=== PATIENT | female | born 1935 | race Caucasian/White ===

== ENCOUNTER 2018-01-01 11:30 | Outpatient (RCR) | payer MEDICARE, SELFPAY ==
--- NOTE | 2017-12-07 10:49 | HP.PTEVAL_ITS ---
Patient's Visit Information ALTON WILCOX is a 82 year old F referred to Physical Therapy by Chong Simmons with a diagnosis of unsteady gait. Date of Evaluation: 12/07/17 Physical Therapist: Jaren Heaton DPT, OC - Visit Plan Frequency: 2x /Week Duration: 4 Weeks Plan: 2x/week for 4 weeks to work on... 1. foam balance, ec balance and gait with head movements and turns. 2. Sink based LE strength. 3. Progress both to HEP with pics as safety allows. - Subjective Subjective: Sees Abelardo for nerve pain in face. Had brain surgery years ago for meningioma non cancerous. Has had nerve pain since then. Gave pills for nerve pain. They don't help. Doc office noticed walking was not good. Fell about a year ago stepping on object and tripped on it. Was walking at night and did not turn on lights. Had some pain but no injuries. Laid down for three days because could not get up. Went to ER. Fell acouple times since taking facial pain pills but was taking them wrong and has corrected that. Balance has been a prpoblem since surgery. Has some diabetic neuropathy possibly. No spinning. Feels weak. Sleeping OK. Lives alone in one story house, with no steps. Has ramps. Cooks and cleans for self. Buys gorceries and drives self. Uses can sometimes but not much. Uses it outside if slippery. - Pain LBP Pain Intensity (Out of 10): 0 Pain Intensity Range: 0, 4 Comment: constant, worse walking. - Objective Walks with cane back to PT mod I but slow, mild R antalgia. Without cane walk I on firm flat surfcae. reflexes 2/3 in patella and achilles. UE adn LE AROM WFL, ankle DF limited B to neutral. sensation in LE appears at deficit from knee down B. Hard to heel raise but otherwise strength in LE 4/5 without myotomal problems. Coordination to reciprocal toe and heel tap is min deficits. VOR is OK sitting , challenging walking and tends to stop moving head. - Balance Scores Functional Gait Assessment Score: 15 % Disability: 50.0000 CATSIB Score (Max score 120 seconds): 90 - Goals Goal 1:: 20/30 FGA to minimzie fall risk Goal Time Frame: 2-4 Weeks Goal 2:: Pt feel 50% steadier and improved balance. Goal Time Frame: 2-4 Weeks Goal 4:: Pt I with approp HEP for LE strength adn balance to minimize future problems. Goal Time Frame: 2-4 Weeks - Rehabilitation Potential Physical Therapy Diagnosis: Unsteady from neuropathy and sedntary. Rehabilitation Potential: Fair - Anticipated Interventions Patient/Client Instruction: Educate patient on: Condition, Plan of Care For the Purpose of:: To improve balance, To improve safety Therapeutic Exercise to Include: Strength training, Balance training, Gait and locomotor training For the Purpose of:: To improve balance, To improve safety with gait, To improve safety Thank you for the opportunity to evaluate your patient. For Medicare and Medicare HMO plans, please review the plan of care and approve it. It will need to be FAXED BACK to us at [phone] for Medicare purposes. Please let me know if there are questions or concerns regarding this plan of care. Physician Signature: Date:
--- NOTE | 2018-01-01 12:31 | HP.PTDCSUM ---
HP - PT D/C Summary It has been my pleasure to treat ALTON WILCOX under orders from Tuan Zhou MD, for the diagnosis of unsteady gait for a total of 9 visit(s). Discharge Date: 01/01/18 Please see the following information for a summary of their discharge status. - Subjective Subjective: Sore after workout in LB and right buttock. Gets up to 6/10 most of time and is 5/10 typically. Has to stop what she is doing to lie down sometimes due to pain. Feels like balance might be a little better but hard to tell. No falls latelya nd using cane all the time. Doing what she needs to do at home and doing exercises daily. Has to be careful when pain gets bad(if on feeet alot). - Pain LBP Pain Intensity (Out of 10): 5 - Overall Improvement % Improvement: 10 - Objective Objective/Function: Pt doing somewhat better with balance and strength, does not wish to continue in clinic but agreeable to continue via HEP. - Goals Goal 1:: FGA to minimzie fall risk Goal Progress: Progressing Goal 2:: Pt feel 50% steadier and improved balance. Goal Progress: SLOW Goal 4:: Pt I with approp HEP for LE strength adn balance to minimize future problems. Goal Progress: Goal Met - Plan Plan: D/C - D/C Information Discharge Comments: Pt does not wish to continue PT but will continue at home via HEP strengthening. If there are questions or concerns regarding this patient's physical therapy, please feel free to call me at [phone]. Thank you for the referral of this patient. Sincerely, Jaren Heaton, DPT, OC
== END 2018-01-01 19:00 | disposition home or self-care (01) ==
LOC: PT 11:30
PROVIDERS: Family Provider Family Medicine; PCP Family Medicine; Visit Provider Psychiatry & Neurology Neurology
DX: R26.81 Unsteadiness on feet (principal)
CPT/HCPCS: 97110; 97116; 97162; 97530

== ENCOUNTER → 2018-03-16 10:48 | Outpatient (CLI) | payer MEDICARE, SELFPAY ==
[2018-03-16 11:51] LABS: Carbamazepine (Tegretol) 3.3 ug/mL (4.0-12.0)
== END ==
PROVIDERS: Family Provider Family Medicine; PCP Family Medicine
DX: G50.0 Trigeminal neuralgia (principal)
CPT/HCPCS: 36415; 80156

== ENCOUNTER → 2018-07-04 12:42 | Outpatient (CLI) | payer MEDICARE, SELFPAY | PROVIDERS: Family Provider Family Medicine; PCP Family Medicine | DX: G45.8 Other transient cerebral ischemic attacks and related syndromes (principal); I74.9 Embolism and thrombosis of unspecified artery; B39.3 Disseminated histoplasmosis capsulati | CPT/HCPCS: 93306; 93880; A4216 ==

== ENCOUNTER → 2019-01-21 11:10 | Outpatient (CLI) | payer MEDICARE, SELFPAY ==
[2019-01-14 10:47] VITALS: BMI 30.4
[2019-01-21 12:50] LABS: Anion Gap 6 (5-15); BUN 20 mg/dL (7-18); BUN/Creat Ratio 22.1 RATIO (10-20); Calcium,Total 8.8 mg/dL (8.5-10.1); Chloride 107 mmol/L (98-107); Creatinine, Serum 0.91 mg/dL (0.55-1.02); EST Glomerular Filtration Rate 63 mL/min (>60); Est Glom Filt Rate - Afr Amer 76 mL/min (>60); Glucose 94 mg/dL (74-106); Potassium 4.1 mmol/L (3.5-5.1); Sodium Level 143 mmol/L (136-145)
== END ==
PROVIDERS: Family Provider Family Medicine; PCP Family Medicine; Referring Provider Physician Assistant Medical; Visit Provider Physician Assistant Medical
DX: I10 Essential (primary) hypertension (principal); I48.0 Paroxysmal atrial fibrillation
CPT/HCPCS: 36415; 80048

== ENCOUNTER → 2019-02-11 09:54 | Outpatient (CLI) | payer MEDICARE, SELFPAY ==
[2019-01-14 10:47] VITALS: BMI 30.4
--- NOTE | 2019-02-11 09:55 | ECHOD_ITS ---
Reason For Study: HTN Procedure This was a 2D Doppler, Color Flow transthoracic echocardiogram. Exam performed in department. Left Ventricle Normal LV size. Mild concentric left ventricular hypertrophy. Left ventricular systolic function is normal. The estimated ejection fraction is 55 %. Stage 1 diastolic dysfunction. No regional wall motion abnormalities noted. Right Ventricle Normal RV size. Normal systolic function. Atria The left atrium is mildly enlarged. Normal right atrium. Mitral Valve Mild mitral annular calcification. Mild (1+) eccentric mitral valve insufficiency. Tricuspid Valve Normal tricuspid valve. Mild (1+) tricuspid valve insufficiency. Pulmonary artery systolic pressure is 40 mmHg. Aortic Valve Trisinus/trileaflet aortic valve. Mild focal aortic valve calcification. Mild (1+) eccentric aortic valve insufficiency. Pulmonic Valve Normal pulmonic valve. Great Vessels Normal aortic root. The pulmonary artery is normal size. Normal inferior vena cava. Pericardium/Pleural No pericardial effusion. MMode/2D Measurements & Calculations LVIDd: 3.1 cm IVSd: 1.3 cm LVOT diam: 2.1 cm LVIDs: 1.8 cm LVPWd: 1.3 cm LVOT area: 3.6 cm2 RVDd: 3.3 cm FS: 44.1 % Ao root diam: 4.2 cm LAV(MOD-bp): 67.4 ml LA A4 area: 23.9 cm2 LAV(MOD-bp) Indexed: 36.9 ml/m2 LAV(MOD-sp2): 59.0 ml LAV(MOD-sp4): 71.8 ml LA dimension(2D): 3.5 cm RA A4 area: 18.4 cm2 Doppler Measurements & Calculations MV E max irving: 48.6 cm/sec Lat Peak E' Irving: 7.4 cm/sec Med Peak E' Irving: 3.7 cm/sec MV A max irving: 109.0 cm/sec E/E' lat: 6.6 E/E' med: 13.2 MV E/A: 0.45 Ao V2 max: 179.2 cm/sec AI max irving: 452.2 cm/sec LV V1 max: 161.5 cm/sec Ao max P.9 mmHg AI max P.9 mmHg LV V1 max P.4 mmHg Ao V2 mean: 124.5 cm/sec AI dec slope: 336.0 cm/sec2 LV V1 mean P.7 mmHg Ao mean P.8 mmHg AI P1/2t: 394.1 msec LV V1 mean: 113.8 cm/sec Ao V2 VTI: 31.6 cm LV V1 VTI: 28.8 cm GILLIAN(I,D): 3.3 cm2 GILLIAN(V,D): 3.2 cm2 SV(LVOT): 102.9 ml PA V2 max: 109.4 cm/sec TR max irving: 296.5 cm/sec TR max P.2 mmHg Interpretation Summary Normal LV size. Mild concentric left ventricular hypertrophy. Left ventricular systolic function is normal. The estimated ejection fraction is 55 %. Stage 1 diastolic dysfunction. Mild (1+) tricuspid valve insufficiency. Pulmonary artery systolic pressure is 40 mmHg. Ordering Physician: Juhi Keith/Kaushal Campos Referring Physician: KEAGAN Knott M.D. Performed By: Saida Cisneros RDCS
== END ==
PROVIDERS: Family Provider Family Medicine; PCP Family Medicine; Referring Provider Physician Assistant Medical; Visit Provider Physician Assistant Medical
DX: I48.0 Paroxysmal atrial fibrillation (principal)
CPT/HCPCS: 93306

== ENCOUNTER 2019-05-29 01:51 | Observation (INO) | payer MEDICARE, SELFPAY ==
[2019-05-29] VITALS (8 sets, daily range): BP systolic 154–182; BP diastolic 74–110; PULSE 54–84; RESP 16–20; TEMP 36.6–37.3; O2SAT 92–96; BMI 32.8; BMI 30.8
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
--- NOTE | 2019-05-29 02:09 | RAD_ITS ---
HISTORY: CONFUSIONDENIES ANY CHEST/BREATHING PROBLEMS EXAM: XR Chest 1 View COMPARISON: November 19, 2016 FINDINGS: LINES/DEVICES: None. LUNGS: There are chronic interstitial changes. No pneumothorax. No consolidation or effusion. MEDIASTINUM AND CARDIOVASCULAR STRUCTURES: Cardiac silhouette enlarged. Central airways and mediastinal contour are unremarkable. Athersclerotic plaque within the aortic arch. BONES AND SOFT TISSUES: Thoracic spondylosis. RAD/Chest 1 View (Portable) IMPRESSION: Chronic interestitial changes. No radiographic evidence of acute cardiopulmonary disease. at 0254 Reported and signed by: Emeka Batista MD Electronically Signed: Emeka Batista MD at 2:53 EDT Tel , Service support ,
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
[2019-05-29 02:22] LABS: Absolute Lymphocyte Count 0.86 X10^3/uL (0.83-4.51); Absolute Neutrophil Count 4.9 X10^3/uL (2.0-7.7); Basophil# 0.05 X10^3/uL; Basophil% 0.8 % (0-1); Hematocrit 44.6 % (37-47); Hemoglobin 15.5 g/dL (12.0-15.0); Lymphocyte # 0.86 X10^3/ul (4.0); Lymphocyte % 13.1 % (19-41); Mean Corp Hgb Conc 34.8 g/dL (32-36); Mean Corpuscular Hgb 32.5 pg (27.0-32.0); Mean Corpuscular Volume 93.5 fL (81-99); Mean Platelet Vol. 9.1 fl (6.2-12.0); Monocyte# 0.58 X10^3/uL; Monocyte% 8.8 % (0-10); NRBC Flagged by Analyzer 0 % (0-5); Neutrophil # 4.88 X10^3/uL (2.7-7.7); Platelet Count 228 K/mm3 (150-450); RBC Distribution Width CV 12.6 % (11.6-14.6); Red Blood Count 4.77 M/mm3 (4.2-5.4); White Blood Count 6.6 K/mm3 (4.4-11.0)
[2019-05-29 02:35] LABS: ALB/GLOB Ratio 1.2 RATIO (0.9-2.4); AST(SGOT) 15 U/L (15-37); Alanine Aminotransfer ALT/SGPT 16 U/L (13-56); Albumin, Serum 3.7 g/dL (3.2-5.0); Alkaline Phosphatase 80 U/L (45-117); Anion Gap 7 (5-15); BUN 11 mg/dL (7-18); BUN/Creat Ratio 14.1 RATIO (10-20); Calcium,Total 8.8 mg/dL (8.5-10.1); Chloride 109 mmol/L (98-107); Creatinine, Serum 0.78 mg/dL (0.55-1.02); EST Glomerular Filtration Rate 75 mL/min (>60); Est Glom Filt Rate - Afr Amer 91 mL/min (>60); Estimated Creatinine Clearance 33.71 ml/min; Globulin 3.1 g/dL (2.2-4.2); Glucose 138 mg/dL (74-106); Potassium 3.8 mmol/L (3.5-5.1); Protein, Total 6.8 g/dL (6.4-8.2); Sodium Level 141 mmol/L (136-145)
[2019-05-29 02:38] LABS: Alcohol, Blood (Medical)-Serum < 3.0 mg/dL
[2019-05-29 02:52] LABS: Mucous, Urine 0 SEEN /hpf (<or=2+); Red Blood Cells-Urine 0 SEEN /hpf (0-5); Squamous Epithelial Cells - UA 0 SEEN /hpf (5-10)
[2019-05-29 02:54] LABS: Color, Urine Yellow (Yellow); Glucose, Dipstick Normal (Normal); Ketone-Dipstick Negative (Negative); Leukocyte Esterase-Dipstick 25 /ul (Negative); Nitrite-Dipstick Negative (Negative); Occult Blood-Urine Negative /ul (Negative); Protein-Dipstick Negative (Negative); Urine Bilirubin Dipstick Negative (Negative); Urine Clarity Clear (Clear); Urine Urobilinogen Normal (Normal)
[2019-05-29 03:00] LABS: Bacteria 2+ /hpf (None Seen); White Blood Cells 0-5 SEEN /hpf (0-5)
--- NOTE | 2019-05-29 03:25 | NURSING ---
[facility] PATIENTS VEHICLE
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
[2019-05-29] MEDS: oxyCODONE 5 MG Tablet PO (04:45)
[2019-05-29] MEDS: 0.9% NaCl Peripheral Flush Adult/Peds IV (04:46)
[2019-05-29] MEDS: Lactated Ringers 1,000 ML 100 ML IV (04:46)
[2019-05-29] MEDS: Enoxaparin 40 MG/0.4 ML Syringe SC (04:46)
[2019-05-29] MEDS: Metoprolol Tartrate 50 MG Tablet PO ×2 (04:47→22:19)
[2019-05-29 06:21] LABS: Bedside Glucose 166 mg/dL (70-110)
[2019-05-29 06:42] LABS: Magnesium 2.2 mg/dL (1.6-2.6); Thyroid Stim Hormone (TSH) 0.61 uIU/mL (0.358-3.74)
[2019-05-29] MEDS: Losartan Potassium 25 MG Tablet PO (08:04)
[2019-05-29] MEDS: Ascorbic Acid 500 MG Tablet 1000 MG PO (08:04)
--- NOTE | 2019-05-29 08:37 | PCM.PN.BLA ---
Progress Note Patient is an 84-year-old lady with multiple comorbidities brought to the emergency department with altered mental status. Work-up including head CT as well as infectious work-up so far negative to date admitted to regular nursing for further management 1. Acute encephalopathy do suspect underlying dementia with behavioral agitation patient work-up is so far remain negative today 2. Diabetes mellitus type 2: Patient is on Accu-Cheks before meals and at bedtime with sliding scale coverage 3. Paroxysmal atrial fibrillation: Remains in sinus rhythm 4. Hypertension-blood pressure controlled, home medications continued with dose adjustment as needed 5. Previous history of subarachnoid hemorrhage 6. Cardiac arrhythmias including PACs and PVCs patient is on beta-blockers next 7. DVT prophylaxis SC Lovenox
--- NOTE | 2019-05-29 10:54 | NURSING ---
Patient walking in hallway asking about how to get out of here. This nurse informed the patient that he was not certain whether she had been officially discharged at this time, instructed patient that nursing staff would look at her discharge closer but would need to get her back to her room first. Patient escorted back to room. Gait steady but patient with possible confusion. It was noted upon escorting her back to her room that she had dislodged her IV from her right antecubital area on her own. A piece of sterile gauze and tape were applied to the site in which the IV was previously inserted. No active bleeding noted although there was some blood noted to the patient's gown sleeve. Bed alarm applied and patient's primary RN made aware of situation.
[2019-05-29 11:31] LABS: Bedside Glucose 122 mg/dL (70-110)
--- NOTE | 2019-05-29 13:02 | CASEMGMT ---
Social Work Assessment Referral Date: 05/29/2019 Date of Assessment: 05/29/2019 Reason for consult: AMS, confusion Informant: SW Personal Status: SW met with pt to complete initial assessment. Pt is alert and orientated but does exhibit some confusion throughout conversation. Pt states that her brother lives with her in a one story home. Pt does state that her brother is not there all of the time. Pt states that her brother's name is Paul. SW asked pt about contact information for Paul and pt states It is the same number that is my number. Pt states that she was previously independent at home, states she still drives. Pt states previously independent with ADLs denies still cooking. Pt states she drives to [employer] and gets food that doesn't require cooking. DME include cane and walker. Pt denied using cane and walker unless she is out in the community. PCP is Dr. Knott and Pharmacy is [facility]. Pt states that she also has a sister in law named Tyra who is Paul's and identifies Tyra as being good support for pt. Substance Abuse HX: Pt denied Mental Health Hx: Pt denied SW educated pt on discharge options including SNF, HHC, and outpatient therapy. SW did review PT/OT notes and no therapy is recommended for pt. Pt states that she would like to discharge home, denied need for HHC at this time. Pt denied additional needs or concerns at this time. SW completed Mini Mental Status exam and pt scored a 15. SW attempted to call pt's brother Paul and the phone number doesn't work. SW placed a call to Tyra and left a message for Paul or Tyra to give this worker a call back to discuss discharge plans. Plan: Pt wishes to discharge home. Pt does exhibit some confusion and this worker is waiting to hear from either Paul or Tyra to confirm discharge plans. Cecilia Gr UNDERWATER ROBOTICIST, PROTOTYPE FABRICATOR
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
[2019-05-29] MEDS: hydrALAZINE 20 MG/ML Vial 10 MG IV (15:13)
[2019-05-29 15:50] LABS: Bedside Glucose 147 mg/dL (70-110)
[2019-05-29] MEDS: Acetaminophen 325 MG Tablet 650 MG PO (22:25)
[2019-05-29] MEDS: MELATONIN 3 MG TABLET PO (22:27)
[2019-05-29 22:51] LABS: Bedside Glucose 125 mg/dL (70-110)
[2019-05-30 02:14] VITALS: BP 133/70; PULSE 70; RESP 16; TEMP 36.9; O2SAT 95
[2019-05-30 06:31] LABS: Bedside Glucose 129 mg/dL (70-110)
[2019-05-30 09:15] VITALS: BP 140/66; PULSE 64; RESP 18; TEMP 36.9; O2SAT 95
[2019-05-30] MEDS: Metoprolol Tartrate 50 MG Tablet PO (09:15)
[2019-05-30] MEDS: Losartan Potassium 25 MG Tablet PO (09:15)
[2019-05-30] MEDS: Ascorbic Acid 500 MG Tablet 1000 MG PO (09:15)
[2019-05-30] MEDS: Enoxaparin 40 MG/0.4 ML Syringe SC (09:15)
--- NOTE | 2019-05-30 09:23 | DCINST_ITS ---
- Discharge Diagnoses Current Active Problems: Current Active and Chronic Problems (Last Reviewed 04/23/19 @ 11:20 by Manjit Felton SECURITY OPERATIONS ENGINEER-C) Acute encephalopathy (Acute) You will use the following diet at home:: No restrictions Your food should be the consistency of: Regular Discharge Activity: Return to Normal Activity, May Not Drive Allergies/Adverse Reactions: Allergies environmental allergies Allergy (Intermediate, Uncoded 05/29/19 01:56) Unknown cabbage Adverse Reaction (Uncoded 05/29/19 01:56) Diarrhea bowel spasms tomato Adverse Reaction (Uncoded 05/29/19 01:56) Diarrhea bowel spasms tree nuts Adverse Reaction (Uncoded 05/29/19 01:56) Diarrhea bowel spasms Medications to take at Discharge Ascorbic Acid [Vitamin C] 1,000 mg PO DAILY@0800 05/13/15 Cholecalciferol (Vitamin D3) [Vitamin D3] 2,000 unit PO DAILY 11/19/16 Losartan Potassium [Cozaar] 25 mg PO DAILY 11/19/16 Metoprolol Tartrate [Lopressor (beta morgan)] 50 mg PO BID tab 11/22/16 Aspirin [Aspirin, Baby] 81 mg PO DAILY@0800 #30 tab 05/30/19 The following prescriptions were given: Aspirin [Aspirin, Baby] 81 mg PO DAILY@0800 #30 tab Transmission Status: Pending to [facility]/pharmacy #[id number] Primary Care Physician: Willard Knott III, MD [Primary Care Provider] - Please follow up with your Primary Care Physician in: [place] 5-7 DAYS Test Results: Test results from this visit will be discussed in further detail at your follow- up appointment, if applicable. Proposed Discharge Date: 05/30/19
--- NOTE | 2019-05-30 09:25 | PCM.DC.SUM ---
Discharge Date and Diagnosis - Problem List Patient Problems: Active and Suspected Problems (Last Reviewed 04/23/19 @ 11:20 by ARSALAN Wood) TGA (transient global amnesia) (Acute) Acute encephalopathy (Acute) Date of Admission: 05/29/19 Date of Discharge: 05/30/19 - Primary Discharge Diagnosis Active and Suspected Problems (Last Reviewed 04/23/19 @ 11:20 by ARSALAN Wood) TGA (transient global amnesia) (Acute) Acute encephalopathy (Acute) - Secondary Discharge Diagnosis Chronic Problems (Last Reviewed 04/23/19 @ 11:20 by ARSALAN Wood) Hyperlipidemia (Chronic) Paroxysmal atrial fibrillation (Chronic) Sinus tachycardia (Chronic) Hypertension (Chronic) Type 2 diabetes mellitus (Chronic) diet controlled Hospital Course and Treatment Imaging Results: Clinical Impression(s) from Imaging Studies Brain CT 05/29/19 02:09 IMPRESSION: No acute intracranial abnormality. Worsening periventricular deep and subcortical white matter disease, consistent with chronic microvascular ischemia, but without focal acute ischemia perceived Chronic changes as above. ASPECT 10. Individualized dose optimization techniques were used for this CT. at 0258 Reported and signed by: Emeka Batista MD Electronically Signed: Emeka Batista MD at 2:57 EDT Tel , Service support , Chest X-Ray 05/29/19 02:09 IMPRESSION: Chronic interestitial changes. No radiographic evidence of acute cardiopulmonary disease. at 0254 Reported and signed by: Emeka Batista MD Electronically Signed: Emeka Batista MD at 2:53 EDT Tel , Service support , Operations: None Summary of Care Provided: Patient is an 84-year-old lady with multiple comorbidities brought to the emergency department with altered mental status. Work-up including head CT as well as infectious work-up so far negative to date admitted to regular nursing for further management 1. Acute encephalopathy do suspect underlying dementia with behavioral agitation patient work-up is so far remain negative today it was felt patient presentation was consistent with transient global amnesia since her condition improved within 24 hours of admission. She was discharged on aspirin 2. Diabetes mellitus type 2: Patient is on Accu-Cheks before meals and at bedtime with sliding scale coverage 3. Paroxysmal atrial fibrillation: Remains in sinus rhythm 4. Hypertension-blood pressure controlled, home medications continued with dose adjustment as needed 5. Previous history of subarachnoid hemorrhage 6. Cardiac arrhythmias including PACs and PVCs patient is on beta-blockers next 7. DVT prophylaxis SC Lovenox Patient Problems: Active and Suspected Problems (Last Reviewed 04/23/19 @ 11:20 by Manjit Felton, DIRECTOR OF PHYSICAL THERAPY-C) TGA (transient global amnesia) (Acute) Acute encephalopathy (Acute) Objective: GENERAL: cooperative HEENT: Atraumatic; EYES; Anicteric, Normal Conjunctiva NECK; supple, normal thyroid, RESPIRATORY: Diminished to auscultation CARDIOVASCULAR: Regular S1 S2, GI: soft, non-tender, normoactive bowel sounds, : No Renal angle tenderness; EXTREMITIES: No edema, no clubbing, NEURO: Awake; no lateralizing signs. SKIN: No Rash PSYCH; Normal affect - Physical Exam Vital Signs Temp Pulse Resp BP Pulse Ox 98.5 F 64 16 133/70 H 95 05/30/19 02:14 05/30/19 09:15 05/30/19 02:14 05/30/19 02:14 05/30/19 02:14 Oxygen Delivery Method Room Air Weight: 76.4 kg Body Mass Index (BMI) 30.8 Intake and Output for Last 24 Hours 05/28/19 05/29/19 05/30/19 23:59 23:59 23:59 Intake Total 1727 / 1727 Output Total 850 / 850 Balance 877 / 877 POC Glucose 05/30/19 05/29/19 05/29/19 06:25 22:17 15:45 POC Glucose 129 H 125 H 147 H 05/29/19 11:20 POC Glucose 122 H Discharge Diet: No Restrictions Discharge Activity: Return to Normal Activity, May Not Drive Home Medications: Medications to take at Discharge Ascorbic Acid [Vitamin C] 1,000 mg PO DAILY@0800 05/13/15 Cholecalciferol (Vitamin D3) [Vitamin D3] 2,000 unit PO DAILY 11/19/16 Losartan Potassium [Cozaar] 25 mg PO DAILY 11/19/16 Metoprolol Tartrate [Lopressor (beta morgan)] 50 mg PO BID tab 11/22/16 Aspirin [Aspirin, Baby] 81 mg PO DAILY@0800 #30 tab 05/30/19 Following Prescrptions Were Given to Patient: Aspirin [Aspirin, Baby] 81 mg PO DAILY@0800 #30 tab Transmission Status: Pending to [facility]/pharmacy #[id number] Primary Care Physician: Willard Knott III, MD [Primary Care Provider] - Please follow up with your Primary Care Physician in: [place] 5-7 DAYS Disposition: Home Minutes spent on discharge:: 35 Patient Condition:: Stable Medical Necessity - Tobacco Use Smoking Status: Never smoker Meaningful Use Info Meaningful Use Diagnoses (Choose all that apply): None applicable Code Visit OBSV E&M: 51371 Observation care discharge
[2019-05-30 10:41] VITALS: O2SAT 95
== END 2019-05-30 11:05 | disposition home or self-care (01) ==
LOC: ED 02:52 → MS3 03:36
PROVIDERS: Admitting Provider Internal Medicine; Emergency Provider Emergency Medicine; Family Provider Family Medicine; PCP Family Medicine; Visit Provider Internal Medicine
DX: G45.4 Transient global amnesia (principal); I48.0 Paroxysmal atrial fibrillation; I10 Essential (primary) hypertension; E11.9 Type 2 diabetes mellitus without complications; E78.5 Hyperlipidemia, unspecified; Z79.899 Other long term (current) drug therapy; I49.3 Ventricular premature depolarization
CPT/HCPCS: 36415; 70450; 71045; 80053; 80320; 81001; 82962; 83036; 83735; 84443; 85025; 93005; 96361; 96372; 96374; 97162; 97166; 99218; 99285; J7120; A4216; G0378; G0480

== ENCOUNTER 2019-07-29 14:59 | Inpatient (IN) | payer MEDICARE, SELFPAY ==
[2019-05-29 04:05] VITALS: BMI 30.8
[2019-07-29] VITALS (7 sets, daily range): BP systolic 147–166; BP diastolic 74–100; PULSE 66–77; RESP 18–20; TEMP 36.1–36.8; O2SAT 62–97; BMI 32.0; BMI 31.8
--- NOTE | 2019-07-29 15:14 | EKG12_ITS ---
Test Reason : Blood Pressure : / mmHG Vent. Rate : 077 BPM Atrial Rate : 077 BPM P-R Int : 166 ms QRS Dur : 126 ms QT Int : 446 ms P-R-T Axes : 056 049 014 degrees QTc Int : 504 ms Sinus rhythm with frequent Premature ventricular complexes Right bundle branch block Abnormal ECG Confirmed by PAULINA RAMÍREZ, ANTWAN ([id number]), editor farm journal DG MONTELONGO ([id number]) on 07/31/2019 12:28:52 PM Referred By: Vernell Cavazos Confirmed By:ANTWAN GALLARDO MD
[2019-07-29] MEDS: Aspirin 81 MG TAB.CHEW 324 MG PO (15:36)
[2019-07-29 15:37] LABS: Absolute Lymphocyte Count 0.81 X10^3/uL (0.83-4.51); Absolute Neutrophil Count 5.4 X10^3/uL (2.0-7.7); Basophil# 0.05 X10^3/uL; Basophil% 0.7 % (0-1); Eosinophil# 0.13 X10^3/uL; Eosinophils% 1.9 % (0-5); Hematocrit 38.1 % (37-47); Hemoglobin 12.9 g/dL (12.0-15.0); Lymphocyte # 0.81 X10^3/ul (4.0); Lymphocyte % 11.6 % (19-41); Mean Corp Hgb Conc 33.9 g/dL (32-36); Mean Corpuscular Volume 97.4 fL (81-99); Mean Platelet Vol. 9.9 fl (6.2-12.0); Monocyte# 0.57 X10^3/uL; Monocyte% 8.1 % (0-10); NRBC Flagged by Analyzer 0 % (0-5); Neutrophil # 5.42 X10^3/uL (2.7-7.7); Neutrophil % 77.4 % (47-70); Platelet Count 245 K/mm3 (150-450); RBC Distribution Width CV 13.3 % (11.6-14.6); RBC Distribution Width SD 46.7 fl (35.1-43.9); Red Blood Count 3.91 M/mm3 (4.2-5.4)
--- NOTE | 2019-07-29 15:40 | RAD_ITS ---
STUDY: X-RAY CHEST REASON FOR EXAM: Female, 84 years old. Hypertension headache shortness of breath TECHNIQUE: PA and lateral views of the chest. COMPARISON: May 29, 2019 chest x-ray FINDINGS: There is a blunted appearance of the left costophrenic angle new since prior study. There is increased patchy density at the lung bases. There is blunting of the right costophrenic angle. There is moderate cardiac enlargement. Normal mediastinum and jo-ann. Normal visualized pulmonary arteries. There is atherosclerotic calcification of the aortic arch with tortuosity. There are diffuse degenerative changes of the visualized thoracic spine. Normal visualized ribs, clavicles, and shoulders. There is no demonstrated abnormality of the visualized soft tissue structures of the upper abdomen. RAD/Chest PA and Lateral IMPRESSION: Findings are suspicious for bilateral infiltrates possible trace left effusion. This is new since prior study. Cardiomegaly. Electronically Signed: Brooke Hay MD at 16:52 EDT Tel , Service support ,
[2019-07-29 15:50] LABS: International Normalized Ratio 1.2; Prothrombin Time (Protime)PT. 14.6 SECONDS (11.7-14.9)
[2019-07-29 15:57] LABS: Anion Gap 8 (5-15); BUN 12 mg/dL (7-18); BUN/Creat Ratio 16.8 RATIO (10-20); Calcium,Total 8.7 mg/dL (8.5-10.1); Chloride 110 mmol/L (98-107); Creatinine, Serum 0.71 mg/dL (0.55-1.02); EST Glomerular Filtration Rate 83 mL/min (>60); Est Glom Filt Rate - Afr Amer 100 mL/min (>60); Estimated Creatinine Clearance 33.71 ml/min; Glucose 111 mg/dL (74-106); Potassium 3.9 mmol/L (3.5-5.1); Sodium Level 142 mmol/L (136-145)
--- NOTE | 2019-07-29 16:41 | ED.DCSUM_ITS ---
- ER Visit Summary Date of Service: 07/29/19 Chief Complaint: Shortness of breath and elevated blood pressure History of Present Illness: The patient is a 84 F who presents with shortness of breath and elevated blood pressure that is gradually gotten worse over the past 2 weeks. The shortness of breath is gradually gotten worse over the past 4 to 5 days. Patient states her breathing feels limited. Patient states this feels like it is in her chest. Patient states her breathing is worse with any wal stephanie. Patient also admits to some mild lightheadedness. Patient does admit to some pain in her chest. Patient denies any nausea or vomiting. Patient denies any diaphoresis. Patient does admit to pain in her neck and diffuse myalgias. Patient also admits to a headache. Patient states she went to an urgent care and her blood pressure was 200/110. Patient was then referred to the emergency department for further evaluation. Physical Examination: Vital signs are stable. Patient is afebrile. Patient is in no acute distress. Oral mucosa is pink and moist. Neck is supple. Trachea is midline. There is no JVD noted. Heart was regular rate and rhythm. Lungs are clear and equal bilaterally. Abdomen is soft. Bowel sounds are normal. There is no tenderness. Cranial nerves II through XII are intact. There are no focal motor or sensory deficits noted. Test Results: EKG showed normal sinus rhythm with a rate of 77. There is a right bundle branch block pattern noted. There are multiple PVCs. There are no acute ST or T wave changes noted. CBC was normal. Basic metabolic profile was essentially within normal limits. Troponin was normal. INR is 1.2 and PTT was 40.0. Chest x-ray shows bilateral infiltrates and a possible trace left effusion. These were interpreted by the radiologist and reviewed by myself. Emergency Department Course and Treatment: Patient was given aspirin here in the emergency department. On reevaluation, patient's pulse oximeter on room air was 88%. Patient was started on oxygen. Patient was given a dose of Levaquin here. Case was discussed with the hospitalist. She requested an ambulatory pulse ox. This was obtained. Patient's pulse oximeter reading dropped to 86% while ambulating. She will be admitted to the hospital. Disposition: Admit to hospital Impression: 1. Bilateral pneumonia This note was generated with Trellie dictation software. It may contain incorrect words, spelling, and punctuation that were not noted in review of the chart prior to signing ED Disposition - Plan for ED Patient: Disposition: Acute Care Hospital [facility] Diagnosis: Bilateral pneumonia Referrals: Willard Knott III, MD [Primary Care Provider] -
[2019-07-29 17:24] LABS: Bacteria 0 SEEN /hpf (None Seen); Mucous, Urine 0 SEEN /hpf (<or=2+)
[2019-07-29 17:40] LABS: Color, Urine Yellow (Yellow); Glucose, Dipstick Normal (Normal); Ketone-Dipstick Negative (Negative); Leukocyte Esterase-Dipstick 100 /ul (Negative); Nitrite-Dipstick Negative (Negative); Occult Blood-Urine Negative /ul (Negative); Protein-Dipstick Negative (Negative); Urine Bilirubin Dipstick Negative (Negative); Urine Clarity Clear (Clear); Urine Urobilinogen Normal (Normal)
[2019-07-29 17:57] LABS: Red Blood Cells-Urine 0 SEEN /hpf (0-5); Squamous Epithelial Cells - UA 0-5 SEEN /hpf (5-10); White Blood Cells 0-5 SEEN /hpf (0-5)
--- NOTE | 2019-07-29 19:03 | HP.PCM_ITS ---
Problem List (1) CAP (community acquired pneumonia) Status: Acute Qualifiers: Laterality: right Lung location: lower lobe of lung Qualified Code(s): J18.1 - Lobar pneumonia, unspecified organism (2) Hyperlipidemia Status: Chronic Qualifiers: Hyperlipidemia type: unspecified Qualified Code(s): E78.5 - Hyperlipidemia, unspecified (3) Paroxysmal atrial fibrillation Status: Chronic (4) Hypertension Status: Chronic Qualifiers: Hypertension type: essential hypertension (5) Type 2 diabetes mellitus Status: Chronic Qualifiers: Diabetes mellitus long-term insulin use: without medical terminologist use Diabetes mellitus complication status: without complication Qualified Code(s): E11.9 - Type 2 diabetes mellitus without complications Comment: diet controlled History of Present Illness Date of Admission: 07/29/19 Chief Complaint: Shortness of breath, generalized weakness ongoing for 2 weeks The patient is a 84 year old F with past medical history of hypertension with a 2-week history of generalized weakness as well as shortness of breath. Patient denies any sick contact. Denies any fever or chills or nausea or vomiting. She admits to feeling very short of breath with the least exertion. This was also associated with orthopnea but no PND or bilateral leg swelling. She denied any runny nose or shortness of breath but she has a cough that has been persistent. She came to emergency department at the insistence of her sister. Her admitting vitals with temperature of 97.0F, blood pressure 157/87, heart rate 66, patient rate is 18, SPO2 is 93% on room air. Patient was later on found to be hypoxic with SPO2 88% on room air. She was walked in the emergency room and was saturating at 80% on room air with exertion. Improved to 89% on 2 L of oxygen and later on 100% on 3 L of oxygen. Admitting blood work showed WBC count of 7.0, hemoglobin 12.9, platelet count of 245, INR 1.2, BMP was unremarkable. UA was unremarkable. Her admitting chest X-ray showed bilateral infiltrates. Past Medical History Past Medical History (Chronic Problems): Chronic Problems (Last Reviewed 04/23/19 @ 11:20 by Manjit Felton NP-C) Hyperlipidemia (Chronic) Paroxysmal atrial fibrillation (Chronic) Sinus tachycardia (Chronic) Hypertension (Chronic) Type 2 diabetes mellitus (Chronic) diet controlled Medical History: Medical History (Last Reviewed 04/23/19 @ 11:20 by Manjit Felton NP-C) Hyperlipidemia (Chronic) E78.5 Paroxysmal atrial fibrillation (Chronic) I48.0 Sinus tachycardia (Chronic) R00.0 Hypertension (Chronic) I10 Type 2 diabetes mellitus (Chronic) E11.9 diet controlled Meningioma D32.9 SAH (subarachnoid hemorrhage) I60.9 Elevated troponin R74.8 Nonrheumatic tricuspid valve regurgitation I36.1 Other secondary pulmonary hypertension I27.29 Paroxysmal atrial fibrillation I48.0 Atrial fibrillation with RVR (Inactive) I48.91 converted to sinus-no anticogulation recommended Dehydration (Inactive) E86.0 Fall at home (Inactive) W19.XXXA, Y92.099 Meningioma (Inactive) D32.9 Obesity (Inactive) E66.9 SAH (subarachnoid hemorrhage) (Inactive) I60.9 Sepsis due to Escherichia coli (E. coli) (Inactive) A41.51 Weakness generalized (Inactive) R53.1 Allergies environmental allergies Allergy (Intermediate, Uncoded 07/29/19 14:59) Unknown cabbage Adverse Reaction (Uncoded 07/29/19 14:59) Diarrhea bowel spasms tomato Adverse Reaction (Uncoded 07/29/19 14:59) Diarrhea bowel spasms tree nuts Adverse Reaction (Uncoded 07/29/19 14:59) Diarrhea bowel spasms Home Medications: Ambulatory Orders Medication Instructions Recorded Losartan Potassium [Cozaar] 25 mg PO DAILY 11/19/16 Metoprolol Tartrate [Lopressor 50 mg PO BID tab 11/22/16 (beta morgan)] Aspirin 81 mg PO DAILY@0800 07/29/19 Surgical History: Surgical History (Last Reviewed 01/14/19 @ 10:53 by Reina Kearns) H/O total hip arthroplasty Z96.649 History of carpal tunnel surgery Z92.89 History of craniotomy Z98.890 History of total hysterectomy Z98.890, Z90.710 Hx of appendectomy Z98.890, Z90.49 Hx of total knee arthroplasty Z96.659 S/P craniotomy (Inactive) Z98.890 Surgical History: appendectomy, hysterectomy - 1985, total hip arthroplasty - 1999's, total knee arthroplasty - 2011, - - carpal tunnel surgery 1999' Psychiatric History: No pertinent psych hx 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 history Lives: With Family Smoking Status: Never smoker Alcohol: None Drugs: None - *Family History Maternal Family History: Family History (Last Reviewed 01/14/19 @ 10:53 by Reina Kearns) Brother Family history of PTCA History Items: No pertinent history Paternal Family History: Family History (Last Reviewed 01/14/19 @ 10:53 by Reina Kearns) Brother Family history of PTCA History Items: Heart Disease - deceaed age 73 Offspring Family History: Family History (Last Reviewed 01/14/19 @ 10:53 by Reina Kearns) Brother Family history of PTCA History Items: - - no offspring Review of Systems Constitutional: Reports: Anorexia, Malaise, Weakness, Fatigue. Denies: Chills, Fever, Weight Change Eyes: Denies: Blurred vision, Cataracts, Conjunctivae Inflammation, Pain, Redness, Vision Change HEENT: Denies: Difficulty Swallowing, Head Aches, Hearing Changes, Sinus Congestion, Sinus Drainage, Sore Throat Cardiovascular: Denies: Chest Pain, Claudication, Orthopnea, Palpitations Respiratory: Reports: Cough, Shortness of Breath, Shortness of breath at rest, Shortness of breath upon exertion. Denies: Pleuritic Pain, Sputum production Gastrointestinal: Denies: Abdominal Pain, Constipation, Hematemesis, Hematochezia, Nausea, Vomiting Genitourinary: Denies: Dysuria, Frequency, Incontinence Musculoskeletal: Denies: Joint Pain, Joint stiffness, Joint swelling, Joint Tenderness Skin: Denies: Dryness, Pruritis, Rash, Wounds Neurological: Denies: Difficulty swallowing, Focal weakness, Numbness, Tingling Psychiatric: Denies: Anxiety, Depression, Homicidal Ideations, Suicidal Ideations Hematologic/ Lymphatic: Denies: Easy Bruising, Easy Bleeding VTE Information - Inpt Only VTE Present on Admission: No VTE Pharm Prophylaxis ordered?: Yes Patient Problems: Active and Suspected Problems (Last Reviewed 04/23/19 @ 11:20 by BRENTON WoodC) Bilateral pneumonia (Acute) CAP (community acquired pneumonia) (Acute) - Physical Exam General: Alert, Oriented x3, Cooperative, No apparent distress HEENT: Atraumatic, PERRLA, EOMI, Normocephalic Oral: Moist Mucosa Neck: Supple Lungs: Clear to auscultation, Normal air movement Cardiovascular: Regular rate, Regular Rhythm, Normal S1, Normal S2, No murmurs Abdomen: Bowel Sounds Present, Soft, Non Tender, Non-Distended, No Hepato- splenomegaly Extremities: No edema, - - varicose veins on legs Skin: No rashes Musculoskeletal: No Tenderness to Palpation of Joints or Extremities Lymphatic: No Cervical, Supraclavicular, or Inguinal Adenopathy Neurological: Cranial nerves II-XII grossly intact, Neuro grossly intact Psych/Mental Status: Normal Affect, Appropriate Vital Signs Temp Pulse Resp BP Pulse Ox 97.0 F L 76 19 H 147/74 H 89 07/29/19 15:00 07/29/19 17:47 07/29/19 17:47 07/29/19 17:47 07/29/19 18:45 Oxygen Flow Rate (L/min) 2 Oxygen Delivery Method Nasal Cannula Weight: 79.379 kg Body Mass Index (BMI) 32.0 Laboratory Tests Past 24 Hrs 07/29/19 07/29/19 07/29/19 15:30 15:30 15:30 WBC 7.0 RBC 3.91 L Hgb 12.9 Hct 38.1 MCV 97.4 MCH 33.0 H MCHC 33.9 RDW Std Deviation 46.7 H RDW Coeff of Margaret 13.3 Plt Count 245 MPV 9.9 Immature Gran % (Auto) 0.300 Neut % (Auto) 77.4 H Lymph % (Auto) 11.6 L Worth % (Auto) 8.1 Eos % (Auto) 1.9 Baso % (Auto) 0.7 Absolute Neuts (auto) 5.4 Absolute Lymphs (auto) 0.81 L Nucleated RBC % 0 PT 14.6 INR 1.2 APTT 40.0 H Sodium 142 Potassium 3.9 Chloride 110 H Carbon Dioxide 24.0 Anion Gap 8 BUN 12 Creatinine 0.71 Estim Creat Clear Calc 33.71 Est GFR (MDRD) Af Amer 100 Est GFR (MDRD) Non-Af 83 BUN/Creatinine Ratio 16.8 Glucose 111 H Calcium 8.7 Troponin I 0.015 Urine Color Urine Clarity Urine pH Ur Specific [place] Urine Protein Urine Glucose (UA) Urine Ketones Urine Occult Blood Urine Nitrite Urine Bilirubin Urine Urobilinogen Ur Leukocyte Esterase Urine RBC Urine WBC Ur Squamous Epith Cells Urine Bacteria Urine Mucus 07/29/19 17:11 WBC RBC Hgb Hct MCV MCH MCHC RDW Std Deviation RDW Coeff of Margaret Plt Count MPV Immature Gran % (Auto) Neut % (Auto) Lymph % (Auto) Worth % (Auto) Eos % (Auto) Baso % (Auto) Absolute Neuts (auto) Absolute Lymphs (auto) Nucleated RBC % PT INR APTT Sodium Potassium Chloride Carbon Dioxide Anion Gap BUN Creatinine Estim Creat Clear Calc Est GFR (MDRD) Af Amer Est GFR (MDRD) Non-Af BUN/Creatinine Ratio Glucose Calcium Troponin I Urine Color Yellow Urine Clarity Clear Urine pH 6.0 Ur Specific [place] 1.010 Urine Protein Negative Urine Glucose (UA) Normal Urine Ketones Negative Urine Occult Blood Negative Urine Nitrite Negative Urine Bilirubin Negative Urine Urobilinogen Normal Ur Leukocyte Esterase 100 H Urine RBC 0 SEEN Urine WBC 0-5 SEEN Ur Squamous Epith Cells 0-5 SEEN Urine Bacteria 0 SEEN Urine Mucus 0 SEEN Assessment/Plan All Active Problems (Last Reviewed 04/23/19 @ 11:20 by Manjit Felton, BAIT MAN-C) Bilateral pneumonia (Acute) CAP (community acquired pneumonia) (Acute) TGA (transient global amnesia) (Acute) Acute encephalopathy (Acute) 84 year old F with past medical history of hypertension with a 2-week history of generalized weakness as well as shortness of breath. 1. Acute hypoxic respiratory insufficiency secondary to acute community acquired pneumonia Patient was hypoxic in the emergency department and required use of 2-3 L of oxygen We will continue same, breathing treatments PRN, encourage use of incentive spirometer May need to be evaluated for ambulatory oxygen prior to discharge 2. Acute community acquired pneumonia, stable vitals, started on IV levaquin Will continue withLevaquin, check urine streptococcal and Legionella antigen 3. Hypertension, uncontrolled, will continue with home Losartan and metoprolol 4. DVT PPx- Heparin SC Code Visit Inpatient E&M: 03121 Init Hosp L3
[2019-07-29] MEDS: levoFLOXacin IV 750 MG/150 ML BAG 100 MG IV (19:10)
[2019-07-29] MEDS: oxyCODONE 5 MG Tablet PO (20:45)
[2019-07-29] MEDS: Heparin Injection (Vial) 5,000 UNIT/ML VIAL 5000 UNIT SC (20:46)
[2019-07-29] MEDS: Metoprolol Tartrate 50 MG Tablet PO (20:46)
[2019-07-29] MEDS: guaiFENesin 1,200 MG Tablet 1200 MG PO (20:46)
[2019-07-29] MEDS: 0.9% Normal Saline 1,000 ML 75 ML IV (20:51)
[2019-07-29] MEDS: Menthol/Lanolin/Calamine/Znox 113 GM Tube 1 APPLIC TOPICAL (22:57)
[2019-07-29] MEDS: Nystatin Powder 15gm Bottle 1 APPLIC TOPICAL (22:57)
[2019-07-30] VITALS (12 sets, daily range): BP systolic 124–161; BP diastolic 75–103; PULSE 52–88; RESP 14–24; TEMP 36.3–37.1; O2SAT 94–97
[2019-07-30] MEDS: Heparin Injection (Vial) 5,000 UNIT/ML VIAL 5000 UNIT SC ×3 (05:46→22:35)
[2019-07-30] MEDS: Acetaminophen 325 MG Tablet 650 MG PO ×2 (05:49→15:41)
[2019-07-30 06:16] LABS: Absolute Lymphocyte Count 0.61 X10^3/uL (0.83-4.51); Absolute Neutrophil Count 4.9 X10^3/uL (2.0-7.7); Basophil# 0.04 X10^3/uL; Basophil% 0.6 % (0-1); Eosinophil# 0.13 X10^3/uL; Eosinophils% 2.1 % (0-5); Hematocrit 37.3 % (37-47); Hemoglobin 12.4 g/dL (12.0-15.0); Lymphocyte # 0.61 X10^3/ul (4.0); Lymphocyte % 9.7 % (19-41); Mean Corp Hgb Conc 33.2 g/dL (32-36); Mean Corpuscular Hgb 33.2 pg (27.0-32.0); Mean Corpuscular Volume 99.7 fL (81-99); Mean Platelet Vol. 9.9 fl (6.2-12.0); Monocyte# 0.55 X10^3/uL; Monocyte% 8.8 % (0-10); NRBC Flagged by Analyzer 0 % (0-5); Neutrophil % 78.3 % (47-70); Platelet Count 218 K/mm3 (150-450); RBC Distribution Width CV 13.2 % (11.6-14.6); RBC Distribution Width SD 47.6 fl (35.1-43.9); Red Blood Count 3.74 M/mm3 (4.2-5.4); White Blood Count 6.3 K/mm3 (4.4-11.0)
[2019-07-30 06:40] LABS: ALB/GLOB Ratio 1.3 RATIO (0.9-2.4); AST(SGOT) 18 U/L (15-37); Alanine Aminotransfer ALT/SGPT 32 U/L (13-56); Albumin, Serum 3.1 g/dL (3.2-5.0); Alkaline Phosphatase 83 U/L (45-117); Anion Gap 2 (5-15); BUN 9 mg/dL (7-18); BUN/Creat Ratio 13.4 RATIO (10-20); Calcium,Total 8.2 mg/dL (8.5-10.1); Chloride 111 mmol/L (98-107); Creatinine, Serum 0.67 mg/dL (0.55-1.02); EST Glomerular Filtration Rate 89 mL/min (>60); Est Glom Filt Rate - Afr Amer 107 mL/min (>60); Estimated Creatinine Clearance 33.71 ml/min; Globulin 2.4 g/dL (2.2-4.2); Glucose 109 mg/dL (74-106); Potassium 4.2 mmol/L (3.5-5.1); Protein, Total 5.5 g/dL (6.4-8.2); Sodium Level 143 mmol/L (136-145)
--- NOTE | 2019-07-30 07:36 | PCM.PN.HOSP ---
Patient Problems: Active and Suspected Problems (Last Reviewed 04/23/19 @ 11:20 by Manjit Felton, MEDICAL RECORD CONSULTANT-C) Bilateral pneumonia (Acute) CAP (community acquired pneumonia) (Acute) Subjective: Patient was seen and examined. She feels improved but still feels short of breath. She is on 3 L nasal cannula oxygen. Denies any fever or chills Urine Legionella and streptococcal antigen is negative. No acute events overnight Objective: Physical Exam General: Alert, Oriented x3, Cooperative, No apparent distress HEENT: Atraumatic, PERRLA, EOMI, Normocephalic Oral: Moist Mucosa Neck: Supple Lungs: Diminished BS at lung bases, audible wheezes Cardiovascular: Regular rate, Regular Rhythm, Normal S1, Normal S2, No murmurs Abdomen: Bowel Sounds Present, Soft, Non Tender, Non-Distended, No Hepato-splenomegaly Extremities: No edema, - - varicose veins on legs Skin: No rashes Musculoskeletal: No Tenderness to Palpation of Joints or Extremities Lymphatic: No Cervical, Supraclavicular, or Inguinal Adenopathy Neurological: Cranial nerves II-XII grossly intact, Neuro grossly intact Psych/Mental Status: Normal Affect, Appropriate Vitals/I&O's: Vital Signs Temp Pulse Resp BP Pulse Ox 98 F 70 18 151/90 H 96 07/30/19 01:45 07/30/19 02:00 07/30/19 02:00 07/30/19 01:45 07/30/19 02:00 Oxygen Flow Rate (L/min) 3 Oxygen Delivery Method Nasal Cannula Weight: 79.2 kg Body Mass Index (BMI) 31.8 Intake and Output for Last 24 Hours 07/28/19 07/29/19 07/30/19 23:59 23:59 23:59 Intake Total 150 / 410 460 / 460 Output Total 1100 / 1100 Balance 150 / 10 -640 / -640 Microbiology Past 72 Hours 07/29/19 23:00 Urine, Clean Catch Legionella Antigen - Final 07/29/19 23:00 Urine, Clean Catch Streptococcus pneumoniae Antigen (M - Final Laboratory Results 07/29/19 15:30: WBC 7.0, RBC 3.91 L, Hgb 12.9, Hct 38.1, MCV 97.4, MCH 33.0 H, MCHC 33.9, RDW Std Deviation 46.7 H, RDW Coeff of Margaret 13.3, Plt Count 245, MPV 9.9, Immature Gran % (Auto) 0.300, Neut % (Auto) 77.4 H, Lymph % (Auto) 11.6 L, Adams % (Auto) 8.1, Eos % (Auto) 1.9, Baso % (Auto) 0.7, Absolute Neuts (auto) 5.4, Absolute Lymphs (auto) 0.81 L, Nucleated RBC % 0 07/29/19 15:30: PT 14.6, INR 1.2, APTT 40.0 H 07/29/19 15:30: Sodium 142, Potassium 3.9, Chloride 110 H, Carbon Dioxide 24.0, Anion Gap 8, BUN 12, Creatinine 0.71, Estim Creat Clear Calc 33.71, Est GFR (MDRD) Af Amer 100, Est GFR (MDRD) Non-Af 83, BUN/Creatinine Ratio 16.8, Glucose 111 H, Calcium 8.7, Troponin I 0.015 07/29/19 17:11: Urine Color Yellow, Urine Clarity Clear, Urine pH 6.0, Ur Specific [place] 1.010, Urine Protein Negative, Urine Glucose (UA) Normal, Urine Ketones Negative, Urine Occult Blood Negative, Urine Nitrite Negative, Urine Bilirubin Negative, Urine Urobilinogen Normal, Ur Leukocyte Esterase 100 H, Urine RBC 0 SEEN, Urine WBC 0-5 SEEN, Ur Squamous Epith Cells 0-5 SEEN, Urine Bacteria 0 SEEN, Urine Mucus 0 SEEN 07/30/19 05:36: WBC 6.3, RBC 3.74 L, Hgb 12.4, Hct 37.3, MCV 99.7 H, MCH 33.2 H, MCHC 33.2, RDW Std Deviation 47.6 H, RDW Coeff of Margaret 13.2, Plt Count 218, MPV 9.9, Immature Gran % (Auto) 0.500, Neut % (Auto) 78.3 H, Lymph % (Auto) 9.7 L, Adams % (Auto) 8.8, Eos % (Auto) 2.1, Baso % (Auto) 0.6, Absolute Neuts (auto) 4.9, Absolute Lymphs (auto) 0.61 L, Nucleated RBC % 0 07/30/19 05:36: Sodium 143, Potassium 4.2, Chloride 111 H, Carbon Dioxide 30.0, Anion Gap 2 L, BUN 9, Creatinine 0.67, Estim Creat Clear Calc 33.71, Est GFR (MDRD) Af Amer 107, Est GFR (MDRD) Non-Af 89, BUN/Creatinine Ratio 13.4, Glucose 109 H, Calcium 8.2 L, Total Bilirubin 1.00, AST 18, ALT 32, Alkaline Phosphatase 83, Total Protein 5.5 L, Albumin 3.1 L, Globulin 2.4, Albumin/Globulin Ratio 1.3 Current Medications Acetaminophen (Tylenol) 650 mg PO Q6H PRN PRN PRN Reason: Mild Pain (1-3)/Temp > 100.7 F Last Admin: 07/30/19 05:49 Dose: 650 mg Documented by: Aspirin (Aspirin, Baby) 81 mg PO DAILY@0800 [facility] Calamine/Phenol (Calmoseptine Ointment) 1 applic TOPICAL BID [facility]; Protocol Last Admin: 07/29/19 22:57 Dose: 1 applicatio Documented by: Guaifenesin (Mucinex) 1,200 mg PO BID [facility] Last Admin: 07/29/19 20:46 Dose: 1,200 mg Documented by: Heparin Sodium (Porcine) (Heparin Na) 5,000 unit SC Q8 [facility] Last Admin: 07/30/19 05:46 Dose: 5,000 unit Documented by: Levofloxacin (Levaquin Iv) 750 mg in 150 mls @ 100 mls/hr IV Q48H [facility] Sodium Chloride () 1,000 mls @ 75 mls/hr IV .[id number] [facility] Stop: 07/30/19 08:59 Last Admin: 07/29/19 20:51 Dose: 75 mls/hr Documented by: Sodium Chloride () 250 mls @ 15 mls/hr IV .[id number] PRN PRN Reason: SALINE FLUSH Losartan Potassium (Cozaar) 25 mg PO DAILY [facility] Melatonin (Melatonin) 3 mg PO QHS PRN PRN PRN Reason: INSOMNIA Metoprolol Tartrate (Lopressor (Beta Holly)) 50 mg PO BID [facility] Last Admin: 07/29/19 20:46 Dose: 50 mg Documented by: Nitroglycerin (Nitrostat) 0.4 mg SUBLINGUAL Q5M PRN PRN Reason: CARDIAC/CHEST PAIN Nystatin (Mycostatin Powder) 1 applic TOPICAL BID [facility]; Protocol Last Admin: 07/29/19 22:57 Dose: 1 applicatio Documented by: Ondansetron HCl (Zofran) 4 mg IV Q8H PRN PRN PRN Reason: NAUSEA/VOMITING Oxycodone HCl (Oxyir) 5 mg PO Q4H PRN PRN PRN Reason: Moderate Pain (4-6/10) Last Admin: 07/29/19 20:45 Dose: 5 mg Documented by: Sodium Chloride () 5 - 15 ml IV UD PRN PRN Reason: SALINE FLUSH Medical Necessity - Tobacco Use Smoking Status: Never smoker Assessment/Plan All Active Problems (Last Reviewed 04/23/19 @ 11:20 by Manjit Felton, MEDICAL RECORD CONSULTANT-C) Bilateral pneumonia (Acute) CAP (community acquired pneumonia) (Acute) TGA (transient global amnesia) (Acute) Acute encephalopathy (Acute) 84 year old F with past medical history of hypertension with a 2-week history of generalized weakness as well as shortness of breath. 1. Acute hypoxic respiratory insufficiency secondary to acute community acquired pneumonia Remains on 3 L of oxygen, will continue on breathing treatments, encourage use of incentive spirometer Evaluate for ambulatory oxygen on discharge possibly tomorrow 2. Acute community acquired pneumonia, bilateral, likely secondary to suspected gram-positive organism urine Legionella and streptococcal antigen negative On IV Levaquin, day 2 We will continue same 3. Hypertension, remains uncontrolled, on losartan and metoprolol Will increase losartan to 50 mg p.o. daily, continue on metoprolol, continue to monitor blood pressure 4. DVT PPx- Heparin SC 5. Disposition: Possible DC tomorrow Code Visit Inpatient E&M: 70356 Subs Hosp L2
[2019-07-30] MEDS: Aspirin 81 MG TAB.CHEW PO (07:55)
[2019-07-30] MEDS: Metoprolol Tartrate 50 MG Tablet PO ×2 (07:55→22:34)
[2019-07-30] MEDS: guaiFENesin 1,200 MG Tablet 1200 MG PO ×2 (07:55→22:34)
[2019-07-30] MEDS: Losartan Potassium 25 MG Tablet PO (07:55)
[2019-07-30] MEDS: 0.9% NaCl Peripheral Flush Adult/Peds IV (10:18)
[2019-07-30] MEDS: Menthol/Lanolin/Calamine/Znox 113 GM Tube 1 APPLIC TOPICAL ×2 (10:20→22:34)
[2019-07-30] MEDS: Nystatin Powder 15gm Bottle 1 APPLIC TOPICAL ×2 (10:28→22:35)
[2019-07-30] MEDS: oxyCODONE 5 MG Tablet PO (10:28)
[2019-07-30] MEDS: Ipratropium/Albuterol Sulfate 3 ML AMPUL.NEB INHALATION ×2 (12:59→19:22)
--- NOTE | 2019-07-30 13:18 | CPS ---
patient does very well on her own
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
[2019-07-31] VITALS (9 sets, daily range): BP systolic 138–152; BP diastolic 67–90; PULSE 64–75; RESP 16–20; TEMP 36.6–37.2; O2SAT 85–97
[2019-07-31] MEDS: Heparin Injection (Vial) 5,000 UNIT/ML VIAL 5000 UNIT SC (06:05)
[2019-07-31] MEDS: Acetaminophen 325 MG Tablet 650 MG PO (06:05)
[2019-07-31] MEDS: Ipratropium/Albuterol Sulfate 3 ML AMPUL.NEB INHALATION ×2 (07:11→11:01)
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
--- NOTE | 2019-07-31 08:36 | DS.PCM_ITS ---
Discharge Date and Diagnosis Date of Admission: 07/29/19 Date of Discharge: 07/31/19 - Primary Discharge Diagnosis Active and Suspected Problems (Last Reviewed 04/23/19 @ 11:20 by ARSALAN Wood) Acute hypoxic respiratory insufficiency Bilateral community-acquired pneumonia Uncontrolled hypertension - Secondary Discharge Diagnosis Chronic Problems (Last Reviewed 04/23/19 @ 11:20 by ARSALAN Wood) Hyperlipidemia (Chronic) Paroxysmal atrial fibrillation (Chronic) Sinus tachycardia (Chronic) Hypertension (Chronic) Type 2 diabetes mellitus (Chronic) diet controlled Hospital Course and Treatment Imaging Results: Clinical Impression(s) from Imaging Studies Chest X-Ray 07/29/19 15:40 IMPRESSION: Findings are suspicious for bilateral infiltrates possible trace left effusion. This is new since prior study. Cardiomegaly. Electronically Signed: Brooke Hay MD at 16:52 EDT Tel , Service support , None Operations: None Procedures: None Summary of Care Provided: 84 year old F with past medical history of hypertension with a 2-week history of generalized weakness as well as shortness of breath. Patient denied any human sick contact. But she said her cat was sick. She feels very short of breath with the least exertion. She was seen at her primary care doctor's office and found to have elevated blood pressure and asked to go to the emergency department. Patient's blood pressure was slightly elevated on admission; 157/87. Oxygen saturation was 89% on 2 L of oxygen. Chest x-ray showed bilateral infiltrates. She was admitted to the regular nursing floor. Urine Legionella and streptococcal antigen was negative. She was started on IV Levaquin. Discharged on oral Levaquin to complete 1 week treatment. Her blood pressure was uncontrolled during the hospital stay and her losartan was increased to 50 mg p.o. daily. She continued to be on oxygen throughout her hospital stay. She was evaluated for ambulatory oxygen and discharged home with oxygen. She will need to be seen by her primary care doctor and reevaluated for continued need for oxygen. She was also seen by PT and OT and additional therapy was recommended. Prescription given to patient for outpatient therapy Subjective: On the day of discharge, patient was seen and examined. She feels much better. She remains on oxygen. She will be assessed for ambulatory oxygen. Objective: Physical Exam General: Alert, Oriented x3, Cooperative, No apparent distress, on 3L oxygen HEENT: Atraumatic, PERRLA, EOMI, Normocephalic Oral: Moist Mucosa Neck: Supple Lungs: Diminished BS at lung bases, audible wheezes Cardiovascular: Regular rate, Regular Rhythm, Normal S1, Normal S2, 2/6 holosystolic murmur, present since admission, heard at [facility]LSB Abdomen: Bowel Sounds Present, Soft, Non Tender, Non-Distended, No Hepato- splenomegaly Extremities: No edema, - - varicose veins on legs Skin: No rashes Musculoskeletal: No Tenderness to Palpation of Joints or Extremities Lymphatic: No Cervical, Supraclavicular, or Inguinal Adenopathy Neurological: Cranial nerves II-XII grossly intact, Neuro grossly intact Psych/Mental Status: Normal Affect, Appropriate - Physical Exam Vital Signs Temp Pulse Resp BP Pulse Ox 98.9 F 73 18 152/90 H 95 07/31/19 02:30 07/31/19 07:11 07/31/19 07:11 07/31/19 02:30 07/31/19 07:15 Oxygen Flow Rate (L/min) 2 Oxygen Delivery Method Nasal Cannula Weight: 79.1 kg Body Mass Index (BMI) 31.8 Intake and Output for Last 24 Hours 07/29/19 07/30/19 07/31/19 23:59 23:59 23:59 Intake Total 150 / 410 1460 / 1760 500 / 500 Output Total 1200 / 1200 Balance 150 / 10 260 / 560 500 / 500 Microbiology Past 72 Hours 07/30/19 11:45 Respiratory Panel (PCR) - Final Mucosa - Nasopharyngeal 07/29/19 23:00 Legionella Antigen - Final Urine, Clean Catch 07/29/19 23:00 Streptococcus pneumoniae Antigen (M - Final Urine, Clean Catch Discharge Diet: Low fat/ Low Cholesterol, 2000 mg Sodium Diet Discharge Activity: Return to Normal Activity Home Medications: Medications to take at Discharge Metoprolol Tartrate [Lopressor (beta morgan)] 50 mg PO BID tab 11/22/16 Aspirin 81 mg PO DAILY@0800 07/29/19 Acetaminophen [Tylenol Tablet] 650 mg PO Q6H PRN PRN tab 07/31/19 Albuterol IH (ProAir) [Proair Hfa] 1 - 2 puff INHALATION Q4H PRN PRN #1 inhaler 07/31/19 Guaifenesin [Mucinex] 1,200 mg PO BID PRN #20 tab 07/31/19 Losartan Potassium [Cozaar] 50 mg PO DAILY 30 Days #30 tab 07/31/19 Nystatin Powder [Mycostatin Powder] 1 applic TOPICAL BID #1 bottle 07/31/19 levoFLOXacin tablet [Levaquin tablet] 750 mg PO DAILY #5 tab 07/31/19 predniSONE tablet 40 mg PO DAILY@0800 5 Days #10 tab 07/31/19 Following Prescrptions Were Given to Patient: Losartan Potassium [Cozaar] 50 mg PO DAILY 30 Days #30 tab Transmission Status: Received by [id number] levoFLOXacin tablet [Levaquin tablet] 750 mg PO DAILY #5 tab Transmission Status: Received by [id number] Guaifenesin [Mucinex] 1,200 mg PO BID PRN #20 tab PRN Reason: Cough Transmission Status: Received by [id number] Nystatin Powder [Mycostatin Powder] 1 applic TOPICAL BID #1 bottle Transmission Status: Received by [id number] predniSONE tablet 40 mg PO DAILY@0800 5 Days #10 tab Transmission Status: Received by [id number] Albuterol IH (ProAir) [Proair Hfa] 1 - 2 puff INHALATION Q4H PRN PRN #1 inhaler PRN Reason: Sob &/Or Wheezing Transmission Status: Received by [id number] Primary Care Physician: Willard Knott III, MD [Primary Care Provider] - Please follow up with your Primary Care Physician in: within 1-2 weeks Disposition: Home Minutes spent on discharge:: 40 Patient Condition:: Stable Medical Necessity - Tobacco Use Smoking Status: Never smoker Tobacco Use: Non-smoker Meaningful Use Info Meaningful Use Diagnoses (Choose all that apply): None applicable Code Visit Inpatient E&M: 60215 Disch Hosp
--- NOTE | 2019-07-31 09:48 | CASEMGMT ---
Addendum entered by Erick Roa 07/31/19 15:54: Per Mariza SHEPARD, oxygen has been delivered to pt's room. Addendum entered by Erick Roa 07/31/19 10:51: Script obtained for O2 from Dr Cavazos and faxed to [facility]. Pt made aware. Awaiting delivery of oxygen. Script also obtained for PT/OT for [facility] and given to pt. Pt voices appreciation. She states she will make arrangements for OP therapy on her own and is able to drive to the [facility]. Original Note: DREA DAY NOTE: Reviewed PT/OT notes--additional therapy recommended. To room to talk with pt. Discussed OP therapy vs HHC. Pt states she prefers to do OP therapy @ [facility]. Offered to have script faxed to [facility] once it is obtained, but pt states she prefers to take it to [facility] herself. Will obtain script and give to pt. Per Mariza SHEPARD, pt qualifies for Home O2. Pt given list of local DME companies and prefers [employer]. Pt does not have chronic resp condition and therefore will not be covered by insurance. Call placed to Josselyn @ [facility]. She states cost for O2 for portability and concentrator for 1 month is $158.71. Pt made aware and states this is affordable and she is agreeable to paying for it [id number]. Vicky POWER RN, CM
[2019-07-31] MEDS: predniSONE 20 MG Tablet 40 MG PO (09:58)
[2019-07-31] MEDS: Losartan Potassium 50 MG Tablet PO (09:59)
[2019-07-31] MEDS: Menthol/Lanolin/Calamine/Znox 113 GM Tube 1 APPLIC TOPICAL (09:59)
[2019-07-31] MEDS: Nystatin Powder 15gm Bottle 1 APPLIC TOPICAL (09:59)
[2019-07-31] MEDS: guaiFENesin 1,200 MG Tablet 1200 MG PO (10:02)
[2019-07-31] MEDS: Metoprolol Tartrate 50 MG Tablet PO (10:02)
[2019-07-31] MEDS: Aspirin 81 MG TAB.CHEW PO (10:02)
--- NOTE | 2019-08-01 14:56 | CASEMGMT ---
DREA CM Discharge Follow-up Phone Call: REBECA: Em Strata: 3 Call Date: 08/01/19 Discharge Date: 07/31/19 Time of Call: 1555 Duration: 3 minutes ? Admitting Diagnosis: Pneumonia Discharge follow-up call placed to pt. Pt states she has been doing well since discharge and just needs time to recover. Denies any increased SOB. States she has been able to independently care for herself with rest breaks and assistance from family. States family picked up her medications for her and she has been taking them as directed. Denied any questions or concerns regarding medications and DC instructions. uLly Hairston RN
== END 2019-07-31 16:00 | disposition home or self-care (01) | DRG 195 ==
LOC: ED 18:56 → MS3 19:13
PROVIDERS: Admitting Provider Internal Medicine; Emergency Provider Emergency Medicine; Family Provider Family Medicine; PCP Family Medicine; Referring Provider Internal Medicine; Visit Provider Internal Medicine
DX: J18.9 Pneumonia, unspecified organism (principal); R09.02 Hypoxemia; R06.89 Other abnormalities of breathing; E11.9 Type 2 diabetes mellitus without complications; I10 Essential (primary) hypertension; E78.5 Hyperlipidemia, unspecified
CPT/HCPCS: 36415; 71046; 80048; 80053; 81001; 84484; 85025; 85610; 85730; 87449; 87633; 93005; 94640; 94667; 94668; 97162; 97166; 97530; 97802; 99285; J7030; A4216

== ENCOUNTER → 2020-01-01 12:00 | Outpatient (CLI) | payer MEDICARE, SELFPAY ==
[2019-11-19 13:15] VITALS: BMI 27.3
--- NOTE | 2020-01-01 12:05 | MRI_ITS ---
STUDY: MRI BRAIN WITH AND WITHOUT CONTRAST (ATTENTION INTERNAL AUDITORY CANALS - I.A.C.''s) REASON FOR EXAM: Female, 84 years old. left deafness -- sinus problems left side gets and quot;stuffed up and quot; , trouble breathing, dizziness, hx meningioma resection TECHNIQUE: Standardized multiplanar fat and water weighted pulse sequences were obtained. dotarem 12ml iv was administered for the contrast portion of the examination. COMPARISON: 09/27/2017 FINDINGS: Normal bilateral temporal bones. Normal bilateral internal auditory canals. There is no demonstrated intracanalicular or cisternal vestibular schwannoma (acoustic neuroma). There is no enhancement of the bilateral VIIth or VIIIth cranial nerves. Normal bilateral cochlea, vestibules and semicircular canals. Normal size of the ventricles and extra-axial spaces for the patient''s age. There are multiple white matter hyperintensities, distributed throughout the deep white matter tracts of the cerebral hemispheres, consistent with moderate chronic white matter ischemic changes. Normal bilateral basal ganglia. Normal thalami. Normal flow voids within the major intracranial circulation suggesting patency by spin echo criteria. Normal venous enhancement. Stable 12 x 10 mm meningioma along the right inferior frontal convexity. Question of a 15 x 8 mm meningioma in the left prepontine cistern as seen on image 10 of series 12. There is no extra-axial fluid accumulation. Normal sella turcica, pituitary gland, infundibular stalk, optic chiasm and hypothalamus. Normal tectal plate and pineal gland. There are chronic white matter ischemic changes of the anderson. The midbrain and medulla are otherwise normal. 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 Normal basal cisterns. There are bilateral ocular lens implants with otherwise normal intraorbital contents. Normal visualized paranasal sinuses. Normal calvarium and skull base. Normal visualized soft tissue structures. Normal visualized upper cervical spine. MRI/Brain W/WO Contrast IMPRESSION: No evidence of pathology involving the internal auditory canals. Stable 12 x 10 mm meningioma along the right inferior frontal convexity. Question of a 15 x 8 mm meningioma in the left prepontine cistern. No evidence of acute infarct or hemorrhage. Electronically Signed: Tyrell Garcia MD at 19:39 EST Tel , Service support ,
[2020-01-01 12:26] LABS: CREATININE FINGERSTICK 0.8 mg/dL (0.55-1.02); EGFR FINGERSTICK > 60.0000 mL/min (>60)
== END ==
PROVIDERS: PCP Family Medicine; Referring Provider Otolaryngology; Visit Provider Otolaryngology
DX: H91.92 Unspecified hearing loss, left ear (principal)
CPT/HCPCS: 70553; A9575

== ENCOUNTER → 2020-08-04 15:03 | Outpatient (CLI) | payer MEDICARE, SELFPAY ==
[2020-05-20 12:21] VITALS: BMI 27.3
[2020-08-04 16:25] LABS: Absolute Lymphocyte Count 0.35 X10^3/uL (0.83-4.51); Absolute Neutrophil Count 5.4 X10^3/uL (2.0-7.7); Basophil# 0.03 X10^3/uL; Basophil% 0.5 % (0-1); Eosinophil# 0.05 X10^3/uL; Eosinophils% 0.8 % (0-5); Hematocrit 39.4 % (37-47); Hemoglobin 12.5 g/dL (12.0-15.0); Lymphocyte # 0.35 X10^3/ul (4.0); Lymphocyte % 5.6 % (19-41); Mean Corp Hgb Conc 31.7 g/dL (32-36); Mean Corpuscular Hgb 29.5 pg (27.0-32.0); Mean Corpuscular Volume 92.9 fL (81-99); Mean Platelet Vol. 9.8 fl (6.2-12.0); Monocyte# 0.45 X10^3/uL; Monocyte% 7.1 % (0-10); NRBC Flagged by Analyzer 0 % (0-5); Neutrophil # 5.39 X10^3/uL (2.7-7.7); Neutrophil % 85.5 % (47-70); POSITIVE DIFFERENTIAL YES; Platelet Count 192 K/mm3 (150-450); RBC Distribution Width CV 14.6 % (11.6-14.6); RBC Distribution Width SD 49.2 fl (35.1-43.9); Red Blood Count 4.24 M/mm3 (4.2-5.4); White Blood Count 6.3 K/mm3 (4.4-11.0)
[2020-08-04 16:48] LABS: CRP 6.96 mg/L (0.0-3.0)
[2020-08-04 17:31] LABS: Differential Indicated SCAN CRITERIA MET
[2020-08-04 17:54] LABS: Anion Gap 8 (5-15); BUN 22 mg/dL (7-18); BUN/Creat Ratio 19.5 RATIO (10-20); Calcium,Total 8.8 mg/dL (8.5-10.1); Chloride 101 mmol/L (98-107); Creatinine, Serum 1.13 mg/dL (0.55-1.02); EST Glomerular Filtration Rate 49 mL/min (>60); Est Glom Filt Rate - Afr Amer 59 mL/min (>60); Glucose 147 mg/dL (74-106); Potassium 3.4 mmol/L (3.5-5.1); Sodium Level 136 mmol/L (136-145)
[2020-08-04 18:22] LABS: Platelet Estimate ADEQUATE (ADEQ)
[2020-08-04 18:23] LABS: Anisocytosis RARE; Macrocytosis RARE; Red Cell Morphology N CHROM NORMAL (NORM C&C)
[2020-08-04 18:24] LABS: Erythrocyte Sedimentation Rate < 1 mm/hr (0-30)
== END ==
PROVIDERS: Physician Assistant Medical; PCP Family Medicine; Referring Provider Physician Assistant; Visit Provider Physician Assistant
DX: R60.0 Localized edema (principal); I48.0 Paroxysmal atrial fibrillation
CPT/HCPCS: 36415; 80048; 85025; 85652; 86140

== ENCOUNTER → 2020-08-12 12:48 | Outpatient (CLI) | payer MEDICARE, SELFPAY ==
[2020-08-04 15:27] VITALS: BMI 28.6
--- NOTE | 2020-08-12 12:49 | ECHOD_ITS ---
Reason For Study: Murmur Procedure This was a 2D Doppler, Color Flow transthoracic echocardiogram. The exam was of adequate technical quality. Exam performed in department. Left Ventricle Normal LV size. D shaped septum in systole and diastole. Severe concentric left ventricular hypertrophy. Left ventricular systolic function is normal. The estimated ejection fraction is 65 %. No regional wall motion abnormalities noted. Right Ventricle Severely dilated right ventricle. Moderate global right ventricular systolic dysfunction. Atria The left atrium is severely enlarged. The right atrium is severely enlarged. No doppler evidence for ASD. Mitral Valve There is moderate mitral annular calcification. Extension of the mitral annular calcification onto the base of the posterior mitral valve leaflet. Moderate diffuse mitral valve thickening. Moderate focal mitral valve calcification of the anterior leaflet. Moderate (2+) eccentric mitral valve insufficiency. Tricuspid Valve Mild diffuse thickening of the tricuspid valve. Poor coaptation of the aortic valve. Severe (4+) tricuspid valve insufficiency. Right ventricular systolic pressure estimated to be 69 mmHg. Aortic Valve Trisinus/trileaflet aortic valve. Mild diffuse aortic valve thickening. Mild focal aortic valve calcification. Aortic valve sclerosis/mild aortic valve stenosis. Pulmonic Valve The pulmonic valve is not well visualized. Trivial pulmonic valve insufficiency. Great Vessels Moderately dilated aortic root. Calcified aortic root. Pericardium/Pleural Trivial pericardial effusion. There are no echocardiographic indications of cardiac tamponade. MMode/2D Measurements & Calculations LVIDd: 4.0 cm IVSd: 1.9 cm LVOT diam: 1.8 cm LVIDs: 2.5 cm LVPWd: 1.5 cm LVOT area: 2.6 cm2 RVDd: 4.8 cm FS: 38.0 % Ao root diam: 4.7 cm LAV(MOD-bp): 96.0 ml LA A4 area: 30.7 cm2 LA dimension: 5.1 cm LAV(MOD-bp) Indexed: 53.3 ml/m2 LAV(MOD-sp2): 81.2 ml LAV(MOD-sp4): 102.3 ml RA A4 area: 30.2 cm2 Time Measurements MV dec time: 0.20 sec Doppler Measurements & Calculations MV E max irving: 131.4 cm/sec Lat Peak E' Irving: 13.4 cm/sec Med Peak E' Irving: 6.5 cm/sec MV A max irving: 103.0 cm/sec E/E' lat: 9.8 E/E' med: 20.4 MV E/A: 1.3 MV V2 max: 166.0 cm/sec MV P1/2t max irving: 162.4 cm/sec Ao V2 max: 109.9 cm/sec MV max P.0 mmHg MV P1/2t: 56.0 msec Ao max P.9 mmHg MV V2 mean: 78.3 cm/sec MV dec slope: 849.5 cm/sec2 GILLIAN(V,D): 2.1 cm2 MV mean P.0 mmHg MV V2 VTI: 47.1 cm MVA(P1/2t): 3.9 cm2 AI max irving: 368.8 cm/sec LV V1 max: 91.6 cm/sec MR max irving: 500.8 cm/sec AI max P.4 mmHg LV V1 max P.4 mmHg MR max P.3 mmHg AI dec slope: 208.5 cm/sec2 MR mean irving: 405.7 cm/sec AI P1/2t: 518.2 msec MR mean P.5 mmHg MR VTI: 133.3 cm PA V2 max: 104.8 cm/sec TR max irving: 388.9 cm/sec TR max P.5 mmHg Interpretation Summary Left ventricular systolic function is normal. The estimated ejection fraction is 65 %. D shaped septum in systole and diastole. Severe concentric left ventricular hypertrophy. Severely dilated right ventricle. Moderate global right ventricular systolic dysfunction. The left atrium is severely enlarged. The right atrium is severely enlarged. There is moderate mitral annular calcification. Extension of the mitral annular calcification onto the base of the posterior mitral valve leaflet. Moderate diffuse mitral valve thickening. Moderate focal mitral valve calcification of the anterior leaflet. Moderate (2+) eccentric mitral valve insufficiency. Mild diffuse thickening of the tricuspid valve. Poor coaptation of the aortic valve. Severe (4+) tricuspid valve insufficiency. Aortic valve sclerosis/mild aortic valve stenosis. Trivial pulmonic valve insufficiency. Moderately dilated aortic root. Calcified aortic root. Trivial pericardial effusion. There are no echocardiographic indications of cardiac tamponade. Right ventricular systolic pressure estimated to be 69 mmHg. Transmitral diastolic flow velocities suggest diastolic dysfunction (pseudonormal pattern). Ordering Physician: Juhi Keith Referring Physician: KEAGAN Knott M.D. Performed By: Celestine Cloud RCS
== END ==
PROVIDERS: PCP Family Medicine; Referring Provider Physician Assistant Medical; Visit Provider Physician Assistant Medical
DX: R06.02 Shortness of breath (principal)
CPT/HCPCS: 93306

== ENCOUNTER → 2020-08-14 15:48 | Outpatient (CLI) | payer MEDICARE, SELFPAY ==
[2020-08-04 15:27] VITALS: BMI 28.6
[2020-08-14 16:32] LABS: Anion Gap 6 (5-15); BUN 20 mg/dL (7-18); BUN/Creat Ratio 20.1 RATIO (10-20); Calcium,Total 8.5 mg/dL (8.5-10.1); Chloride 105 mmol/L (98-107); Creatinine, Serum 0.99 mg/dL (0.55-1.02); EST Glomerular Filtration Rate 57 mL/min (>60); Est Glom Filt Rate - Afr Amer 68 mL/min (>60); Glucose 122 mg/dL (74-106); Potassium 3.4 mmol/L (3.5-5.1); Sodium Level 139 mmol/L (136-145)
== END ==
PROVIDERS: PCP Family Medicine; Referring Provider Physician Assistant Medical; Visit Provider Physician Assistant Medical
DX: R06.02 Shortness of breath (principal)
CPT/HCPCS: 36415; 80048

== ENCOUNTER → 2020-11-10 17:11 | Outpatient (CLI) | payer MEDICARE, SELFPAY ==
[2020-11-06 12:58] VITALS: BMI 23.1
== END ==
PROVIDERS: PCP Family Medicine
DX: Z01.818 Encounter for other preprocedural examination (principal)
CPT/HCPCS: 87635; C9803; U0005; U0003

== ENCOUNTER → 2020-11-11 09:51 | Outpatient (CLI) | payer MEDICARE, SELFPAY ==
[2020-11-06 12:58] VITALS: BMI 23.1
--- NOTE | 2020-11-11 09:53 | ECHOD_ITS ---
Reason For Study: ARRHYTHMIA, SOB, PRE-OP Procedure This was a 2D Doppler, Color Flow transthoracic echocardiogram. Exam performed in department. Left Ventricle Normal LV size. Left ventricular systolic function is normal. The estimated ejection fraction is 65 %. No regional wall motion abnormalities noted. Right Ventricle Normal RV size. Normal systolic function. Atria The left atrium is severely enlarged. The right atrium is moderately enlarged. Mitral Valve There is moderate mitral annular calcification. Mild mitral valve prolapse. Moderate (2+) eccentric mitral valve insufficiency. Tricuspid Valve Normal tricuspid valve. Moderately severe (3+) tricuspid valve insufficiency. Pulmonary artery systolic pressure is 72 mmHg. Severe pulmonary hypertension. Aortic Valve Trisinus/trileaflet aortic valve. Moderate focal aortic valve calcification. Mild-Moderate (1-2+) aortic valve insufficiency. Pulmonic Valve Normal pulmonic valve. Mild (1+) eccentric pulmonic valve insufficiency. Great Vessels Mild to moderately dilated aortic root. The pulmonary artery is normal size. The inferior vena cava is dilated. Pericardium/Pleural No pericardial effusion. MMode/2D Measurements & Calculations LVIDd: 4.9 cm IVSd: 1.0 cm LVOT diam: 1.8 cm LVIDs: 2.8 cm LVPWd: 1.0 cm LVOT area: 2.6 cm2 RVDd: 4.6 cm FS: 43.4 % Ao root diam: 3.9 cm LAV(MOD-bp): 111.6 ml LA A4 area: 35.1 cm2 LAV(MOD-bp) Indexed: 66.7 ml/m2 LAV(MOD-sp2): 92.1 ml LAV(MOD-sp4): 129.7 ml LA dimension(2D): 4.6 cm RA A4 area: 26.7 cm2 Time Measurements MV dec time: 0.17 sec Doppler Measurements & Calculations MV E max irving: 143.5 cm/sec Lat Peak E' Irving: 9.7 cm/sec Med Peak E' Irving: 4.9 cm/sec MV A max irving: 75.6 cm/sec E/E' lat: 14.7 E/E' med: 29.3 MV E/A: 1.9 MV V2 max: 153.5 cm/sec Ao V2 max: 183.8 cm/sec AI max irving: 409.3 cm/sec MV max P.4 mmHg Ao max P.5 mmHg AI max P.0 mmHg MV V2 mean: 77.6 cm/sec Ao V2 mean: 123.3 cm/sec AI dec slope: 227.8 cm/sec2 MV mean P.9 mmHg Ao mean P.9 mmHg AI P1/2t: 526.3 msec MV V2 VTI: 48.1 cm Ao V2 VTI: 34.7 cm MVA(VTI): 1.5 cm2 GILLIAN(I,D): 2.1 cm2 GILLIAN(V,D): 2.1 cm2 LV V1 max: 144.6 cm/sec SV(LVOT): 73.4 ml TR max irving: 407.3 cm/sec LV V1 max P.4 mmHg TR max P.4 mmHg LV V1 mean P.5 mmHg LV V1 mean: 99.9 cm/sec LV V1 VTI: 28.0 cm MV P1/2t-pr_phl: 165.6 msec Interpretation Summary Normal LV size. Left ventricular systolic function is normal. The estimated ejection fraction is 65 %. The left atrium is severely enlarged. The right atrium is moderately enlarged. Moderate (2+) eccentric mitral valve insufficiency. Severe pulmonary hypertension. Pulmonary artery systolic pressure is 72 mmHg. Compared to prior study, there is no significant change. Ordering Physician: Kaushal Campos Referring Physician: Kaushal Campos Performed By: Josefa Baldwin, YOGI, RVT
[2020-11-11 11:54] LABS: Anion Gap 5 (5-15); BUN 62 mg/dL (7-18); BUN/Creat Ratio 44.6 RATIO (10-20); Calcium,Total 9.2 mg/dL (8.5-10.1); Chloride 105 mmol/L (98-107); Creatinine, Serum 1.39 mg/dL (0.55-1.02); EST Glomerular Filtration Rate 38 mL/min (>60); Est Glom Filt Rate - Afr Amer 46 mL/min (>60); Glucose 102 mg/dL (74-106); Potassium 5.2 mmol/L (3.5-5.1); Sodium Level 136 mmol/L (136-145)
== END ==
PROVIDERS: PCP Family Medicine; Referring Provider Internal Medicine Cardiovascular Disease; Visit Provider Internal Medicine Cardiovascular Disease
DX: R06.02 Shortness of breath (principal)
CPT/HCPCS: 36415; 80048; 93306

== ENCOUNTER → 2020-11-16 15:54 | Outpatient (CLI) | payer MEDICARE, SELFPAY ==
[2020-11-06 12:58] VITALS: BMI 23.1
[2020-11-16 16:52] LABS: Anion Gap 5 (5-15); BUN 71 mg/dL (7-18); BUN/Creat Ratio 45.5 RATIO (10-20); Chloride 103 mmol/L (98-107); Creatinine, Serum 1.56 mg/dL (0.55-1.02); EST Glomerular Filtration Rate 34 mL/min (>60); Est Glom Filt Rate - Afr Amer 41 mL/min (>60); Glucose 88 mg/dL (74-106); Sodium Level 136 mmol/L (136-145)
== END ==
PROVIDERS: PCP Family Medicine; Visit Provider Clinical Nurse Specialist
DX: R79.89 Other specified abnormal findings of blood chemistry (principal)
CPT/HCPCS: 36415; 80048

== ENCOUNTER → 2020-12-02 09:21 | Outpatient (CLI) | payer MEDICARE, SELFPAY ==
[2020-11-06 12:58] VITALS: BMI 23.1
== END ==
PROVIDERS: PCP Family Medicine
DX: Z01.818 Encounter for other preprocedural examination (principal)
CPT/HCPCS: 87635; C9803; U0005; U0003

== ENCOUNTER 2021-03-29 15:27 | Emergency (ER) | payer MEDICARE, SELFPAY ==
[2020-11-06 12:58] VITALS: BMI 23.1
[2021-03-29 15:28] VITALS: BP 149/82; PULSE 66; RESP 14; TEMP 36.4; O2SAT 95; BMI 23.7
[2021-03-29 15:31] VITALS: BP 149/82; PULSE 66; RESP 14; TEMP 36.4; O2SAT 95
--- NOTE | 2021-03-29 15:50 | CT_ITS ---
STUDY: CT CERVICAL SPINE WITHOUT CONTRAST REASON FOR EXAM: Female, 86 years old. Fall, pain RADIATION DOSAGE (If Supplied By Facility): CTDIvol = ( 12.17 ) mGy, DLP = ( 237.82 ) mGycm TECHNIQUE: High resolution transaxial imaging was performed without contrast material. Sagittal and coronal images were reconstructed. Individualized dose optimization techniques were used for this CT. COMPARISON: None FINDINGS: Normal craniovertebral junction. Normal anterior atlantoaxial articulation. Normal odontoid process. Normal cervical lordosis. Normal vertebral bodies and posterior osseous elements. C2-3: Normal endplates. Normal disc height and morphology. Normal central canal. Facet hypertrophy narrowing the left intervertebral neural foramen. C3-4: Mild spurring at the endplates. Normal disc height with vacuum phenomenon. Posterior spurring slightly protruding into the central canal. Facet hypertrophy and uncovertebral spurring narrowing the intervertebral neuroforamina, left more than right. C4-5: Mild spurring at the endplates. Normal disc height with vacuum phenomena. Normal central canal. Facet hypertrophy narrowing the intervertebral neuroforamina. C5-6: Spurring at the endplates. Narrowed disc height. Normal central canal. Uncovertebral spurring slightly narrowing the intervertebral neuroforamina. C6-7: Spurring at the endplates. Narrowed disc height. Normal central canal. Uncovertebral spurring narrowing the intervertebral neuroforamina. C7-T1: Spurring at the endplates. Narrowed disc height. Minimal spondylolisthesis. Normal central canal and intervertebral neuroforamina. Normal visualized soft tissue structures. CT/Spine Cervical without Contras IMPRESSION: Degenerative changes of the cervical spine. Electronically Signed: Salbador Ash DO at 17:20 EDT Tel [phone], Service support ,
--- NOTE | 2021-03-29 15:50 | CT_ITS ---
STUDY: CT BRAIN WITHOUT CONTRAST REASON FOR EXAM: Female, 86 years old. Fall, unknown LOC RADIATION DOSAGE (If Supplied By Facility): CTDIvol = ( 44.99 ) mGy, DLP = ( 779.24 ) mGycm TECHNIQUE: Transaxial CT imaging of the brain was performed without administration of intravenous contrast material. Individualized dose optimization techniques were used for this CT. COMPARISON: No relevant priors. FINDINGS: Normal soft tissue structures. Normal calvarium. Slightly prominent size ventricles and extra-axial spaces with mild atrophy. Possible small focal old right parietal infarct. Bilateral white matter microangiopathic ischemic changes of the cerebral hemispheres. Normal basal ganglia and thalami. Normal brainstem. Normal cerebellum. There is no intracranial hemorrhage. There are no findings of an acute ischemic infarction. Normal visualized paranasal sinuses. CT/Brain/Head without Contrast IMPRESSION: Age-related and chronic changes of the brain. Electronically Signed: Salbador Ash DO at 16:45 EDT Tel [phone], Service support ,
--- NOTE | 2021-03-29 15:52 | CT_ITS ---
STUDY: CT LUMBAR SPINE WITHOUT CONTRAST REASON FOR EXAM: Female, 86 years old. low back pain post fall RADIATION DOSAGE (If Supplied By Facility): CTDIvol = ( 16.54 ) mGy, DLP = ( 640.27 ) mGycm TECHNIQUE: The patient was scanned in a multi detector CT scanner. High resolution transaxial imaging was performed. Images were obtained from T12 to sacrum. Sagittal and coronal images were reconstructed. Individualized dose optimization techniques were used for this CT. COMPARISON: None FINDINGS: Normal lumbar lordosis. There is no substantial scoliosis. Normal vertebrae of the lumbar spine. L1-2: Normal endplates. Normal disc height and morphology. Normal bilateral facet joints. Normal central canal and bilateral lateral recesses. Normal bilateral intervertebral neural foramina. L2-3: Normal endplates. Normal disc height and morphology. Normal bilateral facet joints. Normal central canal and bilateral lateral recesses. Normal bilateral intervertebral neural foramina. L3-4: Normal endplates. Normal disc height and morphology. Mild degenerative changes at the bilateral facet joints. Normal central canal and bilateral lateral recesses. Normal bilateral intervertebral neural foramina. L4-5: Normal endplates. Normal disc height with trace annular bulge. Degenerative hypertrophy at the bilateral facet joints. Normal central canal and bilateral lateral recesses. Normal bilateral intervertebral neural foramina. L5-S1: Normal endplates. Normal disc height with vacuum phenomena. Mild posterior annular bulge. Degenerative hypertrophy at the bilateral facet joints. Normal central canal and bilateral lateral recesses. Normal bilateral intervertebral neural foramina. Normal visualized paraspinous soft tissue structures. 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 Electronically Signed: Salbador Ash DO at 17:06 EDT Tel [phone], Service support ,
[2021-03-29] MEDS: Acetaminophen 325 MG Tablet 650 MG PO (15:58)
--- NOTE | 2021-03-29 16:19 | CT_ITS ---
STUDY: CT PELVIS WITHOUT CONTRAST REASON FOR EXAM: Female, 86 years old. FALL,PAIN RADIATION DOSAGE (If Supplied By Facility): CTDIvol = ( 16.74 ) mGy, DLP = ( 498.86 ) mGycm TECHNIQUE: Transaxial imaging of the pelvis was performed with oral contrast, and without intravenous administration of contrast material. Individualized dose optimization techniques were used for this CT. COMPARISON: None. FINDINGS: Limited visualization of the urinary bladder. Right renal cyst. Normal visualized small intestine. Diverticulosis of the visualized colon. There is no pelvic fluid. There is no pelvic mass lesion or lymphadenopathy. Normal visualized pelvic arteries. Normal abdominal wall. Lower lumbar degenerative changes. Bilateral hip prosthesis in place causing artifact limiting lower pelvic images. Old bilateral pubic rami fractures. CT/Pelvis without IV Contrast IMPRESSION: Colonic diverticulosis. Old pubic rami fractures. Electronically Signed: Salbador Ash DO at 16:58 EDT Tel [phone], Service support ,
--- NOTE | 2021-03-29 16:47 | EX.ED.DYSGE1 ---
HPI <Dr. Abelardo Alvarado DO - Last Filed: 03/29/21 16:52> History of Present Illness Chief Complaint: Lower Extremity Injury Informant: patient Narrative Narrative: Patient is an 86-year-old female who presents to the emergency department for a fall. She is not sure what caused her to fall this morning. She believes that she did hit her head. She is unsure if she lost consciousness. She is complaining of neck pain, low back pain and bilateral hip pain. She has not taken anything for her discomfort. The majority the pain is in the low back. She denies being on any blood thinning medications. She has had a mild headache. No vision changes. She denies chest pain, shortness of breath or heart palpitations. No abdominal pain or nausea/vomiting. No weakness or loss of sensation in her extremities. Any movement seems to make back pain worse. Patient does live at home by herself in a private residence. [facility] <Dr. Abelardo Alvarado DO - Last Filed: 03/29/21 16:52> [facility] Medical History (Updated 03/29/21 @ 17:[address] Abiodun Andujar MD) Aortic root dilatation Atrial fibrillation with RVR Dehydration Elevated troponin Encephalopathy acute Essential (primary) hypertension Fall at home Hyperlipidemia Meningioma Meningioma Mitral valve annular calcification Non-rheumatic tricuspid valve insufficiency Nonrheumatic mitral (valve) insufficiency Nonrheumatic tricuspid valve regurgitation Obesity Other secondary pulmonary hypertension Paroxysmal atrial fibrillation SAH (subarachnoid hemorrhage) SAH (subarachnoid hemorrhage) Secondary pulmonary arterial hypertension Sepsis due to Escherichia coli (E. coli) Shortness of breath Sinus tachycardia TGA (transient global amnesia) Type 2 diabetes mellitus Weakness generalized Home Medications acetaminophen 650 mg PO Q6H PRN PRN tab 07/31/19 [Rx Last Taken Unknown] lisinopril 10 mg tablet 10 mg PO DAILY #30 tab 08/04/20 [Rx Last Taken Unknown] omega-3 acid ethyl esters 1 gram capsule 1 cap PO DAILY 11/06/20 [History Last Taken Unknown] furosemide 40 mg tablet See Rx Instructions .ROUTE .COMPLEX #180 tab 12/02/20 [Rx Last Taken Unknown] potassium chloride 20 mEq tablet,extended release 20 meq PO BID #180 tab 03/18/21 [Rx Last Taken Unknown] Allergy/AdvReac Type Severity Reaction Status Date / Time environmental allergies Allergy Intermediate Unknown Uncoded 11/06/20 12:58 cabbage AdvReac Diarrhea Uncoded 11/06/20 12:58 tomato AdvReac Diarrhea Uncoded 11/06/20 12:58 tree nuts AdvReac Diarrhea Uncoded 11/06/20 12:58 Family History Brother Family history of PTCA Surgical History H/O total hip arthroplasty History of carpal tunnel surgery History of craniotomy History of total hysterectomy Hx of appendectomy Hx of total knee arthroplasty S/P craniotomy Social History Smoking Status: Never smoker alcohol intake: never substance use type: does not use caffeine: No what type of physical activity do you participate in: weight training frequency: daily duration: 15-30 minutes/day seatbelt use: always do you feel safe at home: Yes ROS <Dr. Abelardo Alvarado DO - Last Filed: 03/29/21 16:52> ROS ED Constitutional Constitutional ED: Denies chills or fever(s) Eyes Eyes: Denies change in vision ENT ENT ED: Denies epistaxis or rhinorrhea Cardiovascular Cardiovascular: Denies chest pain or palpitations Respiratory/Chest Respiratory/Chest: Denies cough, dyspnea or dyspnea on exertion Gastrointestinal Gastrointestinal: Denies abdominal pain, diarrhea, nausea or vomiting Genitourinary Genitourinary ED: Denies dysuria, hematuria or urinary frequency Musculoskeletal Musculoskeletal: Reports back pain, joint pain and neck pain; Denies numbness Integumentary Denies rash Neurologic Neurologic: Denies dizziness or weakness EXAM <Dr. Abelardo Alvarado DO - Last Filed: 03/29/21 16:52> Physical Exam Const Vital Signs: 03/29/21 15:28 03/29/21 15:31 03/29/21 17:55 Temperature 97.6 F L 97.6 F L Temperature Source Temporal Temporal Pulse Rate 66 66 89 Respiratory Rate 14 14 14 Blood Pressure 149/82 H 149/82 H 130/78 H Blood Pressure Mean 104 104 95 Pulse Ox 95 95 99 Oxygen Delivery Method Room Air Room Air Positive well nourished and well developed General Appearance ED: well developed and NAD HEENT Reports normocephalic and head/scalp atraumatic Neck full ROM Neck Narrative: Mild tenderness to paraspinal musculature. No midline spine tenderness or step-off sign. Chest Wall inspection of chest normal and palpation of chest normal Resp normal respiratory effort and clear to auscultation bilaterally Cardio regular rate and regular rhythm Cardio Narrative: Murmur present. GI normal to inspection, nondistended, normoactive bowel sounds, soft to palpation and non-tender Back/Spine Back/Spine Narrative: Tenderness to low back near the lumbosacral region. No obvious deformity noted. No external evidence of trauma. She does have pain to anterior compression of hips bilaterally. She is able to raise her legs bilaterally with 5 out of 5 muscle strength. Neurovascular intact. Neuro CN's II-XII intact bilaterally, moves all extremities, no focal motor deficits and no sensory deficits noted Skin no rashes or lesions noted and no wounds <Dr. Abiodun Andujar MD - Last Filed: 03/29/21 17:57> Physical Exam Const Vital Signs: 03/29/21 15:28 03/29/21 15:31 03/29/21 17:55 Temperature 97.6 F L 97.6 F L Temperature Source Temporal Temporal Pulse Rate 66 66 89 Respiratory Rate 14 14 14 Blood Pressure 149/82 H 149/82 H 130/78 H Blood Pressure Mean 104 104 95 Pulse Ox 95 95 99 Oxygen Delivery Method Room Air Room Air MDM <Dr. Abelardo Alvarado DO - Last Filed: 03/29/21 16:52> [facility] Narrative Medical decision making narrative: Patient presents to the emergency department after a fall today. She believes she did hit her head and is complaining of mild headache. She is also having neck pain as well as low back pain. She is complaining of bilateral hip pain. She does have a history of hip replacement. Images being obtained. Will give pain medication for symptomatic relief. Radiography Diagnostic Testing: Radiology Impression Brain CT 03/29/21 15:50 IMPRESSION: Age-related and chronic changes of the brain. Electronically Signed: Salbador Ash DO at 16:45 EDT Tel [phone], Service support , Cervical Spine CT 03/29/21 15:50 IMPRESSION: Degenerative changes of the cervical spine. 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 Electronically Signed: Salbador Mihir at 17:06 EDT Tel [phone], Service support , Pelvis CT 03/29/21 16:19 IMPRESSION: Colonic diverticulosis. Old pubic rami fractures. Electronically Signed: Salbador Ash at 16:58 EDT Tel [phone], Service support , <Dr. Abiodun Andujar MD - Last Filed: 03/29/21 17:57> MDM MDM Narrative Medical decision making narrative: This patient was signed out to me to follow-up on imaging. Imaging is negative for fractures or intracranial hemorrhage. Patient was able to ambulate here with a walker which is what she uses at home. She is comfortable with plan for discharge home. She does understand return for new or worsening symptoms. Radiography Diagnostic Testing: Radiology Impression Brain CT 03/29/21 15:50 IMPRESSION: Age-related and chronic changes of the brain. Electronically Signed: Salbador Ash DO at 16:45 EDT Tel [phone], Service support , Cervical Spine CT 03/29/21 15:50 IMPRESSION: Degenerative changes of the cervical spine. 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 Electronically Signed: Salbador Ash DO at 17:06 EDT Tel [phone], Service support , Pelvis CT 03/29/21 16:19 IMPRESSION: Colonic diverticulosis. Old pubic rami fractures. Electronically Signed: Salbador DO Mihir at 16:58 EDT Tel [phone], Service support , Discharge Plan Triage Chief Complaint: Lower Extremity Injury ED Provider: Abiodun Andujar Dx/Rx/DC Orders Clinical Impression: Fall Instructions: ED Fall with Uncertain Cause Prescriptions: No Action lisinopril 10 mg tablet 10 mg PO DAILY Qty: 30 RF: 12 omega-3 acid ethyl esters 1 gram capsule 1 cap PO DAILY RF: 0 acetaminophen 325 MG tablet 650 mg PO Q6H PRN PRN (Reason: Mild Pain (1-3)/Temp > 100.7 F) RF: 0 furosemide 40 mg tablet See Rx Instructions .ROUTE .COMPLEX Qty: 180 RF: 3 potassium chloride 20 mEq tablet extended release 20 meq PO BID Qty: 180 RF: 3 Primary Care Provider: Willard Knott III Referrals: Willard Knott III, MD [Primary Care Provider] - Disposition Disposition: Home, self care
[2021-03-29] MEDS: Morphine 4 MG/ML Syringe IV (16:59)
[2021-03-29] MEDS: Ondansetron 4 MG/2 ML Vial IV (16:59)
[2021-03-29 17:55] VITALS: BP 130/78; PULSE 89; RESP 14; O2SAT 99
[2021-03-29 18:23] VITALS: BP 134/75; PULSE 63; RESP 16; O2SAT 99
--- NOTE | 2021-03-29 18:29 | ED.RN ---
with patients permission called [id number] and leftm message to call the hosptial. attempt to get pt ride home.
[2021-03-29 19:23] VITALS: BP 130/82; PULSE 74; RESP 16; O2SAT 94
== END 2021-03-29 20:59 | disposition home or self-care (01) ==
PROVIDERS: Emergency Provider Emergency Medicine; PCP Family Medicine
DX: M54.2 Cervicalgia (principal); M54.5 Low back pain; M25.552 Pain in left hip; M25.551 Pain in right hip; I10 Essential (primary) hypertension; Z79.899 Other long term (current) drug therapy
CPT/HCPCS: 70450; 72125; 72131; 72192; 96374; 96375; 99285; J7030; A4216; J2405

== ENCOUNTER 2021-04-01 13:55 | Inpatient (IN) | payer MEDICARE, SELFPAY ==
[2021-04-01 13:56] VITALS: BP 135/94; PULSE 71; RESP 20; TEMP 37.4; O2SAT 96; BMI 22.3
--- NOTE | 2021-04-01 14:08 | CT_ITS ---
STUDY: CT BRAIN WITHOUT CONTRAST REASON FOR EXAM: Female, 86 years old. Multiple falls, new confusion, headache Multiple fa RADIATION DOSAGE (If Supplied By Facility): CTDIvol = ( 38.43 ) mGy, DLP = ( 727.10 ) mGycm TECHNIQUE: Transaxial CT imaging of the brain was performed without administration of intravenous contrast material. Individualized dose optimization techniques were used for this CT. COMPARISON: Comparison is made with prior examination dated 03/29/2021. FINDINGS: Normal soft tissue structures. Normal calvarium. There is mild cerebral atrophy with widening of the extra-axial spaces and ventricular dilatation. There are areas of decreased attenuation within the white matter tracts of the supratentorial brain, consistent with microvascular disease changes. Normal basal ganglia and thalami. Normal brainstem. Normal cerebellum. There is no intracranial hemorrhage. There are no findings of an acute ischemic infarction. Atherosclerotic calcification of the cavernous portions of the internal carotid arteries bilaterally. Normal visualized paranasal sinuses. CT/Brain/Head without Contrast IMPRESSION: Chronic involutional changes of the brain. Electronically Signed: Michael Vallejo MD at 14:46 EDT , Service support ,
--- NOTE | 2021-04-01 14:09 | RAD_ITS ---
STUDY: X-RAY CHEST REASON FOR EXAM: Female, 86 years old. Tachypnea and by basilar end inspiratory rales TECHNIQUE: AP and lateral views of the chest. COMPARISON: Comparison is made with prior study of 07/29/2019. FINDINGS: The lungs are clear and expanded. There is no demonstrated pleural abnormality. There is moderate cardiac enlargement. Normal mediastinum and jo-ann. Normal visualized pulmonary arteries. There is atherosclerotic calcification of the aortic arch with tortuosity. There are diffuse degenerative changes of the visualized thoracic spine. There is degenerative osteoarthritis of the bilateral shoulders. There is no demonstrated abnormality of the visualized soft tissue structures of the upper abdomen. RAD/Chest PA and Lateral IMPRESSION: Cardia megaly. Electronically Signed: Michael Vallejo MD at 14:56 EDT , Service support ,
--- NOTE | 2021-04-01 14:10 | EX.ED.DYSGE1 ---
HPI History of Present Illness Chief Complaint: Confusion Informant: patient and family Onset/Context/Timing Onset: - (Since fall on Monday) Context: Onset with activity and Sudden Onset Timing: Continuous Quality: Fell at home Current Severity: Unable to determine Maximum Severity: Unable to determine Worsened by: Unknown Relieved by: Apparently nothing Associated Symptoms Associated Symptoms: Headache, neck pain/base of the skull and concern by visiting nurse for uti Narrative Narrative: Patient is an elderly woman who lives alone who presents because of altered mental status. She apparently is fallen twice this week. She normally walks with a walker. She does not recall why she fell. She does not recall if she did or did not hit her head. She does complain of head pain at the base of the skull. She denies double vision, blurred vision or loss of vision. She denies trouble with speech or swallowing. She denies numbness tingling arms or legs. She has history of shortness of breath. She appears tachypneic. She denies chest pain. She denies nausea, vomiting diarrhea. She denies dysuria, frequency, urgency or hematuria. Per family member she is not on anticoagulant. She does not recall the name of her meds. She is not a good informant and she is disoriented to time. Prior similar symptoms: Yes (Per nurse due to UTI) Recent Illness/Hospitalization: No PFSH [facility] Medical History (Updated 04/01/21 @ 16:[address] Fan Velasquez MD) Aortic root dilatation Atrial fibrillation with RVR Dehydration Elevated troponin Encephalopathy acute Essential (primary) hypertension Fall at home Hyperlipidemia Meningioma Meningioma Mitral valve annular calcification Non-rheumatic tricuspid valve insufficiency Nonrheumatic mitral (valve) insufficiency Nonrheumatic tricuspid valve regurgitation Obesity Other secondary pulmonary hypertension Paroxysmal atrial fibrillation SAH (subarachnoid hemorrhage) SAH (subarachnoid hemorrhage) Secondary pulmonary arterial hypertension Sepsis due to Escherichia coli (E. coli) Shortness of breath Sinus tachycardia TGA (transient global amnesia) Type 2 diabetes mellitus Weakness generalized Home Medications potassium chloride 20 mEq tablet,extended release 20 meq PO BID #180 tab 03/18/21 [Rx Last Taken 04/01/21] acetaminophen [Tylenol Extra Strength] 1,000 mg PO BID PRN 04/01/21 [History Last Taken 04/01/21] carbamazepine 100 mg PO BID 04/01/21 [History Last Taken 04/01/21] furosemide 40 mg PO BID 04/01/21 [History Last Taken 04/01/21] gabapentin 100 mg PO TID 04/01/21 [History Last Taken 04/01/21] lisinopril 10 mg PO DAILY 04/01/21 [History Last Taken 04/01/21] Allergy/AdvReac Type Severity Reaction Status Date / Time environmental allergies Allergy Intermediate Unknown Uncoded 11/06/20 12:58 cabbage AdvReac Diarrhea Uncoded 11/06/20 12:58 tomato AdvReac Diarrhea Uncoded 11/06/20 12:58 tree nuts AdvReac Diarrhea Uncoded 11/06/20 12:58 Family History Brother Family history of PTCA Surgical History H/O total hip arthroplasty History of carpal tunnel surgery History of craniotomy History of total hysterectomy Hx of appendectomy Hx of total knee arthroplasty S/P craniotomy Social History Smoking Status: Never smoker alcohol intake: never substance use type: does not use caffeine: No what type of physical activity do you participate in: weight training frequency: daily duration: 15-30 minutes/day seatbelt use: always do you feel safe at home: Yes ROS ROS ED Review of Systems ROS Unobtainable: due to mental status Constitutional Constitutional ED: Denies chills, fever(s), subjective, sweats or weight loss Eyes Eyes: Denies blurry vision, change in vision or diplopia ENT ENT ED: Denies ear pain, rhinorrhea or sore throat Cardiovascular Cardiovascular: Denies chest pain, orthopnea, palpitations, paroxysmal nocturnal dyspnea or racing heartbeat Respiratory/Chest Respiratory/Chest: Reports dyspnea and dyspnea on exertion; Denies cough, orthopnea or paroxysmal nocturnal dyspnea Gastrointestinal Gastrointestinal: Denies abdominal pain, diarrhea, nausea or vomiting Genitourinary Genitourinary ED: Denies dysuria, hematuria or urinary frequency Musculoskeletal Musculoskeletal: Reports neck pain; Denies arthralgias, back pain or myalgias Integumentary Denies rash Neurologic Neurologic: Reports headache(s); Denies paresthesias or weakness EXAM Physical Exam Const Vital Signs: 04/01/21 13:56 Temperature 99.4 F H Temperature Source Temporal Pulse Rate 71 Respiratory Rate 20 H Blood Pressure 135/94 H Blood Pressure Mean 107 Pulse Ox 96 Oxygen Delivery Method Room Air Positive well nourished and well developed General Appearance ED: well developed and NAD HEENT Reports TM's clear and dry mucous membranes HEENT Narrative: No clinical findings of basal skull fracture. There is no septal deviation hematoma noted. Patient's hair appears to be singed. Negative for trauma or tenderness Tympanic Membrane ED: Yes TM's clear Mouth ED: Yes dry mucous membranes Mouth: dry mucous membranes Eyes PERRL and EOMs intact bilaterally General Eye ED: Negative for pale conjunctiva or scleral icterus Neck no lymphadenopathy, supple and no JVD General: tenderness and other There is para cervical discomfort. There is no midline discomfort. Chest Wall palpation of chest normal Chest Narrative: There are 1 old scars. Resp No normal respiratory effort and No clear to auscultation bilaterally Effort and Inspection: pain with movement Auscultation: rales right base and left base Cardio regular rate, regular rhythm, S1 normal heart sound, S2 normal heart sound and no murmurs GI normal to inspection, nondistended, normoactive bowel sounds GI Narrative: There is no palpable pulsatile mass. Palpation: soft Back/Spine no CVA tenderness Cervical Spine: Negative for cervical spine tenderness Thoracic Spine / Upper Back: paraspinal muscle tenderness bilateral (Cervical/posterior neck); Negative for thoracic spinal tenderness Extremity Negative for normal to inspection Extremity Narrative: Bilateral pitting edema and distal right and left leg edema with venous stasis dermatitis General Extremety ED: Yes edema and tenderness General Extremity: edema Neuro No oriented x3 and CN's II-XII intact bilaterally Sensorium / Orientation: other Disoriented to time ; Negative for alert Motor Exam: strength 5/5 throughout Psych Psych Narrative: Affect is flat Skin no wounds Trauma: Negative for abrasion MDM MDM MDM Narrative Medical decision making narrative: With history of altered mental status need to evaluate for traumatic reason versus metabolic reason versus infectious reason. Because she is tachypneic with bilateral rales obtain chest x-ray to evaluate for pneumonia versus CHF versus other causes. When the patient was not in the room I asked if she noted her hair because it appears to be sent. 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 The granddaughter and daughter who is the POA for healthcare and finances is concerned because she lives alone. They are aware of 2 falls in the past several days. Case management was contacted because there is concern for safety if she is to go home. Lab Data Attestation: I reviewed the patient's lab results. Lab results narrative: Lactate is within baseline range. White count is normal. There is a slight shift. Lactate is not elevated. Urine is consistent with infection. Urine culture was sent and antibiotics were started. Since lactate is not elevated and there is no evidence of organ dysfunction blood cultures were not ordered prior to administration of Rocephin. Labs: Laboratory Results - last 24 hr 04/01/21 04/01/21 04/01/21 14:25 14:25 14:25 WBC 9.9 RBC 5.15 Hgb 14.4 Hct 46.7 MCV 90.7 MCH 28.0 MCHC 30.8 L RDW Std Deviation 53.0 H RDW Coeff of Margaret 15.9 H Plt Count 267 MPV 9.7 Immature Gran % (Auto) 0.500 Neut % (Auto) 81.5 H Lymph % (Auto) 7.8 L [place] % (Auto) 8.0 Eos % (Auto) 1.6 Baso % (Auto) 0.6 Absolute Neuts (auto) 8.1 H Absolute Lymphs (auto) 0.77 L Nucleated RBC % 0 Sodium 139 Potassium 4.5 Chloride 101 Carbon Dioxide 31.0 Anion Gap 7 BUN 36 H Creatinine 1.17 H Estim Creat Clear Calc 30.36 Est GFR (MDRD) Af Amer 57 L Est GFR (MDRD) Non-Af 47 L BUN/Creatinine Ratio 30.8 H Glucose 144 H Lactic Acid 2.0 Calcium 9.0 Total Bilirubin 0.80 AST 29 ALT 21 Alkaline Phosphatase 158 H Total Protein 7.8 Albumin 3.9 Globulin 3.9 Albumin/Globulin Ratio 1.0 Urine Color Urine Clarity Urine pH Ur Specific [place] Urine Protein Urine Glucose (UA) Urine Ketones Urine Occult Blood Urine Nitrite Urine Bilirubin Urine Urobilinogen Ur Leukocyte Esterase Urine RBC Urine WBC Ur Squamous Epith Cells Urine Bacteria Urine Mucus 04/01/21 14:50 WBC RBC Hgb Hct MCV MCH MCHC RDW Std Deviation RDW Coeff of Margaret Plt Count MPV Immature Gran % (Auto) Neut % (Auto) Lymph % (Auto) [place] % (Auto) Eos % (Auto) Baso % (Auto) Absolute Neuts (auto) Absolute Lymphs (auto) Nucleated RBC % Sodium Potassium Chloride Carbon Dioxide Anion Gap BUN Creatinine Estim Creat Clear Calc Est GFR (MDRD) Af Amer Est GFR (MDRD) Non-Af BUN/Creatinine Ratio Glucose Lactic Acid Calcium Total Bilirubin AST ALT Alkaline Phosphatase Total Protein Albumin Globulin Albumin/Globulin Ratio Urine Color Yellow Urine Clarity Sl. Cloudy Urine pH 5.0 Ur Specific [place] 1.015 Urine Protein Negative Urine Glucose (UA) Normal Urine Ketones Negative Urine Occult Blood Negative Urine Nitrite Negative Urine Bilirubin Negative Urine Urobilinogen Normal Ur Leukocyte Esterase 100 H Urine RBC 0 SEEN Urine WBC 10-25 SEEN Ur Squamous Epith Cells 0-5 SEEN Urine Bacteria 2+ Urine Mucus 0 SEEN Radiography Chest X-Ray - ED: 2 View, Read by ED Physician, Mediastinum, No Acute Disease, Chronic Changes and - (There is evidence of cardiomegaly. Cardiac silhouette is normal. There is evidence of granulomatous disease of the hilum. There is no infiltrate. There is no pneumothorax. There is degenerative changes noted of the dorsal vertebrae. Interpreted by me at [id number].) Diagnostic Testing: Radiology Impression Brain CT 04/01/21 14:08 IMPRESSION: Chronic involutional changes of the brain. Electronically Signed: Michael Vallejo MD at 14:46 EDT , Service support , Chest X-Ray 04/01/21 14:09 IMPRESSION: Cardia simbaly. Electronically Signed: Michael Vallejo MD at 14:56 EDT , Service support , Rhythm Strip Rhythm Strip: Sinus Rhythm Rate: 82 Discharge Plan Triage Chief Complaint: Confusion ED Provider: Fan Velasquez Dx/Rx/DC Orders Clinical Impression: Infectious encephalopathy, Urinary tract infection Prescriptions: No Action carbamazepine 100 mg tablet extended release 12 hr 100 mg PO BID RF: 0 acetaminophen [Tylenol Extra Strength] 500 mg Tablet 1,000 mg PO BID PRN (Reason: Pain) RF: 0 gabapentin 100 mg capsule 100 mg PO TID RF: 0 furosemide 40 mg tablet 40 mg PO BID RF: 0 lisinopril 10 mg tablet 10 mg PO DAILY RF: 0 potassium chloride 20 mEq tablet extended release 20 meq PO BID Qty: 180 RF: 3 Primary Care Provider: Care Physician,No Primary Referrals: NOT,DEFINED [NON-STAFF] - Disposition Disposition: Acute Care [facility]
[2021-04-01 14:36] LABS: Absolute Lymphocyte Count 0.77 X10^3/uL (0.83-4.51); Absolute Neutrophil Count 8.1 X10^3/uL (2.0-7.7); Basophil# 0.06 X10^3/uL; Basophil% 0.6 % (0-1); Eosinophil# 0.16 X10^3/uL; Eosinophils% 1.6 % (0-5); Hematocrit 46.7 % (37-47); Hemoglobin 14.4 g/dL (12.0-15.0); Lymphocyte # 0.77 X10^3/ul (0.83-4.51); Lymphocyte % 7.8 % (19-41); Mean Corp Hgb Conc 30.8 g/dL (32-36); Mean Corpuscular Volume 90.7 fL (81-99); Mean Platelet Vol. 9.7 fl (6.2-12.0); Monocyte# 0.79 X10^3/uL; NRBC Flagged by Analyzer 0 % (0-5); Neutrophil # 8.08 X10^3/uL (2.7-7.7); Neutrophil % 81.5 % (47-70); Platelet Count 267 K/mm3 (150-450); RBC Distribution Width CV 15.9 % (11.6-14.6); Red Blood Count 5.15 M/mm3 (4.2-5.4); White Blood Count 9.9 K/mm3 (4.4-11.0)
[2021-04-01 14:52] LABS: AST(SGOT) 29 U/L (15-37); Alanine Aminotransfer ALT/SGPT 21 U/L (13-56); Albumin, Serum 3.9 g/dL (3.2-5.0); Alkaline Phosphatase 158 U/L (45-117); Anion Gap 7 (5-15); BUN 36 mg/dL (7-18); BUN/Creat Ratio 30.8 RATIO (10-20); Chloride 101 mmol/L (98-107); Creatinine, Serum 1.17 mg/dL (0.55-1.02); EST Glomerular Filtration Rate 47 mL/min (>60); Est Glom Filt Rate - Afr Amer 57 mL/min (>60); Estimated Creatinine Clearance 30.36 ml/min; Globulin 3.9 g/dL (2.2-4.2); Glucose 144 mg/dL (74-106); Potassium 4.5 mmol/L (3.5-5.1); Protein, Total 7.8 g/dL (6.4-8.2); Sodium Level 139 mmol/L (136-145)
[2021-04-01 15:04] LABS: Mucous, Urine 0 SEEN /hpf (<or=2+); Red Blood Cells-Urine 0 SEEN /hpf (0-5)
[2021-04-01 15:12] LABS: Color, Urine Yellow (Yellow); Glucose, Dipstick Normal (Normal); Ketone-Dipstick Negative (Negative); Leukocyte Esterase-Dipstick 100 /ul (Negative); Nitrite-Dipstick Negative (Negative); Occult Blood-Urine Negative /ul (Negative); Protein-Dipstick Negative (Negative); Specific Gravity, Urine 1.015 (1.002-1.030); Urine Bilirubin Dipstick Negative (Negative); Urine Clarity Sl. Cloudy (Clear); Urine Urobilinogen Normal (Normal)
[2021-04-01 15:20] LABS: Bacteria 2+ /hpf (None Seen); Squamous Epithelial Cells - UA 0-5 SEEN /hpf (5-10); White Blood Cells 10-25 SEEN /hpf (0-5)
[2021-04-01 16:00] VITALS: BP 130/71; PULSE 73; RESP 19; O2SAT 96
[2021-04-01] MEDS: Ceftriaxone 1 GM/50 ML BAG IV (16:53)
[2021-04-01 16:56] VITALS: BP 125/84; PULSE 75; RESP 20; TEMP 36.6; O2SAT 95
--- NOTE | 2021-04-01 16:58 | ED.RN ---
NO BLOOD CULTURES REQUIRED PER ED MD
--- NOTE | 2021-04-01 17:04 | HP.PCM.HOS_ITS ---
Documented by User: Abby Levin NP, STORE STOCKER-C 04/01/21 17:20 HPI - General HPI Narrative ALTON WILCOX, is a 86 F who presents to the emergency room due to confusion and recurrent falls at home. Patient's granddaughter at bedside states that patient has fallen twice over the past week and has noted to have increased confusion. Patient lives alone and has home health services. Patient is confused during assessment and unable to provide HPI. She is unable to give her past medical history. She denies current symptoms or complaints. She has a past medical history of type 2 diabetes mellitus, paroxysmal atrial fibrillation, hypertension, previous history of subarachnoid hemorrhage, hx of PVCs/PACs. Granddaughter at bedside denies known history of dementia and states confusion is fairly acute. REPLACED BY [facility] Medical History Aortic root dilatation Atrial fibrillation with RVR Dehydration Elevated troponin Encephalopathy acute Essential (primary) hypertension Fall at home Hyperlipidemia Meningioma Meningioma Mitral valve annular calcification Non-rheumatic tricuspid valve insufficiency Nonrheumatic mitral (valve) insufficiency Nonrheumatic tricuspid valve regurgitation Obesity Other secondary pulmonary hypertension Paroxysmal atrial fibrillation SAH (subarachnoid hemorrhage) SAH (subarachnoid hemorrhage) Secondary pulmonary arterial hypertension Sepsis due to Escherichia coli (E. coli) Shortness of breath Sinus tachycardia TGA (transient global amnesia) Type 2 diabetes mellitus Weakness generalized Home Medications potassium chloride 20 mEq tablet,extended release 20 meq PO BID #180 tab 03/18/21 [Rx Last Taken 04/01/21] acetaminophen [Tylenol Extra Strength] 1,000 mg PO BID PRN 04/01/21 [History Last Taken 04/01/21] carbamazepine 100 mg PO BID 04/01/21 [History Last Taken 04/01/21] furosemide 40 mg PO BID 04/01/21 [History Last Taken 04/01/21] gabapentin 100 mg PO TID 04/01/21 [History Last Taken 04/01/21] lisinopril 10 mg PO DAILY 04/01/21 [History Last Taken 04/01/21] Allergy/AdvReac Type Severity Reaction Status Date / Time house dust Allergy Intermediate NEEDS Verified 04/01/21 16:46 FOLLOW-UP cabbage AdvReac Diarrhea Verified 04/01/21 16:46 tomato AdvReac Diarrhea Verified 04/01/21 16:46 tree nut AdvReac Diarrhea Verified 04/01/21 16:46 Family History Brother Family history of PTCA other (Denies maternal and paternal medical history including cardiac history.) Surgical History H/O total hip arthroplasty History of carpal tunnel surgery History of craniotomy History of total hysterectomy Hx of appendectomy Hx of total knee arthroplasty S/P craniotomy Social History Smoking Status: Never smoker alcohol intake: never substance use type: does not use caffeine: No what type of physical activity do you participate in: weight training frequency: daily duration: 15-30 minutes/day seatbelt use: always do you feel safe at home: Yes ROS ROS Narrative Unable to obtain from patient due to encephalopathy. Review of Systems ROS Unobtainable: due to encephalopathy Vital Signs Vital Signs Vital Signs: 04/01/21 13:56 04/01/21 16:00 04/01/21 16:56 Temperature 99.4 F H 98 F Temperature Source Temporal Oral Pulse Rate 71 73 75 Respiratory Rate 20 H 19 H 20 H Blood Pressure 135/94 H 130/71 H 125/84 H Blood Pressure Mean 107 90 97 Pulse Ox 96 96 95 Oxygen Delivery Method Room Air Room Air Room Air Weight Weight: 130 lb Body Mass Index (BMI) 22.3 Physical Exam Const alert and no apparent distress Orientation / Consciousness: confused HEENT normocephalic and moist oral mucous membranes Eyes PERRL, EOMs intact bilaterally and conjunctivae normal Neck no lymphadenopathy Resp normal respiratory effort and clear to auscultation bilaterally Cardio regular rate, regular rhythm and no murmurs Peripheral Pulses: pulses 2+ throughout GI normal to inspection, nondistended, normoactive bowel sounds, non-tender and non-distended Extremity normal to inspection Skin no rashes or lesions noted Lesions: no lesions Rashes: no rashes Trauma: no lacerations or abrasions Neuro CN's II-XII intact bilaterally, no focal motor deficits, no sensory deficits noted and deep tendon reflexes 2+ bilaterally Psych mental status grossly normal and affect normal Results Lab / Micro Data Result Diagrams: 04/01/21 14:25 04/01/21 14:25 Labs: Laboratory Results - last 24 hr 04/01/21 04/01/21 04/01/21 14:25 14:25 14:25 WBC 9.9 RBC 5.15 Hgb 14.4 Hct 46.7 MCV 90.7 MCH 28.0 MCHC 30.8 L RDW Std Deviation 53.0 H RDW Coeff of Margaret 15.9 H Plt Count 267 MPV 9.7 Immature Gran % (Auto) 0.500 Neut % (Auto) 81.5 H Lymph % (Auto) 7.8 L [place] % (Auto) 8.0 Eos % (Auto) 1.6 Baso % (Auto) 0.6 Absolute Neuts (auto) 8.1 H Absolute Lymphs (auto) 0.77 L Nucleated RBC % 0 Sodium 139 Potassium 4.5 Chloride 101 Carbon Dioxide 31.0 Anion Gap 7 BUN 36 H Creatinine 1.17 H Estim Creat Clear Calc 30.36 Est GFR (MDRD) Af Amer 57 L Est GFR (MDRD) Non-Af 47 L BUN/Creatinine Ratio 30.8 H Glucose 144 H Lactic Acid 2.0 Calcium 9.0 Total Bilirubin 0.80 AST 29 ALT 21 Alkaline Phosphatase 158 H Total Protein 7.8 Albumin 3.9 Globulin 3.9 Albumin/Globulin Ratio 1.0 Urine Color Urine Clarity Urine pH Ur Specific [place] Urine Protein Urine Glucose (UA) Urine Ketones Urine Occult Blood Urine Nitrite Urine Bilirubin Urine Urobilinogen Ur Leukocyte Esterase Urine RBC Urine WBC Ur Squamous Epith Cells Urine Bacteria Urine Mucus 04/01/21 14:50 WBC RBC Hgb Hct MCV MCH MCHC RDW Std Deviation RDW Coeff of Margaret Plt Count MPV Immature Gran % (Auto) Neut % (Auto) Lymph % (Auto) [place] % (Auto) Eos % (Auto) Baso % (Auto) Absolute Neuts (auto) Absolute Lymphs (auto) Nucleated RBC % Sodium Potassium Chloride Carbon Dioxide Anion Gap BUN Creatinine Estim Creat Clear Calc Est GFR (MDRD) Af Amer Est GFR (MDRD) Non-Af BUN/Creatinine Ratio Glucose Lactic Acid Calcium Total Bilirubin AST ALT Alkaline Phosphatase Total Protein Albumin Globulin Albumin/Globulin Ratio Urine Color Yellow Urine Clarity Sl. Cloudy Urine pH 5.0 Ur Specific [place] 1.015 Urine Protein Negative Urine Glucose (UA) Normal Urine Ketones Negative Urine Occult Blood Negative Urine Nitrite Negative Urine Bilirubin Negative Urine Urobilinogen Normal Ur Leukocyte Esterase 100 H Urine RBC 0 SEEN Urine WBC 10-25 SEEN Ur Squamous Epith Cells 0-5 SEEN Urine Bacteria 2+ Urine Mucus 0 SEEN Rhythm Strip Rhythm Strip: Sinus Rhythm Rate: [address] 04/01/21 14:08 IMPRESSION: Chronic involutional changes of the brain. Electronically Signed: Michael Vallejo MD at 14:46 EDT , Service support , Chest X-Ray 04/01/21 14:09 IMPRESSION: Gifty dee. Electronically Signed: Michael Vallejo MD at 14:56 EDT , Service support , Assessment & Plan Assessment/Plan (1) Infectious encephalopathy: (2) Urinary tract infection: PLAN: 1. Acute infectious encephalopathy secondary to acute UTI-IV Ro cephin pending culture. PT/OT. Suspect patient may have component of underlying dementia as well however no documented history. 2. Recent falls, debility-fall precautions. PT/OT. Case management consult. 3. History of type 2 diabetes mellitus-no longer on regimen. Previous hemoglobin A1c 5%. 4. Paroxysmal atrial fibrillation-not on rate control regimen or anticoagulation. Follows with Dr. Capmos. 5. Moderate mitral valve insufficiency/severe pulmonary hypertension-as noted on echo 11/11/2020. Echo demonstrated an EF of 65%, moderate mitral valve insufficiency, pulmonary artery systolic pressure 72 mmHg. 6. Hypertension-stable, continue lisinopril, Lasix. 7. History of subarachnoid hemorrhage 8. Hx of PVCs/PACs-previously on beta-morgan which was discontinued by cardiology. DVT prophylaxis-Lovenox subcu This patient was seen by ARSALAN Arenas under the supervision of Dr. Lawton. Documented by User: Dr. Ayah Lawton MD 04/01/21 17:32 HPI - General General Date of Admission: 04/01/21 REPLACED BY [facility] Medical History Aortic root dilatation Atrial fibrillation with RVR Dehydration Elevated troponin Encephalopathy acute Essential (primary) hypertension Fall at home Hyperlipidemia Meningioma Meningioma Mitral valve annular calcification Non-rheumatic tricuspid valve insufficiency Nonrheumatic mitral (valve) insufficiency Nonrheumatic tricuspid valve regurgitation Obesity Other secondary pulmonary hypertension Paroxysmal atrial fibrillation SAH (subarachnoid hemorrhage) SAH (subarachnoid hemorrhage) Secondary pulmonary arterial hypertension Sepsis due to Escherichia coli (E. coli) Shortness of breath Sinus tachycardia TGA (transient global amnesia) Type 2 diabetes mellitus Weakness generalized Home Medications potassium chloride 20 mEq tablet,extended release 20 meq PO BID #180 tab 03/18/21 [Rx Last Taken 04/01/21] acetaminophen [Tylenol Extra Strength] 1,000 mg PO BID PRN 04/01/21 [History Last Taken 04/01/21] carbamazepine 100 mg PO BID 04/01/21 [History Last Taken 04/01/21] furosemide 40 mg PO BID 04/01/21 [History Last Taken 04/01/21] gabapentin 100 mg PO TID 04/01/21 [History Last Taken 04/01/21] lisinopril 10 mg PO DAILY 04/01/21 [History Last Taken 04/01/21] Allergy/AdvReac Type Severity Reaction Status Date / Time house dust Allergy Intermediate NEEDS Verified 04/01/21 16:46 FOLLOW-UP cabbage AdvReac Diarrhea Verified 04/01/21 16:46 tomato AdvReac Diarrhea Verified 04/01/21 16:46 tree nut AdvReac Diarrhea Verified 04/01/21 16:46 Family History Brother Family history of PTCA Surgical History H/O total hip arthroplasty History of carpal tunnel surgery History of craniotomy History of total hysterectomy Hx of appendectomy Hx of total knee arthroplasty S/P craniotomy Social History Smoking Status: Never smoker alcohol intake: never substance use type: does not use caffeine: No what type of physical activity do you participate in: weight training frequency: daily duration: 15-30 minutes/day seatbelt use: always do you feel safe at home: Yes Results Lab / Micro Data Result Diagrams: 04/01/21 14:25 04/01/21 14:25
--- NOTE | 2021-04-01 17:17 | CASEMGMT ---
Addendum entered by Aiyana Christianson 04/01/21 17:30: Patient reports she had been in rehab in the past but was unable to recall the name of the facility. Aiyana Christianson [employer] Original Note: Social Work Note Referral Source: MD Referral Reason: Discharge planning SW met with patient and her niece, Fidelina. Patient said I only fell down twice. Patient said that she wants to go home. Patient said that she likes to be independent. Patient's niece, Fidelina, said to patient I was scared this morning when I called out to you and I didn't hear you. Patient's niece, Fidelina, said that she thinks patient would benefit from short term rehab placement. Patient reports she has one floor house with ramps inside, no steps. Patient said that her had MS so there house was equipped with many DME features including a walk in tub, grab bars in the bathroom and ramp. Patient has walker and reports she uses it. Patient was encouraged to speak to family about their concerns about her living alone. Patient said that there was no family member that could be with her 22/05. MD updated. Plan: To be determined.
[2021-04-01 18:11] VITALS: BMI 21.5
[2021-04-01 18:16] VITALS: BP 139/95; PULSE 70; RESP 18; TEMP 37.1; O2SAT 98
[2021-04-01 18:21] VITALS: PULSE 80
[2021-04-01 18:33] LABS: Reflex Lactate? Y
[2021-04-01 19:35] LABS: Carbamazepine (Tegretol) 11.6 ug/mL (4.0-12.0)
[2021-04-01 19:37] LABS: Lactic Acid 1.4 mmol/L (0.4-1.9)
[2021-04-01 22:08] VITALS: BP 111/55; PULSE 62; RESP 16; TEMP 37.2; O2SAT 92
[2021-04-01] MEDS: 0.9% Saline Lock 10 ML Syringe IV (22:13)
[2021-04-01] MEDS: Potassium Chloride Oral Tablet 20 MEQ PO (22:13)
[2021-04-02] MEDS: Menthol/Lanolin/Calamine/Znox 113 GM Tube 1 APPLIC TOPICAL ×3 (03:28→22:18)
[2021-04-02 03:30] VITALS: BP 128/47; PULSE 64; RESP 16; TEMP 37.1; O2SAT 93
[2021-04-02] MEDS: Acetaminophen 500 MG Tablet 1000 MG PO ×2 (03:34→22:21)
[2021-04-02 06:24] LABS: Absolute Lymphocyte Count 0.72 X10^3/uL (0.83-4.51); Absolute Neutrophil Count 5.3 X10^3/uL (2.0-7.7); Basophil# 0.04 X10^3/uL; Basophil% 0.6 % (0-1); Eosinophils% 2.9 % (0-5); Hematocrit 42.3 % (37-47); Lymphocyte # 0.72 X10^3/ul (0.83-4.51); Lymphocyte % 10.3 % (19-41); Mean Corp Hgb Conc 30.7 g/dL (32-36); Mean Corpuscular Hgb 27.8 pg (27.0-32.0); Mean Corpuscular Volume 90.4 fL (81-99); Mean Platelet Vol. 9.7 fl (6.2-12.0); Monocyte# 0.74 X10^3/uL; Monocyte% 10.6 % (0-10); NRBC Flagged by Analyzer 0 % (0-5); Neutrophil # 5.27 X10^3/uL (2.7-7.7); Neutrophil % 75.2 % (47-70); Platelet Count 238 K/mm3 (150-450); RBC Distribution Width CV 15.9 % (11.6-14.6); RBC Distribution Width SD 51.7 fl (35.1-43.9); Red Blood Count 4.68 M/mm3 (4.2-5.4)
[2021-04-02 06:48] LABS: Anion Gap 5 (5-15); BUN 36 mg/dL (7-18); BUN/Creat Ratio 36.4 RATIO (10-20); Calcium,Total 8.8 mg/dL (8.5-10.1); Chloride 106 mmol/L (98-107); Creatinine, Serum 0.99 mg/dL (0.55-1.02); EST Glomerular Filtration Rate 57 mL/min (>60); Est Glom Filt Rate - Afr Amer 69 mL/min (>60); Estimated Creatinine Clearance 35.88 ml/min; Glucose 129 mg/dL (74-106); Potassium 4.6 mmol/L (3.5-5.1); Sodium Level 139 mmol/L (136-145)
--- NOTE | 2021-04-02 07:26 | NURSING ---
spoke w/ dayo in pharmacy re:no one can bring in carbamzepine-please get from outside source
--- NOTE | 2021-04-02 07:27 | NURSING ---
also informed Rx pt missed last night dose
--- NOTE | 2021-04-02 09:10 | PCM.PN.HOSP ---
Documented by User: Abby Levin NP, COMPUTER SYSTEM VALIDATION SPECIALIST-C 04/02/21 09:28 Subjective Subjective Patient seen and examined. Denies symptoms or complaints. Pleasantly confused. Objective Data Objective Data Vital Signs: Vital Signs Temp Pulse Resp BP Pulse Ox 98.7 F 64 16 128/47 H 93 04/02/21 03:30 04/02/21 03:30 04/02/21 03:30 04/02/21 03:30 04/02/21 03:30 Oxygen Delivery Method Room Air Weight: 125 lb 9.6 oz Body Mass Index (BMI) 21.5 Intake & Output: Intake and Output for Last 24 Hours 03/31/21 04/01/21 04/02/21 23:59 23:59 23:59 Intake Total 450 / 450 200 / 200 Balance 450 / 450 200 / 200 Lab / Micro Data Result Diagrams: 04/02/21 05:50 04/02/21 05:50 Labs: Laboratory Results - last 24 hr 04/01/21 04/01/21 04/01/21 14:25 14:25 14:25 WBC 9.9 RBC 5.15 Hgb 14.4 Hct 46.7 MCV 90.7 MCH 28.0 MCHC 30.8 L RDW Std Deviation 53.0 H RDW Coeff of Margaret 15.9 H Plt Count 267 MPV 9.7 Immature Gran % (Auto) 0.500 Neut % (Auto) 81.5 H Lymph % (Auto) 7.8 L [place] % (Auto) 8.0 Eos % (Auto) 1.6 Baso % (Auto) 0.6 Absolute Neuts (auto) 8.1 H Absolute Lymphs (auto) 0.77 L Nucleated RBC % 0 Sodium 139 Potassium 4.5 Chloride 101 Carbon Dioxide 31.0 Anion Gap 7 BUN 36 H Creatinine 1.17 H Estim Creat Clear Calc 30.36 Est GFR (MDRD) Af Amer 57 L Est GFR (MDRD) Non-Af 47 L BUN/Creatinine Ratio 30.8 H Glucose 144 H Lactic Acid 2.0 Calcium 9.0 Total Bilirubin 0.80 AST 29 ALT 21 Alkaline Phosphatase 158 H Total Protein 7.8 Albumin 3.9 Globulin 3.9 Albumin/Globulin Ratio 1.0 Urine Color Urine Clarity Urine pH Ur Specific [place] Urine Protein Urine Glucose (UA) Urine Ketones Urine Occult Blood Urine Nitrite Urine Bilirubin Urine Urobilinogen Ur Leukocyte Esterase Urine RBC Urine WBC Ur Squamous Epith Cells Urine Bacteria Urine Mucus Carbamazepine 04/01/21 04/01/21 04/01/21 14:50 18:55 18:55 WBC RBC Hgb Hct MCV MCH MCHC RDW Std Deviation RDW Coeff of Margaret Plt Count MPV Immature Gran % (Auto) Neut % (Auto) Lymph % (Auto) [place] % (Auto) Eos % (Auto) Baso % (Auto) Absolute Neuts (auto) Absolute Lymphs (auto) Nucleated RBC % Sodium Potassium Chloride Carbon Dioxide Anion Gap BUN Creatinine Estim Creat Clear Calc Est GFR (MDRD) Af Amer Est GFR (MDRD) Non-Af BUN/Creatinine Ratio Glucose Lactic Acid 1.4 Calcium Total Bilirubin AST ALT Alkaline Phosphatase Total Protein Albumin Globulin Albumin/Globulin Ratio Urine Color Yellow Urine Clarity Sl. Cloudy Urine pH 5.0 Ur Specific [place] 1.015 Urine Protein Negative Urine Glucose (UA) Normal Urine Ketones Negative Urine Occult Blood Negative Urine Nitrite Negative Urine Bilirubin Negative Urine Urobilinogen Normal Ur Leukocyte Esterase 100 H Urine RBC 0 SEEN Urine WBC 10-25 SEEN Ur Squamous Epith Cells 0-5 SEEN Urine Bacteria 2+ Urine Mucus 0 SEEN Carbamazepine 11.6 04/02/21 04/02/21 05:50 05:50 WBC 7.0 RBC 4.68 Hgb 13.0 Hct 42.3 MCV 90.4 MCH 27.8 MCHC 30.7 L RDW Std Deviation 51.7 H RDW Coeff of Margaret 15.9 H Plt Count 238 MPV 9.7 Immature Gran % (Auto) 0.400 Neut % (Auto) 75.2 H Lymph % (Auto) 10.3 L [place] % (Auto) 10.6 H Eos % (Auto) 2.9 Baso % (Auto) 0.6 Absolute Neuts (auto) 5.3 Absolute Lymphs (auto) 0.72 L Nucleated RBC % 0 Sodium 139 Potassium 4.6 Chloride 106 Carbon Dioxide 28.0 Anion Gap 5 BUN 36 H Creatinine 0.99 Estim Creat Clear Calc 35.88 Est GFR (MDRD) Af Amer 69 Est GFR (MDRD) Non-Af 57 L BUN/Creatinine Ratio 36.4 H Glucose 129 H Lactic Acid Calcium 8.8 Total Bilirubin AST ALT Alkaline Phosphatase Total Protein Albumin Globulin Albumin/Globulin Ratio Urine Color Urine Clarity Urine pH Ur Specific [place] Urine Protein Urine Glucose (UA) Urine Ketones Urine Occult Blood Urine Nitrite Urine Bilirubin Urine Urobilinogen Ur Leukocyte Esterase Urine RBC Urine WBC Ur Squamous Epith Cells Urine Bacteria Urine Mucus Carbamazepine Radiography Diagnostic Testing: Radiology Impression Brain CT 04/01/21 14:08 IMPRESSION: Chronic involutional changes of the brain. Electronically Signed: Michael Vallejo MD at 14:46 EDT , Service support , Chest X-Ray 04/01/21 14:09 IMPRESSION: Gifty dee. Electronically Signed: Michael Vallejo MD at 14:56 EDT , Service support , Rhythm Strip Rhythm Strip: Sinus Rhythm Rate: 82 Physical Exam Const alert and no apparent distress Orientation / Consciousness: awake HEENT normocephalic and moist oral mucous membranes Eyes PERRL, EOMs intact bilaterally and conjunctivae normal Neck no lymphadenopathy Resp normal respiratory effort and clear to auscultation bilaterally Cardio regular rate and regular rhythm Heart Sounds: murmur Peripheral Pulses: pulses 2+ throughout GI normal to inspection, nondistended, normoactive bowel sounds, non-tender and non-distended Extremity normal to inspection Skin no rashes or lesions noted Lesions: no lesions Rashes: no rashes Trauma: no lacerations or abrasions Neuro CN's II-XII intact bilaterally, no focal motor deficits, no sensory deficits noted and deep tendon reflexes 2+ bilaterally Psych mental status grossly normal and affect normal Assessment & Plan Assessment/Plan (1) Infectious encephalopathy: (2) Urinary tract infection: PLAN: 1. Acute infectious encephalopathy secondary to acute UTI-IV Rocephin pending culture. PT/OT. Suspect patient may have component of underlying dementia as well however no documented history. 2. Recent falls, debility-fall precautions. PT/OT. Case management consult. 3. History of type 2 diabetes mellitus-no longer on regimen. Previous hemoglobin A1c 5%. 4. Paroxysmal atrial fibrillation-not on rate control regimen or anticoagulation. Follows with Dr. Campos. 5. Moderate mitral valve insufficiency/severe pulmonary hypertension-as noted on echo 11/11/2020. Echo demonstrated an EF of 65%, moderate mitral valve insufficiency, pulmonary artery systolic pressure 72 mmHg. 6. Hypertension-stable, continue lisinopril, Lasix. 7. History of subarachnoid hemorrhage 8. Hx of PVCs/PACs-previously on beta-morgan which was discontinued by cardiology. 9. Seizure history- On carbamazepine. DVT prophylaxis-Lovenox subcu This patient was seen by Abby Levin NP-C under the supervision of Dr. White. Documented by User: Dr. Edis White MD 04/02/21 14:49 Subjective Subjective Patient has dementia, confused and disoriented. History of frequent fall. Objective Data Lab / Micro Data Result Diagrams: 04/02/21 05:50 04/02/21 05:50 Physical Exam Narrative General: Confused, disoriented, cognitive deficit. HEENT: Atraumatic, PERRLA, EOMI, Normocephalic Oral: No Gingival or Mucosal Lesions/ Ulcerations Neck: Supple, No JVD, Negative Carotid Bruits Lungs: Air entry diminished in bilateral lung bases. No crepitation/rhonchi Cardiovascular: Sinus rhythm, PVCs, normal S1, Normal S2, grade 4/6 pansystolic murmur LLSB and cardiac apex. Abdomen: Bowel Sounds Present, Soft, Non Tender, Non-Distended : No renal angle tenderness. No suprapubic tenderness. Extremities: No edema, Capillary Refill Less than 3 Seconds Skin: No rashes, No breakdown Musculoskeletal: No Tenderness to Palpation of Joints or Extremities Neurological: Cranial nerves II-XII grossly intact, Deep Tendon Reflexes 2+/4, Neuro grossly intact Psych/Mental Status: Flat affect Assessment & Plan Assessment/Plan (1) Infectious encephalopathy: (2) Fall: PLAN: This patient was seen in conjunction with Abby JUAREZ. I have independently interviewed and examined the patient and reviewed pertinent history, examination findings, laboratory and plan of management. I have reviewed the note and agree with the documented findings with the few additional points. In brief, patient is admitted for altered mental status, acute encephalopathy probably due to UTI on baseline dementia/MCI: Patient is being admitted MedSurg floor. On IV Rocephin empirically for UTI. UA LE 100, WBC 10-25 cells. Urine culture pending. PT and OT to evaluate for fall and debility. History of diabetes blood glucose is well controlled and A1c 5%. Other comorbidities as mentioned above include moderate mitral regurgitation with severe pulmonary hypertension with loud murmur. I have discussed my assessment with COMPUTER SYSTEM VALIDATION SPECIALISTAbby and orders have been reviewed. Charges/Coding Visit Charges Inpatient E&M: 19791 Subs Hosp L2
[2021-04-02 09:30] VITALS: BP 134/75; PULSE 66; RESP 18; TEMP 36.7; O2SAT 94
[2021-04-02] MEDS: Gabapentin 100 MG Capsule PO ×3 (10:11→17:22)
[2021-04-02] MEDS: Ceftriaxone 1 GM/50 ML BAG IV (10:14)
[2021-04-02] MEDS: 0.9% Saline Lock 10 ML Syringe IV ×2 (10:14→22:28)
[2021-04-02] MEDS: Enoxaparin 40 MG/0.4 ML Syringe SC (10:15)
[2021-04-02] MEDS: Furosemide 40 MG Tablet PO ×2 (10:15→17:22)
[2021-04-02] MEDS: Potassium Chloride Oral Tablet 20 MEQ PO ×2 (10:15→22:23)
[2021-04-02] MEDS: Lisinopril 10 MG Tablet PO (10:16)
[2021-04-02 12:00] VITALS: PULSE 80
--- NOTE | 2021-04-02 12:18 | CASEMGMT ---
Social Work SW to room to meet with patient for initial transition planning/care coordination assessment. SW introduced self and role at [facility]. Pt voices understanding and consents to assessment at this time. Pt is A/Ox3 at this time and answers all questions appropriately. Care providers, pharmacy, and demographics verified/updated at this time. PCP: Pt PCP was Dr. Knott who has retired. Pt does state she has a new doctor at [facility] and an appointment to meet with him but she cannot remember his name. Specialists: Dr. Campos Preferred Pharmacy: [facility] Insurance: [employer] Medicare Prescription Benefit: yes Living Will/HPOA: Pt has a health care POA on file from 2011 which names Willard Jenkins, Tuan Price and Tyra Price. Pt states Willard is her , Tuan is her brother who is ill and unable to assist and Tyra is her sister in law and her HCPOA. Living will that has been scanned into EMR is not signed by pt or notarized therefore it is not valid. LNOK: Tyra Price, sister in law Living Arrangements: Pt lives at home alone in a one story home with ramp entrance. Pt states that she is able to complete bathing and dressing tasks but it has become much more difficult recently and takes her a long time. Pt states she does need help with cleaning and that Tyra brings her meals that she can put in the microwave, No cooking. Transportation: Pt states she still drives but has not done so in a while. Tyra provides needed transportation. DME: Uses 4 wheeled walker for ambulating States has the following DME: walk in bathtub with seat, grab bars and raised toilet seat. Ramp into home. HHC/SNF: Pt is current with [facility] nursing. Previously in [facility] Inpatient Rehab and [facility] Pt sister in law Tyra spoke with ANN Mora and states pt lives at home alone. Pt has fallen twice over the past week and has had increased confusion. REMEDIOS also reports she found pt soaked in urine and not showering. Family feels pt will need SNF placement. Therapy has seen pt and is recommending SNF. SW Spoke with pt regarding SNF placement. Pt is reluctant at first stating she doesn't think it will help and will just return home. After extensive conversation with pt and after providing list of SNF providers including quality and resource use data and consistent with the patients preferred geographic region, medical needs and insurance network, pt becomes agreeable to short term placement. Pt states she will stay for only a couple weeks but it would probably be best for her. Pt preferred provider is [facility]. Referral made to [facility] and will await determination of acceptance. left with pt sister in law Tyra to update on d/c plan. ANN Mora updated. Plan: [facility], pending acceptance and precert. DEMETRICE Castellon PLAN:
--- NOTE | 2021-04-02 12:59 | CASEMGMT ---
Pt has HCPOA. First person listed is and second is brother Tuan who is ill. Third person listed is sister in law Tyra who pt confirms is her HCPOA. The Living will on file is not signed nor notarized therefore it is not valid. DEMETRICE Castellon
[2021-04-02 14:26] VITALS: BP 134/81; PULSE 77; RESP 18; TEMP 36.7; O2SAT 97
--- NOTE | 2021-04-02 14:39 | CASEMGMT ---
Pt screened with [facility] Palliative Care Screening Tool due to strata 3, pt did not meet criteria.
[2021-04-02] MEDS: CARBAMAZEPINE 100 MG TAB.CHEW 50 MG PO ×3 (15:08→22:23)
--- NOTE | 2021-04-02 16:04 | CASEMGMT ---
Social Work SW spoke with [facility] and they are able to accept pt precert to be started at this time and will expect determination on Monday. Pt to remain at hospital until precert obtained. ROBERT left with pt LINUS Mary and notified. CINDY met with pt and she is agreeable to discharge plan. Plan: [facility], pending insurance precert. DEMETRICE Castellon
[2021-04-02 18:00] VITALS: BP 137/70; PULSE 68; RESP 18; TEMP 36.8; O2SAT 94
[2021-04-02 22:04] VITALS: BP 124/72; PULSE 63; RESP 18; TEMP 36.4; O2SAT 94
[2021-04-03 04:20] VITALS: BP 146/84; PULSE 57; RESP 18; TEMP 36.4; O2SAT 95
[2021-04-03] MEDS: Menthol/Lanolin/Calamine/Znox 113 GM Tube 1 APPLIC TOPICAL ×3 (04:27→21:24)
--- NOTE | 2021-04-03 06:49 | PN_ITS ---
Progress Note Patient with no acute events overnight per self and per nursing report. Patient this morning is seated upright in bed, eating, complaining of some lumbar back discomfort and continues to be reticent about skilled facility placement but understands this is the best choice at this moment given her debility and inability to care for herself at home. Patient denies fevers, chills, nausea, emesis, abdominal pain, chest pain or dyspnea. Physical Exam Narrative Temp Pulse Resp BP Pulse Ox 97.1 F L 69 18 115/75 95 04/03/21 08:05 04/03/21 08:05 04/03/21 08:05 04/03/21 08:05 04/03/21 08:05 Physical Examination: General: awake, alert, oriented to self, place and some recent events, less confused than admission, seated upright in the MS bed, NAD. Skin: normal color, normal turgor, no icterus, no cyanosis except occasional staged ecchymoses to extremities. HEENT: AT/NC, EOMI, PERRLA, MMM. Lungs: Mildly diminished bases, appropriate effort, no rales, ronchi or wheezing. Heart: Regular rate and rhythm; no gallop, rub audible, +SM present. Abdomen: soft, NTTP, ND, normal BS. Extremities: no cyanosis, clubbing, or edema. Neurological: patient awake, alert, oriented as noted; cognitive function improving, suspect nearing baseline with underlying mild to moderate dementia, pupils equally reactive to light and accomodation; cranial nerves II-XII grossly normal, moving all 4 extremities, no focal deficits, strength moderately globally decreased. Psychiatric: affect appears mildly irritable, no acute evidence of depressive or anxiety feelings. Assessment & Plan Assessment/Plan (1) Infectious encephalopathy: (2) Urinary tract infection: QUALIFIERS: Urinary tract infection type: site unspecified Hemat uria presence: without hematuria Qualified Code(s): N39.0 - Urinary tract infection, site not specified PLAN: The patient is an 86 y/o F w/ PMHx: PAF, HTN, HLD, Diabetes mellitus type II who presents to the [facility] ED on 04/01/21 w/ history of increased confusion and recurrent falls at home although patient from discussion with healthcare power of hydro generation supervisor has had significant decline but has refused to transition to assisted living versus skilled with underlying likely dementia per their report. 1. Acute encephalopathy with recurrent falls, debility likely on chronic undiagnosed underlying dementia, unclear type without behavioral disturbance history secondary to acute Kelbsiella pneumonia complicated UTI: Patient admitted to [facility] upon ED evaluation remarkable, UCx w/ Klebsiella pneumoniae, administered judicious IVFs, monitoring I/Os, maintained on IV Rocephin, PT/OT/CM consultation for discharge planning, planned SNF placement with pre- certification still pending, likely no until at least Monday. 2. PAF: Not on rate or rhythm agent nor anticoagulation, following with Dr. Campos, high fall risk. 3. Hx Diabetes mellitus type II: Not on regimen, diet controlled, prior hemoglobin A1c 5%. 4. Hypertension: Continue home regimen including lisinopril, Lasix with hold parameters, PRN hydralazine. 5. Hyperlipidemia: Not on regimen, defer to outpatient. 6. History of subarachnoid hemorrhage: Unclear specific setting of the event, currently maintained on carbamazepine per current list but attempting to clarif y, will continue if ongoing medication confirmed and request level given increased confusion above prior baseline. 7. DVT prophylaxis: SCDs, Lovenox. 8. CODE status: DNR-CCA, no intubation. Visit Charges Inpatient E&M: 83600 Subs Hosp L2
[2021-04-03 08:05] VITALS: BP 115/75; PULSE 69; RESP 18; TEMP 36.2; O2SAT 95
[2021-04-03] MEDS: Potassium Chloride Oral Tablet 20 MEQ PO ×2 (08:09→21:24)
[2021-04-03] MEDS: CARBAMAZEPINE 100 MG TAB.CHEW 50 MG PO ×4 (08:09→21:24)
[2021-04-03] MEDS: Lisinopril 10 MG Tablet PO (08:09)
[2021-04-03] MEDS: Gabapentin 100 MG Capsule PO ×3 (08:09→18:24)
[2021-04-03] MEDS: Furosemide 40 MG Tablet PO ×2 (08:10→18:24)
[2021-04-03] MEDS: Ketorolac 15 MG/ML Vial IV (09:46)
[2021-04-03] MEDS: 0.9% Saline Lock 10 ML Syringe IV ×2 (09:46→10:30)
[2021-04-03] MEDS: Enoxaparin 40 MG/0.4 ML Syringe SC (10:29)
[2021-04-03] MEDS: tiZANidine HCl 2 MG Tablet 1 MG PO (10:29)
[2021-04-03] MEDS: Ceftriaxone 1 GM/50 ML BAG IV (10:30)
[2021-04-03 14:13] VITALS: BP 89/55; PULSE 107; RESP 18; TEMP 36.4; O2SAT 94
[2021-04-03 15:55] VITALS: BP 127/71; PULSE 66; RESP 18; TEMP 36.6; O2SAT 95
[2021-04-03] MEDS: Acetaminophen 325 MG Tablet 650 MG PO (18:28)
[2021-04-03 19:56] VITALS: BP 107/57; PULSE 98; RESP 18; TEMP 37.1; O2SAT 94
[2021-04-04 02:06] VITALS: BP 96/56; PULSE 60; RESP 16; TEMP 36.3; O2SAT 93
[2021-04-04] MEDS: Menthol/Lanolin/Calamine/Znox 113 GM Tube 1 APPLIC TOPICAL ×3 (05:18→21:31)
--- NOTE | 2021-04-04 06:32 | PN.HOSP_ITS ---
Subjective Subjective Patient with no acute events overnight per self and per nursing report. She had complained the day prior of lumbar back discomfort which is chronic for her but has been worse since using hospital bed but notes this significantly improved with low-dose Toradol and low-dose tizanadine x 1. Discussed that with her age usage routinely of these agents was not appropriate but would add x 1 additional dose. Discussed other options with her also. Planned still transition to SNF, awaiting pre-certifcation. Patient denies fevers, chills, nausea, emesis, abdominal pain, chest pain or dyspnea. Objective Data Objective Data Vital Signs: Vital Signs Temp Pulse Resp BP Pulse Ox 97.3 F L 60 16 96/56 L 93 04/04/21 02:06 04/04/21 02:06 04/04/21 02:06 04/04/21 02:06 04/04/21 02:06 Oxygen Delivery Method Room Air Weight: 125 lb 9.6 oz Body Mass Index (BMI) 21.5 Intake & Output: Intake and Output for Last 24 Hours 04/02/21 04/03/21 04/04/21 23:59 23:59 23:59 Intake Total 750 / 750 900 / 900 Balance 750 / 750 900 / 900 Lab / Micro Data Result Diagrams: 04/02/21 05:50 04/02/21 05:50 Micro: Microbiology 04/01/21 14:50 Urine Catheter - Catheter Urine Culture - Final Klebsiella pneumoniae sp pneum Rhythm Strip Rhythm Strip: Sinus Rhythm Rate: 82 Physical Exam Narrative Physical Examination: General: awake, alert, oriented to self, place and recent events, improved, suspect at baseline, NAD, notes back improved. Skin: normal color, normal turgor, no icterus, no cyanosis except occasional staged ecchymoses to extremities. HEENT: AT/NC, EOMI, PERRLA, MMM. Lungs: Mildly diminished bases, appropriate effort, no rales, ronchi or wheezing. Heart: Regular rate and rhythm; no gallop, rub audible, +SM present. Abdomen: soft, NTTP, ND, normal BS. Extremities: no cyanosis, clubbing, or edema. Neurological: patient awake, alert, oriented as noted; cognitive function improving, suspect nearing baseline with underlying mild to moderate dementia, pupils equally reactive to light and accomodation; cranial nerves II-XII grossly normal, moving all 4 extremities, no focal deficits, strength improving, moderately globally decreased. Psychiatric: affect appears more calm and less irritable this AM, no acute evidence of depressive or anxiety feelings. 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 1. Acute encephalopathy with recurrent falls, debility likely on chronic undiagnosed underlying dementia, unclear type without behavioral disturbance history secondary to acute Kelbsiella pneumonia complicated UTI: Patient admitted to upon ED evaluation remarkable, UCx w/ Klebsiella pneumoniae, administered judicious IVFs, monitoring I/Os, maintained on IV Rocephin with keflex transition with renal dosing as needed, PT/OT/CM consultation for discharge planning, planned SNF placement with pre-certification still pending, likely Monday. 2. PAF: Not on rate or rhythm agent nor anticoagulation, following with Dr. Campos, high fall risk. 3. Hx Diabetes mellitus type II: Not on regimen, diet controlled, prior hemoglobin A1c 5%. 4. Hypertension: Continue home regimen including lisinopril, Lasix with hold parameters, PRN hydralazine. 5. Hyperlipidemia: Not on regimen, defer to outpatient. 6. History of subarachnoid hemorrhage: Unclear specific setting of the event, currently maintained on carbamazepine per current list but attempting to clarify, will continue if ongoing medication confirmed and request level given increased confusion above prior baseline. 7. DVT prophylaxis: SCDs, Lovenox. 8. CODE status: DNR-CCA, no intubation. Charges/Coding Visit Charges Inpatient E&M: 28777 Subs Hosp L2
[2021-04-04] MEDS: Gabapentin 100 MG Capsule PO ×3 (08:43→17:43)
[2021-04-04] MEDS: Ketorolac 15 MG/ML Vial IV (08:43)
[2021-04-04] MEDS: tiZANidine HCl 2 MG Tablet 1 MG PO (08:43)
[2021-04-04] MEDS: 0.9% Saline Lock 10 ML Syringe IV (08:44)
[2021-04-04 08:51] VITALS: BP 126/72; PULSE 62; RESP 18; TEMP 36.2; O2SAT 95
[2021-04-04] MEDS: Lisinopril 10 MG Tablet PO (10:15)
[2021-04-04] MEDS: CARBAMAZEPINE 100 MG TAB.CHEW 50 MG PO ×4 (10:15→21:34)
[2021-04-04] MEDS: Enoxaparin 40 MG/0.4 ML Syringe SC (10:15)
[2021-04-04] MEDS: Furosemide 40 MG Tablet PO ×2 (10:15→17:43)
[2021-04-04] MEDS: Potassium Chloride Oral Tablet 20 MEQ PO ×2 (10:15→21:35)
[2021-04-04] MEDS: Cephalexin 500 MG Capsule PO ×2 (10:15→21:35)
[2021-04-04] MEDS: Acetaminophen 325 MG Tablet 650 MG PO (13:36)
[2021-04-04 14:20] VITALS: BP 123/70; PULSE 60; RESP 18; TEMP 36.5; O2SAT 97
[2021-04-04 20:08] VITALS: BP 97/60; PULSE 63; RESP 18; TEMP 36.9; O2SAT 94
[2021-04-05] VITALS (7 sets, daily range): BP systolic 93–116; BP diastolic 53–76; PULSE 59–116; RESP 18; TEMP 36.6–37.4; O2SAT 92–95
[2021-04-05] MEDS: Menthol/Lanolin/Calamine/Znox 113 GM Tube 1 APPLIC TOPICAL ×3 (06:04→21:20)
[2021-04-05] MEDS: Acetaminophen 325 MG Tablet 650 MG PO (06:06)
[2021-04-05 06:12] LABS: Absolute Lymphocyte Count 0.77 X10^3/uL (0.83-4.51); Absolute Neutrophil Count 4.9 X10^3/uL (2.0-7.7); Basophil# 0.07 X10^3/uL; Eosinophil# 0.32 X10^3/uL; Eosinophils% 4.7 % (0-5); Hematocrit 46.1 % (37-47); Hemoglobin 14.3 g/dL (12.0-15.0); Lymphocyte # 0.77 X10^3/ul (0.83-4.51); Lymphocyte % 11.3 % (19-41); Mean Corpuscular Hgb 27.7 pg (27.0-32.0); Mean Corpuscular Volume 89.3 fL (81-99); Mean Platelet Vol. 9.6 fl (6.2-12.0); Monocyte# 0.71 X10^3/uL; Monocyte% 10.4 % (0-10); NRBC Flagged by Analyzer 0 % (0-5); Neutrophil # 4.93 X10^3/uL (2.7-7.7); Neutrophil % 72.3 % (47-70); Platelet Count 262 K/mm3 (150-450); RBC Distribution Width CV 15.7 % (11.6-14.6); Red Blood Count 5.16 M/mm3 (4.2-5.4); White Blood Count 6.8 K/mm3 (4.4-11.0)
[2021-04-05 06:40] LABS: ALB/GLOB Ratio 0.9 RATIO (0.9-2.4); AST(SGOT) 27 U/L (15-37); Alanine Aminotransfer ALT/SGPT 30 U/L (13-56); Albumin, Serum 3.2 g/dL (3.2-5.0); Alkaline Phosphatase 148 U/L (45-117); Anion Gap 6 (5-15); BUN 45 mg/dL (7-18); BUN/Creat Ratio 36.9 RATIO (10-20); Chloride 101 mmol/L (98-107); Creatinine, Serum 1.22 mg/dL (0.55-1.02); EST Glomerular Filtration Rate 45 mL/min (>60); Est Glom Filt Rate - Afr Amer 54 mL/min (>60); Estimated Creatinine Clearance 29.11 ml/min; Globulin 3.4 g/dL (2.2-4.2); Glucose 129 mg/dL (74-106); Potassium 4.9 mmol/L (3.5-5.1); Protein, Total 6.6 g/dL (6.4-8.2); Sodium Level 135 mmol/L (136-145)
[2021-04-05] MEDS: Potassium Chloride Oral Tablet 20 MEQ PO ×2 (08:12→21:24)
[2021-04-05] MEDS: Furosemide 40 MG Tablet PO ×2 (08:12→17:32)
[2021-04-05] MEDS: Enoxaparin 40 MG/0.4 ML Syringe SC (08:12)
[2021-04-05] MEDS: Lisinopril 10 MG Tablet PO (08:12)
[2021-04-05] MEDS: Gabapentin 100 MG Capsule PO ×3 (08:12→17:33)
[2021-04-05] MEDS: CARBAMAZEPINE 100 MG TAB.CHEW 50 MG PO ×4 (08:13→21:21)
[2021-04-05] MEDS: Cephalexin 500 MG Capsule PO ×2 (08:13→21:24)
--- NOTE | 2021-04-05 08:18 | NURSING ---
Alert, pleasant and eating breakfast.
--- NOTE | 2021-04-05 09:53 | PCM.TXEXTCAR ---
Diet 04/01/21 18:14 Diet: Regular - General Food consistency:: Regular Liquid Consistency:: Regular/Thin Routine Orders/Code Status Code Status: DNRCC-A Suggestions for Active Care Change Position every (hours): 3 Hours to sit in a chair: 2 Times a day to sit in chair: 3 Therapies Weight Bearing: Weight bearing as tolerated Physical Therapy: Eval and Treat Occupational Therapy: Eval and Treat Problem/Diagnosis (1) Infectious encephalopathy: Status: Acute (2) Urinary tract infection: Status: Acute Allergies/Procedures Done in Hospital Allergies house dust Allergy (Intermediate, Verified 04/01/21 16:46) NEEDS FOLLOW-UP pt allergic to environmental allergens cabbage Adverse Reaction (Verified 04/01/21 16:46) Diarrhea tomato Adverse Reaction (Verified 04/01/21 16:46) Diarrhea tree nut Adverse Reaction (Verified 04/01/21 16:46) Diarrhea Type of Care/Length of Stay Estimated LOS: Convalescent Care Less Than 30 days Type of Care Needed: Skilled Rehab Potential: Fair Prognosis: Fair Additional Orders/Day of Discharge H&P will serve as current which was dated: 04/01/21 Day of Discharge: 04/05/21 Dietary and Speech Recommendations Dietitian Recommendations/Changes: Will continue liberal Regular diet w/ ONS as ordered Discharge Plan Admission Admit Date/Time: 04/01/21 16:54 Primary Reason for Your Visit: UTI Attending Provider: Dewey Mukherjee Primary Care Provider: Care Physician,No Primary Discharge Orders/Prescriptions Prescriptions: New cephalexin 500 mg Capsule 500 mg PO Q12 Qty: 10 RF: 0 Continued carbamazepine 100 mg tablet extended release 12 hr 100 mg PO BID RF: 0 acetaminophen [Tylenol Extra Strength] 500 mg Tablet 1,000 mg PO BID PRN (Reason: Pain) RF: 0 gabapentin 100 mg capsule 100 mg PO TID RF: 0 furosemide 40 mg tablet 40 mg PO BID RF: 0 lisinopril 10 mg tablet 10 mg PO DAILY RF: 0 potassium chloride 20 mEq tablet extended release 20 meq PO BID Qty: 180 RF: 3 Referrals / Follow Up: Care Physician,No Primary [Primary Care Provider] - Within 2 Weeks NOT,DEFINED [NON-STAFF] - Disposition Disposition (needs filled in before D/C Order can be placed): Long Term Facility
--- NOTE | 2021-04-05 10:24 | CASEMGMT ---
Social Work Note [facility]cert Cecilia Gr NAIL TECHNICIAN TEACHER, HARBOR MASTER
--- NOTE | 2021-04-05 11:13 | PN.HOSP_ITS ---
Subjective Subjective Chief complaint: Follow-up after admission for acute encephalopathy, debility, recurrent falls and acute cystitis. Patient seen and examined. No acute events overnight. Today, she denies any complaints. Her vital signs are stable, afebrile. She is awaiting placement to fpc facility. Objective Data Objective Data Vital Signs: Vital Signs Temp Pulse Resp BP Pulse Ox 97.8 F 110 H 18 116/76 94 04/05/21 08:09 04/05/21 09:31 04/05/21 08:09 04/05/21 08:09 04/05/21 08:09 Oxygen Delivery Method Room Air Weight: 125 lb 9.6 oz Body Mass Index (BMI) 21.5 Intake & Output: Intake and Output for Last 24 Hours 04/03/21 04/04/21 04/05/21 23:59 23:59 23:59 Intake Total 900 / 900 900 / 900 Balance 900 / 900 900 / 900 Lab / Micro Data Result Diagrams: 04/05/21 05:56 04/05/21 05:56 Labs: Laboratory Results - last 24 hr 04/05/21 04/05/21 05:56 05:56 WBC 6.8 RBC 5.16 Hgb 14.3 Hct 46.1 MCV 89.3 MCH 27.7 MCHC 31.0 L RDW Std Deviation 51.0 H RDW Coeff of Margaret 15.7 H Plt Count 262 MPV 9.6 Immature Gran % (Auto) 0.300 Neut % (Auto) 72.3 H Lymph % (Auto) 11.3 L [place] % (Auto) 10.4 H Eos % (Auto) 4.7 Baso % (Auto) 1.0 Absolute Neuts (auto) 4.9 Absolute Lymphs (auto) 0.77 L Nucleated RBC % 0 Sodium 135 L Potassium 4.9 Chloride 101 Carbon Dioxide 28.0 Anion Gap 6 BUN 45 H Creatinine 1.22 H Estim Creat Clear Calc 29.11 Est GFR (MDRD) Af Amer 54 L Est GFR (MDRD) Non-Af 45 L BUN/Creatinine Ratio 36.9 H Glucose 129 H Calcium 9.0 Total Bilirubin 0.50 AST 27 ALT 30 Alkaline Phosphatase 148 H Total Protein 6.6 Albumin 3.2 Globulin 3.4 Albumin/Globulin Ratio 0.9 Micro: Microbiology 04/01/21 14:50 Urine Catheter - Catheter Urine Culture - Final Klebsiella pneumoniae sp pneum Rhythm Strip Rhythm Strip: Sinus Rhythm Rate: 82 Physical Exam Const alert, no apparent distress, no limitations and well nourished Constitutional Narrative: Cooperative. General Appearance: cooperative, comfortable and well kempt HEENT normocephalic, head/scalp atraumatic and moist oral mucous membranes Head and Scalp: normocephalic and atraumatic Eyes PERRL, EOMs intact bilaterally, conjunctivae normal and no scleral icterus General Eye: normal appearance of both eyes Periorbital: periorbital findings normal Neck no lymphadenopathy, supple, no meningeal signs, no JVD and no carotid bruits General: trachea midline Thyroid: thyroid normal Resp normal respiratory effort, normal air movement and clear to auscultation bilaterally Auscultation: Negative for crackles, rales, rhonchi or wheezes Cardio S1 normal heart sound, S2 normal heart sound, no murmurs and no JVD Cardio Narrative: Irregular rate and rhythm. Peripheral Pulses: pulses 2+ throughout GI normal to inspection, nondistended, normoactive bowel sounds, soft to palpation, non-tender and non-distended; Negative for hepatosplenomegaly Auscultation: normoactive bowel sounds Extremity normal to inspection, full ROM and no clubbing, cyanosis or edema Skin no rashes or lesions noted, no wounds and no petechiae Neuro oriented x3, CN's II-XII intact bilaterally and moves all extremities Sensorium / Orientation: alert Speech: speech normal Motor Exam: strength 5/5 throughout Psych mental status grossly normal, affect normal and denies hallucinations Assessment & Plan Assessment/Plan (1) Fall: (2) Infectious encephalopathy: (3) Urinary tract infection: QUALIFIERS: Urinary tract infection type: site unspecified Hematuria presence: without hematuria Qualified Code(s): N39.0 - Urinary tract infection, site not specified (4) Paroxysmal atrial fibrillation: (5) Essential (primary) hypertension: (6) Hyperlipidemia: QUALIFIERS: Hyperlipidemia type: unspecified Qualified Code(s): E78.5 - Hyperlipidemia, unspecified PLAN: This is an 86 years old female patient presented to the emergency room because of increasing confusion and falls, found to have acute cystitis and metabolic encephalopathy. #1 acute Klebsiella pneumoniae cystitis: She is on p.o. Keflex. She has been afebrile, no leukocytosis. Urine culture reviewed. Vital signs are stable. We are awaiting insurance approval for placement to skilled facility. #2 acute metabolic encephalopathy: Secondary to acute cystitis in addition to probable baseline dementia. CT scan brain showed no acute findings. #3 physical debility/recurrent falls: PT OT evaluation and treatment, plan for placement to fpc facility. #4 type 2 diabetes mellitus: Diet controlled, most recent hemoglobin A1c was 5%. Blood sugar has been stable. #5 paroxysmal atrial fibrillation: Rate is controlled, she is not on any rate control medicine. She is not on anticoagulation because of high fall risk. #6 hypertension: Blood pressure stable, continue lisinopril and Lasix. #7 DVT prophylaxis: Subcu Lovenox. This note was generated with [employer] dictation software. It may contain incorrect words, spelling, and punctuation that were not noted in checking the note before signing. Charges/Coding Visit Charges Inpatient E&M: 00991 Subs Hosp L2
--- NOTE | 2021-04-05 14:43 | PHA.DC.MR ---
Pharmacy Service has performed discharge medication reconciliation for this patient. The patient's discharge medication list was reviewed for discrepancies and discrepancies were resolved. Home Medications potassium chloride 20 mEq tablet,extended release 20 meq PO BID #180 tab 03/18/21 acetaminophen [Tylenol Extra Strength] 1,000 mg PO BID PRN 04/01/21 carbamazepine 100 mg PO BID 04/01/21 furosemide 40 mg PO BID 04/01/21 gabapentin 100 mg PO TID 04/01/21 lisinopril 10 mg PO DAILY 04/01/21 cephalexin 500 mg PO Q12 #10 cap 04/05/21
--- NOTE | 2021-04-05 16:20 | CASEMGMT ---
Social Work Note SW received call from Cecilia at [facility] stating pre-cert is still pending. Plan: [facility] pending pre-cert Cecilai Gr ELECTROPLATER, SCRATCH POLISHER
[2021-04-06 03:21] VITALS: BP 99/59; PULSE 62; RESP 18; TEMP 36.4; O2SAT 93
[2021-04-06] MEDS: Menthol/Lanolin/Calamine/Znox 113 GM Tube 1 APPLIC TOPICAL ×3 (03:33→21:12)
[2021-04-06 07:44] VITALS: BP 105/53; PULSE 56; RESP 18; TEMP 36.6; O2SAT 94
[2021-04-06 07:56] VITALS: O2SAT 95
[2021-04-06] MEDS: Acetaminophen 325 MG Tablet 650 MG PO ×2 (08:02→19:50)
[2021-04-06] MEDS: Gabapentin 100 MG Capsule PO ×3 (08:03→17:26)
--- NOTE | 2021-04-06 08:25 | PCM.TXEXTCAR ---
Diet 04/01/21 18:14 Diet: Regular - General Food consistency:: Regular Liquid Consistency:: Regular/Thin Routine Orders/Code Status Code Status: DNRCC-A Suggestions for Active Care Change Position every (hours): 3 Hours to sit in a chair: 2 Times a day to sit in chair: 3 Therapies Weight Bearing: Weight bearing as tolerated Physical Therapy: Eval and Treat Occupational Therapy: Eval and Treat Problem/Diagnosis (1) Fall: Status: Acute (2) Infectious encephalopathy: Status: Acute (3) Urinary tract infection: Status: Acute (4) Paroxysmal atrial fibrillation: Status: Chronic (5) Essential (primary) hypertension: Status: Chronic (6) Hyperlipidemia: Status: Chronic Allergies/Procedures Done in Hospital Allergies house dust Allergy (Intermediate, Verified 04/01/21 16:46) NEEDS FOLLOW-UP pt allergic to environmental allergens cabbage Adverse Reaction (Verified 04/01/21 16:46) Diarrhea tomato Adverse Reaction (Verified 04/01/21 16:46) Diarrhea tree nut Adverse Reaction (Verified 04/01/21 16:46) Diarrhea Procedures: None Type of Care/Length of Stay Estimated LOS: Convalescent Care Less Than 30 days Type of Care Needed: Skilled Rehab Potential: Fair Prognosis: Fair Additional Orders/Day of Discharge H&P will serve as current which was dated: 04/01/21 Day of Discharge: 04/06/21 Dietary and Speech Recommendations Dietitian Recommendations/Changes: Will continue liberal Regular diet w/ ONS as ordered Discharge Plan Admission Admit Date/Time: 04/01/21 16:54 Primary Reason for Your Visit: UTI Attending Provider: Dewey Mukherjee Primary Care Provider: Care Physician,No Primary Discharge Orders/Prescriptions Prescriptions: New cephalexin 500 mg Capsule 500 mg PO Q12 Qty: 10 RF: 0 potassium chloride [Klor-Con M20] 20 mEq Tablet,Er Particles/Crystals 20 meq PO DAILY Qty: 30 RF: 0 lisinopril 5 mg Tablet 5 mg PO DAILY Qty: 90 RF: 0 furosemide 20 mg Tablet 20 mg PO BIDLX Qty: 90 RF: 0 Continued carbamazepine 100 mg tablet extended release 12 hr 100 mg PO BID RF: 0 acetaminophen [Tylenol Extra Strength] 500 mg Tablet 1,000 mg PO BID PRN (Reason: Pain) RF: 0 gabapentin 100 mg capsule 100 mg PO TID RF: 0 potassium chloride 20 mEq tablet extended release 20 meq PO BID Qty: 180 RF: 3 Discontinued furosemide 40 mg tablet 40 mg PO BID RF: 0 lisinopril 10 mg tablet 10 mg PO DAILY RF: 0 Referrals / Follow Up: Care Physician,No Primary [Primary Care Provider] - Within 2 Weeks NOT,DEFINED [NON-STAFF] - Disposition Disposition (needs filled in before D/C Order can be placed): Long Term Facility
[2021-04-06] MEDS: CARBAMAZEPINE 100 MG TAB.CHEW 50 MG PO ×4 (08:50→21:07)
[2021-04-06] MEDS: Furosemide 20 MG Tablet PO ×2 (08:51→17:26)
[2021-04-06] MEDS: Cephalexin 500 MG Capsule PO ×2 (08:51→21:12)
[2021-04-06] MEDS: Lisinopril 5 MG Tablet PO (08:52)
[2021-04-06] MEDS: Potassium Chloride Oral Tablet 20 MEQ PO ×2 (08:55→21:12)
[2021-04-06] MEDS: Enoxaparin 30 MG/0.3 ML Syringe SC (08:55)
--- NOTE | 2021-04-06 10:00 | CASEMGMT ---
Addendum entered by Cecilia Gr 04/06/21 13:23: CINDY placed a call to Cecilia at [facility], pre-cert is still pending. Original Note: Social Work Note CINDY spoke with Cecilia at [facility], pre-cert is still pending. Plan: [facility] pending pre-cert Cecilia Gr BINDING BENCH WORKER, SUPERVISOR POWDERED SUGAR
[2021-04-06 13:47] VITALS: BP 93/43; PULSE 64; RESP 18; TEMP 36.7; O2SAT 93
--- NOTE | 2021-04-06 16:25 | CASEMGMT ---
Social Work Note CINDY received message from Cecilia at [facility] stating pt was denied SNF. Peer to peer number is [phone] reference number is [id number] and has to be completed by 12:00pm tomorrow. If peer to peer is not completed or denial is upheld, pt can appeal denial and the number for that is [phone]. SW updated physician, peer to peer to not be completed. Pt to discharge home tomorrow with HHC. SW in to speak with pt. CINDY updated pt that pt was denied SNF. The options for pt are to pay privately for SNF or pt can return home. Pt states she will just return home. CINDY spoke with pt about HHC. Pt states she was already receiving HHC through [place] at home. Pt agreeable to returning home with HHC services through [facility]. SW informed pt that this worker will provide her with Appeal Number. Pt states understanding, states she is agreeable to returning home with HHC. Pt asked that this worker call her sister in [facility] to update. CINDY placed a call to pt's sister in [facility] and updated her that pt was denied SNF, plan is for pt to discharge home with HHC tomorrow. Tyra states pt will need transportation home as she is not able to provide transportation. CINDY to update RN CM. Plan: Home with HHC tomorrow Cecilia Gr THERAPEUTIC RECREATION LEADER, RELAY SHOP SUPERVISOR
--- NOTE | 2021-04-06 17:00 | PN.HOSP_ITS ---
Subjective Subjective Chief complaint: Follow-up after admission for acute encephalopathy, debility, recurrent falls and acute cystitis. Patient seen and examined. No acute events overnight. She has no complaints apart from mild back ache. Her blood pressure has been borderline but she is asymptomatic. No fever, no tachycardia. She was denied by her insurance to go to alf facility. Objective Data Objective Data Vital Signs: Vital Signs Temp Pulse Resp BP Pulse Ox 98.0 F 64 18 93/43 L 93 04/06/21 13:47 04/06/21 13:47 04/06/21 13:47 04/06/21 13:47 04/06/21 13:47 Oxygen Delivery Method Room Air Weight: 125 lb 9.6 oz Body Mass Index (BMI) 21.5 Intake & Output: Intake and Output for Last 24 Hours 04/04/21 04/05/21 04/06/21 23:59 23:59 23:59 Intake Total 900 / 900 250 / 250 580 / 580 Balance 900 / 900 250 / 250 580 / 580 Lab / Micro Data Result Diagrams: 04/05/21 05:56 04/05/21 05:56 Micro: Microbiology 04/01/21 14:50 Urine Catheter - Catheter Urine Culture - Final Klebsiella pneumoniae sp pneum Rhythm Strip Rhythm Strip: Sinus Rhythm Rate: 82 Physical Exam Const alert, no apparent distress, no limitations and well nourished Constitutional Narrative: Cooperative. General Appearance: cooperative, comfortable and well kempt Orientation / Consciousness: awake and confused HEENT normocephalic, head/scalp atraumatic and moist oral mucous membranes Eyes PERRL, EOMs intact bilaterally, conjunctivae normal and no scleral icterus General Eye: normal appearance of both eyes Periorbital: periorbital findings normal Neck no lymphadenopathy, supple, no meningeal signs, no JVD and no carotid bruits General: trachea midline Thyroid: thyroid normal Resp normal respiratory effort, normal air movement and clear to auscultation bilaterally Auscultation: Negative for crackles, rales, rhonchi or wheezes Cardio S1 normal heart sound, S2 normal heart sound, no murmurs and no JVD Cardio Narrative: Irregular rate and rhythm. Heart Sounds: murmur Peripheral Pulses: pulses 2+ throughout GI normal to inspection, nondistended, normoactive bowel sounds, soft to palpation, non-tender and non-distended; Negative for hepatosplenomegaly Auscultation: normoactive bowel sounds Extremity normal to inspection, full ROM and no clubbing, cyanosis or edema Skin no rashes or lesions noted, no wounds and no petechiae Lesions: no lesions Rashes: no rashes Trauma: no lacerations or abrasions Neuro oriented x3, CN's II-XII intact bilaterally, moves all extremities, no focal motor deficits, no sensory deficits noted and deep tendon reflexes 2+ bilaterally Sensorium / Orientation: alert Speech: speech normal Motor Exam: strength 5/5 throughout Psych mental status grossly normal, affect normal and denies hallucinations Assessment & Plan Assessment/Plan (1) Fall: (2) Infectious encephalopathy: (3) Urinary tract infection: QUALIFIERS: Hematuria presence: without hematuria Urinary tract infection type: site unspecified Qualified Code(s): N39.0 - Urinary tract infection, site not specified (4) Paroxysmal atrial fibrillation: (5) Essential (primary) hypertension: (6) Hyperlipidemia: QUALIFIERS: Hyperlipidemia type: unspecified Qualified Code(s): E78.5 - Hyperlipidemia, unspecified PLAN: This is an 86 years old female patient presented to the emergency room because of increasing confusion and falls, found to have acute cystitis and metabolic encephalopathy. #1 acute Klebsiella pneumoniae cystitis: Remained on p.o. Keflex. She has been afebrile, no leukocytosis. Urine culture reviewed. Vital signs are stable. She was denied to go to SNF by her insurance. Now plan is changed to go home with home health which probably will be tomorrow. #2 acute metabolic encephalopathy: Secondary to acute cystitis in addition to probable baseline dementia. CT scan brain showed no acute findings. #3 physical debility/recurrent falls: PT OT evaluation and treatment, plan as above. #4 type 2 diabetes mellitus: Diet controlled, most recent hemoglobin A1c was 5%. Blood sugar has been stable. #5 paroxysmal atrial fibrillation: Rate is controlled, she is not on any rate control medicine. She is not on anticoagulation because of high fall risk. #6 hypertension: Blood pressure stable, continue lisinopril and Lasix. #7 DVT prophylaxis: Subcu Lovenox. This note was generated with [employer] dictation software. It may contain incorrect words, spelling, and punctuation that were not noted in checking the note before signing. Charges/Coding Visit Charges Inpatient E&M: 20174 Subs Hosp L2
[2021-04-06 20:00] VITALS: BP 98/51; PULSE 66; RESP 16; TEMP 36.8; O2SAT 95
[2021-04-07 02:00] VITALS: BP 98/48; PULSE 62; RESP 16; TEMP 36.4; O2SAT 95
[2021-04-07] MEDS: Menthol/Lanolin/Calamine/Znox 113 GM Tube 1 APPLIC TOPICAL ×2 (05:59→13:49)
[2021-04-07 07:50] VITALS: BP 106/61; PULSE 60; RESP 16; TEMP 36.6; O2SAT 94
[2021-04-07] MEDS: CARBAMAZEPINE 100 MG TAB.CHEW 50 MG PO ×2 (07:52→13:49)
[2021-04-07] MEDS: Furosemide 20 MG Tablet PO (07:53)
[2021-04-07] MEDS: Lisinopril 5 MG Tablet PO (07:53)
[2021-04-07] MEDS: Enoxaparin 30 MG/0.3 ML Syringe SC (07:57)
[2021-04-07] MEDS: Gabapentin 100 MG Capsule PO ×2 (07:58→12:12)
[2021-04-07] MEDS: Cephalexin 500 MG Capsule PO (07:58)
[2021-04-07] MEDS: Acetaminophen 325 MG Tablet 650 MG PO (07:58)
[2021-04-07] MEDS: Potassium Chloride Oral Tablet 20 MEQ PO (07:58)
--- NOTE | 2021-04-07 08:24 | DCINST_ITS ---
Discharge Instructions Diet Discharge Diet: No restrictions Activity Discharge Activity: Return to Normal Activity Dressing / Incision Call your doctor if you observe: Fever of 101 or Higher, Shortness of breath, Dizziness, Fainting spells, Chest pain, Increased palpitations (irregular heartbeat) and Uncontrolled pain Follow Up Care Test Results: Test results from this visit will be discussed in further detail at your follow-up appointment, if applicable. Discharge Plan Admission Admit Date/Time: 04/01/21 16:54 Primary Reason for Your Visit: UTI Attending Provider: Dewey Mukherjee Primary Care Provider: Care Physician,No Primary Discharge Orders/Prescriptions Prescriptions: New potassium chloride [Klor-Con M20] 20 mEq Tablet,Er Particles/Crystals 20 meq PO DAILY Qty: 30 RF: 0 lisinopril 5 mg Tablet 5 mg PO DAILY Qty: 90 RF: 0 furosemide 20 mg Tablet 20 mg PO BIDLX Qty: 90 RF: 0 cephalexin 500 mg capsule 500 mg PO BID Qty: 7 RF: 0 Continued carbamazepine 100 mg tablet extended release 12 hr 100 mg PO BID RF: 0 acetaminophen [Tylenol Extra Strength] 500 mg Tablet 1,000 mg PO BID PRN (Reason: Pain) RF: 0 gabapentin 100 mg capsule 100 mg PO TID RF: 0 potassium chloride 20 mEq tablet extended release 20 meq PO BID Qty: 180 RF: 3 Discontinued furosemide 40 mg tablet 40 mg PO BID RF: 0 lisinopril 10 mg tablet 10 mg PO DAILY RF: 0 Referrals / Follow Up: Care Physician,No Primary [Primary Care Provider] - Within 2 Weeks NOT,DEFINED [NON-STAFF] - Disposition Disposition (needs filled in before D/C Order can be placed): Home Health Se rvice
--- NOTE | 2021-04-07 09:29 | CASEMGMT ---
Social Work Note SW provided pt with [employer] Appeal Number in the event she wants to appeal denial for SNF once she returns home. Pt states understanding, again states she is comfortable to discharging home today with C. CINDY received call from Cecilia at [facility]. CINDY updated Cecilia at [facility] that pt will be going home with [facility]. Plan: Home with [facility] Cecilia JASMINE, DEMETRICE
--- NOTE | 2021-04-07 09:46 | NURSING ---
RNCM Note: Went to patient bedside, introduced self and role. Patient for DC home today, lives alone, has not driven in a little while since this illness, sister in law has been driving for her but cannot pick her up today and will need to go home by [facility] transport. Called [facility] [phone] at 0918 and s/w Stefanie- Confirmed active with them since 01/12/21 for SN- weekly, had visits on 03/18, 03/25, 04/01/21. Aware patient is for DC today and PT/OT recommended, this travel writer to fax [facility] with additional PT/OT to [phone]. Patient aware of this additional PT/OT and agreeable to try. Patient states that her brother is flying in from [place] at the end of this week and will stay with her to help her out. Patient denes any further needs, concerns, issues, or questions with DC planning at this time. CHAZ Tee
--- NOTE | 2021-04-07 10:28 | CASEMGMT ---
Social Work Note Pt needs transportation home, agreeable to [facility] hospital Van. SW placed a call to [facility] with transportation, transportation scheduled for 2:00pm product picker today from [facility] main entrance. RN updated. Cecilia Gr TECHNICAL EXPERT, STERILE TECH
--- NOTE | 2021-04-07 13:11 | DS.PCM_ITS ---
Providers Date of Admission: 04/01/21 Primary Care Physician: Ciara Primary Care Phys Reason For Visit: ENCEPHALOPATHY, UTI Diagnosis Discharge Diagnosis (1) Fall: Status: Acute Code(s): W19.XXXA - Unspecified fall, initial encounter (2) Infectious encephalopathy: Status: Acute Code(s): G93.49 - Other encephalopathy; B99.9 - Unspecified infectious disease (3) Urinary tract infection: Status: Acute Code(s): N39.0 - Urinary tract infection, site not specified Qualifiers: Urinary tract infection type: site unspecified Hematuria presence: without hematuria Qualified Code(s): N39.0 - Urinary tract infection, site not specified (4) Paroxysmal atrial fibrillation: Status: Chronic Code(s): I48.0 - Paroxysmal atrial fibrillation (5) Essential (primary) hypertension: Status: Chronic Code(s): I10 - Essential (primary) hypertension (6) Hyperlipidemia: Status: Chronic Code(s): E78.5 - Hyperlipidemia, unspecified Qualifiers: Hyperlipidemia type: unspecified Qualified Code(s): E78.5 - Hyperli pidemia, unspecified Medications at Discharge Home Medications potassium chloride 20 mEq tablet,extended release 20 meq PO BID #180 tab 03/18/21 acetaminophen [Tylenol Extra Strength] 1,000 mg PO BID PRN 04/01/21 carbamazepine 100 mg PO BID 04/01/21 gabapentin 100 mg PO TID 04/01/21 furosemide 20 mg PO BIDLX #90 tab 04/06/21 lisinopril 5 mg PO DAILY #90 tab 04/06/21 potassium chloride [Klor-Con M20] 20 meq PO DAILY #30 tab 04/06/21 cephalexin 500 mg PO BID #7 cap 04/07/21 Hospital Course Summary of Care Provided Minutes Spent on Discharge: 32 Hospital Course: This is an 86 years old female patient presented to the [facility] ency room because of her increasing confusion and recurrent falls and she was found to have acute cystitis and metabolic encephalopathy. Urinalysis revealed evidence of acute cystitis. There was no evidence of sepsis or severe sepsis. She was treated with IV Rocephin and then switched to p.o. Keflex. Urine culture revealed Klebsiella pneumoniae. Initially, patient was confused intermittently. This is attributed to metabolic encephalopathy. CT scan brain showed no acute findings. Her blood pressure was borderline although patient was asymptomatic. Doses of Lasix and lisinopril adjusted. Patient was on Lasix 40 mg p.o. twice daily and lisinopril 10 mg p.o. daily. I decreased her Lasix to 20 mg p.o. twice daily and lisinopril to 5 mg p.o. daily. Patient has been having issues with ambulation and frequent falls. She was evaluated by PT OT. Initial plan was to go to intermediate facility but her insurance denied her stay at the SNF. With PT OT, patient was able to ambulate with contact guards and she did not need much assistance. Patient agreed to go home with home [facility]. She was discharged home with home health on Keflex 500 mg p.o. twice daily for 3 more days to complete total of 7 days of treatment, medication adjustment as above was done, plan to follow-up with PCP in 1 week. Physical Exam Const alert and no apparent distress General Appearance: cooperative and comfortable HEENT normocephalic, head/scalp atraumatic and moist oral mucous membranes Eyes PERRL, EOMs intact bilaterally and conjunctivae normal Neck no lymphadenopathy Resp normal respiratory effort and clear to auscultation bilaterally Auscultation: Negative for crackles, rales, rhonchi or wheezes Cardio regular rate, regular rhythm, S1 normal heart sound, S2 normal heart sound and no JVD GI normal to inspection, nondistended, normoactive bowel sounds, soft to palpation and non-tender; Negative for hepatosplenomegaly Extremity normal to inspection, full ROM and no clubbing, cyanosis or edema Skin no rashes or lesions noted, no wounds and no jaundice Neuro CN's II-XII intact bilaterally Sensorium / Orientation: awake, alert, oriented to person and oriented to place Motor Exam: strength 5/5 throughout Psych mental status grossly normal and affect normal Weight / BMI Weight Weight: 125 lb 9.6 oz Body Mass Index (BMI) 21.5 ABG / Lab / Microbiology Data Result Diagrams: 04/05/21 05:56 04/05/21 05:56 Microbiology: Microbiology 04/01/21 14:50 Urine Catheter - Catheter Urine Culture - Final Klebsiella pneumoniae sp pneum D/C Instructions Discharge Diet: No restrictions Call your doctor if you observe: Fever of 101 or Higher, Shortness of breath, Dizziness, Fainting spells, Chest pain, Increased palpitations (irregular heartbeat) and Uncontrolled pain Meaningful Use Info Meaningful Use Diagnoses (Choose all that apply): None applicable Discharge Plan Admission Admit Date/Time: 04/01/21 16:54 Primary Reason for Your Visit: UTI Attending Provider: Dewey Mukherjee Primary Care Provider: Care Physician,No Primary Instructions Patient Instructions: When to Use Antibiotics, ED Bladder Infection, Female (Adult) Discharge Orders/Prescriptions Prescriptions: New potassium chloride [Klor-Con M20] 20 mEq Tablet,Er Particles/Crystals 20 meq PO DAILY Qty: 30 RF: 0 lisinopril 5 mg Tablet 5 mg PO DAILY Qty: 90 RF: 0 furosemide 20 mg Tablet 20 mg PO BIDLX Qty: 90 RF: 0 cephalexin 500 mg capsule 500 mg PO BID Qty: 7 RF: 0 Continued carbamazepine 100 mg tablet extended release 12 hr 100 mg PO BID RF: 0 acetaminophen [Tylenol Extra Strength] 500 mg Tablet 1,000 mg PO BID PRN (Reason: Pain) RF: 0 gabapentin 100 mg capsule 100 mg PO TID RF: 0 potassium chloride 20 mEq tablet extended release 20 meq PO BID Qty: 180 RF: 3 Discontinued furosemide 40 mg tablet 40 mg PO BID RF: 0 lisinopril 10 mg tablet 10 mg PO DAILY RF: 0 Referrals / Follow Up: Care Physician,No Primary [Primary Care Provider] - Within 2 Weeks NOT,DEFINED [NON-STAFF] - Disposition Disposition (needs filled in before D/C Order can be placed): Home Health Service Charges/Coding Visit Charges Inpatient E&M: 00982 Disch Hosp
[2021-04-07 13:44] VITALS: BP 131/93; PULSE 62; RESP 18; TEMP 36.3; O2SAT 93
--- NOTE | 2021-04-08 15:59 | CASEMGMT ---
RN CM Discharge Follow-up Phone Call: REBECA: 13 Strata: 3 Call Date: 04/08/21 Discharge Date: 04/07/21 Time of Call: 1540 Duration: 15 min Admitting Diagnosis: Encephalopathy, UTI RN CM completed follow-up phone call after recent hospitalization. Sister Tyra answered phone and states that patient is still having pain and difficulty getting around. RN CM asked to speak with patient. Patient states she is still having a little pain. Patient states she had no questions regarding discharge instructions. Patient states she did not get her prescriptions filled because she had no one to take her. RN CM inquired if she had a follow-up appt scheduled with family doctor, patient states she does on the 04/14 with new PCP but cannot recall name. RN CM asked to speak with sister Tyra again. RN CM inquired about prescriptions and sister only found one for cephalexin. RN CM encourage sister to get prescription filled. RN CM reviewed discharge meds with sister. RN CM also educated on importance of patient following up with PCP. Sister states hopefully they will be able to get the patient around depending on how she is moving. Sister had no further questions or concerns at this time. RN BARB called Anita at [place] to inquire who PCP is for patient and if a nurse could follow-up with medications. RN BARB also requested adding SW. Howard to call office and follow-up. Received return call from Anita. Patient's PCP is Dr. Velásquez and nurse from [place] called Dr. Velásquez's office requesting new prescriptions be sent to [facility] to match medlist. Anita also states that they are adding SW to services. Anita states that a nurse will call sister Tyra to updated regarding medications and prescriptions.
== END 2021-04-07 13:57 | disposition home health service (06) | DRG 689 ==
LOC: ED 16:25 → MS3 17:06
PROVIDERS: Family Medicine; Admitting Provider Nurse Practitioner Family; Emergency Provider Emergency Medicine; Visit Provider Hospitalist
DX: N30.00 Acute cystitis without hematuria (principal); G93.41 Metabolic encephalopathy; I48.0 Paroxysmal atrial fibrillation; E78.5 Hyperlipidemia, unspecified; I10 Essential (primary) hypertension; B96.1 Klebsiella pneumoniae [K. pneumoniae] as the cause of diseases classified elsewhere; R29.6 Repeated falls; E11.9 Type 2 diabetes mellitus without complications; I27.21 Secondary pulmonary arterial hypertension; M54.2 Cervicalgia; M54.5 Low back pain; M25.551 Pain in right hip; M25.552 Pain in left hip; F03.90 Unspecified dementia, unspecified severity, without behavioral disturbance, psychotic disturbance, mood disturbance, and anxiety; Z79.899 Other long term (current) drug therapy; Z66 Do not resuscitate
CPT/HCPCS: 36415; 70450; 71046; 72125; 72131; 72192; 80048; 80053; 80156; 81001; 83605; 85025; 87077; 87086; 87088; 87186; 96374; 96375; 97110; 97162; 97166; 97530; 97535; 97802; 99285; J7030; J7040; P9612; A4216; J2405

== ENCOUNTER 2021-07-07 11:56 | Observation (INO) | payer MEDICARE, SELFPAY ==
[2021-07-07] VITALS (10 sets, daily range): BP systolic 143–148; BP diastolic 74–89; PULSE 68–89; RESP 16–22; TEMP 36.3–37; O2SAT 93–100; BMI 26.2; BMI 25.0
--- NOTE | 2021-07-07 12:20 | VDLE_ITS ---
Version 2 Reason For Study: LLE PAIN Procedure LEFT This is a venous duplex using B-mode, color GSV is normal. flow and spectral Doppler. CFV is compressible, spontaneous, phasic, Exam performed portable in ED. competent, and demonstrates normal The exam was diagnostic. augmentation. A preliminary report was called and/or faxed FV is compressible, spontaneous, phasic, to Dr. Velasquez @ 12:45 pm. competent and demonstrates normal augmentation. POP V is compressible, spontaneous, phasic, competent and demonstrates normal augmentation. T/P Trunk is compressible. PTV is compressible. LT PerV is compressible. VL/Venous Duplex US, Unilateral Interpretation Summary There is no evidence of left lower extremity deep vein thrombosis. Left great s aphenous vein appears patent and compressible segmentally. Ordering Physician: Fan Velasquez Referring Physician: Ricky Velásquez Performed By: Lillian Herrera, YOGI, RVT
--- NOTE | 2021-07-07 12:22 | EKG12_ITS ---
Test Reason : L LEG WEAKNESS Blood Pressure : / mmHG Vent. Rate : 069 BPM Atrial Rate : 069 BPM P-R Int : 120 ms QRS Dur : 130 ms QT Int : 452 ms P-R-T Axes : 000 083 008 degrees QTc Int : 484 ms Sinus rhythm with Premature atrial complexes Right bundle branch block T wave abnormality, consider inferolateral ischemia Abnormal ECG Confirmed by PAULINA RAMÍREZ, ANTWAN ([id number]), acquisitions editor DEVORAH VALDEZ ([id number]) on 07/12/2021 12:54:00 PM Referred By: FER Confirmed By:ANTWAN GALLARDO MD
--- NOTE | 2021-07-07 12:55 | EX.ED.DYSGE1 ---
HPI History of Present Illness Chief Complaint: Lower Extremity Injury Detail of Chief Complaint: Injury to left leg and sent to ER from [place] [facility] for evaluation Informant: patient Onset/Context/Timing Onset: Days and Weeks Context: Onset with activity Quality: Wound anterior left leg with clear drainage, pain, swelling and discolorati Current Severity: Mild Maximum Severity: Severe Worsened by: Palpation and movement Relieved by: Nothing Associated Symptoms Associated Symptoms: Dyspnea, dyspnea on exertion denies orthopnea or PND Narrative Narrative: Patient is an 86-year-old woman who injured her left anterior leg 1 to 2 weeks ago. She went to [place] for evaluation. They recommended she come to the emergency department. She denies fever, chills night sweats. She does report dyspnea on exertion. She denies orthopnea or PND. She denies anginal equivalent symptoms. She denies nausea, vomiting diarrhea. Denies black or maroon-colored stool. She denies history of VTE. She does report leg pain and swelling. She also claims of discoloration of her left leg. She also has discoloration of both feet. She is uncertain when she first noted those. She denies history of coronary disease or congestive heart failure. Prior similar symptoms: No Recent Illness/Hospitalization: No [facility] Medical History (Updated 07/07/21 @ 14:[address] Fan Velasquez MD) Aortic root dilatation Atrial fibrillation with RVR Dehydration Elevated troponin Encephalopathy acute Essential (primary) hypertension Fall at home Hyperlipidemia Meningioma Meningioma Mitral valve annular calcification Non-rheumatic tricuspid valve insufficiency Nonrheumatic mitral (valve) insufficiency Nonrheumatic tricuspid valve regurgitation Obesity Other secondary pulmonary hypertension Paroxysmal atrial fibrillation SAH (subarachnoid hemorrhage) SAH (subarachnoid hemorrhage) Secondary pulmonary arterial hypertension Sepsis due to Escherichia coli (E. coli) Shortness of breath Sinus tachycardia TGA (transient global amnesia) Type 2 diabetes mellitus Weakness generalized Home Medications acetaminophen [Tylenol Extra Strength] 1,000 mg PO BID PRN 04/01/21 [History Last Taken 07/07/21] carbamazepine 100 mg PO BID 04/01/21 [History Last Taken 07/05/21] gabapentin 100 mg PO TID 04/01/21 [History Last Taken 07/05/21] furosemide 20 mg PO BIDLX #90 tab 04/06/21 [Rx Last Taken 07/06/21] lisinopril 5 mg PO DAILY #90 tab 04/06/21 [Rx Last Taken 07/06/21] potassium chloride [Klor-Con M20] 20 meq PO DAILY #30 tab 04/06/21 [Rx Last Taken 07/06/21] Allergy/AdvReac Type Severity Reaction Status Date / Time house dust Allergy Intermediate NEEDS Verified 07/07/21 12:00 FOLLOW-UP cabbage AdvReac Diarrhea Verified 07/07/21 12:00 tomato AdvReac Diarrhea Verified 07/07/21 12:00 tree nut AdvReac Diarrhea Verified 07/07/21 12:00 Family History Brother Family history of PTCA Surgical History H/O total hip arthroplasty History of carpal tunnel surgery History of craniotomy History of total hysterectomy Hx of appendectomy Hx of total knee arthroplasty S/P craniotomy Social History (Updated 07/07/21 @ 12:[address] Fan Velasquez MD) household members: none Smoking Status: Never smoker alcohol intake: never substance use type: does not use caffeine: No what type of physical activity do you participate in: weight training frequency: daily duration: 15-30 minutes/day seatbelt use: always do you feel safe at home: Yes ROS ROS ED Constitutional Constitutional ED: Denies chills, fever(s), subjective or sweats Eyes Eyes: Denies blurry vision, change in vision or diplopia ENT ENT ED: Denies ear pain, rhinorrhea or sore throat Cardiovascular Cardiovascular: Denies chest pain, orthopnea, palpitations, paroxysmal nocturnal dyspnea or racing heartbeat Respiratory/Chest Respiratory/Chest: Reports dyspnea and dyspnea on exertion; Denies cough, orthopnea, paroxysmal nocturnal dyspnea or sputum Gastrointestinal Gastrointestinal: Denies abdominal pain, diarrhea, nausea or vomiting Genitourinary Genitourinary ED: Denies dysuria, hematuria or urinary frequency Musculoskeletal Musculoskeletal: Reports other Details: Left leg pain ; Denies arthralgias, back pain, myalgias or neck pain Integumentary Reports rash and other Details: Discoloration of the right and left foot Neurologic Neurologic: Denies headache(s), paresthesias or weakness Endocrine Endocrinology: Denies polydipsia, polyphagia or polyuria Allergic/Immunologic Allergic/Immunologic ED: Denies urticaria EXAM Physical Exam Const Vital Signs: 07/07/21 11:57 07/07/21 13:19 07/07/21 14:19 Temperature 98.1 F 98.1 F 98.0 F Temperature Source Temporal Temporal Temporal Pulse Rate 68 68 75 Respiratory Rate 18 18 22 H Blood Pressure 144/79 H 144/79 H 147/88 H Blood Pressure Mean 100 100 107 Pulse Ox 100 100 97 Oxygen Delivery Method Room Air Room Air Room Air Positive well nourished and well developed General Appearance ED: well developed and NAD HEENT Reports TM's clear and moist mucous membranes HEENT Narrative: Head is atraumatic normocephalic. Ears normal. Nares patent. Tympanic Membrane ED: Yes TM's clear Eyes PERRL and EOMs intact bilaterally General Eye ED: Negative for pale conjunctiva or scleral icterus Neck no lymphadenopathy, supple and no JVD General: tenderness Chest Wall inspection of chest normal Resp normal respiratory effort and No clear to auscultation bilaterally Auscultation: rales bilateral (Left greater than right) base Cardio regular rate, regular rhythm, S1 normal heart sound, S2 normal heart sound and no murmurs GI normal to inspection, nondistended, normoactive bowel sounds and non-tender Back/Spine no CVA tenderness Cervical Spine: Negative for cervical spine tenderness Thoracic Spine / Upper Back: Negative for thoracic spinal tenderness or paraspinal muscle tenderness Extremity Negative for normal to inspection Extremity Narrative: Patient has lymphedema bilaterally. Patient has a purplish discoloration with delayed capillary refill of the right and left foot. There is discoloration of the left leg with swelling and painalong the distribution of deep venous system. There is evidence of varicose veins. General Extremety ED: Yes edema and tenderness General Extremity: edema Neuro oriented x3, CN's II-XII intact bilaterally and no sensory deficits noted Sensorium / Orientation: alert Motor Exam: strength 5/5 throughout Psych mental status grossly normal Skin No no rashes or lesions noted, No no wounds and No skin turgor normal Skin Narrative: Open wound anterior left leg with serous drainage. There is slight warmth around the area. There is no lymphangitis. There is no popliteal or inguinal lymphadenopathy. MDM MDM MDM Narrative Medical decision making narrative: With delayed capillary refill and concern patient may have arterial insufficiency however she has palpable DP pulses bilateral. Difficult to palpate PT because of edema. Because of concern for DVT venous duplex was ordered and I was informed it is negative. Also need to evaluate for cellulitis and other causes. There is no evidence of DVT on venous duplex study. White count is normal with shift. Lactate is normal. Renal functions normal. BNP is 2124. X-ray reveals small pleural effusion with infiltrate. Will treat for community-acquired pneumonia. Patient will need a cardiac work-up as well. Blood cultures were not obtained since patient does not have evidence of organ dysfunction and a normal lactate. Patient has no sirs criteria. Patient also received Lasix for her congestive heart failure. Lab Data Attestation: I reviewed the patient's lab results. Labs: Laboratory Results - last 24 hr 07/07/21 07/07/21 07/07/21 12:58 12:58 12:58 WBC 6.9 RBC 4.09 L Hgb 12.6 Hct 41.0 MCV 100.2 H MCH 30.8 MCHC 30.7 L RDW Std Deviation 60.5 H RDW Coeff of Margaret 16.2 H Plt Count 155 MPV 9.9 Immature Gran % (Auto) 0.400 Neut % (Auto) 81.8 H Lymph % (Auto) 8.0 L [place] % (Auto) 8.1 Eos % (Auto) 1.0 Baso % (Auto) 0.7 Absolute Neuts (auto) 5.6 Absolute Lymphs (auto) 0.55 L Nucleated RBC % 0 Sodium 139 Potassium 3.9 Chloride 109 H Carbon Dioxide 22.0 Anion Gap 8 BUN 19 H Creatinine 0.94 Estim Creat Clear Calc 37.78 Est GFR (MDRD) Af Amer 73 Est GFR (MDRD) Non-Af 60 BUN/Creatinine Ratio 20.2 H Glucose 111 H Lactic Acid 1.5 Calcium 8.5 Total Bilirubin 1.30 H AST 20 ALT 26 Alkaline Phosphatase 114 Troponin I High Sens 44 B-Natriuretic Peptide Total Protein 6.5 Albumin 3.3 Globulin 3.2 Albumin/Globulin Ratio 1.0 07/07/21 12:58 WBC RBC Hgb Hct MCV MCH MCHC RDW Std Deviation RDW Coeff of Margaret Plt Count MPV Immature Gran % (Auto) Neut % (Auto) Lymph % (Auto) [place] % (Auto) Eos % (Auto) Baso % (Auto) Absolute Neuts (auto) Absolute Lymphs (auto) Nucleated RBC % Sodium Potassium Chloride Carbon Dioxide Anion Gap BUN Creatinine Estim Creat Clear Calc Est GFR (MDRD) Af Amer Est GFR (MDRD) Non-Af BUN/Creatinine Ratio Glucose Lactic Acid Calcium Total Bilirubin AST ALT Alkaline Phosphatase Troponin I High Sens B-Natriuretic Peptide 2124.4 H Total Protein Albumin Globulin Albumin/Globulin Ratio Radiography Chest X-Ray - ED: 2 View (X-ray was interpreted by me at 1330. There is cephalization, borderline cardiomegaly, small pleural effusion. Difficult to read much else because film is rotated. Osseous structures are unremarkable.) Diagnostic Testing: Radiology Impression Chest X-Ray 07/07/21 13:15 IMPRESSION: Small left pleural effusion with left basilar infiltrate. Cardiomegaly. Electronically Signed: Michael Vallejo MD at 13:47 EDT , Service support , EKG Initial EKG: Attestation: I personally reviewed and interpreted this EKG as follows: Interpretation: Sinus Rhythm (Normal sinus rhythm with premature atrial beats and a ventricular rate of 69. [place] interval is 120 ms. QS duration is prolonged at 130 ms and morphology of right bundle branch block. QT interval is 452 ms with a QTC of [address]-T wave abnormalities due to the right bundle branch block. Ther) Discharge Plan Dx/Rx/DC Orders Clinical Impression: Community acquired pneumonia, New onset of congestive heart failure, Traumatic open wound of left lower leg with infection Disposition Disposition: Acute Care Hospital [facility]
[2021-07-07 13:09] LABS: Absolute Lymphocyte Count 0.55 X10^3/uL (0.83-4.51); Absolute Neutrophil Count 5.6 X10^3/uL (2.0-7.7); Basophil# 0.05 X10^3/uL; Basophil% 0.7 % (0-1); Eosinophil# 0.07 X10^3/uL; Hemoglobin 12.6 g/dL (12.0-15.0); Lymphocyte # 0.55 X10^3/ul (0.83-4.51); Mean Corp Hgb Conc 30.7 g/dL (32-36); Mean Corpuscular Hgb 30.8 pg (27.0-32.0); Mean Corpuscular Volume 100.2 fL (81-99); Mean Platelet Vol. 9.9 fl (6.2-12.0); Monocyte# 0.56 X10^3/uL; Monocyte% 8.1 % (0-10); NRBC Flagged by Analyzer 0 % (0-5); Neutrophil # 5.63 X10^3/uL (2.7-7.7); Neutrophil % 81.8 % (47-70); POSITIVE DIFFERENTIAL YES; Platelet Count 155 K/mm3 (150-450); RBC Distribution Width CV 16.2 % (11.6-14.6); RBC Distribution Width SD 60.5 fl (35.1-43.9); Red Blood Count 4.09 M/mm3 (4.2-5.4); White Blood Count 6.9 K/mm3 (4.4-11.0)
[2021-07-07 13:11] LABS: Differential Indicated SCAN CRITERIA MET
--- NOTE | 2021-07-07 13:15 | RAD_ITS ---
STUDY: X-RAY CHEST REASON FOR EXAM: Female, 86 years old. Dyspnea, bilateral rales, lymphedema TECHNIQUE: AP and lateral views of the chest. COMPARISON: Comparison is made with prior study 04/01/2021. FINDINGS: Small left pleural effusion with left basilar infiltrate. There is moderate cardiac enlargement. Normal mediastinum and jo-ann. Normal visualized pulmonary arteries. There is atherosclerotic calcification of the aortic arch with tortuosity. There is demineralization of the osseous structures. Increased kyphosis. Loss of height of mid dorsal vertebrae. There is degenerative osteoarthritis of the bilateral shoulders. There is no demonstrated abnormality of the visualized soft tissue structures of the upper abdomen. RAD/Chest PA and Lateral IMPRESSION: Small left pleural effusion with left basilar infiltrate. Cardiomegaly. Electronically Signed: Michael Vallejo MD at 13:47 EDT , Service support ,
[2021-07-07 13:28] LABS: AST(SGOT) 20 U/L (15-37); Alanine Aminotransfer ALT/SGPT 26 U/L (13-56); Albumin, Serum 3.3 g/dL (3.2-5.0); Alkaline Phosphatase 114 U/L (45-117); Anion Gap 8 (5-15); BUN 19 mg/dL (7-18); BUN/Creat Ratio 20.2 RATIO (10-20); Calcium,Total 8.5 mg/dL (8.5-10.1); Chloride 109 mmol/L (98-107); Creatinine, Serum 0.94 mg/dL (0.55-1.02); EST Glomerular Filtration Rate 60 mL/min (>60); Est Glom Filt Rate - Afr Amer 73 mL/min (>60); Estimated Creatinine Clearance 37.78 ml/min; Globulin 3.2 g/dL (2.2-4.2); Glucose 111 mg/dL (74-106); Potassium 3.9 mmol/L (3.5-5.1); Protein, Total 6.5 g/dL (6.4-8.2); Sodium Level 139 mmol/L (136-145); Troponin-I HS 44 pg/mL (3.0-54.0)
[2021-07-07 13:32] LABS: Lactic Acid 1.5 mmol/L (0.4-1.9)
--- NOTE | 2021-07-07 14:12 | HP.PCM.HOS_ITS ---
HPI - General General Date of Admission: 07/07/21 Date of Service: 07/07/21 Chief Complaint: LLE wound, Dyspnea with exertion, BL LE edema. HPI Narrative The patient is an 86 y/o F w/ PMHx: Aortic Root Dilation, PAF, HTN, HLD, Hx Meningioma, Hx SAH, Hx TGA, Hx Diabetes mellitus type II who presents to the [facility] ED on 07/07/21 per wrist orthopedic recommendations secondary to history of injuring her leg approximate 1 to 2 weeks prior with left anterior leg wound with noted discoloration, swelling, discomfort, warm to touch with serous mark inage, pain worse with movement, rated 2 out of 10 without palpation or movement, 4-5 out of 10 with activity with no associated fevers or chills. Patient additionally upon evaluation reports shortness of breath, primarily with exertion. Work-up in the ED included T 98.1, heart 68, BP 144/79, respiratory rate 18, on her percent on room air, rapid Covid antigen negative, chest x-ray with small left pleural effusion with left Dima infiltrate and cardiomegaly, CBC with WBC 6.9, hemoglobin 12.6, platelet 155 with lymphopenia, CMP with chloride 109, BUN/creatinine 19/0.94, glucose 111, lactic acid 1.5, total bilirubin 1.30 otherwise unremarkable hepatic profile, high-sensitivity troponin 44, BNP 2124.4, duplex ultrasound negative, EKG with sinus rhythm with PACs with no acute evidence of ischemia with right bundle branch block. In the ED patient ministered Rocephin and azithromycin. [facility] Medical History (Updated 07/07/21 @ 14:[address] Fan Velasquez MD) Aortic root dilatation Atrial fibrillation with RVR Dehydration Elevated troponin Encephalopathy acute Essential (primary) hypertension Fall at home Hyperlipidemia Meningioma Meningioma Mitral valve annular calcification Non-rheumatic tricuspid valve insufficiency Nonrheumatic mitral (valve) insufficiency Nonrheumatic tricuspid valve regurgitation Obesity Other secondary pulmonary hypertension Paroxysmal atrial fibrillation SAH (subarachnoid hemorrhage) SAH (subarachnoid hemorrhage) Secondary pulmonary arterial hypertension Sepsis due to Escherichia coli (E. coli) Shortness of breath Sinus tachycardia TGA (transient global amnesia) Type 2 diabetes mellitus Weakness generalized Home Medications acetaminophen [Tylenol Extra Strength] 1,000 mg PO BID PRN 04/01/21 [History Last Taken 07/07/21] carbamazepine 100 mg PO BID 04/01/21 [History Last Taken 07/05/21] gabapentin 100 mg PO TID 04/01/21 [History Last Taken 07/05/21] furosemide 20 mg PO BIDLX #90 tab 04/06/21 [Rx Last Taken 07/06/21] lisinopril 5 mg PO DAILY #90 tab 04/06/21 [Rx Last Taken 07/06/21] potassium chloride [Klor-Con M20] 20 meq PO DAILY #30 tab 04/06/21 [Rx Last Taken 07/06/21] Allergy/AdvReac Type Severity Reaction Status Date / Time house dust Allergy Intermediate NEEDS Verified 07/07/21 12:00 FOLLOW-UP cabbage AdvReac Diarrhea Verified 07/07/21 12:00 tomato AdvReac Diarrhea Verified 07/07/21 12:00 tree nut AdvReac Diarrhea Verified 07/07/21 12:00 Family History (Updated 07/07/21 @ 15:[address] Ayah Lawton MD) Brother Family history of PTCA Father Heart disease CVA (cerebral vascular accident) other (Patient denies any marked maternal family history including HD, DM, CA.) Surgical History H/O total hip arthroplasty History of carpal tunnel surgery History of craniotomy History of total hysterectomy Hx of appendectomy Hx of total knee arthroplasty S/P craniotomy Social History (Updated 07/07/21 @ 12:[address] Fan Velasquez MD) household members: none Smoking Status: Never smoker alcohol intake: never substance use type: does not use caffeine: No what type of physical activity do you participate in: weight training frequency: daily duration: 15-30 minutes/day seatbelt use: always do you feel safe at home: Yes ROS ROS Narrative Admission Review of Systems: CONSTITUTIONAL: No weight loss, fever, chills, + weakness or fatigue. HEENT: Eyes: No visual loss, blurred vision, double vision or yellow sclerae. Ears, Nose, Throat: No hearing loss, sneezing, congestion, runny nose or sore throat. SKIN: + Left lower extremity wound, increased drainage, redness, pain to the extremity. CARDIOVASCULAR: + Edema, orthopnea. No chest pain, chest pressure or chest discomfort, palpitations, syncopal events. RESPIRATORY: + shortness of breath, mild cough, No marked sputum, wheezing, hemoptysis. GASTROINTESTINAL: No anorexia, nausea, vomiting or diarrhea, abdominal pain, melena, BRBPR. GENITOURINARY: No dysuria, frequency, urgency or retention. NEUROLOGICAL: No headache, dizziness, syncope, paralysis, ataxia, numbness or tingling in the extremities, focal weakness, change in bowel or bladder control, seizure. MUSCULOSKELETAL: + muscle, back pain, joint pain or stiffness. HEMATOLOGIC: + anemia, bleeding or bruising. LYMPHATICS: No enlarged nodes. No history of splenectomy. PSYCHIATRIC: + history of depression or anxiety. ENDOCRINOLOGIC: No reports of sweating, cold or heat intolerance. No polyuria or polydipsia. ALLERGIES: No history of asthma, hives, eczema or rhinitis. Vital Signs Vital Signs Vital Signs: 07/07/21 11:57 07/07/21 13:19 Temperature 98.1 F 98.1 F Temperature Source Temporal Temporal Pulse Rate 68 68 Respiratory Rate 18 18 Blood Pressure 144/79 H 144/79 H Blood Pressure Mean 100 100 Pulse Ox 100 100 Oxygen Delivery Method Room Air Room Air Weight Weight: 153 lb Body Mass Index (BMI) 26.2 Physical Exam Narrative Physical Examination: General: Awake, alert, oriented x 3 and cooperative, seated upright in the ED bed, fatigued appearing, not ill-appearing. Skin: Normal color, normal turgor, no icterus, no cyanosis except for noted bilateral lower extremity stasis disease skin changes as well as significant left lower extremity erythema circumferentially ankle to upper webb, small shallow wound to the anterior lower webb with serous drainage, warm to touch, edematous. HEENT: AT/NC, EOMI, PERRLA, MMM, no carotid bruits, + JVD noted. Lungs: Diminished, greater bases, mild rales, no evidence of any respiratory distress, no rhonchi or wheezing. Heart: Regular rate and rhythm; no gallop, rub audible. Abdomen: Soft, NTTP, ND, distant normal BS, no HSM. Extremities: No cyanosis, no clubbing, see skin, significant bilateral lower extremity pitting edema 2+ ankle to proximal webb. Neurological: Patient awake, alert, oriented as noted, cognitive function intact; pupils equally reactive to light and accommodation, cranial nerves II- XII grossly normal, moving all 4 extremities, no focal deficits, strength moderately to severely globally decreased secondary to acute presentation. Psychiatric: Affect appears fatigued otherwise normal, no acute evidence of depressive or anxiety feelings. Results Lab / Micro Data Result Diagrams: 07/07/21 12:58 07/07/21 12:58 Labs: Laboratory Results - last 24 hr 07/07/21 12:58: WBC 6.9, RBC 4.09 L, Hgb 12.6, Hct 41.0, MCV 100.2 H, MCH 30.8, MCHC 30.7 L, RDW Std Deviation 60.5 H, RDW Coeff of Margaret 16.2 H, Plt Count 155, MPV 9.9, Immature Gran % (Auto) 0.400, Neut % (Auto) 81.8 H, Lymph % (Auto) 8.0 L, [place] % (Auto) 8.1, Eos % (Auto) 1.0, Baso % (Auto) 0.7, Absolute Neuts (auto) 5.6, Absolute Lymphs (auto) 0.55 L, Nucleated RBC % 0 07/07/21 12:58: Sodium 139, Potassium 3.9, Chloride 109 H, Carbon Dioxide 22.0, Anion Gap 8, BUN 19 H, Creatinine 0.94, Estim Creat Clear Calc 37.78, Est GFR (MDRD) Af Amer 73, Est GFR (MDRD) Non-Af 60, BUN/Creatinine Ratio 20.2 H, Glucos e 111 H, Calcium 8.5, Total Bilirubin 1.30 H, AST 20, ALT 26, Alkaline Phosphatase 114, Troponin I High Sens 44, Total Protein 6.5, Albumin 3.3, Globulin 3.2, Albumin/Globulin Ratio 1.0 07/07/21 12:58: Lactic Acid 1.5 07/07/21 12:58: B-Natriuretic Peptide 2124.4 H Micro: Microbiology 07/07/21 12:53 Nasal Secretion SARS-CoV-2 Antigen (Rapid) - Final Radiology Impression Chest X-Ray 07/07/21 13:15 IMPRESSION: Small left pleural effusion with left basilar infiltrate. Cardiomegaly. Electronically Signed: Michael Vallejo MD at 13:47 EDT , Service support , Assessment & Plan Assessment/Plan (1) New onset of congestive heart failure: (2) Community acquired pneumonia: QUALIFIERS: Laterality: left Lung location: unspecified part of lung Qualified Code(s): J18.9 - Pneumonia, unspecified organism PLAN: The patient is an 86 y/o F w/ PMHx: Aortic Root Dilation, PAF, HTN, HLD, Hx Meningioma, Hx SAH, Hx TGA, Hx Diabetes mellitus type II who presents to the [facility] ED on 07/07/21 per wrist orthopedic recommendations secondary to history of injuring her leg approximate 1 to 2 weeks prior with left anterior leg wound with noted discoloration, swelling, discomfort and serous drainage, pain worse with movement, with no associated fevers or chills. 1. Acute Decompensated CHF, unclear type: Will admit to PCU, maintain on cardiac telemetry obtain cardiac enzyme series, obtain serial EKGs, continue IV lasix diuresis, monitor I/Os, maintain on intake restriction, continue medical therapy, obtain TSH and magnesium level. Most recent ECHO noted 11/11/2020 with normal LV size, normal LV systolic function, EF 65%, severely enlarged LA, moderately enlarged RA, moderate MVI, severe pulmonary hypertension, PASP 72 mmHg which is similar to her prior study. Given greater than 6-month timeline will request repeat given this acute presentation. 2. Questionable Community Acquired Pneumonia: Lower suspicion, will maintain on oxygen with wean as tolerated to room air although not requiring any oxygen in the ED, continue PRN albuterol, maintain on IV Rocephin and Azithromycin, HOB, IS parameters w/ pending sputum cultures, respiratory viral panel and urine antigens. Will obtain procalcitonin. As noted lower suspicion for pneumonia, will await further results. 3. LLE Wound, Acute cellulitis, complicated by BL LE Lymphedema: Duplex ultrasound per ED with no evidence of DVT. Delayed capillary refill BL but pulses palpable. Will obtain CORTNEY/PVR concurrently. Will maintain on IV Rocephin given above as noted, will obtain Wound Cx, will obtain Wound MRSA PCR, plan repeat CBC in AM, continue affected extremity elevation above heart when seated and in bed, monitor erythema outline with VS checks, wound RN consulted, place snug Jed wraps with elevation with IV Lasix as noted #1. 4. PAF: Not on rate or rhythm agent nor anticoagulation, following with Dr. Campos, notable fall risk. 5. Hx Diabetes mellitus type II: Not on regimen, diet controlled, prior hemoglobin A1c 5%. 6. Hypertension: Continue home regimen including lisinopril, IV Lasix with hold parameters, PRN hydralazine. 7. Hyperlipidemia: Not on regimen, FLP in AM. 8. History of subarachnoid hemorrhage, Hx Meningioma: Unclear specific setting of the event, will continue home carbamazepine regimen. 9. DVT prophylaxis: SCDs, Lovenox. 10. CODE status: Patient HCPOA is her sister in law and living will is currently in place. Patient status discussed per team w/ her HCPOA including CODE status at length including difference between FULL code, DNR-CCA and DNR-CC status. Following discussions about the differences in these status, requested DNR-CCA, no intubation. Advanced Care Planning Face to Face Time: 16 minutes. Charges/Coding Visit Charges Inpatient E&M: 50136 Init Hosp L3 Procedures Hospitalists Procedures: 38715 Advncd Care Plan 30 Min
--- NOTE | 2021-07-07 14:20 | CM.ED ---
SOCIAL WORK Referral Source: Dr. Velasquez Reason for Consult: Requires admission-patient worried about cat at home Met with patient in room. Introduced role and reason for referral. Patient states believes [id number], Tyra would assist with caring for cat while patient admitted. Patient requests this worker call and discuss with Tyra. Call to Tyra Price [phone]. Tyra reports has already been over to patient's home to feed cat. Tyra requests call from nurse with update. Patient updated on the above and gives permission for nursing to speak with Tyra to update on status. Patient's nurse, Anita updated. Plan: Admit Taylor Mark, SUPERVISOR ROAD ADMINISTRATOR, DIESEL [employer]AG[employer] OPERATOR
[2021-07-07 14:51] LABS: Magnesium 2.2 mg/dL (1.6-2.6)
[2021-07-07 15:39] LABS: Procalcitonin 0.08 ng/mL (0.00-0.09)
--- NOTE | 2021-07-07 17:09 | ECHOD_ITS ---
Reason For Study: CHF Procedure This was a 2D Doppler, Color Flow transthoracic echocardiogram. Exam performed portable in patient room. Left Ventricle Normal left ventricle. Concentric left ventricular hypertrophy. The estimated ejection fraction is EF 55-60 %. Right Ventricle Moderately dilated right ventricle. Mild global right ventricular systolic dysfunction. Atria The left atrium is severely enlarged. The right atrium is moderately enlarged. Mitral Valve There is moderate mitral annular calcification. Moderately severe (3+) mitral valve insufficiency. Tricuspid Valve Normal tricuspid valve. Moderately severe (3+) tricuspid valve insufficiency. Aortic Valve Moderate diffuse aortic valve calcification. Mild aortic stenosis. Mild-Moderate (1-2+) aortic valve insufficiency. Pulmonic Valve The pulmonic valve is not well visualized. Great Vessels Normal aortic root. Pericardium/Pleural No pericardial effusion. MMode/2D Measurements & Calculations LVIDd: 3.7 cm IVSd: 1.4 cm LVOT diam: 1.8 cm LVIDs: 2.8 cm LVPWd: 1.4 cm LVOT area: 2.4 cm2 RVDd: 5.3 cm FS: 24.6 % Ao root diam: 4.5 cm LAV(MOD-bp): 124.6 ml LVAd ap4: 28.5 cm2 LAV(MOD-bp) Indexed: 74.3 ml/m2 LVLd ap4: 8.0 cm LAV(MOD-sp2): 145.2 ml EDV(MOD-sp4): 83.5 ml LAV(MOD-sp4): 107.1 ml EDV(sp4-el): 86.5 ml LVAs ap4: 10.6 cm2 LVLs ap4: 5.9 cm ESV(MOD-sp4): 17.0 ml ESV(sp4-el): 16.1 ml EF(MOD-sp4): 79.6 % EF(sp4-el): 81.4 % LVAd ap2: 26.9 cm2 SV(MOD-sp4): 66.4 ml SV(MOD-sp2): 66.5 ml LVLd ap2: 7.4 cm EDV(MOD-sp2): 78.9 ml EDV(sp2-el): 82.6 ml LVAs ap2: 8.6 cm2 LVLs ap2: 4.8 cm ESV(MOD-sp2): 12.4 ml ESV(sp2-el): 13.1 ml EF(MOD-sp2): 84.3 % SV(sp4-el): 70.4 ml LA dimension(2D): 4.8 cm LA A4 area: 33.2 cm2 RA A4 area: 32.9 cm2 Doppler Measurements & Calculations MV E max karina: 119.6 cm/sec Ao V2 max: 204.9 cm/sec AI max karina: 429.4 cm/sec MV A max karina: 99.3 cm/sec Ao max P.8 mmHg AI max P.9 mmHg MV E/A: 1.2 Ao V2 mean: 132.7 cm/sec Ao mean P.3 mmHg AI dec slope: 256.4 cm/sec2 Ao V2 VTI: 35.1 cm AI P1/2t: 490.5 msec GILLIAN(I,D): 1.2 cm2 GILLIAN(V,D): 1.5 cm2 LV V1 max: 128.2 cm/sec SV(LVOT): 41.7 ml PA V2 max: 109.4 cm/sec LV V1 max P.8 mmHg LV V1 mean P.4 mmHg LV V1 mean: 83.6 cm/sec LV V1 VTI: 17.0 cm TR max karina: 457.8 cm/sec TR max P.8 mmHg ECHO/Echo Complete Interpretation Summary The estimated ejection fraction is EF 55-60 %. Moderate LVH Severely Enlarged LA Moderately Enlarged RA Moderately severe Eccentric MR Moderately Severe TR Mild As/Mild to moderate AR Severe Pulmonary Hypertension, RVSP 83 mmhg No significant changes from prior Echo in 11/11/2020 Ordering Physician: Ayah Lawton Referring Physician: JUGN VILLAR Performed By: Josefa Baldwin, YOGI, RVT
[2021-07-07] MEDS: Furosemide 40 MG/4 ML Vial IV (18:13)
[2021-07-07] MEDS: Gabapentin 100 MG Capsule PO (18:13)
[2021-07-07] MEDS: 0.9% Saline Lock 10 ML Syringe IV (18:13)
[2021-07-07 18:30] LABS: Troponin-I HS 48 pg/mL (3.0-54.0)
--- NOTE | 2021-07-07 18:43 | PCS.PANDOC ---
PANDEMIC DOCUMENTATION INITIATED: Date: 06/14/2021 Time: 190
[2021-07-07 19:26] LABS: M R Staph aureus DNA By PCR Negative (Negative); Probe Check PASS; Specimen Processing Control PASS; Staph aureus DNA By PCR NEGATIVE (Negative)
[2021-07-07 22:35] LABS: Troponin-I HS 63 pg/mL (3.0-54.0)
[2021-07-08] VITALS (11 sets, daily range): BP systolic 124–148; BP diastolic 68–97; PULSE 61–83; RESP 16–18; TEMP 36.1–36.8; O2SAT 93–98
[2021-07-08] MEDS: Acetaminophen 325 MG Tablet 650 MG PO ×2 (02:17→16:15)
--- NOTE | 2021-07-08 05:55 | ART_ITS ---
Reason For Study: Concern vascular disease, LLE wound, Discoloration Procedure A bilateral lower extremity continuous wave Doppler with analog waveform analysis and ankle brachial indexes. Left Segmental Pressures Left brachial= 124mmHg. Left posterior tibial artery = >254mmHg. Left dorsalis pedis artery = 143mmHg. Left digit = 46 mmHg. The left dorsalis pedis waveforms are triphasic. The left posterior tibial artery waveforms are triphasic. Right Segmental Pressures Right brachial= 123mmHg. Right posterior tibial artery = >254mmHg. Right dorsalis pedis artery = 178mmHg. Right digit = 112 mmHg. The right dorsalis pedis waveforms are triphasic. The right posterior tibial artery waveforms are triphasic. Indices The right ankle brachial index by the dorsalis pedis is 1.44. The right ankle brachial index by the posterior tibial artery is NC. The right digital-brachial index is 0.90. The left ankle brachial index by the dorsalis pedis is 1.15. The left ankle brachial index by the posterior tibial artery is NC. The left digital-brachial index is 0.37. VL/Ankle Brachial Index Interpretation Summary Right PT ankle-brachial index not calculable due to artificially elevated systo lic pressure. Consistent with medial calcification of vessel wall. Right DP ankle-brachial indices mildly elevated at 1.44 consistent with mild no ncompressibility. Right posterior tibial and dorsalis pedis Doppler waveforms are triphasic which is normal Right digital brachial index is normal Left PT ankle-brachial index not palpable due to artificially elevated systolic pressure consistent with noncompressibility of vessel wall. Left DP ankle-brachial index is normal at 1.15 Left posterior tibial and dorsalis pedis waveforms are triphasic which is tiffany l Abnormal left digital brachial index suggestive of small vessel disease. Ordering Physician: Ayah Lawton Referring Physician: Ricky Velásquez Performed By: Willinger, Cecilia, RVT
[2021-07-08 07:48] LABS: Absolute Lymphocyte Count 0.63 X10^3/uL (0.83-4.51); Absolute Neutrophil Count 4.8 X10^3/uL (2.0-7.7); Basophil# 0.07 X10^3/uL; Basophil% 1.1 % (0-1); Eosinophil# 0.15 X10^3/uL; Eosinophils% 2.4 % (0-5); Hematocrit 38.9 % (37-47); Hemoglobin 12.3 g/dL (12.0-15.0); Lymphocyte # 0.63 X10^3/ul (0.83-4.51); Lymphocyte % 10.2 % (19-41); Mean Corp Hgb Conc 31.6 g/dL (32-36); Mean Corpuscular Hgb 31.5 pg (27.0-32.0); Mean Corpuscular Volume 99.5 fL (81-99); Monocyte# 0.54 X10^3/uL; Monocyte% 8.7 % (0-10); NRBC Flagged by Analyzer 0 % (0-5); Neutrophil # 4.78 X10^3/uL (2.7-7.7); Neutrophil % 77.1 % (47-70); Platelet Count 156 K/mm3 (150-450); RBC Distribution Width CV 16.3 % (11.6-14.6); RBC Distribution Width SD 60.4 fl (35.1-43.9); Red Blood Count 3.91 M/mm3 (4.2-5.4); White Blood Count 6.2 K/mm3 (4.4-11.0)
[2021-07-08] MEDS: Gabapentin 100 MG Capsule PO ×3 (08:18→16:15)
[2021-07-08] MEDS: Potassium Chloride Oral Tablet 20 MEQ PO (08:18)
[2021-07-08] MEDS: Lisinopril 5 MG Tablet PO (08:18)
[2021-07-08] MEDS: Aspirin E.C. 81 MG Tablet PO (08:18)
[2021-07-08 08:29] LABS: AST(SGOT) 18 U/L (15-37); Alanine Aminotransfer ALT/SGPT 21 U/L (13-56); Albumin, Serum 2.8 g/dL (3.2-5.0); Alkaline Phosphatase 96 U/L (45-117); Anion Gap 6 (5-15); BUN 18 mg/dL (7-18); BUN/Creat Ratio 22.5 RATIO (10-20); Calcium,Total 8.6 mg/dL (8.5-10.1); Chloride 110 mmol/L (98-107); Cholesterol 104 mg/dL (200); EST Glomerular Filtration Rate 72 mL/min (>60); Est Glom Filt Rate - Afr Amer 88 mL/min (>60); Globulin 2.9 g/dL (2.2-4.2); Glucose 101 mg/dL (74-106); High Density Lipoprotein 33 mg/dL; Potassium 3.9 mmol/L (3.5-5.1); Protein, Total 5.7 g/dL (6.4-8.2); Sodium Level 140 mmol/L (136-145); T4 Free Direct 1.36 ng/dL (0.76-1.46); Thyroid Stim Hormone (TSH) 0.78 uIU/mL (0.358-3.74); Triglycerides 79 mg/dL; Very Low Density Lipoprotein 16 mg/dL (5-40)
[2021-07-08] MEDS: Enoxaparin 40 MG/0.4 ML Syringe SC (10:38)
[2021-07-08] MEDS: Furosemide 40 MG/4 ML Vial IV ×2 (10:38→17:05)
[2021-07-08] MEDS: 0.9% Saline Lock 10 ML Syringe IV ×2 (10:40→17:06)
[2021-07-08] MEDS: Ceftriaxone 1 GM/50 ML BAG IV (10:40)
--- NOTE | 2021-07-08 10:52 | WOUNDNOTE ---
wound photo: left webb
--- NOTE | 2021-07-08 12:15 | CASEMGMT ---
DREA DAY assessment: Face to Face with patient for initial transition planning/care coordination assessment. DREA DAY introduced self and role at [facility], pt voices understanding and consents to assessment. Pt is sitting up in bed in no distress on room air. Pt is A/Ox4 and answers all questions appropriately. Care providers, pharmacy, and demographics verified. Presentation: Pt w/ left foot pain/numbness/tingling Admitting dx: CHF exac, LLE wound w/ cellulitis PCP: [facility]en Specialists: Pt states no current specialists. Preferred Pharmacy: [facility] Insurance: AeR Prescription Benefit: AeMCR Living Will/HPOA: Pt has LW/HPOA and is aware that it is on file at [facility]. Pt's and demented brother, who is currently in SNF, are listed as first two HPOA and then her [id number], Tyra Price, is third. Pt would like to re-do HPOA at this time to update and Keshia martin, voices understanding. LNOK: Tyra Price, sister in law Living Arrangements: Pt states lives alone in 1 story home and states no concerns at home. Pt is independent w/ ADL's, but sis-in-law does help with groceries, etc. Transportation: Pt states drives self and states no transportation concerns. DME/HHC: Pt states has a walker and walk-in bathtub and states no need for any further DME. Pt states has had [facility] and has been to [facility] in the past. Pt states no concerns with going home at time of discharge. Pt is retired. Pt does not smoke cigarettes or drink ETOH. Pt states voices no further concerns/needs. CM to follow for any further discharge planning/needs. Advised pt to ask for CM if any further questions/concerns/needs arise, voices understanding. Pt Goal: Home Plan: Home [place] DREA [place]
--- NOTE | 2021-07-08 14:51 | CASEMGMT ---
SW completed a revised Healthcare Power of Life Educator with patient. Copies were made and given to patient along with originals. A copy was also placed in her chart. Toña PAIGE
--- NOTE | 2021-07-08 16:21 | PCM.PN.HOSP ---
Subjective Subjective Patient does not have any chest pain. Complain of shortness of breath on exertion. She could not lay flat secondary to back pain but denies orthopnea or PND. Objective Data Objective Data Vital Signs: Vital Signs Temp Pulse Resp BP Pulse Ox 98.3 F 70 18 143/78 H 97 07/08/21 16:10 07/08/21 16:10 07/08/21 16:10 07/08/21 16:10 07/08/21 16:10 Oxygen Delivery Method Room Air Weight: 139 lb 8.842 oz Body Mass Index (BMI) 25.0 Intake & Output: Intake and Output for Last 24 Hours 07/06/21 07/07/21 07/08/21 23:59 23:59 23:59 Intake Total 305 / 305 500 / 500 Output Total 1000 / 1000 1250 / 1250 Balance -695 / -695 -750 / -750 Lab / Micro Data Result Diagrams: 07/08/21 06:30 07/08/21 06:30 Labs: Laboratory Results - last 24 hr 07/07/21 17:25: S.aureus Protein A PCR NEGATIVE, MRSA (PCR) Negative 07/07/21 17:52: Troponin I High Sens 48 07/07/21 21:45: Troponin I High Sens 63 H 07/08/21 06:30: WBC 6.2, RBC 3.91 L, Hgb 12.3, Hct 38.9, MCV 99.5 H, MCH 31.5, MCHC 31.6 L, RDW Std Deviation 60.4 H, RDW Coeff of Margaret 16.3 H, Plt Count 156, MPV 11.0, Immature Gran % (Auto) 0.500, Neut % (Auto) 77.1 H, Lymph % (Auto) 10.2 L, [place] % (Auto) 8.7, Eos % (Auto) 2.4, Baso % (Auto) 1.1 H, Absolute Neuts (auto) 4.8, Absolute Lymphs (auto) 0.63 L, Nucleated RBC % 0 07/08/21 06:30: Sodium 140, Potassium 3.9, Chloride 110 H, Carbon Dioxide 24.0, Anion Gap 6, BUN 18, Creatinine 0.80, Estim Creat Clear Calc 44.40, Est GFR (MDRD) Af Amer 88, Est GFR (MDRD) Non-Af 72, BUN/Creatinine Ratio 22.5 H, Glucose 101, Calcium 8.6, Total Bilirubin 1.10 H, AST 18, ALT 21, Alkaline Phosphatase 96, Total Protein 5.7 L, Albumin 2.8 L, Globulin 2.9, Albumin/Globulin Ratio 1.0, Triglycerides 79, Cholesterol 104, LDL Cholesterol 55, VLDL Cholesterol 16, HDL Cholesterol 33 L, TSH 0.78, Free T4 1.36 Micro: Microbiology 07/07/21 17:25 Wound - Left Foot Gram Stain - Final 07/07/21 17:25 Wound - Left Foot Wound Culture - Preliminary GNR 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 Moderate LVH Severely Enlarged LA Moderately Enlarged RA Moderately severe Eccentric MR Moderately Severe TR Mild As/Mild to moderate AR Severe Pulmonary Hypertension, RVSP 83 mmhg No significant changes from prior Echo in 11/11/2020 Ordering Physician: Ayah Lawton Referring Physician: JUNG VILLAR Performed By: Josefa Baldwin, LIZETTCS, RVT Physical Exam Narrative Physical exam General: Alert, Oriented x3, Cooperative HEENT: Hard of hearing, atraumatic, PERRLA, EOMI, Normocephalic Oral: No Gingival or Mucosal Lesions/ Ulcerations Neck: Supple, No JVD, Negative Carotid Bruits Lungs: Air entry diminished in bilateral lung bases. Fine rales on right lung base Cardiovascular: The rate and rhythm, A. fib, normal S1, P2 loud. LLSB systolic murmur Abdomen: Bowel Sounds Present, Soft, Non Tender, Non-Distended : No renal angle tenderness. No suprapubic tenderness. Extremities: Mild bilateral below-knee pitting edema, Capillary Refill Less than 3 Seconds Skin: Small nondecubitus ulcer over left lower leg possible venous. Dressing done Musculoskeletal: No Tenderness to Palpation of Joints or Extremities Neurological: Cranial nerves II-XII grossly intact, DTR 2+/4 and Symmetrical, Neuro grossly intact Psych/Mental Status: Normal Affect, Appropriate. Assessment & Plan Assessment/Plan (1) New onset of congestive heart failure: PLAN: The patient is an 86 y/o F with multiple comorbidities was admitted with shortness of breath, leg swelling. 1. Acute on chronic decompensated HFpEF/diastolic heart failure secondary to multiple valvular heart disease and right ventricular failure and severe pulmonary hypertension: Patient is admitted in PCU. 2D echo reported EF 55 to 60%, moderate LVH. RV dilatation, severely enlarged RA and LA. Moderately severe MR, TR and mild to moderate AR. Severe pulmonary hypertension RVSP 83 mmHg. Patient is on IV Lasix. Blood pressure is stable. There is worsening of right ventricular failure since prior echo in November 19 2. Left lower lobe atelectasis: Patient denies any clinical symptoms of pneumonia including tachypnea, cough, sputum production or fever or chills. Zithromax discontinued. 3. Left lower extremity wound with surrounding cellulitis complicated bilateral lower extremity lymphedema: Duplex ultrasound per ED with no evidence of DVT. Delayed capillary refill BL but pulses palpable. CORTNEY was done shows right 1.44, left 1.15 with triphasic waves in the right and left posterior tibial and dorsalis pedis. MRSA negative. Discussed with the wound nurse. Wound dressing. Continue IV ceftriaxone. 4. PAF: Not on rate or rhythm agent nor anticoagulation, following with Dr. Campos, notable fall risk. 5. Hx Diabetes mellitus type II: Not on regimen, diet controlled, prior hemoglobin A1c 5%. 6. Hypertension: Continue home regimen including lisinopril, IV Lasix with hold parameters, PRN hydralazine. 7. Hyperlipidemia: Not on regimen, FLP in AM. 8. History of subarachnoid hemorrhage, Hx Meningioma: Unclear specific setting of the event, will continue home carbamazepine regimen. 9. DVT prophylaxis: SCDs, Lovenox. 10. CODE status: Patient HCPOA is her sister in law and living will is currently in place. Patient status discussed per team w/ her HCPOA including CODE status at length including difference between FULL code, DNR-CCA and DNR-CC status. Following discussions about the differences in these status, requested DNR-CCA, no intubation. . Charges/Coding Visit Charges Inpatient E&M: 04506 Subs Hosp L2
[2021-07-08] MEDS: CARBAMAZEPINE 100 MG TAB.CHEW PO ×2 (17:05→23:41)
[2021-07-09 04:00] VITALS: PULSE 63
[2021-07-09] MEDS: CARBAMAZEPINE 100 MG TAB.CHEW PO (06:03)
[2021-07-09 08:17] VITALS: PULSE 66
[2021-07-09 08:36] VITALS: BP 136/85; PULSE 67; RESP 24; TEMP 37; O2SAT 95
[2021-07-09] MEDS: Furosemide 40 MG/4 ML Vial IV (09:02)
[2021-07-09] MEDS: Gabapentin 100 MG Capsule PO ×2 (09:03→13:00)
[2021-07-09] MEDS: Aspirin E.C. 81 MG Tablet PO (09:03)
[2021-07-09] MEDS: Lisinopril 5 MG Tablet PO (09:03)
[2021-07-09] MEDS: Enoxaparin 40 MG/0.4 ML Syringe SC (09:03)
[2021-07-09] MEDS: 0.9% Saline Lock 10 ML Syringe IV (09:03)
[2021-07-09] MEDS: Potassium Chloride Oral Tablet 20 MEQ PO (09:03)
[2021-07-09] MEDS: Ceftriaxone 1 GM/50 ML BAG IV (09:03)
[2021-07-09 09:08] VITALS: O2SAT 94
[2021-07-09] MEDS: Acetaminophen 325 MG Tablet 650 MG PO (09:10)
--- NOTE | 2021-07-09 11:35 | PCM.DC ---
Discharge Instructions Diet Discharge Diet: 2000 mg Sodium Diet Activity Discharge Activity: Return to Normal Activity and May Not Drive Weight Bearing Status: Weight bearing as tolerated Dressing / Incision Call your doctor if you observe: Fever of 101 or Higher, Coldness, Increased Pain, Numbness or Tingling, Change in Color, Inability to urinate, Inability to have a bowel movement, Using more than 1 pad per hour, Shortness of breath, Dizziness, Fainting spells, Swelling in the ankles, Chest pain, Prolonged hiccupping, Increased palpitations (irregular heartbeat), Calf discomfort and Uncontrolled pain Follow Up Care Test Results: Test results from this visit will be discussed in further detail at your follow-up appointment, if applicable. Discharge Plan Admission Admit Date/Time: 07/07/21 14:30 Primary Reason for Your Visit: CHF exacerbation Attending Provider: Edis White Primary Care Provider: Ricky Velásquez Instructions Additional Instructions / Restrictions: Wound clinic in 2 weeks for left leg small ulcer probably venous Discharge Orders/Prescriptions Prescriptions: New aspirin 81 mg Tablet,Delayed Release (Dr/Ec) 81 mg PO DAILY@0800 Qty: 30 RF: 2 furosemide [Lasix] 40 mg tablet 40 mg PO BID Qty: 60 RF: 2 spironolactone 25 mg tablet 25 mg PO DAILY Qty: 30 RF: 0 Continued carbamazepine 100 mg tablet extended release 12 hr 100 mg PO BID RF: 0 acetaminophen [Tylenol Extra Strength] 500 mg Tablet 1,000 mg PO BID PRN (Reason: Pain) RF: 0 gabapentin 100 mg capsule 100 mg PO TID RF: 0 lisinopril 5 mg Tablet 5 mg PO DAILY Qty: 90 RF: 0 Discontinued potassium chloride [Klor-Con M20] 20 mEq Tablet,Er Particles/Crystals 20 meq PO DAILY Qty: 30 RF: 0 furosemide 20 mg Tablet 20 mg PO BIDLX Qty: 90 RF: 0 Referrals / Follow Up: Kaushal Campos MD [STAFF PHYSICIAN] - Within 2 Weeks (CHF with exacerbation) Ricky Velásquez MD [Primary Care Provider] - Within 1 Week (Follow-up BMP with PCP in 1 week.) Disposition Disposition (needs filled in before D/C Order can be placed): Home, Self Care
--- NOTE | 2021-07-09 11:42 | DS.PCM_ITS ---
Providers Date of Admission: 07/07/21 Primary Care Physician: Jung Villar MD Consultations 07/07/21 17:09 Consult: Onc/Wound/property developer Routine Comment: Reason For Visit: CHF EXAC, ? LLE PNA, LLE WOUND W/CELLULITIS Diagnosis Discharge Diagnosis (1) New onset of congestive heart failure: Status: Acute Code(s): I50.9 - Heart failure, unspecified Medications at Discharge Home Medications acetaminophen [Tylenol Extra Strength] 1,000 mg PO BID PRN 04/01/21 carbamazepine 100 mg PO BID 04/01/21 gabapentin 100 mg PO TID 04/01/21 lisinopril 5 mg PO DAILY #90 tab 04/06/21 aspirin 81 mg PO DAILY@0800 #30 tab 07/09/21 furosemide [Lasix] 40 mg PO BID #60 tab 07/09/21 spironolactone 25 mg PO DAILY #30 tab 07/09/21 Hospital Course Summary of Care Provided Hospital Course: The patient is an 86 y/o F with multiple comorbidities was admitted with shortness of breath, leg swelling. 1. Acute on chronic decompensated HFpEF/diastolic heart failure secondary to multiple valvular heart disease and right ventricular failure and severe pulmonary hypertension: Patient is admitted in PCU. 2D echo reported EF 55 to 60%, moderate LVH. RV dilatation, severely enlarged RA and LA. Moderately severe MR, TR and mild to moderate AR. Severe pulmonary hypertension RVSP 83 mmHg. Blood pressure is stable. There is worsening of right ventricular failure since prior echo in November 19. Patient discharged on Lasix 40 mg twice daily and spironolactone 25 mg added and potassium supplement discontinued. 2. Left lower lobe atelectasis: Patient denies any clinical symptoms of pneu monia including tachypnea, cough, sputum production or fever or chills. Pneumonia ruled out. Zithromax discontinued. 3. Left lower extremity wound with complicated bilateral lower extremity lymphe haley with mild erythema due to edema: Duplex ultrasound per ED with no evidence of DVT. Delayed capillary refill BL but pulses palpable. CORTNEY was done shows right 1.44, left 1.15 with triphasic waves in the right and left posterior tibial and dorsalis pedis. MRSA negative. Discussed with the wound nurse. Wound dressing. Patient leg swelling got much improved. Seems leg ulcer probably traumatic. Wound nurse dressed the patient does not feel need for any antibiotic local or systemic therefore discontinued. Cellulitis ruled out. 4. PAF: Not on rate or rhythm agent nor anticoagulation, following with Dr. Campos, notable fall risk. 5. Hx Diabetes mellitus type II: Not on regimen, diet controlled, prior hemoglobin A1c 5%. 6. Hypertension: Continue home regimen including lisinopril, IV Lasix with hold parameters, PRN hydralazine. 7. Hyperlipidemia: Not on regimen, FLP in AM. 8. History of subarachnoid hemorrhage, Hx Meningioma: Unclear specific setting of the event, will continue home carbamazepine regimen. 9. DVT prophylaxis: SCDs, Lovenox. 10. CODE status: Patient HCPOA is her sister in law and living will is currently in place. Patient status discussed per team w/ her HCPOA including CODE status at length including difference between FULL code, DNR-CCA and DNR-CC status. Following discussions about the differences in these status, requested DNR-CCA, no intubation. Discharge medication reconciliation done. Discharge follow-up instructions completed. Discharge process discussed with the patient and all questions were answered to patient's satisfaction. Total time spent, exact 35 minutes on discharge meds reconciliation, examination, coordination of care with nurses and ancillary staff, review of imaging and blood test and discussion with the patient on follow-up instructions Physical Exam Narrative Physical exam General: Alert, Oriented x3, Cooperative HEENT: Hard of hearing, atraumatic, PERRLA, EOMI, Normocephalic Oral: No Gingival or Mucosal Lesions/ Ulcerations Neck: Supple, No JVD, Negative Carotid Bruits Lungs: Air entry diminished in bilateral lung bases. Fine rales on right lung base Cardiovascular: The rate and rhythm, A. fib, normal S1, P2 loud. LLSB systolic murmur Abdomen: Bowel Sounds Present, Soft, Non Tender, Non-Distended : No renal angle tenderness. No suprapubic tenderness. Extremities: Leg edema improved, Capillary Refill Less than 3 Seconds Skin: Small nondecubitus ulcer over left lower leg possible small traumatic, improved Dressing done Musculoskeletal: No Tenderness to Palpation of Joints or Extremities Neurological: Cranial nerves II-XII grossly intact, DTR 2+/4 and Symmetrical, Neuro grossly intact Psych/Mental Status: Normal Affect, Appropriate. Weight / BMI Weight Weight: 134 lb 11.239 oz Body Mass Index (BMI) 25.0 ABG / Lab / Microbiology Data Result Diagrams: 07/08/21 06:30 07/08/21 06:30 Microbiology: Microbiology 07/07/21 17:25 Wound - Left Foot Gram Stain - Final 07/07/21 17:25 Wound - Left Foot Wound Culture - Final Raoultella ornithinolytica 07/07/21 20:45 Urine Catheter - Catheter Legionella Antigen - Final 07/07/21 20:45 Urine Catheter - Catheter Streptococcus pneumoniae Antigen (M - Final 07/07/21 17:25 Mucosa - Nose Respiratory Panel (PCR) - Final 07/07/21 12:53 Nasal Secretion SARS-CoV-2 Antigen (Rapid) - Final Radiography Diagnostic Testing: Radiology Impression Echocardiogram 07/07/21 17:09 Interpretation Summary The estimated ejection fraction is EF 55-60 %. Moderate LVH Severely Enlarged LA Moderately Enlarged RA Moderately severe Eccentric MR Moderately Severe TR Mild As/Mild to moderate AR Severe Pulmonary Hypertension, RVSP 83 mmhg No significant changes from prior Echo in 11/11/2020 ____ Ordering Physician: Ayah Lawton Referring Physician: JUNG VILLAR Performed By: Josefa Baldwin, YOGI, RVT Ankle Brachial Index 07/08/21 05:55 Interpretation Summary Right PT ankle-brachial index not calculable due to artificially elevated systolic pressure. Consistent with medial calcification of vessel wall. Right DP ankle-brachial indices mildly elevated at 1.44 consistent with mild noncompressibility. Right posterior tibial and dorsalis pedis Doppler waveforms are triphasic which is normal Right digital brachial index is normal Left PT ankle-brachial index not palpable due to artificially elevated systolic pressure consistent with noncompressibility of vessel wall. Left DP ankle-brachial index is normal at 1.15 Left posterior tibial and dorsalis pedis waveforms are triphasic which is normal Abnormal left digital brachial index suggestive of small vessel disease. Ordering Physician: Ayah Lawton Referring Physician: Jung Villar Performed By: Cecilia Bliss RVT D/C Instructions Discharge Diet: 2000 mg Sodium Diet Weight Bearing Status: Weight bearing as tolerated Call your doctor if you observe: Fever of 101 or Higher, Coldness, Increased Pain, Numbness or Tingling, Change in Color, Inability to urinate, Inability to have a bowel movement, Using more than 1 pad per hour, Shortness of breath, Dizziness, Fainting spells, Swelling in the ankles, Chest pain, Prolonged hiccupping, Increased palpitations (irregular heartbeat), Calf discomfort and Uncontrolled pain Meaningful Use Info Meaningful Use Diagnoses (Choose all that apply): None applicable Discharge Plan Admission Admit Date/Time: 07/07/21 14:30 Primary Reason for Your Visit: CHF exacerbation Attending Provider: Edis White Primary Care Provider: Jung Villar Instructions Additional Instructions / Restrictions: Wound clinic in 2 weeks for left leg small ulcer probably venous Discharge Orders/Prescriptions Prescriptions: New aspirin 81 mg Tablet,Delayed Release (Dr/Ec) 81 mg PO DAILY@0800 Qty: 30 RF: 2 furosemide [Lasix] 40 mg tablet 40 mg PO BID Qty: 60 RF: 2 spironolactone 25 mg tablet 25 mg PO DAILY Qty: 30 RF: 0 Continued carbamazepine 100 mg tablet extended release 12 hr 100 mg PO BID RF: 0 acetaminophen [Tylenol Extra Strength] 500 mg Tablet 1,000 mg PO BID PRN (Reason: Pain) RF: 0 gabapentin 100 mg capsule 100 mg PO TID RF: 0 lisinopril 5 mg Tablet 5 mg PO DAILY Qty: 90 RF: 0 Discontinued potassium chloride [Klor-Con M20] 20 mEq Tablet,Er Particles/Crystals 20 meq PO DAILY Qty: 30 RF: 0 furosemide 20 mg Tablet 20 mg PO BIDLX Qty: 90 RF: 0 Referrals / Follow Up: Kaushal Campos MD [STAFF PHYSICIAN] - 08/09/21 8:30 am (CHF with exacerbation) Jung Villar MD [Primary Care Provider] - Within 1 Week (Follow-up BMP with PCP in 1 week. Please call and setup an appointment for a hospital follow up. ) Disposition Disposition (needs filled in before D/C Order can be placed): Home, Self Care Charges/Coding Visit Charges Inpatient E&M: 04077 Disch Hosp
--- NOTE | 2021-07-09 11:51 | CASEMGMT ---
This RN CM to room and pt states no need for any further therapy at discharge. Pt states had HHC recently, was discharged, and states no further need for same. Pt voices no further questions/concerns/needs with going home today. [place] RN CM
[2021-07-09 13:07] VITALS: BP 112/72; PULSE 77; RESP 16; TEMP 36.7; O2SAT 96
--- NOTE | 2021-07-13 09:23 | CASEMGMT ---
DREA DAY Discharge Follow-up Phone Call: REBECA:12 Strata:3 Call Date:07/13/21 Discharge Date: 07/09/21 Time of Call: 914 Admitting Diagnosis: A/C HFrEF This DREA DAY contacted pt via phone in follow-up from her inpt discharge. Pt states she is still a little tired from her stay but denies any SOB or issues with edema. Medications: Pt states her [id number] picked up her prescriptions for her and she has been taking them as prescribed. Pt denies any questions regarding these. Diet: Reviewed diet recommendation of 2000mg Na restriction. Pt was unaware of this. Discussed not adding salt to foods, reading labels on canned foods, and avoiding fast foods (pt states she eats half a whopper when her [id number] gets them for her). Pt states she does do some cooking but her [id number]-[id number] also picks up food for her. Instructed pt to let [id number]-[id number]-mmu know of Na restriction and need to look for foods with less Na content. Pt agreeable and expressed understanding. Follow-up: Pt states she has not called Dr. Velásquez's office for a follow-up but states she believes she has an appointment on 08/06. Discussed need for follow-up blood work this week also. Reviewed appointment with Dr. Campos which pt states is too early for her. Provided Dr. Campos's phone number for her to call and change appointment to a time that she can attend. Pt denied any questions regarding her discharge instructions but admitted that she had not seen them. Educated pt as to the contents of the instructions and encouraged her to look for them in her home going packet. Luly Hairston RN CM
== END 2021-07-09 13:49 | disposition home or self-care (01) | DRG 292 ==
LOC: ED 14:06 → PCU 15:00
PROVIDERS: Admitting Provider Family Medicine; Emergency Provider Emergency Medicine; PCP Family Medicine; Visit Provider Internal Medicine
DX: I11.0 Hypertensive heart disease with heart failure (principal); E11.51 Type 2 diabetes mellitus with diabetic peripheral angiopathy without gangrene; I50.33 Acute on chronic diastolic (congestive) heart failure; I27.21 Secondary pulmonary arterial hypertension; I50.82 Biventricular heart failure; I48.0 Paroxysmal atrial fibrillation; J98.11 Atelectasis; E78.5 Hyperlipidemia, unspecified; I89.0 Lymphedema, not elsewhere classified; S81.802A Unspecified open wound, left lower leg, initial encounter; X58.XXXA Exposure to other specified factors, initial encounter; Z79.899 Other long term (current) drug therapy; Y93.9 Activity, unspecified; Y92.9 Unspecified place or not applicable; I08.3 Combined rheumatic disorders of mitral, aortic and tricuspid valves; M79.605 Pain in left leg
CPT/HCPCS: 36415; 71046; 80053; 80061; 83605; 83735; 83880; 84145; 84439; 84443; 84484; 85025; 87070; 87077; 87186; 87205; 87426; 87449; 87633; 87640; 93005; 93306; 93922; 93971; 96365; 96366; 96367; 96372; 96375; 96376; 97162; 97166; 97530; 97535; 99218; 99251; 99285; J7050; A4216; G0378; G0463; J0696; J1940

== ENCOUNTER 2021-07-27 09:15 | Outpatient (RCR) | payer MEDICARE, SELFPAY ==
[2021-07-20 09:27] VITALS: BP 120/67; PULSE 54; TEMP 36.2; BMI 24.9
--- NOTE | 2021-07-20 13:40 | PCM.WC.HP ---
History of Present Illness Date of Service: 07/20/21 Chief Complaint: Venous ulceration, left pretibial area History of Wound: This is an 86-year-old female with multiple medical problems. She presents with an ulceration on the left pretibial area which has been present for several weeks. She was hospitalized several weeks ago for approximately 3 days, during which time she was treated for swelling, edema, and cellulitis in her distal left lower extremity. Since that time, the swelling and edema in the patient's left lower extremity has improved. The ulceration has persisted, the patient is referred for definitive management. She claims to sleep flat at night. However, she is not very active, and spends long hours each day sitting idly. She denies a history of lower extremity thrombophlebitis. She has had chronic swelling and edema in her lower extremities. Recent laboratory studies reveal a normal CBC, with normal white blood count and hemogram. Electrolytes were unremarkable. The patient's protein and albumin were low. A noninvasive lower extremity arterial study indicates arterial perfusion to be relatively normal at ankle level bilaterally, as well as at right digital level. Arterial perfusion at left digital level appears to be moderately to severely diminished. The patient lives alone, and is said to be relatively stubborn and noncompliant based upon accounts by family members. REPLACED BY [facility] Medical History (Updated 07/20/21 @ 13:[address] Brooks Seth MD) Aortic root dilatation Atrial fibrillation Atrial fibrillation with RVR Chronic venous insufficiency Congestive heart failure Dehydration Elevated troponin Encephalopathy acute Essential (primary) hypertension Fall at home History of meningioma History of subarachnoid hemorrhage Hyperlipidemia Inactivity Leg edema Leg swelling Meningioma Meningioma Mitral valve annular calcification New onset of congestive heart failure Non-rheumatic tricuspid valve insufficiency Nonrheumatic mitral (valve) insufficiency Nonrheumatic tricuspid valve regurgitation Obesity Other secondary pulmonary hypertension Paroxysmal atrial fibrillation SAH (subarachnoid hemorrhage) SAH (subarachnoid hemorrhage) Secondary pulmonary arterial hypertension Sepsis due to Escherichia coli (E. 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 Varicose veins of leg with swelling Venous stasis ulcer Weakness generalized Home Medications acetaminophen [Tylenol Extra Strength] 1,000 mg PO BID PRN 04/01/21 [History Last Taken 07/07/21] carbamazepine 100 mg PO BID 04/01/21 [History Last Taken 07/05/21] gabapentin 100 mg PO TID 04/01/21 [History Last Taken 07/05/21] lisinopril 5 mg PO DAILY #90 tab 04/06/21 [Rx Last Taken 07/06/21] aspirin 81 mg PO DAILY@0800 #30 tab 07/09/21 [Rx Last Taken Unknown] furosemide [Lasix] 40 mg PO BID #60 tab 07/09/21 [Rx Last Taken Unknown] spironolactone 25 mg PO DAILY #30 tab 07/09/21 [Rx Last Taken Unknown] Allergy/AdvReac Type Severity Reaction Status Date / Time house dust Allergy Intermediate NEEDS Verified 07/07/21 12:00 FOLLOW-UP cabbage AdvReac Diarrhea Verified 07/07/21 12:00 tomato AdvReac Diarrhea Verified 07/07/21 12:00 tree nut AdvReac Diarrhea Verified 07/07/21 12:00 Family History Brother Family history of PTCA Father Heart disease CVA (cerebral vascular accident) Surgical History H/O total hip arthroplasty History of carpal tunnel surgery History of craniotomy History of total hysterectomy Hx of appendectomy Hx of total knee arthroplasty S/P craniotomy Social History household members: none Smoking Status: Never smoker alcohol intake: never substance use type: does not use caffeine: No what type of physical activity do you participate in: weight training frequency: daily duration: 15-30 minutes/day seatbelt use: always do you feel safe at home: Yes Vital Signs Vital Signs Vital Signs: 07/20/21 09:27 Temperature 97.2 F L Temperature Source Temporal Pulse Rate 54 L Blood Pressure 120/67 Blood Pressure Mean 84 Blood Pressure Source Monitor Weight Weight: 145 lb Body Mass Index (BMI) 24.9 Physical Exam Const alert, oriented x3, no apparent distress, average body habitus and well nourished Constitutional Narrative: The patient appears to suffer from a mild hearing deficit. General Appearance: cooperative, comfortable and well developed Orientation / Consciousness: awake, oriented to person, oriented to place and oriented to time HEENT normocephalic and head/scalp atraumatic Head and Scalp: normal to inspection, normocephalic and atraumatic External Ear: external ears normal Eyes PERRL and EOMs intact bilaterally General Eye: normal appearance of both eyes Resp normal respiratory effort, normal air movement, no retractions and no use of accessory muscles Effort and Inspection: able to speak in complete sentences Extremity no calf tenderness Extremity Narrative: Mild bilateral swelling and edema are noted. Multiple varicosities are noted bilaterally. General Extremity: Negative for clubbing or cyanosis Skin Wound Narrative: An ulceration is noted on the left pretibial area. There is no sign of infection or cellulitis. Dimensions are documented elsewhere. There is a moderate amount of bioburden. Neuro oriented x3, CN's II-XII intact bilaterally and moves all extremities Neuro Narrative: The patient's hearing appears to be mildly impaired. Sensorium / Orientation: awake, alert, oriented to person, oriented to place and oriented to time Psych Appearance: grossly normal and appropriate Attitude: calm Activity / Motor Behavior: appropriate eye contact Speech: normal speech Mood & Affect: euthymic mood Thought Process: normal thought process Thought Content: normal thought content Attention / Concentration: attention grossly intact Debridement Note Debridement Note Wound debrided: Left pretibial area Laterality: Left Type of Debridement: Excisional debridement Anesthesia Used: 5% Lidocaine Gel Depth: Down to and including healthy tissue and in the subcutaneous layer Percentage of wound debrided: 100 Instrument Used: 5mm curette Tissue Removed: Bioburden Severity: Fat Layer Exposed Amount of bleeding with debridement: Mild Bleeding Controlled with: Compression and gauze Patient tolerated procedure: Patient tolerated procedure well Post-Debridement Measurements and Additional Note: Post-Debridement Measurements/Treatment - Nurse 1 - General Ulcer Assessment Start: 07/20/21 09:26 Freq: Status: Active Protocol: [email or web address] Activity Type Activity Date Activity User E-Sign Co-Sign Detail Recorded Client Recorded Date Recorded By Document 07/20/21 09:27 JUNG [id number] 07/20/21 09:41 JUNG 07/20/21 09:27 - Today's Visit Information Type of service Initial Visit Arrival Mode Ambulatory, Walker Patient Identification Verified (Name & Yes ) Patient Requires Transmission-Based No Precautions Height and Weight Height 5 ft 4 in Weight 145 lb Weight in Pounds 145.0 lbs Body Mass Index (BMI) 24.9 BMI Classification Normal BSA - Lenore 1.71 Vital Signs Temperature (97.8 F-99.1 F) 97.2 F L Temperature Source Temporal Pulse Rate (60-100) 54 L Pulse Location Monitor Blood Pressure (90/60-120/80) 120/67 Blood Pressure Mean 84 Source Monitor History Since Last Visit- (Skip if this is Patient's initial visit) Have you changed medications since your No last visit? Any new allergies or adverse reactions No Had a fall/change in ADL's that may No increase risk of falls Signs or symptoms of abuse and/or No neglect since last visit Has dressing in place as prescribed Yes Left Footwear Regular Shoe Right Footwear Regular Shoe WC - Nurse 1 - General Ulcer Measurement Start: 07/20/21 09:26 Freq: Status: Active Protocol: Activity Type Activity Date Activity User E-Sign Co-Sign Detail Recorded Client Recorded Date Recorded By Document 07/20/21 09:27 JUNG [id number] 07/20/21 09:41 JUNG 07/20/21 09:27 Wound Center Nurse 1 #1 Left Superior ankle -Current Size (cm) - Length 1.8 -Current Size (cm) - Width 1.5 -Current Size (cm) - Depth 0.1 -Total Square Cm 2.70 -Date of Last Picture (Recall this 07/20/21 field) -Photo Taken Yes -Epithelialization None Present -Tunneling No -Undermining/Tunneling No -Circular Undermining No -Change in Wound Grade/Stage No -Exudate Amt Medium -Exudate Type Serosanguineous -Wound Margin Distinct, Outline Attached -Granulation Amt None Present (0 %) -Granulation Quality N/A -Slough/Fibrin No -Necrosis Amt Medium (34-66%) -Necrotic Tissue Type Adherent Slough -Structure Exposed N/A -Texture (Vicki-wound Skin Appearance) No Abnormality, Assessed -Moisture (Vicki-wound Skin Appearance) No Abnormality, Assessed -Color (Vicki-wound Skin Appearance) No Abnormality, Assessed -Temperature (Vicki-wound Skin No Abnormality Appearance) (Pt Warm) -Tenderness on Palpation (Vicki-wound No Skin Appearance) -Ulcer Cleansing Rinsed/ Irrigated with Saline -Anesthetic Used 5% Lidocaine Gel Right Calf (cm) 34 Right Ankle (cm) 21 Left Calf (cm) 36 Left Ankle (cm) 23 WC - Nurse 2 - General Ulcer CM Notes Start: 07/20/21 09:26 Freq: Status: Active Protocol: Activity Type Activity Date Activity User E-Sign Co-Sign Detail Recorded Client Recorded Date Recorded By Document 07/20/21 11:50 PL [id number] 07/20/21 11:51 PL 07/20/21 11:50 Wound Center Nurse 2 #1 Left Superior ankle -Time 09:58 -Correct Patient Yes -Correct Side, Site, Position Yes -Correct Procedure Yes -Procedure Performed Yes -Type of Procedure Debridement -Clinical Debridement Subcutaneous -Tissue Removed Subcutaneous -Post Debridement (cm) - Length 1.8 -Post Debridement (cm) - Width 1.5 -Post Debridement (cm) - Depth 0.1 -Total Square (Post) (cm) 2.70 -Area of Debridement (cm) - Length 1.8 -Area of Debridement (cm) - Width 1.5 -Total Square (Area) (cm) 2.70 -Tunneling No -Undermining/Tunneling No -Circular Undermining No -Wound/Ulcer Outcome Not Healed -Ulcer Cleansing Rinsed/ Irrigated with Saline -Foul Odor after Cleansing No -Bioengineered Tissue No -Bleeding Controlled with Pressure -Treatment Response Procedure Tolerated Well -Debridement - Subq, 1st 20sq cm Yes Pain Scale: 0-10 Numeric Is Patient Pain Free? No WC - Nurse 3 - General Ulcer D/C NN Start: 07/20/21 09:26 Freq: Status: Active Protocol: Activity Type Activity Date Activity User E-Sign Co-Sign Detail Recorded Client Recorded Date Recorded By Document 07/20/21 13:21 TEO [id number] 07/20/21 13:22 TEO 07/20/21 13:21 Wound Care Nurse 3 #1 Left Superior ankle -Primary Dressing Applied Promogran -Primary Dressing Covered/Secured with Dry Gauze, Secured with Tape -Promogran 1 Left -Multi-Layered Wrap Application Multi-Layer Comp - Left ($) Pain Scale: 0-10 Numeric Is Patient Pain Free? 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: CODE(S): I83.223 - Varicose veins of left lower extremity with both ulcer of ankle and inflammation; L97.329 - Non-pressure chronic ulcer of left ankle with unspecified severity (3) Varicose veins of leg with swelling: CODE(S): I83.899 - Varicose veins of unspecified lower extremity with other complications (4) Leg swelling: CODE(S): M79.89 - Other specified soft tissue disorders (5) Leg edema: CODE(S): R60.0 - Localized edema (6) Inactivity: CODE(S): Z72.3 - Lack of physical exercise (7) Aortic root dilatation: CODE(S): I77.810 - Thoracic aortic ectasia (8) Mitral valve annular calcification: CODE(S): I05.9 - Rheumatic mitral valve disease, unspecified (9) Nonrheumatic mitral (valve) insufficiency: CODE(S): I34.0 - Nonrheumatic mitral (valve) insufficiency (10) Non-rheumatic tricuspid valve insufficiency: CODE(S): I36.1 - Nonrheumatic tricuspid (valve) insufficiency (11) Secondary pulmonary arterial hypertension: CODE(S): I27.21 - Secondary pulmonary arterial hypertension (12) Paroxysmal atrial fibrillation: CODE(S): I48.0 - Paroxysmal atrial fibrillation (13) Essential (primary) hypertension: CODE(S): I10 - Essential (primary) hypertension (14) Hyperlipidemia: CODE(S): E78.5 - Hyperlipidemia, unspecified QUALIFIERS: Hyperlipidemia type: unspecified Qualified Code(s): E78.5 - Hyperlipidemia, unspecified (15) Chronic venous insufficiency: CODE(S): I87.2 - Venous insufficiency (chronic) (peripheral) (16) History of meningioma: CODE(S): Z86.018 - Personal history of other benign neoplasm (17) History of subarachnoid hemorrhage: CODE(S): Z86.79 - Personal history of other diseases of the circulatory system (18) Congestive heart failure: CODE(S): I50.9 - Heart failure, unspecified (19) Atrial fibrillation: CODE(S): I48.91 - Unspecified atrial fibrillation PLAN: This is an 86-year-old female who presents with recent swelling and edema in her lower extremities. She has developed a venous ulceration on the left pretibial area, and has been referred for definitive evaluation and management. Patient has multiple pre-existing medical conditions, which have been listed above. We are to implement conservative treatment measures. She is to continue sleeping on a flat mattress at night. She is to elevate her lower extremities as much as possible during daytime hours. This is to be accomplished as much as possible. Leg elevation is to be to heart level, or higher. We are to implement compression to the left lower extremity by means of a 3M 2 layer compression wrap, which will be applied with slightly less than normal compression. Promogran will be applied topically on the patient left pretibial ulceration. The patient is to return twice weekly for 8 change of the compression wrap and the Promogran. Activity has been encouraged, though the likelihood of significantly enhanced activity is slim, given the patient's frailty and pre-existing medical problems. The patient is to return in 1 week for reassessment. Total time: 62 minutes
[2021-07-23 12:07] VITALS: BP 136/70; PULSE 59; RESP 18; TEMP 36.3; BMI 24.9
[2021-07-27 09:28] VITALS: BP 109/59; PULSE 64; TEMP 36.1; BMI 24.9
--- NOTE | 2021-07-27 10:12 | HP.PCM_ITS ---
History of Present Illness Date of Service: 07/27/21 Chief Complaint: Venous ulceration, left pretibial area History of Wound: This is an 86-year-old female with multiple medical problems. She presents with an ulceration on the left pretibial area which has been present for several weeks. She was hospitalized several weeks ago for approximately 3 days, during which time she was treated for swelling, edema, and cellulitis in her distal left lower extremity. Since that time, the swelling and edema in the patient's left lower extremity has improved. The ulceration has persisted, the patient is referred for definitive management. She claims to sleep flat at night. However, she is not very active, and spends long hours each day sitting idly. She denies a history of lower extremity thrombophlebitis. She has had chronic swelling and edema in her lower extremities. Recent laboratory studies reveal a normal CBC, with normal white blood count and hemogram. Electrolytes were unremarkable. The patient's protein and albumin were low. A noninvasive lower extremity arterial study indicates arterial perfusion to be relatively normal at ankle level bilaterally, as well as at right digital level. Arterial perfusion at left digital level appears to be moderately to severely diminished. The patient lives alone, and is said to be relatively stubborn and noncompliant based upon accounts by family members. [facility] Medical History (Updated 07/27/21 @ 10:[address] Brooks Seth MD) Aortic root dilatation Atrial fibrillation Atrial fibrillation with RVR Chronic venous insufficiency Congestive heart failure Dehydration Elevated troponin Encephalopathy acute Essential (primary) hypertension Fall at home Frailty History of meningioma History of subarachnoid hemorrhage Hyperlipidemia Inactivity Leg edema Leg swelling Malnutrition Meningioma Meningioma Mitral valve annular calcification New onset of congestive heart failure Non-rheumatic tricuspid valve insufficiency Nonrheumatic mitral (valve) insufficiency Nonrheumatic tricuspid valve regurgitation Obesity Other secondary pulmonary hypertension Paroxysmal atrial fibrillation SAH (subarachnoid hemorrhage) SAH (subarachnoid hemorrhage) Secondary pulmonary arterial hypertension Sepsis due to Escherichia coli (E. 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 Varicose veins of leg with swelling Venous stasis ulcer Weakness generalized Home Medications acetaminophen [Tylenol Extra Strength] 1,000 mg PO BID PRN 04/01/21 [History Last Taken 07/07/21] carbamazepine 100 mg PO BID 04/01/21 [History Last Taken 07/05/21] gabapentin 100 mg PO TID 04/01/21 [History Last Taken 07/05/21] lisinopril 5 mg PO DAILY #90 tab 04/06/21 [Rx Last Taken 07/06/21] aspirin 81 mg PO DAILY@0800 #30 tab 07/09/21 [Rx Last Taken Unknown] furosemide [Lasix] 40 mg PO BID #60 tab 07/09/21 [Rx Last Taken Unknown] spironolactone 25 mg PO DAILY #30 tab 07/09/21 [Rx Last Taken Unknown] Allergy/AdvReac Type Severity Reaction Status Date / Time house dust Allergy Intermediate NEEDS Verified 07/07/21 12:00 FOLLOW-UP cabbage AdvReac Diarrhea Verified 07/07/21 12:00 tomato AdvReac Diarrhea Verified 07/07/21 12:00 tree nut AdvReac Diarrhea Verified 07/07/21 12:00 Family History Brother Family history of PTCA Father Heart disease CVA (cerebral vascular accident) Surgical History H/O total hip arthroplasty History of carpal tunnel surgery History of craniotomy History of total hysterectomy Hx of appendectomy Hx of total knee arthroplasty S/P craniotomy Social History household members: none Smoking Status: Never smoker alcohol intake: never substance use type: does not use caffeine: No what type of physical activity do you participate in: weight training frequency: daily duration: 15-30 minutes/day seatbelt use: always do you feel safe at home: Yes Vital Signs Vital Signs Vital Signs: 07/27/21 09:28 Temperature 97.0 F L Temperature Source Temporal Pulse Rate 64 Blood Pressure 109/59 L Blood Pressure Mean 75 Blood Pressure Source Monitor Blood Pressure Position Sitting Blood Pressure Location Left Arm Weight Weight: 145 lb Body Mass Index (BMI) 24.9 Physical Exam Const alert, oriented x3 and no apparent distress Constitutional Narrative: The patient appears thin and frail. General Appearance: cooperative, comfortable and well developed Orientation / Consciousness: awake, oriented to person, oriented to place and oriented to time HEENT normocephalic and head/scalp atraumatic Head and Scalp: normal to inspection, normocephalic and atraumatic External Ear: external ears normal Eyes PERRL and EOMs intact bilaterally General Eye: normal appearance of both eyes Resp normal respiratory effort, normal air movement, no retractions and no use of accessory muscles Effort and Inspection: able to speak in complete sentences Extremity no calf tenderness Extremity Narrative: No significant swelling or edema are noted in the patient's left lower extremity. Multiple small varicosities are noted diffusely in the left lower extremity. General Extremity: Negative for clubbing or cyanosis Skin Wound Narrative: The ulceration on the left pretibial area persists. Dimensions are documented elsewhere. There is no sign of infection or cellulitis. There is a moderate amount of bioburden. Neuro oriented x3, CN's II-XII intact bilaterally and moves all extremities Neuro Narrative: The patient appears to have a mild hearing deficit. Sensorium / Orientation: awake, alert, oriented to person and oriented to place Psych Appearance: grossly normal and appropriate Attitude: calm Activity / Motor Behavior: appropriate eye contact Speech: normal speech Mood & Affect: euthymic mood Thought Process: normal thought process Thought Content: normal thought content Attention / Concentration: attention grossly intact Debridement Note Debridement Note Wound debrided: Left pretibial Laterality: Left Type of Debridement: Excisional debridement Anesthesia Used: 5% Lidocaine Gel Depth: Down to and including healthy tissue and in the subcutaneous layer Percentage of wound debrided: 100 Instrument Used: 5mm curette Severity: Fat Layer Exposed Amount of bleeding with debridement: Mild Bleeding Controlled with: Compression and gauze Patient tolerated procedure: Patient tolerated procedure well Post-Debridement Measurements and Additional Note: Post-Debridement Measurements/Treatment - Nurse 1 - General Ulcer Assessment Start: 07/20/21 09:26 Freq: Status: Active Protocol: MIK Activity Type Activity Date Activity User E-Sign Co-Sign Detail Recorded Client Recorded Date Recorded By Document 07/20/21 09:27 AK [id number] 07/20/21 09:41 AK Document 07/23/21 12:07 RB [id number] 07/23/21 12:17 RB Document 07/27/21 09:28 KR [id number] 07/27/21 09:33 KR 07/20/21 07/23/21 07/27/21 09:27 12:07 09:28 WC - Today's Visit Information Type of service Initial Visit Follow-up Visit Follow-up Visit (Physician/REINSURANCE ACCOUNTANT (Physician/REINSURANCE ACCOUNTANT ) ) Arrival Mode Ambulatory, Ambulatory Ambulatory, Walker Walker Transfer Assistance None Patient Identification Verified (Name & Yes Yes Yes ) Patient Requires Transmission-Based No No Precautions Height and Weight Height 5 ft 4 in Weight 145 lb Weight in Pounds 145.0 lbs Body Mass Index (BMI) 24.9 24.9 24.9 BMI Classification Normal Normal Normal BSA - Lenore 1.71 Vital Signs Temperature (97.8 F-99.1 F) 97.2 F L 97.3 F L 97.0 F L Temperature Source Temporal Temporal Temporal Pulse Rate (60-100) 54 L 59 L 64 Pulse Location Monitor Monitor Respiratory Rate (12-18) 18 Respiratory rate source Observation Blood Pressure (90/60-120/80) 120/67 136/70 H 109/59 L Blood Pressure Mean 84 92 75 Source Monitor Monitor Monitor Position Semi-Fowlers Sitting Blood Pressure Location Left Arm Left Arm History Since Last Visit- (Skip if this is Patient's initial visit) Have you changed medications since your No No No last visit? Any new allergies or adverse reactions No No No Had a fall/change in ADL's that may No No No increase risk of falls Signs or symptoms of abuse and/or No No No neglect since last visit Have you been in the hospital since your No No last visit? Has dressing in place as prescribed Yes Yes Yes Has compression in place as prescribed Yes Yes Has offloadiing in place as prescribed No N/A Experienced any changes in pain level or No No management Left Footwear Regular Shoe Regular Shoe Regular Shoe Right Footwear Regular Shoe Regular Shoe Regular Shoe Pain Scale: 0-10 Numeric Is Patient Pain Free? Yes Yes WC - Nurse 1 - General Ulcer Measurement Start: 07/20/21 09:26 Freq: Status: Active Protocol: Activity Type Activity Date Activity User E-Sign Co-Sign Detail Recorded Client Recorded Date Recorded By Document 07/20/21 09:27 AK [id number] 07/20/21 09:41 AK Document 07/23/21 12:07 RB [id number] 07/23/21 12:17 RB Document 07/27/21 09:28 KR [id number] 07/27/21 09:33 KR 07/20/21 07/23/21 07/27/21 09:27 12:07 09:28 Wound Center Nurse 1 #1 Left Superior ankle -Combined with other wound No -Current Size (cm) - Length 1.8 1 -Current Size (cm) - Width 1.5 0.8 -Current Size (cm) - Depth 0.1 0.1 -Total Square Cm 2.70 0.8 -Date of Last Picture (Recall this 07/20/21 field) -Photo Taken Yes No -Epithelialization None Present None Present -Tunneling No No No -Undermining/Tunneling No No No -Circular Undermining No No No -Change in Wound Grade/Stage No No -Exudate Amt Medium Medium Medium -Exudate Type Serosanguineous Serosanguineous Serosanguineous -Wound Margin Distinct, Distinct, Distinct, Outline Outline Outline Attached Attached Attached -Granulation Amt None Present (0 Medium (34-66%) Small (1-33%) %) -Granulation Quality N/A [place] N/A -Slough/Fibrin No Yes No -Necrosis Amt Medium (34-66%) Small (1-33%) Small (1-33%) -Necrotic Tissue Type Adherent Slough Adherent Slough Adherent Slough -Structure Exposed N/A N/A N/A -Texture (Vicki-wound Skin Appearance) No Abnormality, Assessed No Abnormality, Assessed Assessed -Moisture (Vicki-wound Skin Appearance) No Abnormality, Assessed No Abnormality, Assessed Assessed -Color (Vicki-wound Skin Appearance) No Abnormality, Assessed No Abnormality, Assessed Assessed -Temperature (Vicki-wound Skin No Abnormality No Abnormality No Abnormality Appearance) (Pt Warm) (Pt Warm) (Pt Warm) -Tenderness on Palpation (Vicki-wound No Yes No Skin Appearance) -Ulcer Cleansing Rinsed/ Wound Cleanser Soap and Water Irrigated with Saline -Foul Odor after Cleansing No No -Anesthetic Used 5% Lidocaine 5% Lidocaine Gel Gel Lower Limb Edema Present Yes Right Calf (cm) 34 Right Ankle (cm) 21 Left Calf (cm) 36 32.5 32 Left Ankle (cm) 23 21 WC - Nurse 2 - General Ulcer CM Notes Start: 07/20/21 09:26 Freq: Status: Active Protocol: Activity Type Activity Date Activity User E-Sign Co-Sign Detail Recorded Client Recorded Date Recorded By Document 07/20/21 11:50 PL [id number] 07/20/21 11:51 PL Document 07/27/21 09:59 PL [id number] 07/27/21 10:00 PL 07/20/21 07/27/21 11:50 09:59 Wound Center Nurse 2 #1 Left Superior ankle -Time 09:58 09:40 -Correct Patient Yes Yes -Correct Side, Site, Position Yes Yes -Correct Procedure Yes Yes -Procedure Performed Yes Yes -Type of Procedure Debridement Debridement -Clinical Debridement Subcutaneous Subcutaneous -Tissue Removed Subcutaneous Subcutaneous -Post Debridement (cm) - Length 1.8 1.0 -Post Debridement (cm) - Width 1.5 0.8 -Post Debridement (cm) - Depth 0.1 0.1 -Total Square (Post) (cm) 2.70 0.80 -Area of Debridement (cm) - Length 1.8 1.0 -Area of Debridement (cm) - Width 1.5 0.8 -Total Square (Area) (cm) 2.70 0.80 -Tunneling No No -Undermining/Tunneling No No -Circular Undermining No No -Wound/Ulcer Outcome Not Healed Not Healed -Ulcer Cleansing Rinsed/ Rinsed/ Irrigated with Irrigated with Saline Saline -Foul Odor after Cleansing No No -Bioengineered Tissue No No -Bleeding Controlled with Pressure Pressure -Treatment Response Procedure Procedure Tolerated Well Tolerated Well -Debridement - Subq, 1st 20sq cm Yes Yes Pain Scale: 0-10 Numeric Is Patient Pain Free? No WC - Nurse 3 - General Ulcer D/C NN Start: 07/20/21 09:26 Freq: Status: Active Protocol: Activity Type Activity Date Activity User E-Sign Co-Sign Detail Recorded Client Recorded Date Recorded By Document 07/20/21 13:21 KR [id number] 07/20/21 13:22 KR Document 07/23/21 12:07 RB [id number] 07/23/21 12:17 RB Document 07/27/21 09:53 AK [id number] 07/27/21 09:54 AK 07/20/21 07/23/21 07/27/21 13:21 12:07 09:53 Wound Care Nurse 3 #1 Left Superior ankle -Ulcer Cleansing Wound Cleanser Rinsed/ Irrigated with Saline -Foul Odor after Cleansing No -Negative Pressure Wound Therapy N/A -Primary Dressing Applied Promogran Optilok 6.5x10 Promogran -Other Dressing promogran -Primary Dressing Covered/Secured with Dry Gauze, Dry Gauze Secured with Tape -Optilok 6.5x10 1 1 -Promogran 1 1 Left -Multi-Layered Wrap Application Multi-Layer Multi-Layer Comp - Left ($) Comp - Left ($) Treatment Response Procedure Tolerated Well Vital Signs Temperature (97.8 F-99.1 F) 97.3 F L Temperature Source Temporal Pulse Rate (60-100) 59 L Pulse Location Monitor Respiratory Rate (12-18) 18 Respiratory rate source Observation Blood Pressure (90/60-120/80) 136/70 H Blood Pressure Mean 92 Source Monitor Position Semi-Fowlers Blood Pressure Location Left Arm Pain Scale: 0-10 Numeric Is Patient Pain Free? Yes Yes WC - Visit Discharge Discharge Condition Stable Stable Stable Ambulatory Status Ambulatory, Ambulatory, Ambulatory, Walker Walker Walker Transportation Private Auto Private Auto Private Auto Accompanied by daughter Medication Reconcilliation completed & No No provided to patient/care provider Clinical Summary of Care Provided Yes Yes Assessment/Plan Assessment/Plan (1) Venous stasis ulcer: CODE(S): I83.009 - Varicose veins of unspecified lower extremity with ulcer of unspecified site; L97.909 - Non-pressure chronic ulcer of unspecified part of unspecified lower leg with unspecified severity QUALIFIERS: Venous stasis ulcer site: calf Varicose vein presence: with varicose veins Laterality: left Non-pressure ulcer stage: with fat layer exposed Qualified Code(s): I83.022 - Varicose veins of left lower extremity with ulcer of calf; L97.222 - Non-pressure chronic ulcer of left calf with fat layer exposed (2) 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: CODE(S): I83.223 - Varicose veins of left lower extremity with both ulcer of ankle and inflammation; L97.329 - Non-pressure chronic ulcer of left ankle with unspecified severity QUALIFIERS: Non-pressure ulcer stage: with fat layer exposed Qualified Code(s): I83.223 - Varicose veins of left lower extremity with both ulcer of ankle and inflammation; L97.322 - Non-pressure chronic ulcer of left ankle with fat layer exposed (3) Leg edema: CODE(S): R60.0 - Localized edema (4) Leg swelling: CODE(S): M79.89 - Other specified soft tissue disorders (5) Chronic venous insufficiency: CODE(S): I87.2 - Venous insufficiency (chronic) (peripheral) (6) Varicose veins of leg with swelling: CODE(S): I83.899 - Varicose veins of unspecified lower extremity with other complications QUALIFIERS: Laterality: left Qualified Code(s): I83.892 - Varicose veins of left lower extremity with other complications (7) Atrial fibrillation: CODE(S): I48.91 - Unspecified atrial fibrillation (8) Congestive heart failure: CODE(S): I50.9 - Heart failure, unspecified (9) History of subarachnoid hemorrhage: CODE(S): Z86.79 - Personal history of other diseases of the circulatory system (10) History of meningioma: CODE(S): Z86.018 - Personal history of other benign neoplasm (11) Inactivity: CODE(S): Z72.3 - Lack of physical exercise (12) Aortic root dilatation: CODE(S): I77.810 - Thoracic aortic ectasia (13) Mitral valve annular calcification: CODE(S): I05.9 - Rheumatic mitral valve disease, unspecified (14) Nonrheumatic mitral (valve) insufficiency: CODE(S): I34.0 - Nonrheumatic mitral (valve) insufficiency (15) Non-rheumatic tricuspid valve insufficiency: CODE(S): I36.1 - Nonrheumatic tricuspid (valve) insufficiency (16) Secondary pulmonary arterial hypertension: CODE(S): I27.21 - Secondary pulmonary arterial hypertension (17) Paroxysmal atrial fibrillation: CODE(S): I48.0 - Paroxysmal atrial fibrillation (18) Essential (primary) hypertension: CODE(S): I10 - Essential (primary) hypertension (19) Hyperlipidemia: CODE(S): E78.5 - Hyperlipidemia, unspecified QUALIFIERS: Hyperlipidemia type: unspecified Qualified Code(s): E78.5 - Hyperlipidemia, unspecified (20) Frailty: CODE(S): R54 - Age-related physical debility (21) Malnutrition: CODE(S): E46 - Unspecified protein-calorie malnutrition PLAN: This is an 86-year-old female who presented with recent swelling and edema in her lower extremities. She developed a venous ulceration on the left pretibial area, and was referred for definitive evaluation and management. The patient has multiple pre-existing medical conditions, which have been listed above. We are to implement conservative treatment measures. She is to continue sleeping on a flat mattress at night. She is to elevate her lower extremities as much as possible during daytime hours. This is to be accomplished as much as possible. Leg elevation is to be to heart level, or higher. We are to implement compression to the left lower extremity by means of a 3M 2 layer compression wrap, which will be applied with slightly less than normal compression. Promogran will be applied topically on the patient left pretibial ulceration. The patient is to return twice weekly for a change of the compression wrap and the Promogran. Recent laboratory results from July 08, 2021, revealed malnutrition, with a serum protein of 5.7 and a serum albumin of 2.8. The patient is to be encouraged to enhance her nutritional intake. A nutritional consult will be obtained. Activity has been encouraged, though the likelihood of significantly enhanced activity is slim, given the patient's frailty and pre-existing medical problems. The patient is to return in 1 week for reassessment. Total time: 28 minutes
== END 2021-07-29 23:59 ==
LOC: WC 09:15
PROVIDERS: PCP Family Medicine; Visit Provider Surgery
DX: I83.228 Varicose veins of left lower extremity with both ulcer of other part of lower extremity and inflammation (principal); L97.822 Non-pressure chronic ulcer of other part of left lower leg with fat layer exposed; R60.0 Localized edema; M79.89 Other specified soft tissue disorders; L03.116 Cellulitis of left lower limb; I50.9 Heart failure, unspecified; I11.0 Hypertensive heart disease with heart failure; E78.5 Hyperlipidemia, unspecified; I48.0 Paroxysmal atrial fibrillation; I27.29 Other secondary pulmonary hypertension; I27.21 Secondary pulmonary arterial hypertension; E66.9 Obesity, unspecified; E11.622 Type 2 diabetes mellitus with other skin ulcer; Z91.19 Patient's noncompliance with other medical treatment and regimen; Z79.899 Other long term (current) drug therapy; Z79.82 Long term (current) use of aspirin; I83.91 Asymptomatic varicose veins of right lower extremity
CPT/HCPCS: 11042; 29581; 99212; 99213; G0463

== ENCOUNTER 2021-08-10 10:30 | Outpatient (RCR) | payer MEDICARE, SELFPAY ==
[2021-07-30 00:38] VITALS: BP 109/59; PULSE 64; RESP 18; TEMP 36.1; BMI 24.9
[2021-07-30 12:07] VITALS: BP 138/54; PULSE 38; TEMP 36.1
[2021-07-30 12:43] VITALS: BP 132/81; PULSE 74; TEMP 36.6; BMI 24.9
--- NOTE | 2021-08-10 10:35 | PCM.WC.HP ---
History of Present Illness Date of Service: 08/10/21 Chief Complaint: Venous ulceration, left pretibial area History of Wound: This is an 86-year-old female with multiple medical problems. She presents with an ulceration on the left pretibial area which has been present for several weeks. She was hospitalized several weeks ago for approximately 3 days, during which time she was treated for swelling, edema, and cellulitis in her distal left lower extremity. Since that time, the swelling and edema in the patient's left lower extremity has improved. The ulceration has persisted, the patient is referred for definitive management. She claims to sleep flat at night. However, she is not very active, and spends long hours each day sitting idly. She denies a history of lower extremity thrombophlebitis. She has had chronic swelling and edema in her lower extremities. Recent laboratory studies reveal a normal CBC, with normal white blood count and hemogram. Electrolytes were unremarkable. The patient's protein and albumin were low. A noninvasive lower extremity arterial study indicates arterial perfusion to be relatively normal at ankle level bilaterally, as well as at right digital level. Arterial perfusion at left digital level appears to be moderately to severely diminished. The patient lives alone, and is said to be relatively stubborn and noncompliant based upon accounts by family members. [facility] Medical History Aortic root dilatation Atrial fibrillation Atrial fibrillation with RVR Chronic venous insufficiency Congestive heart failure Dehydration Elevated troponin Encephalopathy acute Essential (primary) hypertension Fall at home Frailty History of meningioma History of subarachnoid hemorrhage Hyperlipidemia Inactivity Leg edema Leg swelling Malnutrition Meningioma Meningioma Mitral valve annular calcification New onset of congestive heart failure Non-rheumatic tricuspid valve insufficiency Nonrheumatic mitral (valve) insufficiency Nonrheumatic tricuspid valve regurgitation Obesity Other secondary pulmonary hypertension Paroxysmal atrial fibrillation SAH (subarachnoid hemorrhage) SAH (subarachnoid hemorrhage) Secondary pulmonary arterial hypertension Sepsis due to Escherichia coli (E. 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 Varicose veins of leg with swelling Venous stasis ulcer Weakness generalized Home Medications acetaminophen [Tylenol Extra Strength] 1,000 mg PO BID PRN 04/01/21 [History Last Taken 07/07/21] carbamazepine 100 mg PO BID 04/01/21 [History Last Taken 07/05/21] gabapentin 100 mg PO TID 04/01/21 [History Last Taken 07/05/21] lisinopril 5 mg PO DAILY #90 tab 04/06/21 [Rx Last Taken 07/06/21] aspirin 81 mg PO DAILY@0800 #30 tab 07/09/21 [Rx Last Taken Unknown] furosemide [Lasix] 40 mg PO BID #60 tab 07/09/21 [Rx Last Taken Unknown] spironolactone 25 mg PO DAILY #30 tab 07/09/21 [Rx Last Taken Unknown] Allergy/AdvReac Type Severity Reaction Status Date / Time house dust Allergy Intermediate NEEDS Verified 07/07/21 12:00 FOLLOW-UP cabbage AdvReac Diarrhea Verified 07/07/21 12:00 tomato AdvReac Diarrhea Verified 07/07/21 12:00 tree nut AdvReac Diarrhea Verified 07/07/21 12:00 Family History Brother Family history of PTCA Father Heart disease CVA (cerebral vascular accident) Surgical History H/O total hip arthroplasty History of carpal tunnel surgery History of craniotomy History of total hysterectomy Hx of appendectomy Hx of total knee arthroplasty S/P craniotomy Social History household members: none Smoking Status: Never smoker alcohol intake: never substance use type: does not use caffeine: No what type of physical activity do you participate in: weight training frequency: daily duration: 15-30 minutes/day seatbelt use: always do you feel safe at home: Yes Vital Signs Vital Signs Vital Signs: Weight Weight: 145 lb Body Mass Index (BMI) 24.9 Physical Exam Const alert, oriented x3 and no apparent distress Constitutional Narrative: The patient is thin and frail appearing. General Appearance: cooperative, comfortable and well developed Orientation / Consciousness: awake, oriented to person, oriented to place and oriented to time HEENT normocephalic and head/scalp atraumatic Head and Scalp: normal to inspection, normocephalic and atraumatic External Ear: external ears normal Eyes PERRL and EOMs intact bilaterally General Eye: normal appearance of both eyes Resp normal respiratory effort, normal air movement, no retractions and no use of accessory muscles Effort and Inspection: able to speak in complete sentences Extremity no calf tenderness Extremity Narrative: Slight atrophy is noted in the lower extremities bilaterally. There is no significant swelling or edema currently. Multiple small varicosities are noted diffusely bilaterally. General Extremity: Negative for clubbing or cyanosis Skin Wound Narrative: The ulceration on the patient's left pretibial area persists. It is smaller in size. Dimensions are documented elsewhere. There is no sign of infection or cellulitis. There is a moderate amount of bioburden. Neuro oriented x3, CN's II-XII intact bilaterally and moves all extremities Psych Appearance: grossly normal and appropriate Attitude: calm Activity / Motor Behavior: appropriate eye contact Speech: normal speech Mood & Affect: euthymic mood Thought Process: normal thought process Thought Content: normal thought content Attention / Concentration: attention grossly intact Debridement Note Debridement Note Wound debrided: Left pretibial area Laterality: Left Type of Debridement: Excisional debridement Anesthesia Used: 5% Lidocaine Gel Depth: Down to and including healthy tissue and in the subcutaneous layer Percentage of wound debrided: 100 Instrument Used: 5mm curette Tissue Removed: Bioburden Severity: Fat Layer Exposed Amount of bleeding with debridement: Mild Bleeding Controlled with: Compression and gauze Patient tolerated procedure: Patient tolerated procedure well Post-Debridement Measurements and Additional Note: Post-Debridement Measurements/Treatment - Nurse 1 - General Ulcer Assessment Start: 07/30/21 12:07 Freq: Status: Active Protocol: .LOWBCT Activity Type Activity Date Activity User E-Sign Co-Sign Detail Recorded Client Recorded Date Recorded By Document 07/30/21 12:43 [place] [id number] 07/30/21 12:44 JUNG 07/30/21 12:43 - Today's Visit Information Type of service Nurse-only Visit Arrival Mode Ambulatory, Walker Patient Identification Verified (Name & Yes ) Height and Weight Body Mass Index (BMI) 24.9 BMI Classification Normal Vital Signs Temperature (97.8 F-99.1 F) 97.9 F Temperature Source Temporal Pulse Rate (60-100) 74 Pulse Location Monitor Blood Pressure (90/60-120/80) 132/81 H Blood Pressure Mean 98 Source Monitor Position Sitting Blood Pressure Location Right Arm History Since Last Visit- (Skip if this is Patient's initial visit) Have you changed medications since your No last visit? Any new allergies or adverse reactions No Had a fall/change in ADL's that may No increase risk of falls Signs or symptoms of abuse and/or No neglect since last visit Have you been in the hospital since your No last visit? - Nurse 3 - General Ulcer D/C NN Start: 07/30/21 12:07 Freq: Status: Active Protocol: Activity Type Activity Date Activity User E-Sign Co-Sign Detail Recorded Client Recorded Date Recorded By Document 07/30/21 12:07 KR Desktop 07/30/21 12:09 KR 07/30/21 12:07 Wound Care Nurse 3 #1 Left Superior ankle -Ulcer Cleansing Rinsed/ Irrigated with Saline -Foul Odor after Cleansing No -Negative Pressure Wound Therapy N/A -Primary Dressing Applied Optilok 6.5x10, Promogran -Optilok 6.5x10 1 -Promogran 1 Left -Lotion applied to leg before No compression wrap -Multi-Layered Wrap Application Multi-Layer Comp - Left ($) Vital Signs Temperature (97.8 F-99.1 F) 96.9 F L Temperature Source Temporal Pulse Rate (60-100) 38 L Pulse Location Monitor Blood Pressure (90/60-120/80) 138/54 H Blood Pressure Mean 82 Source Monitor WC - Visit Discharge Discharge Condition Stable Ambulatory Status Ambulatory, Walker Transportation Private Auto Medication Reconcilliation completed & No provided to patient/care provider Clinical Summary of Care Provided Yes Assessment/Plan Assessment/Plan (1) Venous stasis ulcer: CODE(S): I83.009 - Varicose veins of unspecified lower extremity with ulcer of unspecified site; L97.909 - Non-pressure chronic ulcer of unspecified part of unspecified lower leg with unspecified severity QUALIFIERS: Venous stasis ulcer site: calf Varicose vein presence: with varicose veins Laterality: left Non-pressure ulcer stage: with fat layer exposed Qualified Code(s): I83.022 - Varicose veins of left lower extremity with ulcer of calf; L97.222 - Non-pressure chronic ulcer of left calf with fat layer exposed (2) 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: CODE(S): I83.223 - Varicose veins of left lower extremity with both ulcer of ankle and inflammation; L97.329 - Non-pressure chronic ulcer of left ankle with unspecified severity QUALIFIERS: Non-pressure ulcer stage: with fat layer exposed Qualified Code(s): I83.223 - Varicose veins of left lower extremity with both ulcer of ankle and inflammation; L97.322 - Non-pressure chronic ulcer of left ankle with fat layer exposed (3) Varicose veins of leg with swelling: CODE(S): I83.899 - Varicose veins of unspecified lower extremity with other complications QUALIFIERS: Laterality: left Qualified Code(s): I83.892 - Varicose veins of left lower extremity with other complications (4) Chronic venous insufficiency: CODE(S): I87.2 - Venous insufficiency (chronic) (peripheral) (5) Leg edema: CODE(S): R60.0 - Localized edema (6) Leg swelling: CODE(S): M79.89 - Other specified soft tissue disorders (7) Malnutrition: CODE(S): E46 - Unspecified protein-calorie malnutrition (8) Frailty: CODE(S): R54 - Age-related physical debility (9) Atrial fibrillation: CODE(S): I48.91 - Unspecified atrial fibrillation (10) Congestive heart failure: CODE(S): I50.9 - Heart failure, unspecified (11) History of subarachnoid hemorrhage: CODE(S): Z86.79 - Personal history of other diseases of the circulatory system (12) History of meningioma: CODE(S): Z86.018 - Personal history of other benign neoplasm (13) Inactivity: CODE(S): Z72.3 - Lack of physical exercise (14) Aortic root dilatation: CODE(S): I77.810 - Thoracic aortic ectasia (15) Mitral valve annular calcification: CODE(S): I05.9 - Rheumatic mitral valve disease, unspecified (16) Nonrheumatic mitral (valve) insufficiency: CODE(S): I34.0 - Nonrheumatic mitral (valve) insufficiency (17) Non-rheumatic tricuspid valve insufficiency: CODE(S): I36.1 - Nonrheumatic tricuspid (valve) insufficiency (18) Secondary pulmonary arterial hypertension: CODE(S): I27.21 - Secondary pulmonary arterial hypertension (19) Paroxysmal atrial fibrillation: CODE(S): I48.0 - Paroxysmal atrial fibrillation (20) Essential (primary) hypertension: CODE(S): I10 - Essential (primary) hypertension (21) Hyperlipidemia: CODE(S): E78.5 - Hyperlipidemia, unspecified QUALIFIERS: Hyperlipidemia type: unspecified Qualified Code(s): E78.5 - Hyperlipidemia, unspecified PLAN: This is an 86-year-old female who presented with recent swelling and edema in her lower extremities. She developed a venous ulceration on the left pretibial area, and was referred for definitive evaluation and management. The patient has multiple pre-existing medical conditions, which have been listed above. We are to continue conservative treatment measures. She is to continue sleeping on a flat mattress at night. She is to elevate her lower extremities as much as possible during daytime hours. This is to be accomplished as much as possible. Leg elevation is to be to heart level, or higher. We are to continue compression to the left lower extremity by means of a 3M 2 layer compression wrap, which will be applied daily with slightly less than normal compression. Promogran will be applied topically on the patient left pretibial ulceration. The patient is to return twice weekly for a change of the compression wrap and the Promogran. Recent laboratory results from July 08, 2021, revealed malnutrition, with a serum protein of 5.7 and a serum albumin of 2.8. The patient has been encouraged to enhance her nutritional intake. A nutritional consult was arranged, but refused by the patient. Activity has been encouraged, though the likelihood of significantly enhanced activity is slim, given the patient's frailty and pre-existing medical problems. The patient is to return in 1 week for reassessment. Total time: 29 minutes
[2021-08-10 10:47] VITALS: BP 136/66; PULSE 59; TEMP 36; BMI 24.9
--- NOTE | 2021-08-18 13:22 | WC ---
[facility] has made multiple attempts to contact the patient, this nurse did make contact with the Next of kin listeed on Demographic sheet. PHILLIPK stated that she had not spoken to the patient in a few days and would ask her to call the [facility].
== END 2021-08-29 23:59 ==
LOC: WC 10:30
PROVIDERS: PCP Family Medicine; Visit Provider Surgery
DX: I83.228 Varicose veins of left lower extremity with both ulcer of other part of lower extremity and inflammation (principal); L97.222 Non-pressure chronic ulcer of left calf with fat layer exposed; M79.89 Other specified soft tissue disorders; R60.0 Localized edema; I11.0 Hypertensive heart disease with heart failure; I50.9 Heart failure, unspecified; E66.9 Obesity, unspecified; I48.0 Paroxysmal atrial fibrillation; E11.9 Type 2 diabetes mellitus without complications; Z79.82 Long term (current) use of aspirin; Z79.899 Other long term (current) drug therapy; Z91.19 Patient's noncompliance with other medical treatment and regimen; I27.21 Secondary pulmonary arterial hypertension
CPT/HCPCS: 11042; 29581

== ENCOUNTER 2021-08-24 18:11 | Inpatient (IN) | payer MEDICARE, SELFPAY ==
[2021-08-24] VITALS (8 sets, daily range): BP systolic 122–138; BP diastolic 59–109; PULSE 68–74; RESP 12–24; TEMP 35.8–37.1; O2SAT 83–95; BMI 25.2; BMI 24.7
--- NOTE | 2021-08-24 18:22 | ED.RN ---
EMS REQUESTING ADULT PROTECTIVE SERVICES BE CALLED BY THE ER. I ASKED THE EMS CREW TO PLEASE CALL ADULT PROTECTIVE SERVICES TO REPORT WHAT THEY SAW
--- NOTE | 2021-08-24 18:33 | RAD_ITS ---
STUDY: X-RAY - PELVIS AND LEFT HIP REASON FOR EXAM: Female, 86 years old. fall TECHNIQUE: 3 views of the pelvis and hip. COMPARISON: None. FINDINGS: There is a non-specific bowel gas pattern. Normal visualized soft tissue structures. Normal bilateral iliac wings, sacroiliac joints and visualized sacrum. Normal bilateral superior and inferior pubic rami. Normal pubic symphysis. Normal bilateral ischial tuberosities. Bilateral hip prostheses are noted in anatomic alignment and position. RAD/HIP, UNI W/ Pelvis 2-3 Views IMPRESSION: Stable appearance to bilateral hip prostheses. No acute fracture Electronically Signed: Ricky Lowery MD at 20:33 EDT , Service support ,
--- NOTE | 2021-08-24 18:33 | CT_ITS ---
STUDY: CT BRAIN WITHOUT CONTRAST REASON FOR EXAM: Female, 86 years old. head trauma RADIATION DOSAGE (If Supplied By Facility): CTDIvol = ( 44.99 ) mGy, DLP = ( 897.35 ) mGycm TECHNIQUE: Transaxial CT imaging of the brain was performed without administration of intravenous contrast material. Individualized dose optimization techniques were used for this CT. COMPARISON: 04/01/2021. FINDINGS: There is soft tissue swelling overlying the frontal bones bilaterally without associated skull fracture. Mild atrophy and moderate periventricular white matter ischemic changes. Normal basal ganglia and thalami. Normal brainstem. Normal cerebellum. There is no intracranial hemorrhage. There are no findings of an acute ischemic infarction. Postsurgical changes of the orbits and mild mucosal thickening in the right mastoid air cells likely due to chronic inflammatory changes Mucosal thickening in left maxillary, bilateral frontal and sphenoid sinuses CT/Brain/Head without Contrast IMPRESSION: Soft tissue swelling overlying the frontal bones without fracture or intracranial bleed. Atrophy and moderate periventricular white matter ischemic change. Electronically Signed: Ricky Lowery MD at 20:27 EDT , Service support ,
--- NOTE | 2021-08-24 18:33 | CT_ITS ---
STUDY: CT CERVICAL SPINE WITHOUT CONTRAST REASON FOR EXAM: Female, 86 years old. fall RADIATION DOSAGE (If Supplied By Facility): CTDIvol = ( 21.56 ) mGy, DLP = ( 445.55 ) mGycm TECHNIQUE: High resolution transaxial imaging was performed without contrast material. Sagittal and coronal images were reconstructed. Individualized dose optimization techniques were used for this CT. COMPARISON: 03/29/2021 FINDINGS: Normal craniovertebral junction. Normal anterior atlantoaxial articulation. Normal odontoid process. Normal cervical lordosis. Normal vertebral bodies and posterior osseous elements. C2-3: Normal endplates. Normal disc height and morphology. Normal central canal and intervertebral neuroforamina. C3-4: Normal endplates. Normal disc height and morphology. Normal central canal and intervertebral neuroforamina. C4-5: Narrowed disc space and mild endplate spurring. Normal central canal. Severe bilateral neuroforaminal stenosis secondary to bony hypertrophy. C5-6: Narrowed disc space and endplate spurring. Normal central canal. Severe bilateral neuroforaminal stenosis secondary to bony hypertrophy. C6-7: Narrowed disc space and mild endplate spurring. Normal central canal. Moderate bilateral neuroforaminal encroachment secondary to bony hypertrophy. C7-T1: Normal endplates. Normal disc height and morphology. Normal central canal and intervertebral neuroforamina. Normal visualized soft tissue structures. CT/Spine Cervical without Contras IMPRESSION: No evidence for acute fracture or subluxation.. Moderate spondylosis and multilevel spinal stenosis secondary to bony hypertrophy. Incidental finding of large left pleural effusion uncertain etiology. Recommend PA and lateral chest for further evaluation Electronically Signed: Ricky Lowery MD at 20:31 EDT , Service support ,
--- NOTE | 2021-08-24 18:34 | EKG12_ITS ---
Test Reason : DYSRHYTHMIA Blood Pressure : / mmHG Vent. Rate : 071 BPM Atrial Rate : 071 BPM P-R Int : 168 ms QRS Dur : 130 ms QT Int : 438 ms P-R-T Axes : 091 089 -12 degrees QTc Int : 475 ms Sinus rhythm with marked sinus arrhythmia with occasional Premature ventricular complexes Right bundle branch block T wave abnormality, consider inferolateral ischemia Abnormal ECG Confirmed by PAULINA RAMÍREZ, ANTWAN ([id number]), social media editor DEVORAH VALDEZ ([id number]) on 08/27/2021 9:12:23 AM Referred By: WING Confirmed By:ANTWAN GALLARDO MD
--- NOTE | 2021-08-24 18:36 | RAD_ITS ---
STUDY: X-RAY - LEFT SHOULDER REASON FOR EXAM: Female, 86 years old. fall TECHNIQUE: 4 view(s) of the shoulder. COMPARISON: None. FINDINGS: Narrowed glenohumeral articulation. Narrowed acromioclavicular joint. Normal acromion. Normal humeral head and visualized proximal humerus. The soft tissue structures are unremarkable. Normal visualized pulmonary apex. RAD/Shoulder min 2 Views IMPRESSION: Degenerative changes. No acute fracture or dislocation. Electronically Signed: Ricky Lowery MD at 20:48 EDT , Service support ,
--- NOTE | 2021-08-24 18:38 | ED.VIS.FALL ---
HPI HPI - Fall History of Present Illness Chief Complaint: Fall Informant: patient and EMS Occured/Mechanism Occurred: Yesterday and Days Mechanism/Context: Yes same level fall and Yes cannot recall fall Usually ambulates: Without assistance Pain/Injury Pain Location: head, face, upper extremity and lower extremity Quality of Pain: Sharp Current Severity: Moderate Maximum Severity: Moderate Associated Symptoms Associated Symptoms: Positive for Inability to ambulate; Negative for Parasthesias, Weakness, Loss of function and Loss of consciousness Narrative Narrative: 86-year-old female history of A. fib, hypertension and prior subarachnoid hemorrhage. Reportedly fell at home yesterday morning about 36 hours ago. Laid there was found today. She cannot remember a lot about the fall. She is complaining of left shoulder and left hip pain. Also trauma to her right side of her face. She denies being on any blood thinners currently. She denies any recent illness. Prior similar symptoms: No Recent Illness/Hospitalization: No PFSH PFSH Medical History Aortic root dilatation Atrial fibrillation Atrial fibrillation with RVR Chronic venous insufficiency Congestive heart failure Dehydration Elevated troponin Encephalopathy acute Essential (primary) hypertension Fall at home Frailty History of meningioma History of subarachnoid hemorrhage Hyperlipidemia Inactivity Leg edema Leg swelling Malnutrition Meningioma Meningioma Mitral valve annular calcification New onset of congestive heart failure Non-rheumatic tricuspid valve insufficiency Nonrheumatic mitral (valve) insufficiency Nonrheumatic tricuspid valve regurgitation Obesity Other secondary pulmonary hypertension Paroxysmal atrial fibrillation SAH (subarachnoid hemorrhage) SAH (subarachnoid hemorrhage) Secondary pulmonary arterial hypertension Sepsis due to Escherichia coli (E. 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 Varicose veins of leg with swelling Venous stasis ulcer Weakness generalized Home Medications acetaminophen [Tylenol Extra Strength] 1,000 mg PO BID PRN 04/01/21 [History Last Taken 07/07/21] gabapentin 100 mg PO TID 04/01/21 [History Last Taken 07/05/21] lisinopril 5 mg PO DAILY #90 tab 04/06/21 [Rx Last Taken 07/06/21] aspirin 81 mg PO DAILY@0800 #30 tab 07/09/21 [Rx Last Taken Unknown] furosemide [Lasix] 40 mg PO BID #60 tab 07/09/21 [Rx Last Taken Unknown] spironolactone 25 mg PO DAILY #30 tab 07/09/21 [Rx Last Taken Unknown] donepezil 5 mg PO DAILY 08/24/21 [History Last Taken Unknown] Allergy/AdvReac Type Severity Reaction Status Date / Time house dust Allergy Intermediate NEEDS Verified 08/24/21 18:25 FOLLOW-UP cabbage AdvReac Diarrhea Verified 08/24/21 18:25 tomato AdvReac Diarrhea Verified 08/24/21 18:25 tree nut AdvReac Diarrhea Verified 08/24/21 18:25 Family History Brother Family history of PTCA Father Heart disease CVA (cerebral vascular accident) Surgical History H/O total hip arthroplasty History of carpal tunnel surgery History of craniotomy History of total hysterectomy Hx of appendectomy Hx of total knee arthroplasty S/P craniotomy Social History household members: none Smoking Status: Never smoker alcohol intake: never substance use type: does not use caffeine: No what type of physical activity do you participate in: weight training frequency: daily duration: 15-30 minutes/day seatbelt use: always do you feel safe at home: Yes ROS ROS ED ROS Narrative Denies recent illness. Review of Systems ROS Unobtainable: Denies due to encephalopathy Constitutional Constitutional ED: Denies chills or fever(s) Eyes Eyes: Denies change in vision ENT ENT ED: Denies ear pain Cardiovascular Cardiovascular: Denies chest pain Respiratory/Chest Respiratory/Chest: Denies cough or dyspnea Gastrointestinal Gastrointestinal: Denies abdominal pain, diarrhea, nausea or vomiting Genitourinary Genitourinary ED: Denies dysuria Musculoskeletal Musculoskeletal: Denies myalgias Integumentary Denies rash Neurologic Neurologic: Denies headache(s) Psychiatric Psychiatric: Denies depression Endocrine Endocrinology: Denies polyuria Hematologic/Lymphatic Hematologic/Lymphatic: Denies easy bruising Allergic/Immunologic Allergic/Immunologic ED: Denies urticaria EXAM Physical Exam Narrative Exam Narrative: 86-year-old female vital signs are stable she is afebrile. She does not look septic or toxic. HEENT exam she has swelling in her right forehead and around the right eye. When you open the pupils round reactive light extra motions are intact. She has dry mucous membranes. There is no hematoma or tenderness to her scalp. C-spine trachea midline. She complains of diffuse neck discomfort. Lungs clear to auscultation bilaterally. Heart regular rhythm no murmur rate about 70. Chest were nontender. Abdomen soft nontender. Elbow girdle intact. Pain on palpation left hip with decreased range of motion. No shortening or rotation. Right lower extremity left knee and ankle are nontender. Her lower extremities are cool to the touch in her feet. There is chronic skin changes of venous stasis. Dorsi and plantar flexion is intact. Upper extremities her left shoulder is tender. Her right shoulder is not elbows and hands are nontender normal normal brake lining curer strength. Neurologically she is awake. She knows she is at the hospital. She is answering questions and following commands. She is somewhat amnestic to the fall. Const Vital Signs: 08/24/21 18:11 08/24/21 18:19 08/24/21 18:20 Temperature 98.6 F 98.6 F Temperature Source Temporal Oral Pulse Rate 72 72 Respiratory Rate 22 H 24 H Respiratory Effort Short of Breath Labored Respiratory Depth Shallow Respiratory Pattern Tachypnea Blood Pressure 138/101 H 138/101 H Blood Pressure Mean 113 113 Pulse Ox 91 93 Oxygen Delivery Method Room Air Room Air Room Air Oxygen Flow Rate (L/min) 95 08/24/21 20:02 08/24/21 21:12 Temperature 96.5 F L Temperature Source Temporal Pulse Rate 72 72 Respiratory Rate 17 15 Respiratory Effort Respiratory Depth Respiratory Pattern Blood Pressure 122/81 H 137/109 H Blood Pressure Mean 94 118 Pulse Ox 95 94 Oxygen Delivery Method Room Air Room Air Oxygen Flow Rate (L/min) Positive well nourished and well developed; Negative for cachectic, contractures or unkempt General Appearance ED: well developed; Negative for unkempt, cachectic or contractures Nutritional Appearance: Negative for cachectic HEENT HEENT Narrative: Swelling about her right eye. trauma and tenderness Eyes PERRL and EOMs intact bilaterally Neck no lymphadenopathy and supple General: tenderness Chest Wall inspection of chest normal and palpation of chest normal Resp normal respiratory effort, no retractions and clear to auscultation bilaterally Auscultation: Negative for rales, rhonchi or wheezes Cardio regular rate, regular rhythm, S1 normal heart sound, S2 normal heart sound and no murmurs GI non-tender, non-distended and no masses Auscultation: normoactive bowel sounds Palpation: soft; Negative for guarding Extremity no calf tenderness and no pedal edema; Negative for normal to inspection or full ROM Extremity Narrative: Tenderness left hip with decreased range of motion. Chronic venous stasis changes in the lower extremities. Lower extremities and hands are cool to the touch. Left shoulder is tender. Neuro moves all extremities and no focal motor deficits Sensorium / Orientation: alert, oriented to person and oriented to place; Negative for oriented to time, confused, lethargic or stuporous Psych mental status grossly normal Appearance: Negative for unkempt Skin Skin Narrative: Bilateral lower extremity venous stasis changes. Cool to the touch. No petechiae or purpura. Rashes: no rashes Trauma: Negative for abrasion, laceration or puncture MDM MDM MDM Narrative Medical decision making narrative: 86-year-old female reportedly fell yesterday morning and is laid into her home on the floor for about 36 hours. She was found down today. Complaining of left shoulder and left hip pain. She also has trauma to the right side of her head. CAT scan, labs and x-rays are being obtained. She will need to be admitted. She is being treated with IV fluids. Also IV morphine and Zofran for pain. X-rays will be obtained for possible fracture along with CAT scans of her head neck. Repeat exam patient is doing well at 930. 2 nurses and myself rolled the patient and there is no significant injuries on her back. Her spine is nontender. Repeat exam unchanged. She and I discussed her test results and imaging and she will be admitted. Of already spoken to the hospitalist. Lab Data Attestation: I reviewed the patient's lab results. Lab results narrative: CBC shows an elevated white count of 15.8. Hemoglobin of 14.8. Platelets are slightly low at iron 40,000. Electrolytes show potassium of 5. Anion gap of 11. BUN of 43 creatinine of 1 consistent with dehydration consistent with her history. Glucose 149. CPK elevated at 622. High-sensitivity troponin is elevated 119. Urinalysis is negative for nitrites. Urine shows no signs of infection with no whites or reds. No bacteria. Lactic acid is elevated at 2.8. Labs: Laboratory Results - last 24 hr 08/24/21 08/24/21 08/24/21 18:48 18:48 18:48 WBC 15.8 H RBC 5.05 Hgb 14.8 Hct 48.5 H MCV 96.0 MCH 29.3 MCHC 30.5 L RDW Std Deviation 55.1 H RDW Coeff of Margaret 15.5 H Plt Count 140 L MPV 12.2 H Immature Gran % (Auto) 0.400 Neut % (Auto) 90.7 H Lymph % (Auto) 1.5 L Hinds % (Auto) 7.3 Eos % (Auto) 0.0 Baso % (Auto) 0.1 Absolute Neuts (auto) 14.4 H Absolute Lymphs (auto) 0.23 L Nucleated RBC % 0.5 Differential Comment SEE COMMENT Platelet Estimate SLT DEC Plt Morphology Comment LARGE RBC Morphology N CHROM Anisocytosis RARE Macrocytosis RARE Sodium 140 Potassium 5.0 Chloride 112 H Carbon Dioxide 17.0 L Anion Gap 11 BUN 43 H Creatinine 1.09 H Estim Creat Clear Calc 32.58 Est GFR (MDRD) Af Amer 61 Est GFR (MDRD) Non-Af 51 L BUN/Creatinine Ratio 39.4 H Glucose 149 H Lactic Acid 2.8 H* Calcium 8.1 L Total Bilirubin 1.50 H AST 40 H ALT 25 Alkaline Phosphatase 93 Total Creatine Kinase Troponin I High Sens 119 H Total Protein 5.4 L Albumin 2.7 L Globulin 2.7 Albumin/Globulin Ratio 1.0 Urine Color Urine Clarity Urine pH Ur Specific [place] Urine Protein Urine Glucose (UA) Urine Ketones Urine Occult Blood Urine Nitrite Urine Bilirubin Urine Urobilinogen Ur Leukocyte Esterase Urine RBC Urine WBC Ur Squamous Epith Cells Urine Bacteria Urine Mucus 08/24/21 08/24/21 18:48 19:00 WBC RBC Hgb Hct MCV MCH MCHC RDW Std Deviation RDW Coeff of Margaret Plt Count MPV Immature Gran % (Auto) Neut % (Auto) Lymph % (Auto) Hinds % (Auto) Eos % (Auto) Baso % (Auto) Absolute Neuts (auto) Absolute Lymphs (auto) Nucleated RBC % Differential Comment Platelet Estimate Plt Morphology Comment RBC Morphology Anisocytosis Macrocytosis Sodium Potassium Chloride Carbon Dioxide Anion Gap BUN Creatinine Estim Creat Clear Calc Est GFR (MDRD) Af Amer Est GFR (MDRD) Non-Af BUN/Creatinine Ratio Glucose Lactic Acid Calcium Total Bilirubin AST ALT Alkaline Phosphatase Total Creatine Kinase 622 H Troponin I High Sens Total Protein Albumin Globulin Albumin/Globulin Ratio Urine Color Yellow Urine Clarity Sl. Cloudy Urine pH 5.0 Ur Specific [place] 1.020 Urine Protein 100 H Urine Glucose (UA) Normal Urine Ketones 5 H Urine Occult Blood 10 H Urine Nitrite Negative Urine Bilirubin 1 H Urine Urobilinogen 1 H Ur Leukocyte Esterase 25 H Urine RBC 0 SEEN Urine WBC 0 SEEN Ur Squamous Epith Cells 0 SEEN Urine Bacteria 0 SEEN Urine Mucus 0 SEEN Radiography Diagnostic Testing: Clinical Impression(s) from Imaging Studies Brain CT 08/24/21 18:33 IMPRESSION: Soft tissue swelling overlying the frontal bones without fracture or intracranial bleed. Atrophy and moderate periventricular white matter ischemic change. Electronically Signed: Ricky Lowery MD at 20:27 EDT , Service support , Cervical Spine CT 08/24/21 18:33 IMPRESSION: No evidence for acute fracture or subluxation.. Moderate spondylosis and multilevel spinal stenosis secondary to bony hypertrophy. Incidental finding of large left pleural effusion uncertain etiology. 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 No acute fracture Electronically Signed: Ricky Lowery MD at 20:33 EDT , Service support , Shoulder X-Ray 08/24/21 18:36 IMPRESSION: Degenerative changes. No acute fracture or dislocation. Electronically Signed: Ricky Lowery MD at 20:48 EDT , Service support , Chest X-Ray 08/24/21 19:20 IMPRESSION: Persistent small left pleural effusion which has decreased in size since previous exam and left lower lobe atelectasis. Electronically Signed: Ricky Lowery MD at 20:36 EDT , Service support , Shoulder X-Ray 08/24/21 19:20 IMPRESSION: Degenerative changes. No acute fracture or dislocation Electronically Signed: Ricky Lowery MD at 20:47 EDT , Service support , Chest x-ray portable 1 view shows cardiomegaly but no acute process. Interpreted by myself. Right shoulder x-ray shows chronic changes but no acute fracture noted. Interpreted by myself. Left shoulder x-ray 2 views interpreted by myself shows no acute fracture or dislocation. Chronic changes. Interpreted by myself. Pelvis x-ray and left hip shows prosthetic hips. No acute fracture. No dislocation. 3 views interpreted by myself. Interpreted by myself. CAT scan of the brain shows no acute intracranial bleed. Old stroke. Awaiting radiologist interpretation. Rhythm Strip Rhythm Strip: Sinus Rhythm Rate: 71 Ectopy: PVC(s) EKG Initial EKG: Attestation: I personally reviewed and interpreted this EKG as follows: Interpretation: Sinus Rhythm and No Acute Injury Pattern Comments: Sinus rhythm rate of 71 with right bundle branch block and occasional PVCs. Inverted T waves in leads V1 through V6. When compared to a prior EKG from June of this year there is no significant change. Both have right bundle branch blocks and inverted T waves V1 through V6. Prior EKG tracings: available for review Prior: Unchanged Discharge Plan Dx/Rx/DC Orders Clinical Impression: Fall, Weakness, Acute dehydration, Unable to ambulate, Leukocytosis Disposition Disposition: [facility]
[2021-08-24] MEDS: morphine 8 MG/ML Syringe 6 MG IV (18:45)
[2021-08-24] MEDS: 0.9% Normal Saline 1,000 ML 1000 ML IV (18:46)
[2021-08-24] MEDS: Ondansetron 4 MG/2 ML Vial IV (18:46)
[2021-08-24 19:00] LABS: Absolute Lymphocyte Count 0.23 X10^3/uL (0.83-4.51); Absolute Neutrophil Count 14.4 X10^3/uL (2.0-7.7); Basophil# 0.02 X10^3/uL; Basophil% 0.1 % (0-1); Hematocrit 48.5 % (37-47); Hemoglobin 14.8 g/dL (12.0-15.0); Lymphocyte # 0.23 X10^3/ul (0.83-4.51); Lymphocyte % 1.5 % (19-41); Mean Corp Hgb Conc 30.5 g/dL (32-36); Mean Corpuscular Hgb 29.3 pg (27.0-32.0); Mean Platelet Vol. 12.2 fl (6.2-12.0); Monocyte# 1.15 X10^3/uL; Monocyte% 7.3 % (0-10); NRBC Flagged by Analyzer 0.5 % (0-5); Neutrophil # 14.36 X10^3/uL (2.7-7.7); Neutrophil % 90.7 % (47-70); POSITIVE DIFFERENTIAL YES; Platelet Count 140 K/mm3 (150-450); RBC Distribution Width CV 15.5 % (11.6-14.6); RBC Distribution Width SD 55.1 fl (35.1-43.9); Red Blood Count 5.05 M/mm3 (4.2-5.4); White Blood Count 15.8 K/mm3 (4.4-11.0)
[2021-08-24 19:05] LABS: Differential Indicated SCAN CRITERIA MET
[2021-08-24 19:10] LABS: Bacteria 0 SEEN /hpf (None Seen); Mucous, Urine 0 SEEN /hpf (<or=2+); Red Blood Cells-Urine 0 SEEN /hpf (0-5); Squamous Epithelial Cells - UA 0 SEEN /hpf (5-10); White Blood Cells 0 SEEN /hpf (0-5)
[2021-08-24 19:11] LABS: Color, Urine Yellow (Yellow); Glucose, Dipstick Normal (Normal); Ketone-Dipstick 5 mg/dl (Negative); Leukocyte Esterase-Dipstick 25 /ul (Negative); Nitrite-Dipstick Negative (Negative); Occult Blood-Urine 10 /ul (Negative); Protein-Dipstick 100 mg/dl (Negative); Urine Clarity Sl. Cloudy (Clear); Urine Urobilinogen 1 mg/dl (Normal)
[2021-08-24 19:12] LABS: Urine Bilirubin Dipstick 1 mg/dL (Negative)
[2021-08-24 19:17] LABS: AST(SGOT) 40 U/L (15-37); Alanine Aminotransfer ALT/SGPT 25 U/L (13-56); Albumin, Serum 2.7 g/dL (3.2-5.0); Alkaline Phosphatase 93 U/L (45-117); Anion Gap 11 (5-15); BUN 43 mg/dL (7-18); BUN/Creat Ratio 39.4 RATIO (10-20); Calcium,Total 8.1 mg/dL (8.5-10.1); Chloride 112 mmol/L (98-107); Creatinine, Serum 1.09 mg/dL (0.55-1.02); EST Glomerular Filtration Rate 51 mL/min (>60); Est Glom Filt Rate - Afr Amer 61 mL/min (>60); Estimated Creatinine Clearance 32.58 ml/min; Globulin 2.7 g/dL (2.2-4.2); Glucose 149 mg/dL (74-106); Protein, Total 5.4 g/dL (6.4-8.2); Sodium Level 140 mmol/L (136-145); Troponin-I HS 119 pg/mL (3.0-54.0)
--- NOTE | 2021-08-24 19:20 | RAD_ITS ---
STUDY: X-RAY CHEST REASON FOR EXAM: Female, 86 years old. fall TECHNIQUE: AP portable COMPARISON: 07/07/2021 FINDINGS: Small left pleural effusion with mild consolidation in left lower lobe. Heart is enlarged. Normal mediastinum and jo-ann. Normal visualized pulmonary arteries. Mild calcified aortic arch and descending thoracic aorta. Degenerative changes of the thoracic spine and shoulders.. Normal visualized ribs, and clavicles. There is no demonstrated abnormality of the visualized soft tissue structures of the upper abdomen. Left pleural effusion has decreased in size since prior exam. No other significant change RAD/Chest 1 View (Portable) IMPRESSION: Persistent small left pleural effusion which has decreased in size since previous exam and left lower lobe atelectasis. Electronically Signed: Ricky Lowery MD at 20:36 EDT , Service support ,
--- NOTE | 2021-08-24 19:20 | RAD_ITS ---
STUDY: X-RAY - RIGHT SHOULDER REASON FOR EXAM: Female, 86 years old. fall TECHNIQUE: 4 view(s) of the shoulder. COMPARISON: None. FINDINGS: Narrowed glenohumeral articulation. Narrowed acromioclavicular joint. Normal acromion. Normal humeral head and visualized proximal humerus. The soft tissue structures are unremarkable. Normal visualized pulmonary apex. RAD/Shoulder min 2 Views IMPRESSION: Degenerative changes. No acute fracture or dislocation Electronically Signed: Ricky Lowery MD at 20:47 EDT , Service support ,
[2021-08-24 19:24] LABS: CPK Total, Creatine Kinase 622 U/L (26-192)
--- NOTE | 2021-08-24 19:42 | CM.ED ---
Addendum entered by Aiyana Chritsianson 08/24/21 22:51: CINDY called Julio at [facility] and left voice mail that EMS was going to call her regarding patient and home concerns. Related that patient fell yesterday and was on the floor for 36 hours. CINDY included this information in handoff. Advised Julio that Toña is the assigned social worker psychiatric. Aiyana ARNETT Addendum entered by Aiyana Christianson 08/24/21 20:01: said that the plan is to admit patient. CINDY will make handoff report to assigned unit social worker psychiatric. Aiyana Christianson Original Note: CINDY Note CINDY was advised by DREA Galicia that EMS reported issues with patient's home. RN said that EMS was advised to call [facility] due to the concerns they observed in the home. Plan: To be determined Aiyana ARNETT
[2021-08-24 19:52] LABS: Lactic Acid 2.8 mmol/L (0.4-1.9)
[2021-08-24 19:59] LABS: Anisocytosis RARE; Macrocytosis RARE; Platelet Estimate SLT DEC (ADEQ); Platelet Morphology LARGE; Red Cell Morphology N CHROM NORMAL (NORM C&C)
--- NOTE | 2021-08-24 21:43 | HP.PCM.HOS_ITS ---
HPI - General General Date of Admission: 08/24/21 Date of Service: 08/24/21 Chief Complaint: Fall HPI Narrative ALTON WILCOX, is a 86 F with a significant history of atrial fibrillation; previous subarachnoid hemorrhage and dementia who presents to the emergency department because of a fall. Reportedly patient was found down. Reportedly this was several hours before presentation. Patient does not remember the event but she complained of neck pain; lower back pain and bilateral leg pain with left leg worse than right leg. [facility] Medical History Aortic root dilatation Atrial fibrillation Atrial fibrillation with RVR Chronic venous insufficiency Congestive heart failure Dehydration Elevated troponin Encephalopathy acute Essential (primary) hypertension Fall at home Frailty History of meningioma History of subarachnoid hemorrhage Hyperlipidemia Inactivity Leg edema Leg swelling Malnutrition Meningioma Meningioma Mitral valve annular calcification New onset of congestive heart failure Non-rheumatic tricuspid valve insufficiency Nonrheumatic mitral (valve) insufficiency Nonrheumatic tricuspid valve regurgitation Obesity Other secondary pulmonary hypertension Paroxysmal atrial fibrillation SAH (subarachnoid hemorrhage) SAH (subarachnoid hemorrhage) Secondary pulmonary arterial hypertension Sepsis due to Escherichia coli (E. 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 Varicose veins of leg with swelling Venous stasis ulcer Weakness generalized Home Medications acetaminophen [Tylenol Extra Strength] 1,000 mg PO BID PRN 04/01/21 [History Last Taken 07/07/21] gabapentin 100 mg PO TID 04/01/21 [History Last Taken 07/05/21] lisinopril 5 mg PO DAILY #90 tab 04/06/21 [Rx Last Taken 07/06/21] aspirin 81 mg PO DAILY@0800 #30 tab 07/09/21 [Rx Last Taken Unknown] furosemide [Lasix] 40 mg PO BID #60 tab 07/09/21 [Rx Last Taken Unknown] spironolactone 25 mg PO DAILY #30 tab 07/09/21 [Rx Last Taken Unknown] donepezil 5 mg PO DAILY 08/24/21 [History Last Taken Unknown] Allergy/AdvReac Type Severity Reaction Status Date / Time house dust Allergy Intermediate NEEDS Verified 08/24/21 18:25 FOLLOW-UP cabbage AdvReac Diarrhea Verified 08/24/21 18:25 tomato AdvReac Diarrhea Verified 08/24/21 18:25 tree nut AdvReac Diarrhea Verified 08/24/21 18:25 Family History Brother Family history of PTCA Father Heart disease CVA (cerebral vascular accident) Surgical History H/O total hip arthroplasty History of carpal tunnel surgery History of craniotomy History of total hysterectomy Hx of appendectomy Hx of total knee arthroplasty S/P craniotomy Social History household members: none Smoking Status: Never smoker alcohol intake: never substance use type: does not use caffeine: No what type of physical activity do you participate in: weight training frequency: daily duration: 15-30 minutes/day seatbelt use: always do you feel safe at home: Yes ROS ROS Narrative Constitutional: Denies fever, chills, fatigue, anorexia and change in weight Eyes: Denies blurry vision, change in eye color, change in vision, discharge from eye(s), double vision, erythema, eye pain, loss of vision or other HEENT: Denies abnormal hearing, dysphagia, ear pain, epistaxis, headache(s), hearing loss, nasal congestion, nasal discharge, post nasal drip, sinus pressure, sore throat or other Cardiovascular: Denies chest pain or palpitations. Denies dyspnea on exertion, orthopnea and paroxysmal nocturnal dyspnea Respiratory/Chest: Reports chronic shortness of breath. Denies cough or wheezing Gastrointestinal: Denies abdominal pain, coffee ground emesis, constipation, diarrhea, dyspepsia, hematemesis, hematochezia, loose stools, melena, nausea, vomiting or other Genitourinary: Denies burning urination, difficulty urinating, dysuria, hematuria, nocturia, urinary frequency, urinary hesitancy, urinary incontinence, urinary urgency or other Musculoskeletal: Reports neck pain; lower back pain; and bilateral leg pain with left worse than right. Neurologic: Denies abnormal gait, abnormal speech, confusion, disequilibrium, dizziness, focal weakness, headache(s), numbness, paresthesias, seizure-like activity, seizures, syncope, tingling, tremor(s) or other Psychiatric: Denies anxiety, depression, homicidal ideation, suicidal ideation or other Endocrinology: Denies change in body appearance, cold intolerance, excessive sweating, heat intolerance, polydipsia, polyuria or other Hematologic/Lymphatic: Denies anemia, easy bleeding, easy bruising, lymphadenopathy or other Integumentary: Denies rashes Allergic/Immunologic: Denies rhinitis, hives, eczema, asthma or other Vital Signs Vital Signs Vital Signs: 08/24/21 18:11 08/24/21 18:19 08/24/21 18:20 Temperature 98.6 F 98.6 F Temperature Source Temporal Oral Pulse Rate 72 72 Respiratory Rate 22 H 24 H Respiratory Effort Short of Breath Labored Respiratory Depth Shallow Respiratory Pattern Tachypnea Blood Pressure 138/101 H 138/101 H Blood Pressure Mean 113 113 Pulse Ox 91 93 Oxygen Delivery Method Room Air Room Air Room Air Oxygen Flow Rate (L/min) 95 08/24/21 20:02 08/24/21 21:12 08/24/21 21:39 Temperature 96.5 F L Temperature Source Temporal Pulse Rate 72 72 68 Respiratory Rate 17 15 15 Respiratory Effort Respiratory Depth Respiratory Pattern Blood Pressure 122/81 H 137/109 H 136/76 H Blood Pressure Mean 94 118 96 Pulse Ox 95 94 93 Oxygen Delivery Method Room Air Room Air Room Air Oxygen Flow Rate (L/min) 08/24/21 21:40 Temperature 98.8 F Temperature Source Oral Pulse Rate 72 Respiratory Rate 18 Respiratory Effort Respiratory Depth Respiratory Pattern Blood Pressure 136/76 H Blood Pressure Mean 96 Pulse Ox 83 Oxygen Delivery Method Room Air Oxygen Flow Rate (L/min) Weight Weight: 66.723 kg Body Mass Index (BMI) 25.2 Physical Exam Narrative Physical exam: General: Well-nourished, well-developed. Head: Normocephalic, no tenderness. Periorbital petechiae of the left eye and left maxillary area; erythema of left parietal and frontal area. Eyes: PERRLA, EOMI ENT: cracked lips. Dry mucous membrane. No rhinorrhea Neck: Nontender, full range of motion, no spinal tenderness, deformities, step- off CVS: Regular rate and rhythm. S1-S2 present. No murmur, gallop or rub. Respiratory : clear to auscultation bilaterally, chest wall nontender, no wheezing Abdomen: Soft, nontender, nondistended, normal bowel sounds, no masses : Deferred Back: Nontender, no CVA tenderness, no midline spinal tenderness, deformities, step-offs Extremities: Edema of bilateral legs. Nontender full range of motion. Skin: Abrasion of left arm. Erythema of bilateral legs with ulcer of left webb. Erythema of left hip. Cool bilateral feet. Decreased pulses of bilateral dorsalis pedis. Neuro: Alert, oriented, cranial nerves II through XII grossly intact. Psychiatry: Normal mood. Normal affect. Not depressed. Not anxious. Results Lab / Micro Data Result Diagrams: 08/24/21 18:48 08/24/21 18:48 Labs: Laboratory Results - last 24 hr 08/24/21 18:48: WBC 15.8 H, RBC 5.05, Hgb 14.8, Hct 48.5 H, MCV 96.0, MCH 29.3, MCHC 30.5 L, RDW Std Deviation 55.1 H, RDW Coeff of Margaret 15.5 H, Plt Count 140 L, MPV 12.2 H, Immature Gran % (Auto) 0.400, Neut % (Auto) 90.7 H, Lymph % (Auto) 1.5 L, [place] % (Auto) 7.3, Eos % (Auto) 0.0, Baso % (Auto) 0.1, Absolute Neuts (auto) 14.4 H, Absolute Lymphs (auto) 0.23 L, Nucleated RBC % 0.5, Differential Comment SEE COMMENT, Platelet Estimate SLT DEC, Plt Morphology Comment LARGE, RBC Morphology N CHROM, Anisocytosis RARE, Macrocytosis RARE 08/24/21 18:48: Sodium 140, Potassium 5.0, Chloride 112 H, Carbon Dioxide 17.0 L , Anion Gap 11, BUN 43 H, Creatinine 1.09 H, Estim Creat Clear Calc 32.58, Est GFR (MDRD) Af Amer 61, Est GFR (MDRD) Non-Af 51 L, BUN/Creatinine Ratio 39.4 H, Glucose 149 H, Calcium 8.1 L, Total Bilirubin 1.50 H, AST 40 H, ALT 25, Alkaline Phosphatase 93, Troponin I High Sens 119 H, Total Protein 5.4 L, Albumin 2.7 L, Globulin 2.7, Albumin/Globulin Ratio 1.0 08/24/21 18:48: Lactic Acid 2.8 H* 08/24/21 18:48: Total Creatine Kinase 622 H 08/24/21 19:00: Urine Color Yellow, Urine Clarity Sl. Cloudy, Urine pH 5.0, Ur Specific [place] 1.020, Urine Protein 100 H, Urine Glucose (UA) Normal, Urine Ketones 5 H, Urine Occult Blood 10 H, Urine Nitrite Negative, Urine Bilirubin 1 H, Urine Urobilinogen 1 H, Ur Leukocyte Esterase 25 H, Urine RBC 0 SEEN, Urine WBC 0 SEEN, Ur Squamous Epith Cells 0 SEEN, Urine Bacteria 0 SEEN, Urine Mucus 0 SEEN Rhythm Strip Rhythm Strip: Sinus Rhythm Rate: 71 Ectopy: PVC(s) Radiology Impression Brain CT 08/24/21 18:33 IMPRESSION: Soft tissue swelling overlying the frontal bones without fracture or intracranial bleed. Atrophy and moderate periventricular white matter ischemic change. Electronically Signed: Ricky Lowery MD at 20:27 EDT , Service support , Cervical Spine CT 08/24/21 18:33 IMPRESSION: No evidence for acute fracture or subluxation.. Moderate spondylosis and multilevel spinal stenosis secondary to bony hypertrophy. Incidental finding of large left pleural effusion uncertain etiology. 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 No acute fracture Electronically Signed: Ricky Lowery MD at 20:33 EDT , Service support , Shoulder X-Ray 08/24/21 18:36 IMPRESSION: Degenerative changes. No acute fracture or dislocation. Electronically Signed: Ricky Lowery MD at 20:48 EDT , Service support , Chest X-Ray 08/24/21 19:20 IMPRESSION: Persistent small left pleural effusion which has decreased in size since previous exam and left lower lobe atelectasis. Electronically Signed: Ricky Lowery MD at 20:36 EDT , Service support , Shoulder X-Ray 08/24/21 19:20 IMPRESSION: Degenerative changes. No acute fracture or dislocation Electronically Signed: Ricky Lowery MD at 20:47 EDT , Service support , Assessment & Plan Assessment/Plan (1) Fall: QUALIFIERS: Encounter type: initial encounter Qualified Code(s): W19.XXXA - Unspecified fall, initial encounter (2) Acute dehydration: (3) Rhabdomyolysis: QUALIFIERS: Rhabdomyolysis type: non-traumatic Qualified Code(s): M62.82 - Rhabdomyolysis (4) Lactic acidosis: PLAN: Fall PT and OT to work with patient for strengthening balance training. Acetaminophen [id number] ordered. Oxycodone as needed ordered. Shoulder x-ray, chest x-ray, hip/pelvis x-ray, cervical spine CT, and brain CT was independently interpreted and I agree with radiologist interpretation above. Vitamin D ordered. Case management consult for disposition. Lactic acidosis Lactic acid of 2.8. Likely secondary to chronic hypoxemia and dehydration. Trend lactic acid. Rhabdomyolysis Mild Review of ED labs showed CK of 622. Mild urine occult blood with no RBCs seen. Received normal saline bolus at emergency department. Gentle IV hydration ordered. Elevated troponin Troponin on presentation was 119. Troponin in June 2021 was 63. Likely type II IA from demand ischemia. Trend. Acute dehydration With cracked lips and dry mucous membrane. BUN of 39.4. Creatinine is within baseline. Gentle IV hydration. Hold Lasix and Aldactone. Trend BMP. DVT prophylaxis: SCD ordered. Hold home aspirin and avoid chemical chemoprophylaxis secondary to fall. Charges/Coding Visit Charges OBSV E&M: 13379 Initial observation care L3
--- NOTE | 2021-08-24 22:11 | PCS.PANDOC ---
PANDEMIC DOCUMENTATION INITIATED: Date: 06/14/2021 Time: 190
[2021-08-24] MEDS: Gabapentin 100 MG Capsule PO (22:36)
[2021-08-24] MEDS: 0.9% Normal Saline 1,000 ML 75 ML IV (22:36)
[2021-08-24] MEDS: Acetaminophen 500 MG Tablet 1000 MG PO (22:36)
[2021-08-24 22:56] LABS: Reflex Lactate? Y
[2021-08-25] VITALS (9 sets, daily range): BP systolic 93–117; BP diastolic 57–64; PULSE 61–88; RESP 16–18; TEMP 36.7–37; O2SAT 92–93
[2021-08-25] LABS: Troponin-I HS 130 pg/mL (3.0-54.0)
[2021-08-25 00:01] LABS: Lactic Acid 2.8 mmol/L (0.4-1.9)
[2021-08-25 01:54] LABS: Troponin-I HS 124 pg/mL (3.0-54.0)
[2021-08-25] MEDS: Gabapentin 100 MG Capsule PO ×3 (06:00→20:29)
[2021-08-25] MEDS: Acetaminophen 500 MG Tablet 1000 MG PO ×3 (06:00→20:28)
[2021-08-25 06:56] LABS: Absolute Lymphocyte Count 0.38 X10^3/uL (0.83-4.51); Basophil# 0.01 X10^3/uL; Basophil% 0.1 % (0-1); Hematocrit 43.2 % (37-47); Hemoglobin 13.3 g/dL (12.0-15.0); Lymphocyte # 0.38 X10^3/ul (0.83-4.51); Lymphocyte % 2.8 % (19-41); Mean Corp Hgb Conc 30.8 g/dL (32-36); Mean Corpuscular Hgb 29.4 pg (27.0-32.0); Mean Corpuscular Volume 95.4 fL (81-99); Mean Platelet Vol. 11.7 fl (6.2-12.0); Monocyte# 1.04 X10^3/uL; Monocyte% 7.7 % (0-10); NRBC Flagged by Analyzer 0.5 % (0-5); Neutrophil % 88.9 % (47-70); POSITIVE DIFFERENTIAL YES; Platelet Count 124 K/mm3 (150-450); RBC Distribution Width CV 15.6 % (11.6-14.6); Red Blood Count 4.53 M/mm3 (4.2-5.4); White Blood Count 13.5 K/mm3 (4.4-11.0)
[2021-08-25 07:04] LABS: Differential Indicated SCAN CRITERIA MET
[2021-08-25 07:49] LABS: Anion Gap 7 (5-15); BUN 52 mg/dL (7-18); BUN/Creat Ratio 42.3 RATIO (10-20); CPK Total, Creatine Kinase 478 U/L (26-192); Calcium,Total 8.7 mg/dL (8.5-10.1); Chloride 111 mmol/L (98-107); Creatinine, Serum 1.23 mg/dL (0.55-1.02); EST Glomerular Filtration Rate 44 mL/min (>60); Est Glom Filt Rate - Afr Amer 53 mL/min (>60); Estimated Creatinine Clearance 28.88 ml/min; Glucose 154 mg/dL (74-106); Potassium 6.2 mmol/L (3.5-5.1); Sodium Level 138 mmol/L (136-145)
[2021-08-25] MEDS: Sodium Polystyrene Sulfonate 15 GM/60 ML UDC 30 GM PO (09:32)
[2021-08-25] MEDS: Donepezil HCl 5 MG Tablet PO (09:33)
[2021-08-25 09:45] LABS: Vitamin D,25 Hydroxy 36.1 ng/mL
--- NOTE | 2021-08-25 10:09 | WOUNDNOTE ---
wound photo: left lower leg
--- NOTE | 2021-08-25 10:09 | WOUNDNOTE ---
wound photo: right foot '
--- NOTE | 2021-08-25 11:43 | CASEMGMT ---
Per physician patient will need placement at discharge. CINDY attempted to meet with patient, but she is confused and would only answer, I don't know. CINDY did ask patient if SW could call Tyra, her sister in law. Patient gave SW permission to call Tyra. CINDY called Tyra, introduced self and role at [facility]. Tyra agrees patient cannot go home. Patient has fallen numerous times at home and is getting more and more confused. CINDY asked about preferences for facilities. Tyra stated patient would probably prefer [facility]. CINDY let Tyra know SW will make the referral and patient will stay at [facility] until insurance approves. Await therapy notes and CINDY will send referral to [facility]. Toña Long GENERATING PLANT SUPERINTENDENT ROY[employer]
[2021-08-25] MEDS: 0.9% Normal Saline 1,000 ML 75 ML IV (13:16)
--- NOTE | 2021-08-25 15:20 | CASEMGMT ---
CINDY faxed referral to [facility]. SW will fax therapy notes once they are in the computer. CINDY tried to call [facility], but the admissions voice mail box was full. CINDY called the main number to [facility] and asked for admissions and again voice mailbox was full. Toña Long HEALTH INSPECTOR FOOD [employer]
--- NOTE | 2021-08-25 15:52 | EKG12_ITS ---
Test Reason : Blood Pressure : / mmHG Vent. Rate : 088 BPM Atrial Rate : 000 BPM P-R Int : 000 ms QRS Dur : 122 ms QT Int : 380 ms P-R-T Axes : 000 201 029 degrees QTc Int : 459 ms Normal sinus rhythm with PVC's Anterolateral infarct , age undetermined Abnormal ECG When compared with ECG of 24-AUG-2021 19:10, MANUAL COMPARISON REQUIRED, DATA IS UNCONFIRMED Confirmed by PAULINA RAMÍREZ, ANTWAN ([id number]), online editor DEVORAH VALDEZ ([id number]) on 08/27/2021 9:15:17 AM Referred By: PIERO Confirmed By:ANTWAN GALLARDO MD
--- NOTE | 2021-08-25 15:58 | CASEMGMT ---
CINDY faxed PT/OT evaluations to [facility]. Toña Long LICENSED VOCATIONAL NURSE DENTAL ASSISTANT INSTRUCTOR
--- NOTE | 2021-08-25 16:20 | CHAPLAIN ---
Type of Pastoral Visit _x__ Initial Visit ___ Follow-up Visit ___ On-call Visit ___ General Patient Visit ___ Spiritual Assessment ___ Family Conference ___ Bereavement ___ Rapid Response ___ Code Blue ___ Other (describe below) Pastoral Care Referral From _x__ Patient ___ Family ___ Nurse ___ Physician ___ Physical Optics Teacher ___ Rotary Soil Stabilizer ___ Other (describe below) Sacrament/Intervention _x__ Active listening ___ Anointing ___ Adventism ___ Bereavement ___ Communion ___ Mikki exploration ___ ___ Life review ___ Prayer ___ Reconciliation ___ Sacrament of Sick _x__ Supportive presence ___ Wedding ___ Other (describe below) Pastoral Comments patient was welcoming but did not carry on a conversation other than answering questions
[2021-08-25 16:34] LABS: Anion Gap 9 (5-15); BUN 53 mg/dL (7-18); BUN/Creat Ratio 34.2 RATIO (10-20); Calcium,Total 8.4 mg/dL (8.5-10.1); Chloride 112 mmol/L (98-107); Creatinine, Serum 1.55 mg/dL (0.55-1.02); EST Glomerular Filtration Rate 34 mL/min (>60); Est Glom Filt Rate - Afr Amer 41 mL/min (>60); Estimated Creatinine Clearance 22.91 ml/min; Glucose 154 mg/dL (74-106); Magnesium 2.3 mg/dL (1.6-2.6); Potassium 5.5 mmol/L (3.5-5.1); Sodium Level 139 mmol/L (136-145)
--- NOTE | 2021-08-25 19:00 | PCM.PN.HOSP ---
Subjective Subjective Patient was seen and examined today, she appeared weak and frail, late this afternoon, patient went into a dysrhythmia and this appeared to be periods of AV disassociation along with PVCs. Patient was asymptomatic and her blood pressure remained stable, I talked with her POA by phone who confirmed that the patient is a DNR CC arrest. Objective Data Objective Data Vital Signs: Vital Signs Temp Pulse Resp BP Pulse Ox 98.6 F 88 18 117/58 L 92 08/25/21 15:49 08/25/21 15:49 08/25/21 15:49 08/25/21 15:49 08/25/21 15:49 Oxygen Flow Rate (L/min) 95 Oxygen Delivery Method Room Air Weight: 65.5 kg Body Mass Index (BMI) 24.7 Intake & Output: Intake and Output for Last 24 Hours 08/23/21 08/24/21 08/25/21 23:59 23:59 23:59 Intake Total 1480 / 1480 1640 / 1640 Output Total 500 / 500 275 / 275 Balance 980 / 980 1365 / 1365 Lab / Micro Data Result Diagrams: 08/25/21 05:53 08/25/21 15:59 Labs: Laboratory Results - last 24 hr 08/24/21 18:48: WBC 15.8 H, RBC 5.05, Hgb 14.8, Hct 48.5 H, MCV 96.0, MCH 29.3, MCHC 30.5 L, RDW Std Deviation 55.1 H, RDW Coeff of Margaret 15.5 H, Plt Count 140 L, MPV 12.2 H, Immature Gran % (Auto) 0.400, Neut % (Auto) 90.7 H, Lymph % (Auto) 1.5 L, [place] % (Auto) 7.3, Eos % (Auto) 0.0, Baso % (Auto) 0.1, Absolute Neuts (auto) 14.4 H, Absolute Lymphs (auto) 0.23 L, Nucleated RBC % 0.5, Differential Comment SEE COMMENT, Platelet Estimate SLT DEC, Plt Morphology Comment LARGE, RBC Morphology N CHROM, Anisocytosis RARE, Macrocytosis RARE 08/24/21 18:48: Sodium 140, Potassium 5.0, Chloride 112 H, Carbon Dioxide 17.0 L, Anion Gap 11, BUN 43 H, Creatinine 1.09 H, Estim Creat Clear Calc 32.58, Est GFR (MDRD) Af Amer 61, Est GFR (MDRD) Non-Af 51 L, BUN/Creatinine Ratio 39.4 H, Glucose 149 H, Calcium 8.1 L, Total Bilirubin 1.50 H, AST 40 H, ALT 25, Alkaline Phosphatase 93, Troponin I High Sens 119 H, Total Protein 5.4 L, Albumin 2.7 L, Globulin 2.7, Albumin/Globulin Ratio 1.0 08/24/21 18:48: Lactic Acid 2.8 H* 08/24/21 18:48: Total Creatine Kinase 622 H 08/24/21 18:48: Vitamin D 25-Hydroxy 36.1 08/24/21 19:00: Urine Color Yellow, Urine Clarity Sl. Cloudy, Urine pH 5.0, Ur Specific [place] 1.020, Urine Protein 100 H, Urine Glucose (UA) Normal, Urine Ketones 5 H, Urine Occult Blood 10 H, Urine Nitrite Negative, Urine Bilirubin 1 H, Urine Urobilinogen 1 H, Ur Leukocyte Esterase 25 H, Urine RBC 0 SEEN, Urine WBC 0 SEEN, Ur Squamous Epith Cells 0 SEEN, Urine Bacteria 0 SEEN, Urine Mucus 0 SEEN 08/24/21 23:15: Troponin I High Sens 130 H* 08/24/21 23:15: Lactic Acid 2.8 H* 08/25/21 01:05: Troponin I High Sens 124 H* 08/25/21 05:53: WBC 13.5 H, RBC 4.53, Hgb 13.3, Hct 43.2, MCV 95.4, MCH 29.4, MCHC 30.8 L, RDW Std Deviation 55.0 H, RDW Coeff of Margaret 15.6 H, Plt Count 124 L, MPV 11.7, Immature Gran % (Auto) 0.500, Neut % (Auto) 88.9 H, Lymph % (Auto) 2.8 L, [place] % (Auto) 7.7, Eos % (Auto) 0.0, Baso % (Auto) 0.1, Absolute Neuts (auto) 12.0 H, Absolute Lymphs (auto) 0.38 L, Nucleated RBC % 0.5 08/25/21 05:53: Sodium 138, Potassium 6.2 H*, Chloride 111 H, Carbon Dioxide 20.0 L, Anion Gap 7, BUN 52 H, Creatinine 1.23 H, Estim Creat Clear Calc 28.88, Est GFR (MDRD) Af Amer 53 L, Est GFR (MDRD) Non-Af 44 L, BUN/Creatinine Ratio 42.3 H, Glucose 154 H, Calcium 8.7, Total Creatine Kinase 478 H 08/25/21 15:59: Sodium Cancelled, Potassium Cancelled, Chloride Cancelled, Carbon Dioxide Cancelled, Anion Gap Cancelled, BUN Cancelled, Creatinine Cancelled, Estim Creat Clear Calc Cancelled, Est GFR (MDRD) Af Amer Cancelled, Est GFR (MDRD) Non-Af Cancelled, BUN/Creatinine Ratio Cancelled, Glucose Cancelled, Calcium Cancelled 08/25/21 15:59: Sodium 139, Potassium 5.5 H, Chloride 112 H, Carbon Dioxide 18.0 L, Anion Gap 9, BUN 53 H, Creatinine 1.55 H, Estim Creat Clear Calc 22.91, Est GFR (MDRD) Af Amer 41 L, Est GFR (MDRD) Non-Af 34 L, BUN/Creatinine Ratio 34.2 H, Glucose 154 H, Calcium 8.4 L, Magnesium 2.3 Radiography Diagnostic Testing: Radiology Impression Brain CT 08/24/21 18:33 IMPRESSION: Soft tissue swelling overlying the frontal bones without fracture or intracranial bleed. Atrophy and moderate periventricular white matter ischemic change. Electronically Signed: Ricky Lowery MD at 20:27 EDT , Service support , Cervical Spine CT 08/24/21 18:33 IMPRESSION: No evidence for acute fracture or subluxation.. Moderate spondylosis and multilevel spinal stenosis secondary to bony hypertrophy. Incidental finding of large left pleural effusion uncertain etiology. 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 No acute fracture Electronically Signed: Ricky Lowery MD at 20:33 EDT , Service support , Shoulder X-Ray 08/24/21 18:36 IMPRESSION: Degenerative changes. No acute fracture or dislocation. Electronically Signed: Ricky Lowery MD at 20:48 EDT , Service support , Chest X-Ray 08/24/21 19:20 IMPRESSION: Persistent small left pleural effusion which has decreased in size since previous exam and left lower lobe atelectasis. Electronically Signed: Ricky Lowery MD at 20:36 EDT , Service support , Shoulder X-Ray 08/24/21 19:20 IMPRESSION: Degenerative changes. No acute fracture or dislocation Electronically Signed: Ricky Lowery MD at 20:47 EDT , Service support , Rhythm Strip Rhythm Strip: Sinus Rhythm Rate: 71 Ectopy: PVC(s) Physical Exam Const alert and no apparent distress Constitutional Narrative: Patient appeared older than her stated age General Appearance: cooperative, well kempt and well developed Orientation / Consciousness: awake, oriented to person, oriented to place and oriented to time HEENT normocephalic, head/scalp atraumatic and moist oral mucous membranes Head and Scalp: normocephalic Eyes PERRL, EOMs intact bilaterally and conjunctivae normal Neck nuchal rigidity, supple, no JVD, thyroid normal and no carotid bruits General: trachea midline Resp normal respiratory effort, no retractions, no use of accessory muscles and clear to auscultation bilaterally Auscultation: Negative for rales, rhonchi or wheezes Cardio S1 normal heart sound, S2 normal heart sound, no murmurs, no rub and no gallops Cardio Narrative: Heart rate and rhythm was irregular GI normal to inspection, nondistended, normoactive bowel sounds, soft to palpation, non-tender and non-distended Extremity no clubbing, cyanosis or edema Skin Skin Narrative: Patient has stasis dermatitis changes of both lower legs, there is some excoriated skin areas on the patient's left webb area General Skin Exam: no breakdown Neuro CN's II-XII intact bilaterally, no focal motor deficits and no sensory deficits noted Neuro Narrative: Patient exhibited confusion Sensorium / Orientation: awake and alert Speech: speech normal Psych thought process normal Psych Narrative: Patient was confused Assessment & Plan Assessment/Plan (1) Weakness: PLAN: 1. Generalized weakness and debility-PT and OT will see the patient, she will need placement in a intermediate facility #2 periods of AV disassociation along with PVCs-patient is asymptomatic with this rhythm disturbance although if it progresses she will more than likely drop her blood pressure and , patient is a DNR CC arrest with no intubation. Patient is not on any rate limiting medication #3 hyperkalemia-patient was given Kayexalate this morning, her repeat potassium this afternoon was 5.5 #4 dehydration-patient will continue to receive IV fluids #5 elevated troponin-I do not think the patient has had a non-STEMI #6 lactic acidosis-etiology unclear #7 dementia #8 stasis dermatitis changes to both lower legs, areas of skin excoriation over the patient's left webb area-patient is being seen by the wound care nurse Charges/Coding Visit Charges Inpatient E&M: 22429 Subs Hosp L2
[2021-08-26] VITALS (10 sets, daily range): BP systolic 102–104; BP diastolic 51–62; PULSE 65–87; RESP 12–18; TEMP 36.4–37.2; O2SAT 87–95
[2021-08-26] MEDS: 0.9% Normal Saline 1,000 ML 100 ML IV ×3 (01:05→20:52)
[2021-08-26] MEDS: Acetaminophen 500 MG Tablet 1000 MG PO ×3 (05:22→20:54)
[2021-08-26] MEDS: Gabapentin 100 MG Capsule PO ×3 (05:23→21:03)
[2021-08-26 06:25] LABS: Absolute Neutrophil Count 9.6 X10^3/uL (2.0-7.7); Basophil# 0.01 X10^3/uL; Basophil% 0.1 % (0-1); Eosinophil# 0.02 X10^3/uL; Eosinophils% 0.2 % (0-5); Hematocrit 39.5 % (37-47); Hemoglobin 12.6 g/dL (12.0-15.0); Lymphocyte % 5.4 % (19-41); Mean Corp Hgb Conc 31.9 g/dL (32-36); Mean Platelet Vol. 11.3 fl (6.2-12.0); Monocyte# 0.82 X10^3/uL; Monocyte% 7.4 % (0-10); NRBC Flagged by Analyzer 0.2 % (0-5); Neutrophil # 9.63 X10^3/uL (2.7-7.7); Neutrophil % 86.5 % (47-70); POSITIVE DIFFERENTIAL YES; Platelet Count 128 K/mm3 (150-450); RBC Distribution Width CV 16.1 % (11.6-14.6); RBC Distribution Width SD 56.1 fl (35.1-43.9); White Blood Count 11.1 K/mm3 (4.4-11.0)
[2021-08-26 06:33] LABS: Differential Indicated SCAN CRITERIA MET
[2021-08-26 06:45] LABS: Anion Gap 7 (5-15); BUN 51 mg/dL (7-18); BUN/Creat Ratio 45.1 RATIO (10-20); Calcium,Total 8.2 mg/dL (8.5-10.1); Chloride 114 mmol/L (98-107); Creatinine, Serum 1.13 mg/dL (0.55-1.02); EST Glomerular Filtration Rate 49 mL/min (>60); Est Glom Filt Rate - Afr Amer 59 mL/min (>60); Estimated Creatinine Clearance 31.43 ml/min; Glucose 105 mg/dL (74-106); Potassium 5.2 mmol/L (3.5-5.1); Sodium Level 139 mmol/L (136-145)
[2021-08-26 07:10] LABS: Differential Comment SCANNED
[2021-08-26] MEDS: Lisinopril 5 MG Tablet PO (08:28)
[2021-08-26] MEDS: Donepezil HCl 5 MG Tablet PO (08:28)
--- NOTE | 2021-08-26 09:35 | CASEMGMT ---
CINDY received a voice mail from Nathaly at [facility]. Nathaly said [facility] is able to accept patient. CINDY called Nathaly this am and asked that pre-cert request from insurance be started. Plan: [facility] under skilled level of care pending insurance approval. Toña PAIGE
--- NOTE | 2021-08-26 19:03 | PCM.PN.HOSP ---
Subjective Subjective Patient was seen and examined today, she appears to be in bigeminy for the most part, she is asymptomatic and she is alert, her vital signs appear stable at this time. We are currently awaiting a bed at a prison facility for the patient. Patient's potassium today was 5.2, creatinine was 1.13. Objective Data Objective Data Vital Signs: Vital Signs Temp Pulse Resp BP Pulse Ox 98.8 F 87 16 102/51 L 92 08/26/21 18:29 08/26/21 18:29 08/26/21 18:29 08/26/21 18:29 08/26/21 18:29 Oxygen Flow Rate (L/min) 95 Oxygen Delivery Method Room Air Weight: 65.5 kg Body Mass Index (BMI) 24.7 Intake & Output: Intake and Output for Last 24 Hours 08/24/21 08/25/21 08/26/21 23:59 23:59 23:59 Intake Total 1480 / 1480 2121.25 / 2121.25 2238.75 / 2238.75 Output Total 500 / 500 275 / 275 495 / 495 Balance 980 / 980 1846.25 / 1846.25 1743.75 / 1743.75 Lab / Micro Data Result Diagrams: 08/26/21 05:45 08/27/21 05:10 Labs: Laboratory Results - last 24 hr 08/26/21 05:45: WBC 11.1 H, RBC 4.20, Hgb 12.6, Hct 39.5, MCV 94.0, MCH 30.0, MCHC 31.9 L, RDW Std Deviation 56.1 H, RDW Coeff of Margaret 16.1 H, Plt Count 128 L, MPV 11.3, Immature Gran % (Auto) 0.400, Neut % (Auto) 86.5 H, Lymph % (Auto) 5.4 L, [place] % (Auto) 7.4, Eos % (Auto) 0.2, Baso % (Auto) 0.1, Absolute Neuts (auto) 9.6 H, Absolute Lymphs (auto) 0.60 L, Nucleated RBC % 0.2, Differential Comment SCANNED 08/26/21 05:45: Sodium 139, Potassium 5.2 H, Chloride 114 H, Carbon Dioxide 18.0 L, Anion Gap 7, BUN 51 H, Creatinine 1.13 H, Estim Creat Clear Calc 31.43, Est GFR (MDRD) Af Amer 59 L, Est GFR (MDRD) Non-Af 49 L, BUN/Creatinine Ratio 45.1 H, Glucose 105, Calcium 8.2 L Rhythm Strip Rhythm Strip: Sinus Rhythm Rate: 71 Ectopy: PVC(s) Physical Exam Const alert and no apparent distress Constitutional Narrative: Patient is alert but confused General Appearance: cooperative, well kempt and well developed Orientation / Consciousness: awake, oriented to person, oriented to place and oriented to time HEENT normocephalic, head/scalp atraumatic and moist oral mucous membranes Head and Scalp: normocephalic Eyes PERRL, EOMs intact bilaterally and conjunctivae normal Neck nuchal rigidity, supple, no JVD, thyroid normal and no carotid bruits General: trachea midline Resp normal respiratory effort, no retractions, no use of accessory muscles and clear to auscultation bilaterally Auscultation: Negative for rales, rhonchi or wheezes Cardio S1 normal heart sound, S2 normal heart sound, no rub and no gallops Cardio Narrative: Heart rate and rhythm is regularly irregular, there is a 2/6 systolic murmur noted at the apex GI normal to inspection, nondistended, normoactive bowel sounds, soft to palpation, non-tender and non-distended Extremity Extremity Narrative: Patient has edematous changes to both lower legs Skin Skin Narrative: Patient has superficial excoriations to both lower legs more so on the left General Skin Exam: no breakdown Neuro CN's II-XII intact bilaterally, no focal motor deficits and no sensory deficits noted Neuro Narrative: Patient is alert but confused, she is not agitated Sensorium / Orientation: awake and alert Speech: speech normal Psych thought process normal Psych Narrative: Patient is alert but confused she is not agitated Assessment & Plan Assessment/Plan (1) Atrial arrhythmia: (2) Weakness: (3) Hyperkalemia: (4) Ventricular bigeminy: (5) Dementia: (6) Pulmonary hypertension: (7) Severe tricuspid regurgitation: PLAN: 1. Generalized weakness and debility-PT and OT will see the patient, she will need placement in a prison facility #2 periods of AV disassociation along with PVCs-patient is asymptomatic with this rhythm disturbance although if it progresses she will more than likely drop her blood pressure and , patient is a DNR CC arrest with no intubation. Patient is not on any rate limiting medication #3 hyperkalemia-improved, BMP will be rechecked tomorrow #4 dehydration-patient will continue to receive IV fluids #5 elevated troponin-I do not think the patient has had a non-STEMI #6 lactic acidosis-etiology unclear #7 dementia #8 stasis dermatitis changes to both lower legs along with unstageable pressure injury left leg and areas of skin excoriation over the patient's left webb area-patient is being seen by the wound care nurse Charges/Coding Visit Charges Inpatient E&M: 05108 Subs Hosp L2
[2021-08-27] VITALS (9 sets, daily range): BP systolic 105–142; BP diastolic 67–85; PULSE 61–79; RESP 12–21; TEMP 36.4–36.9; O2SAT 90–94
[2021-08-27] MEDS: Gabapentin 100 MG Capsule PO ×2 (05:04→13:51)
[2021-08-27] MEDS: Acetaminophen 500 MG Tablet 1000 MG PO ×2 (05:04→13:53)
[2021-08-27] MEDS: 0.9% Normal Saline 1,000 ML 100 ML IV ×2 (05:06→13:58)
[2021-08-27 06:51] LABS: Anion Gap 6 (5-15); BUN 49 mg/dL (7-18); BUN/Creat Ratio 40.8 RATIO (10-20); Calcium,Total 8.1 mg/dL (8.5-10.1); Chloride 116 mmol/L (98-107); EST Glomerular Filtration Rate 45 mL/min (>60); Est Glom Filt Rate - Afr Amer 55 mL/min (>60); Glucose 93 mg/dL (74-106); Potassium 5.1 mmol/L (3.5-5.1); Sodium Level 140 mmol/L (136-145)
[2021-08-27] MEDS: Donepezil HCl 5 MG Tablet PO (09:46)
[2021-08-27] MEDS: Lisinopril 5 MG Tablet PO (09:46)
--- NOTE | 2021-08-27 15:21 | NURSING ---
Read and reviewed SN documentation. Reviewed plan of care with SN
--- NOTE | 2021-08-27 15:24 | CASEMGMT ---
CINDY faxed updated notes to [facility]. CINDY called [facility] and left a message for Nathaly at [facility]. CINDY also called patient's sister in law and Healthcare POA, Tyra. CINDY let her know patient has been accepted at [facility]. CINDY told Tyra that we are just waiting on insurance to approve. CINDY let Tyra know that when patient is ready to be discharged someone will contact her. Plan: d/c to [facility] under skilled level of care pending insurance approval. Toña Long BALANCE ENGINEER ROYAL
--- NOTE | 2021-08-27 16:48 | CASEMGMT ---
Addendum entered by Cecilia Gr 08/27/21 17:40: CINDY completed convalescent 7000 in [facility]. CINDY tubed two copies to U asked staff to place on copy on pt's chart and the other copy in pt's SNF folder. Original Note: Social Work Note CINDY received call from Nathaly at [facility] stating pre-cert was obtained, pt can discharge there today. CINDY placed a call to PCU and updated junior legal secretary that pre-cert was obtained, pt can discharge to [facility]. CINDY updated physician. Pt to discharge today. CINDY placed a call to Nathaly at [facility] and updated her that pt will be discharged there today. Plan: [facility] today Cecilia Gr FIRE SERVICES PLUMBER, TICKET COLLECTOR
--- NOTE | 2021-08-27 17:16 | TREXTCAR_ITS ---
Diet 08/27/21 15:07 Diet: Sodium Restricted (MOD) Food consistency:: Mechanical (Minced/Moist) Liquid Consistency:: Regular/Thin Type of Dietary Supplement:: Ensure Pudding Diet Comments: ES compact w/ break; ES pudding w/lunch&dinner;*tomato allergy* no straws Routine Orders/Code Status Routine Lab Work: CBC (on 08/29/21) and BMP (on 08/29/21) Code Status: DNRCC-A (No intubation) Wound(s) L webb: Wound Type: Stasis Ulcer Dressing Change: AntiMicrobial (Aquacel AG, etc) right medial foot: Wound Type: Pressure Injury Dressing Change: Dry Sterile Dressing Therapies Weight Bearing: Full weight bearing Physical Therapy: Eval and Treat Occupational Therapy: Eval and Treat Problem/Diagnosis (1) Weakness: Status: Acute (2) Hyperkalemia: Status: Resolved (3) Ventricular bigeminy: Status: Acute (4) Dementia: Status: Chronic (5) Pulmonary hypertension: Status: Chronic (6) Severe tricuspid regurgitation: Status: Chronic (7) Atrial arrhythmia: Status: Chronic Allergies/Procedures Done in Hospital Allergies house dust Allergy (Intermediate, Verified 08/24/21 18:25) NEEDS FOLLOW-UP pt allergic to environmental allergens cabbage Adverse Reaction (Verified 08/24/21 18:25) Diarrhea tomato Adverse Reaction (Verified 08/24/21 18:25) Diarrhea tree nut Adverse Reaction (Verified 08/24/21 18:25) Diarrhea Procedures: None Type of Care/Length of Stay Estimated LOS: Convalescent Care Less Than 30 days Type of Care Needed: Skilled Rehab Potential: Good Prognosis: Good Additional Orders/Day of Discharge H&P will serve as current which was dated: 08/24/21 Day of Discharge: 08/27/21 Dietary and Speech Recommendations Dietitian Recommendations/Changes: Will change diet to sodium-restricted--consistency as per CLINICAL PHARMACY MANAGER; currently mechanical (minced/moist) and thin liquids. Will add 120ml ensure compact w/ breakfast. Will add ensure pudding BID w/ lunch and dinner for tolerance. Discharge Plan Admission Admit Date/Time: 08/25/21 09:29 Primary Reason for Your Visit: debility, hyperkalemia Attending Provider: Trevor Neumann Primary Care Provider: Ricky Velásquez Discharge Orders/Prescriptions Prescriptions: New donepezil 5 mg Tablet 10 mg PO DAILY Qty: 0 RF: 0 Continued acetaminophen [Tylenol Extra Strength] 500 mg Tablet 1,000 mg PO BID PRN (Reason: Pain) RF: 0 gabapentin 100 mg capsule 100 mg PO TID RF: 0 lisinopril 5 mg Tablet 5 mg PO DAILY Qty: 90 RF: 0 aspirin 81 mg Tablet,Delayed Release (Dr/Ec) 81 mg PO DAILY@0800 Qty: 30 RF: 2 furosemide [Lasix] 40 mg tablet 40 mg PO BID Qty: 60 RF: 2 Discontinued spironolactone 25 mg tablet 25 mg PO DAILY Qty: 30 RF: 0 donepezil 5 mg Tablet 5 mg PO DAILY RF: 0 Referrals / Follow Up: Ricky Velásquez MD [Primary Care Provider] - Disposition Disposition (needs filled in before D/C Order can be placed): [facility]
--- NOTE | 2021-08-27 17:38 | DS.PCM_ITS ---
Providers Date of Admission: 08/25/21 Date of Discharge: 08/27/21 Primary Care Physician: Ricky Velásquez MD Consultations 08/24/21 23:00 Consult: Onc/Wound/chief deputy sheriff Routine Comment: Reason for Consult:: LLE wound- seeping. sees wound clinic Reason For Visit: FALL Diagnosis Discharge Diagnosis (1) Atrial arrhythmia: Status: Chronic Code(s): I49.8 - Other specified cardiac arrhythmias (2) Weakness: Status: Acute Code(s): R53.1 - Weakness (3) Hyperkalemia: Status: Resolved Code(s): E87.5 - Hyperkalemia (4) Ventricular bigeminy: Status: Acute Code(s): I49.8 - Other specified cardiac arrhythmias (5) Dementia: Status: Chronic Code(s): F03.90 - Unspecified dementia without behavioral disturbance (6) Pulmonary hypertension: Status: Chronic Code(s): I27.20 - Pulmonary hypertension, unspecified (7) Severe tricuspid regurgitation: Status: Chronic Code(s): I07.1 - Rheumatic tricuspid insufficiency Plan: 1. Generalized weakness and debility #2 Sinus arrhythmia with PVCs #3 hyperkalemia #4 dehydration #5 elevated troponin-I do not think the patient has had a non-STEMI #6 lactic acidosis #7 dementia #8 stasis dermatitis changes to both lower legs along with unstageable pressure injury left leg and areas of skin excoriation over the patient's left webb area Patient did not have rhabdomyolysis Medications at Discharge Home Medications acetaminophen [Tylenol Extra Strength] 1,000 mg PO BID PRN 04/01/21 gabapentin 100 mg PO TID 04/01/21 lisinopril 5 mg PO DAILY #90 tab 04/06/21 aspirin 81 mg PO DAILY@0800 #30 tab 07/09/21 furosemide [Lasix] 40 mg PO BID #60 tab 07/09/21 donepezil 10 mg PO DAILY #0 tab 08/27/21 Hospital Course Operations None Procedures None Summary of Care Provided Minutes Spent on Discharge: 31 Hospital Course: Patient was an 86-year-old white female that was brought in by EMS to the emergency room at [facility] for evaluation due to a mechanical fall. Patient was found down in her home, it was not definitely known how long she was down but it was felt to be several hours. Patient could not give any information about her fall. Work-up in the emergency room revealed patient to have an elevated white blood cell count of 15.8, BUN was elevated at 43 and the creatinine was 1.09. CPK was 622. Troponin was elevated but the patient was not thought to have a non-STEMI. Lactic acid was elevated at 2.8- etiology of the elevated lactic acid was unknown. Patient was admitted to PCU, she was kept on telemetry and given IV fluids, she was felt to have rhabdomyolysis-I evaluated the patient and did not feel that she had rhabdomyolysis. Patient was seen by PT and OT, I talked with the patient's POA who made the patient a DNR CC arrest, she had major heart rhythm changes on telemetry but was asymptomatic with these changes. alert and no apparent distress On 08/27/2021, patient was seen and examined: Constitutional Narrative: Patient is alert but confused General Appearance: cooperative, well kempt and well developed Orientation / Consciousness: awake, oriented to person, oriented to place and oriented to time HEENT normocephalic, head/scalp atraumatic and moist oral mucous membranes Head and Scalp: normocephalic Eyes PERRL, EOMs intact bilaterally and conjunctivae normal Neck nuchal rigidity, supple, no JVD, thyroid normal and no carotid bruits General: trachea midline Resp normal respiratory effort, no retractions, no use of accessory muscles and clear to auscultation bilaterally Auscultation: Negative for rales, rhonchi or wheezes Cardio S1 normal heart sound, S2 normal heart sound, no rub and no gallops Cardio Narrative: Heart rate and rhythm is regularly irregular, there is a 2/6 systolic murmur noted at the apex GI normal to inspection, nondistended, normoactive bowel sounds, soft to palpation, non-tender and non-distended Extremity Extremity Narrative: Patient has edematous changes to both lower legs Skin Skin Narrative: Patient has superficial excoriations to both lower legs more so on the left General Skin Exam: no breakdown Neuro CN's II-XII intact bilaterally, no focal motor deficits and no sensory deficits noted Neuro Narrative: Patient is alert but confused, she is not agitated Sensorium / Orientation: awake and alert Speech: speech normal Psych thought process normal Psych Narrative: Patient is alert but confused she is not agitated Patient was felt to be stable for transfer to an extended care facility for inpatient rehab services on 08/27/2021. Weight / BMI Weight Weight: 65.5 kg Body Mass Index (BMI) 24.7 ABG / Lab / Microbiology Data Result Diagrams: 08/26/21 05:45 08/27/21 05:10 Laboratory: Laboratory Results - last 24 hr 08/27/21 05:10: Sodium 140, Potassium 5.1, Chloride 116 H, Carbon Dioxide 18.0 L , Anion Gap 6, BUN 49 H, Creatinine 1.20 H, Estim Creat Clear Calc 29.60, Est GFR (MDRD) Af Amer 55 L, Est GFR (MDRD) Non-Af 45 L, BUN/Creatinine Ratio 40.8 H , Glucose 93, Calcium 8.1 L Meaningful Use Info Meaningful Use Diagnoses (Choose all that apply): None applicable Discharge Plan Admission Admit Date/Time: 08/25/21 09:29 Primary Reason for Your Visit: debility, hyperkalemia Attending Provider: Trevor Neumann Primary Care Provider: Ricky Velásquez Discharge Orders/Prescriptions Prescriptions: New donepezil 5 mg Tablet 10 mg PO DAILY Qty: 0 RF: 0 Continued acetaminophen [Tylenol Extra Strength] 500 mg Tablet 1,000 mg PO BID PRN (Reason: Pain) RF: 0 gabapentin 100 mg capsule 100 mg PO TID RF: 0 lisinopril 5 mg Tablet 5 mg PO DAILY Qty: 90 RF: 0 aspirin 81 mg Tablet,Delayed Release (Dr/Ec) 81 mg PO DAILY@0800 Qty: 30 RF: 2 furosemide [Lasix] 40 mg tablet 40 mg PO BID Qty: 60 RF: 2 Discontinued spironolactone 25 mg tablet 25 mg PO DAILY Qty: 30 RF: 0 donepezil 5 mg Tablet 5 mg PO DAILY RF: 0 Referrals / Follow Up: Ricky Velásquez MD [Primary Care Provider] - Disposition Disposition (needs filled in before D/C Order can be placed): [facility] Facility Charges/Coding Visit Charges Inpatient E&M: 28750 Disch Hosp
--- NOTE | 2021-08-27 18:32 | NURSING ---
Report called to [facility]
--- NOTE | 2021-08-27 21:25 | NURSING ---
Report given to physicians ambulance, pt leaving now w/ her belongings.
== END 2021-08-27 21:25 | disposition skilled nursing facility (03) | DRG 641 ==
LOC: ED 21:39 → PCU 21:45
PROVIDERS: Admitting Provider Hospitalist; Emergency Provider Emergency Medicine; PCP Family Medicine; Visit Provider Internal Medicine
DX: E86.0 Dehydration (principal); I49.8 Other specified cardiac arrhythmias; R53.81 Other malaise; E87.5 Hyperkalemia; I11.0 Hypertensive heart disease with heart failure; I50.9 Heart failure, unspecified; I48.0 Paroxysmal atrial fibrillation; M25.552 Pain in left hip; M25.512 Pain in left shoulder; E78.5 Hyperlipidemia, unspecified; F03.90 Unspecified dementia, unspecified severity, without behavioral disturbance, psychotic disturbance, mood disturbance, and anxiety; I36.1 Nonrheumatic tricuspid (valve) insufficiency; I87.2 Venous insufficiency (chronic) (peripheral); I27.29 Other secondary pulmonary hypertension; S40.812A Abrasion of left upper arm, initial encounter; I83.028 Varicose veins of left lower extremity with ulcer other part of lower leg; R09.02 Hypoxemia; I49.3 Ventricular premature depolarization; L89.890 Pressure ulcer of other site, unstageable; E11.9 Type 2 diabetes mellitus without complications; W18.30XA Fall on same level, unspecified, initial encounter; Z79.899 Other long term (current) drug therapy; Z79.82 Long term (current) use of aspirin; Y93.9 Activity, unspecified; Y92.009 Unspecified place in unspecified non-institutional (private) residence as the place of occurrence of the external cause
CPT/HCPCS: 36415; 51702; 70450; 71045; 72125; 73030; 73502; 80048; 80053; 81001; 82306; 82550; 83605; 83735; 84484; 85025; 87426; 92610; 93005; 97110; 97162; 97166; 97530; 97535; 99285; J7030; J2405

== ENCOUNTER → 2021-09-29 06:34 | Outpatient (REF) | payer MEDICARE, SELFPAY ==
[2021-09-29 10:15] LABS: Prealbumin 28.6 mg/dL (20.0-40.0)
== END ==
LOC: OLS.SW300 06:34
PROVIDERS: PCP Family Medicine; Visit Provider Family Medicine
DX: M25.552 Pain in left hip (principal)
CPT/HCPCS: 36415; 84134

== ENCOUNTER → 2022-02-08 | Outpatient (REF) | payer MEDICARE, SELFPAY ==
[2022-02-08 07:19] LABS: Mucous, Urine 0 SEEN /hpf (<or=2+); Red Blood Cells-Urine 0 SEEN /hpf (0-5); Squamous Epithelial Cells - UA 0 SEEN /hpf (5-10)
[2022-02-08 07:28] LABS: Color, Urine Yellow (Yellow); Glucose, Dipstick Normal (Normal); Ketone-Dipstick Negative (Negative); Leukocyte Esterase-Dipstick 25 /ul (Negative); Nitrite-Dipstick Positive (Negative); Occult Blood-Urine Negative /ul (Negative); Protein-Dipstick Negative (Negative); Urine Bilirubin Dipstick Negative (Negative); Urine Clarity Sl. Cloudy (Clear); Urine Urobilinogen Normal (Normal)
[2022-02-08 07:43] LABS: Bacteria 2+ /hpf (None Seen); White Blood Cells 0-5 SEEN /hpf (0-5)
== END | disposition home or self-care (01) ==
LOC: OLS.BROOKB
PROVIDERS: PCP Family Medicine; Visit Provider Family Medicine
DX: R45.1 Restlessness and agitation (principal); R35.0 Frequency of micturition; R30.0 Dysuria
CPT/HCPCS: 81001; 87077; 87086; 87088; 87186

== ENCOUNTER 2022-03-15 10:15 | Outpatient (RCR) | payer MEDICARE, SELFPAY ==
[2022-03-08 10:09] VITALS: BP 123/73; PULSE 94; RESP 20; TEMP 36.2; BMI 23.1
--- NOTE | 2022-03-08 11:08 | HP.PCM_ITS ---
History of Present Illness Date of Service: 03/08/22 Chief Complaint: Venous ulceration, left pretibial area History of Wound: This is an 86-year-old female with multiple medical problems. Patient has a chronic ulceration to her right first toe. Patient is diabetic with some loss of sensation. She is a bunion deformity on that side as well. She denies any pain to the site notes that she has been wearing a surgical shoe to offload it. Patient resides in a assisted living facility and notes that they have not been changing the dressing. Patient denies any constitutional symptoms or signs of infection to the area. Patient has no other complaints at this time. [facility] Medical History Aortic root dilatation Atrial fibrillation Atrial fibrillation with RVR Chronic venous insufficiency Congestive heart failure Dehydration Elevated troponin Encephalopathy acute Essential (primary) hypertension Fall at home Frailty History of meningioma History of subarachnoid hemorrhage Hyperlipidemia Inactivity Leg edema Leg swelling Malnutrition Meningioma Meningioma Mitral valve annular calcification New onset of congestive heart failure Non-rheumatic tricuspid valve insufficiency Nonrheumatic mitral (valve) insufficiency Nonrheumatic tricuspid valve regurgitation Obesity Other secondary pulmonary hypertension Paroxysmal atrial fibrillation SAH (subarachnoid hemorrhage) SAH (subarachnoid hemorrhage) Secondary pulmonary arterial hypertension Sepsis due to Escherichia coli (E. 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 Varicose veins of leg with swelling Venous stasis ulcer Weakness generalized Home Medications acetaminophen [Tylenol Extra Strength] 1,000 mg PO BID PRN 04/01/21 [History Last Taken 07/07/21] gabapentin 100 mg PO TID 04/01/21 [History Last Taken 07/05/21] lisinopril 5 mg PO DAILY #90 tab 04/06/21 [Rx Last Taken 07/06/21] aspirin 81 mg PO DAILY@0800 #30 tab 07/09/21 [Rx Last Taken Unknown] furosemide [Lasix] 40 mg PO BID #60 tab 07/09/21 [Rx Last Taken Unknown] donepezil 10 mg PO DAILY #0 tab 08/27/21 [Rx Last Taken Unknown] Allergy/AdvReac Type Severity Reaction Status Date / Time house dust Allergy Intermediate NEEDS Verified 08/24/21 18:25 FOLLOW-UP cabbage AdvReac Diarrhea Verified 08/24/21 18:25 tomato AdvReac Diarrhea Verified 08/24/21 18:25 tree nut AdvReac Diarrhea Verified 08/24/21 18:25 Family History Brother Family history of PTCA Father Heart disease CVA (cerebral vascular accident) Surgical History H/O total hip arthroplasty History of carpal tunnel surgery History of craniotomy History of total hysterectomy Hx of appendectomy Hx of total knee arthroplasty S/P craniotomy Social History household members: none Smoking Status: Never smoker alcohol intake: never substance use type: does not use caffeine: No what type of physical activity do you participate in: weight training frequency: daily duration: 15-30 minutes/day seatbelt use: always do you feel safe at home: Yes Vital Signs Vital Signs Vital Signs: 03/08/22 10:09 Temperature 97.2 F L Temperature Source Temporal Pulse Rate 94 Respiratory Rate 20 H Blood Pressure 123/73 H Blood Pressure Mean 89 Blood Pressure Source Monitor Blood Pressure Position Sitting Blood Pressure Location Left Arm Oxygen Delivery Method Room Air Weight Weight: 61.235 kg Body Mass Index (BMI) 23.1 Physical Exam Narrative Patient presents with daughter. Patient ambulates unassisted with surgical shoe on the right. Patient oriented person place time. Vascular: Dorsalis pedis and posterior tibial pulses palpable 2 out of 4 to bilateral lower extremity diminished hair growth noted capillary fill time brisk to lesser digits. No gross edema noted. Neurologic: Light touch protective sensation diminished bilateral feet. Dermatologic full-thickness ulceration noted to the dorsal medial right first metatarsal phalangeal joint, no deep probing undermining or signs of infection clean periwound skin area. Musculoskeletal: Hallux rigidus to right toe with dorsal exostosis which is the apex or wound formation. Severe hallux abductovalgus to the left lower extremity. Muscular strength full to bilateral lower extremity compartments. No pain with calf squeeze bilaterally. Debridement Note Debridement Note Post-Debridement Measurements and Additional Note: Post-Debridement Measurements/Treatment WC - Nurse 1 - General Ulcer Assessment Start: 03/08/22 10:09 Freq: Status: Active Protocol: WC.LOWEXT Activity Type Activity Date Activity User E-Sign Co-Sign Detail Recorded Client Recorded Date Recorded By Document 03/08/22 10:09 [id number] 03/08/22 10:24 03/08/22 10:09 - Today's Visit Information Type of service Initial Visit Arrival Mode Ambulatory, Walker Transfer Assistance None Accompanied by sister in law Patient Identification Verified (Name & Yes ) Patient Requires Transmission-Based No Precautions Safety Precautions Fall Prevention Height and Weight Height 5 ft 4 in Weight 61.235 kg Weight in Pounds 135.0 lbs Weight Measurement Method Stated by Patient Body Mass Index (BMI) 23.1 BMI Classification Normal BSA - Lenore 1.66 Vital Signs Temperature (97.8 F-99.1 F) 97.2 F L Temperature Source Temporal Pulse Rate (60-100) 94 Pulse Location Monitor Respiratory Rate (12-18) 20 H Respiratory rate source Observation Oxygen Delivery Method Room Air Blood Pressure (90/60-120/80) 123/73 H Blood Pressure Mean 89 Source Monitor Position Sitting Blood Pressure Location Left Arm History Since Last Visit- (Skip if this is Patient's initial visit) Left Footwear Regular Shoe Right Footwear Surgical Shoe with pressure relief insole Pain Scale: 0-10 Numeric Is Patient Pain Free? Yes Communication Assessment Preferred language Citizen Of [place] Artificial Flowers Supervisor Required No Able to Read Yes Able to Write Yes Communication Tools None Right Hearing Abillity Normal Left Hearing Abillity Deaf Visual Assistive Devices Glasses Teaching Assessment Preferences Verbal,Written, Audio/Visual, Demonstration Barriers to Learning None Readiness To Learn Excellent Willingness to Engage in Self Management High Activies Readiness to Engage in Self Management High Activities Anxiety Level Calm Cooperation Cooperative Perception Coherent Interest in Health Problem Asks Questions Education Importance Acknowledges Need Does Patient Smoke tobacco or other No substances Smoking Status Never smoker Is Patient Diabetic Yes Functional Assessment Assistive Device With Patient Yes List Device(s) with Patient walker Culture/Sabianism/Credit Control Manager Cultural/Sabianism Needs that may affect No Treatment Plan Would you allow our hospital occupational therapy department chair to No meet you for the purpose of spiritual/ emotional support? Credit Control Manager to contact place of orthodoxy No Teaching: Wound Center *Welcome to the Wound Center -Person Taught Patient,Family -Teaching Method Discussion -Response to teaching Verbalize understanding - Nurse 1 - General Ulcer Measurement Start: 03/08/22 10:09 Freq: Status: Active Protocol: Activity Type Activity Date Activity User E-Sign Co-Sign Detail Recorded Client Recorded Date Recorded By Document 03/08/22 10:09 MW [id number] 03/08/22 10:24 MW 03/08/22 10:09 Wound Center Nurse 1 #2 right foot bunion -Combined with other wound No -Current Size (cm) - Length 0.1 -Current Size (cm) - Width 0.1 -Current Size (cm) - Depth 0.1 -Total Square Cm 0.01 -Date of Last Picture (Recall this 03/08/22 field) -Photo Taken Yes -Epithelialization None Present -Tunneling No -Undermining/Tunneling No -Circular Undermining No -Exudate Amt Small -Exudate Type Serosanguineous -Wound Margin Flat & Intact -Granulation Amt None Present (0 %) -Granulation Quality N/A -Slough/Fibrin Yes -Necrosis Amt Large (67-100%) -Necrotic Tissue Type Adherent Slough -Structure Exposed N/A -Texture (Vicki-wound Skin Appearance) Assessed, Localized Edema -Moisture (Vicki-wound Skin Appearance) Assessed -Color (Vicki-wound Skin Appearance) No Abnormality, Assessed -Temperature (Vicki-wound Skin No Abnormality Appearance) (Pt Warm) -Tenderness on Palpation (Vicki-wound Yes Skin Appearance) -Ulcer Cleansing Soap and Water -Foul Odor after Cleansing No -Anesthetic Used 4% Lidocaine Solution Lower Limb Edema Present Yes Right Calf (cm) 35.0 Right Ankle (cm) 20.4 Left Calf (cm) 35.8 Left Ankle (cm) 21.0 WC - Nurse 2 - General Ulcer CM Notes Start: 03/08/22 10:09 Freq: Status: Active Protocol: Activity Type Activity Date Activity User E-Sign Co-Sign Detail Recorded Client Recorded Date Recorded By Document 03/08/22 10:47 JF [id number] 03/08/22 10:50 CRISTO 03/08/22 10:47 Wound Center Nurse 2 #2 right foot bunion -Time 10:49 -Correct Patient Yes -Correct Side, Site, Position Yes -Correct Procedure Yes -Procedure Performed Yes -Type of Procedure Debridement -Clinical Debridement Subcutaneous -Tissue Removed Subcutaneous -Post Debridement (cm) - Length 0.2 -Post Debridement (cm) - Width 0.3 -Post Debridement (cm) - Depth 0.1 -Total Square (Post) (cm) 0.06 -Area of Debridement (cm) - Length 0.2 -Area of Debridement (cm) - Width 0.3 -Total Square (Area) (cm) 0.06 -Tunneling No -Undermining/Tunneling No -Circular Undermining No -Wound/Ulcer Outcome Not Healed -Ulcer Cleansing Rinsed/ Irrigated with Saline -Foul Odor after Cleansing No -Bioengineered Tissue No -Bleeding Controlled with Pressure -Treatment Response Procedure Tolerated Well -Offloading Yes -Type of Offloading Surgical Shoe -Debridement - Subq, 1st 20sq cm Yes Pain Scale: 0-10 Numeric Is Patient Pain Free? Yes - Nurse 3 - General Ulcer D/C NN Start: 03/08/22 10:09 Freq: Status: Active Protocol: Activity Type Activity Date Activity User E-Sign Co-Sign Detail Recorded Client Recorded Date Recorded By Document 03/08/22 10:58 MW [id number] 03/08/22 10:58 MW 03/08/22 10:58 Wound Care Nurse 3 #2 right foot bunion -Ulcer Cleansing Rinsed/ Irrigated with Saline -Foul Odor after Cleansing No -Negative Pressure Wound Therapy N/A -Primary Dressing Applied C Hydrogel ($), Mepilex Border -Mepilex Border 1 Treatment Response Procedure Tolerated Well Pain Scale: 0-10 Numeric Is Patient Pain Free? Yes Teaching: Wound Center Dressing Your Wound -Person Taught Patient,Family -Teaching Method Discussion -Response to teaching Verbalize understanding WC - Visit Discharge Discharge Condition Stable Ambulatory Status Ambulatory, Walker Transportation Private Auto Accompanied by sister in law Medication Reconcilliation completed & No provided to patient/care provider Clinical Summary of Care Provided Yes Assessment/Plan Assessment/Plan (1) Type 2 diabetes mellitus with diabetic polyneuropathy: CODE(S): E11.42 - Type 2 diabetes mellitus with diabetic polyneuropathy QUALIFIERS: Diabetes mellitus mcfp insulin use: unspecified termite inspector insulin use status Qualified Code(s): E11.42 - Type 2 diabetes mellitus with diabetic polyneuropathy (2) Non-pressure chronic ulcer of other part of right foot with fat layer exposed: CODE(S): L97.512 - Non-pressure chronic ulcer of other part of right foot with fat layer exposed PLAN: Patient examined evaluated, all findings discussed with patient in detail. Wound improving at this time with offloading via surgical shoe. Wound was excisionally debrided down to including level of subcutaneous tissue using a 5 mm dermal curette, all nonviable tissue removed. No anesthesia required due to neuropathy. Hemostasis obtained with light compression. Patient tolerated procedure well. Wound will be dressed with hydrogel and Mepilex border every other day. Patient will continue offloading the wound using a surgical shoe. If there are any delays in wound healing we will consider advanced wound care products, nutritional supplementation, additional vascular work-up. Patient will follow up in 1 week. Discussed possibility of resection of the dorsal first metatarsal joint exostosis via cheilectomy if required to assist wound healing and prevent new wound formation in the future. We will delay this at this time due to advanced age and history of cardiac disease. (3) Hallux rigidus: CODE(S): M20.20 - Hallux rigidus, unspecified foot QUALIFIERS: Laterality: bilateral Qualified Code(s): M20.21 - Hallux rigidus, right foot; M20.22 - Hallux rigidus, left foot
[2022-03-15 10:19] VITALS: BP 137/86; PULSE 94; TEMP 35.9; BMI 23.1
--- NOTE | 2022-03-15 10:42 | PCM.WC.PN ---
History of Present Illness Date of Service: 03/15/22 Chief Complaint: Venous ulceration, left pretibial area History of Wound: This is an 86-year-old female with multiple medical problems. Patient has a chronic ulceration to her right first toe. Patient is diabetic with some loss of sensation. She is a bunion deformity on that side as well. She denies any pain to the site notes that she has been wearing a surgical shoe to offload it. Patient resides in a assisted living facility and notes that they have not been changing the dressing. Patient denies any constitutional symptoms or signs of infection to the area. Patient has no other complaints at this time. Objective Data Objective Data Vital Signs: Vital Signs Temp Pulse Resp BP 96.7 F L 94 20 H 137/86 H 03/15/22 10:19 03/15/22 10:19 03/08/22 10:09 03/15/22 10:19 Oxygen Delivery Method Room Air Weight: 61.235 kg Body Mass Index (BMI) 23.1 Physical Exam Narrative Patient presents with daughter. Patient ambulates unassisted with surgical shoe on the right. Patient oriented person place time. Vascular: Dorsalis pedis and posterior tibial pulses palpable 2 out of 4 to bilateral lower extremity diminished hair growth noted capillary fill time brisk to lesser digits. No gross edema noted. Neurologic: Light touch protective sensation diminished bilateral feet. Dermatologic full-thickness ulceration noted to the dorsal medial right first metatarsal phalangeal joint - healed, no signs of infection. Musculoskeletal: Hallux rigidus to right toe with dorsal exostosis which is the apex or wound formation. Severe hallux abductovalgus to the left lower extremity. Muscular strength full to bilateral lower extremity compartments. No pain with calf squeeze bilaterally. Debridement Note Debridement Note Post-Debridement Measurements and Additional Note: Post-Debridement Measurements/Treatment GRECIA - Nurse 1 - General Ulcer Assessment Start: 03/08/22 10:09 Freq: Status: Active Protocol: MIK Activity Type Activity Date Activity User E-Sign Co-Sign Detail Recorded Client Recorded Date Recorded By Document 03/08/22 10:09 MW [id number] 03/08/22 10:24 MW Document 03/15/22 10:19 KR [id number] 03/15/22 10:24 KR 03/08/22 03/15/22 10:09 10:19 WC - Today's Visit Information Type of service Initial Visit Follow-up Visit (Physician/FOREST RANGER ) Arrival Mode Ambulatory, Ambulatory, Walker Walker Transfer Assistance None Accompanied by sister in law Patient Identification Verified (Name & Yes Yes ) Patient Requires Transmission-Based No Precautions Safety Precautions Fall Prevention Height and Weight Height 5 ft 4 in Weight 61.235 kg Weight in Pounds 135.0 lbs Weight Measurement Method Stated by Patient Body Mass Index (BMI) 23.1 23.1 BMI Classification Normal Normal BSA - Lenore 1.66 Vital Signs Temperature (97.8 F-99.1 F) 97.2 F L 96.7 F L Temperature Source Temporal Temporal Pulse Rate (60-100) 94 94 Pulse Location Monitor Monitor Respiratory Rate (12-18) 20 H Respiratory rate source Observation Oxygen Delivery Method Room Air Blood Pressure (90/60-120/80) 123/73 H 137/86 H Blood Pressure Mean (mm Hg) 89 103 Source Monitor Monitor Position Sitting Sitting Blood Pressure Location Left Arm Left Arm Have you changed medications since your No last visit? Any new allergies or adverse reactions No Had a fall/change in ADL's that may No increase risk of falls Signs or symptoms of abuse and/or No neglect since last visit Have you been in the hospital since your No last visit? Has dressing in place as prescribed Yes Has compression in place as prescribed N/A Has offloadiing in place as prescribed N/A Experienced any changes in pain level or No management History Since Last Visit- (Skip if this is Patient's initial visit) Left Footwear Regular Shoe Regular Shoe Right Footwear Surgical Shoe Regular Shoe with pressure relief insole Pain Scale: 0-10 Numeric Is Patient Pain Free? Yes Yes Communication Assessment Preferred language Romansh Manager Strategy & Account Required No Able to Read Yes Able to Write Yes Communication Tools None Right Hearing Abillity Normal Left Hearing Abillity Deaf Visual Assistive Devices Glasses Teaching Assessment Preferences Verbal,Written, Audio/Visual, Demonstration Barriers to Learning None Readiness To Learn Excellent Willingness to Engage in Self Management High Activies Readiness to Engage in Self Management High Activities Anxiety Level Calm Cooperation Cooperative Perception Coherent Interest in Health Problem Asks Questions Education Importance Acknowledges Need Does Patient Smoke tobacco or other No substances Smoking Status Never smoker Is Patient Diabetic Yes Functional Assessment Assistive Device With Patient Yes List Device(s) with Patient walker Culture/Worship/Computer Operations Manager Cultural/Worship Needs that may affect No Treatment Plan Would you allow our hospital pin cleaner to No meet you for the purpose of spiritual/ emotional support? Computer Operations Manager to contact place of judaism No Teaching: Wound Center *Welcome to the Wound Center -Person Taught Patient,Family -Teaching Method Discussion -Response to teaching Verbalize understanding WC - Nurse 1 - General Ulcer Measurement Start: 03/08/22 10:09 Freq: Status: Active Protocol: Activity Type Activity Date Activity User E-Sign Co-Sign Detail Recorded Client Recorded Date Recorded By Document 03/08/22 10:09 MW [id number] 03/08/22 10:24 MW Document 03/15/22 10:19 KR [id number] 03/15/22 10:24 KR 03/08/22 03/15/22 10:09 10:19 Wound Center Nurse 1 #2 right foot bunion -Combined with other wound No -Current Size (cm) - Length 0.1 0.1 -Current Size (cm) - Width 0.1 0.1 -Current Size (cm) - Depth 0.1 0.1 -Total Square Cm 0.01 0.01 -Date of Last Picture (Recall this 03/08/22 field) -Photo Taken Yes -Epithelialization None Present -Tunneling No -Undermining/Tunneling No -Circular Undermining No -Exudate Amt Small None Present -Exudate Type Serosanguineous -Wound Margin Flat & Intact Distinct, Outline Attached -Granulation Amt None Present (0 Small (1-33%) %) -Granulation Quality N/A [place] -Slough/Fibrin Yes -Necrosis Amt Large (67-100%) None Present (0 %) -Necrotic Tissue Type Adherent Slough -Structure Exposed N/A -Texture (Vicki-wound Skin Appearance) Assessed, Assessed, Localized Edema Scarring -Moisture (Vicki-wound Skin Appearance) Assessed No Abnormality, Assessed -Color (Vicki-wound Skin Appearance) No Abnormality, No Abnormality, Assessed Assessed -Temperature (Vicki-wound Skin No Abnormality No Abnormality Appearance) (Pt Warm) (Pt Warm) -Tenderness on Palpation (Vicki-wound Yes No Skin Appearance) -Ulcer Cleansing Soap and Water Rinsed/ Irrigated with Saline -Foul Odor after Cleansing No No -Anesthetic Used 4% Lidocaine 5% Lidocaine Solution Gel Lower Limb Edema Present Yes Right Calf (cm) 35.0 Right Ankle (cm) 20.4 Left Calf (cm) 35.8 Left Ankle (cm) 21.0 WC - Nurse 2 - General Ulcer CM Notes Start: 03/08/22 10:09 Freq: Status: Active Protocol: Activity Type Activity Date Activity User E-Sign Co-Sign Detail Recorded Client Recorded Date Recorded By Document 03/08/22 10:47 [id number] 03/08/22 10:50 Document 03/15/22 10:36 [id number] 03/15/22 10:41 03/08/22 03/15/22 10:47 10:36 Wound Center Nurse 2 #2 right foot bunion -Time 10:49 -Correct Patient Yes No -Correct Side, Site, Position Yes No -Correct Procedure Yes No -Procedure Performed Yes No -Type of Procedure Debridement -Clinical Debridement Subcutaneous -Tissue Removed Subcutaneous -Post Debridement (cm) - Length 0.2 0 -Post Debridement (cm) - Width 0.3 0 -Post Debridement (cm) - Depth 0.1 0 -Total Square (Post) (cm) 0.06 0 -Area of Debridement (cm) - Length 0.2 0 -Area of Debridement (cm) - Width 0.3 0 -Total Square (Area) (cm) 0.06 0 -Tunneling No -Undermining/Tunneling No -Circular Undermining No -Wound/Ulcer Outcome Not Healed Healed- Epithelialized -Ulcer Cleansing Rinsed/ Irrigated with Saline -Foul Odor after Cleansing No -Bioengineered Tissue No -Bleeding Controlled with Pressure -Treatment Response Procedure Tolerated Well -Offloading Yes -Type of Offloading Surgical Shoe -Debridement - Subq, 1st 20sq cm Yes Pain Scale: 0-10 Numeric Is Patient Pain Free? Yes Yes - Nurse 3 - General Ulcer D/C NN Start: 03/08/22 10:09 Freq: Status: Active Protocol: Activity Type Activity Date Activity User E-Sign Co-Sign Detail Recorded Client Recorded Date Recorded By Document 03/08/22 10:58 MW [id number] 03/08/22 10:58 MW 03/08/22 10:58 Wound Care Nurse 3 #2 right foot bunion -Ulcer Cleansing Rinsed/ Irrigated with Saline -Foul Odor after Cleansing No -Negative Pressure Wound Therapy N/A -Primary Dressing Applied C Hydrogel ($), Mepilex Border -Mepilex Border 1 Treatment Response Procedure Tolerated Well Pain Scale: 0-10 Numeric Is Patient Pain Free? Yes Teaching: Wound Center Dressing Your Wound -Person Taught Patient,Family -Teaching Method Discussion -Response to teaching Verbalize understanding WC - Visit Discharge Discharge Condition Stable Ambulatory Status Ambulatory, Walker Transportation Private Auto Accompanied by sister in law Medication Reconcilliation completed & No provided to patient/care provider Clinical Summary of Care Provided Yes Assessment/Plan Assessment/Plan (1) Type 2 diabetes mellitus with diabetic polyneuropathy: CODE(S): E11.42 - Type 2 diabetes mellitus with diabetic polyneuropathy QUALIFIERS: Diabetes mellitus terminal make up operator insulin use: unspecified terminal make up operator insulin use status Qualified Code(s): E11.42 - Type 2 diabetes mellitus with diabetic polyneuropathy (2) Non-pressure chronic ulcer of other part of right foot with fat layer exposed: CODE(S): L97.512 - Non-pressure chronic ulcer of other part of right foot with fat layer exposed PLAN: Patient examined evaluated, all findings discussed with patient in detail. Wound healed at this time. Mepilex border applied to the wound site. Patient will use her stretch top-cover shoes. We will observe the site closely every 9 weeks with nail care if there is any residual wound formation. If there are any delays in wound healing we will consider advanced wound care products, nutritional supplementation, additional vascular work-up. Patient will follow up in 1 week. Discussed possibility of resection of the dorsal first metatarsal joint exostosis via cheilectomy if required to assist wound healing and prevent new wound formation in the future. We will delay this at this time due to advanced age and history of cardiac disease. (3) Hallux rigidus: CODE(S): M20.20 - Hallux rigidus, unspecified foot QUALIFIERS: Laterality: bilateral Qualified Code(s): M20.21 - Hallux rigidus, right foot; M20.22 - Hallux rigidus, left foot
== END 2022-03-15 14:11 | disposition home or self-care (01) ==
LOC: WC 10:15
PROVIDERS: PCP Family Medicine; Visit Provider Podiatrist
DX: E11.621 Type 2 diabetes mellitus with foot ulcer (principal); E11.51 Type 2 diabetes mellitus with diabetic peripheral angiopathy without gangrene; L97.512 Non-pressure chronic ulcer of other part of right foot with fat layer exposed; I11.0 Hypertensive heart disease with heart failure; I50.9 Heart failure, unspecified; I27.21 Secondary pulmonary arterial hypertension; E11.42 Type 2 diabetes mellitus with diabetic polyneuropathy; I48.0 Paroxysmal atrial fibrillation; E78.5 Hyperlipidemia, unspecified; Z79.82 Long term (current) use of aspirin; M20.20 Hallux rigidus, unspecified foot
CPT/HCPCS: 11042; 99213; G0463

== ENCOUNTER → 2022-04-19 | Outpatient (REF) | payer MEDICARE, SELFPAY ==
[2022-04-19 08:21] LABS: Bacteria 0 SEEN /hpf (None Seen); Mucous, Urine 0 SEEN /hpf (<or=2+); Red Blood Cells-Urine 0 SEEN /hpf (0-5); Squamous Epithelial Cells - UA 0 SEEN /hpf (5-10)
[2022-04-19 08:53] LABS: Color, Urine Yellow (Yellow); Glucose, Dipstick Normal (Normal); Ketone-Dipstick Negative (Negative); Leukocyte Esterase-Dipstick 25 /ul (Negative); Nitrite-Dipstick Negative (Negative); Occult Blood-Urine Negative /ul (Negative); Protein-Dipstick Negative (Negative); Urine Bilirubin Dipstick Negative (Negative); Urine Clarity Sl. Cloudy (Clear); Urine Urobilinogen Normal (Normal); Urine pH 6.5 (5.0 - 8.0)
[2022-04-19 09:10] LABS: White Blood Cells 0-5 SEEN /hpf (0-5)
== END | disposition home or self-care (01) ==
LOC: OLS.BROOKB 01:48
PROVIDERS: PCP Family Medicine; Visit Provider Family Medicine
DX: R41.0 Disorientation, unspecified (principal); R45.1 Restlessness and agitation
CPT/HCPCS: 81001; 87086; 87088

== ENCOUNTER → 2022-04-20 | Outpatient (REF) | payer MEDICARE, SELFPAY ==
[2022-04-20 07:14] LABS: Hemoglobin A1c 5.9 % (3.8-5.6)
== END | disposition home or self-care (01) ==
LOC: OLS.BROOKB 04:00
PROVIDERS: PCP Family Medicine; Referring Provider Family Medicine; Visit Provider Family Medicine
DX: E11.9 Type 2 diabetes mellitus without complications (principal); R53.83 Other fatigue
CPT/HCPCS: 36415; 83036

== ENCOUNTER → 2022-05-12 | Outpatient (REF) | payer MEDICARE, SELFPAY ==
[2022-05-12 09:47] LABS: Hemoglobin 16.9 g/dL (12.0-15.0); Mean Corp Hgb Conc 32.5 g/dL (32-36); Mean Corpuscular Hgb 33.5 pg (27.0-32.0); Mean Corpuscular Volume 103.2 fL (81-99); Mean Platelet Vol. 9.5 fl (6.2-12.0); Platelet Count 166 K/mm3 (150-450); RBC Distribution Width CV 12.9 % (11.6-14.6); RBC Distribution Width SD 49.7 fl (35.1-43.9); Red Blood Count 5.04 M/mm3 (4.2-5.4)
== END | disposition home or self-care (01) ==
LOC: OLS.BROOKB 05:00
PROVIDERS: PCP Family Medicine; Visit Provider Internal Medicine
DX: Z51.81 Encounter for therapeutic drug level monitoring (principal)
CPT/HCPCS: 36415; 85027

== ENCOUNTER 2022-09-24 17:01 | Emergency (ER) | payer MEDICARE, SELFPAY ==
[2022-09-24 17:03] VITALS: BP 112/84; PULSE 76; RESP 17; TEMP 36.2; O2SAT 87; BMI 22.3
--- NOTE | 2022-09-24 19:49 | RAD_ITS ---
EXAM: XR LEFT KNEE, 1 OR 2 VIEWS CLINICAL INDICATION: Injury/Pain TECHNIQUE: Frontal and/or lateral views of the left knee. This report was created using [employer] report generation technology. COMPARISON: None. FINDINGS: BONES/JOINTS: A total knee prosthesis in anatomic alignment. No acute fracture. Preservation of the joint space. No sclerotic or destructive changes observed. SOFT TISSUES: Unremarkable. No soft tissue swelling or gas. No radiopaque foreign body. RAD/Knee 1 or 2 Views IMPRESSION: No acute osseous abnormalities. There is a knee prosthesis in anatomic alignment. Electronically Signed: Iron Cao MD at 20:42 EST ,
--- NOTE | 2022-09-24 19:49 | RAD_ITS ---
EXAM: XR LEFT SHOULDER COMPLETE, 2 OR MORE VIEWS CLINICAL INDICATION: Injury/Pain TECHNIQUE: Two or more views of the left shoulder. This report was created using [employer] report generation technology. COMPARISON: None. FINDINGS: BONES/JOINTS: There is a fracture the greater tuberosity as well as a fracture of the neck with mild impaction. The head is located in the glenoid fossa. Preservation of the joint space. No sclerotic or destructive changes observed. SOFT TISSUES: Unremarkable. No soft tissue swelling or gas. No radiopaque foreign body. RAD/Shoulder min 2 Views IMPRESSION: Fractured humeral neck with mild impaction. There is also a fracture of the greater tuberosity. There is no dislocation. Electronically Signed: Iron Cao MD at 20:54 EST ,
--- NOTE | 2022-09-24 20:15 | RAD_ITS ---
EXAM: XR LEFT HIP WITH PELVIS WHEN PERFORMED, 2 OR 3 VIEWS CLINICAL INDICATION: Injury/Pain TECHNIQUE: Two or three views of the left hip with pelvis when performed. This report was created using [employer] report generation technology. COMPARISON: None. FINDINGS: BONES/JOINTS: There are bilateral total hip prostheses. No displaced fracture. No destructive or sclerotic lesions. Note that overlapping bowel shadows may however obscure fine detail. Sacroiliac joint is unremarkable. No widening of the pubic symphysis. SOFT TISSUES: Unremarkable. No soft tissue swelling or gas. RAD/HIP, UNI W/ Pelvis 2-3 Views IMPRESSION: Total left hip prosthesis with no acute osseous abnormality. Electronically Signed: Iron Cao MD at 20:55 EST ,
[2022-09-24] MEDS: HYDROcodone Bitartrate/Apap 5/325 Tablet PO (20:30)
--- NOTE | 2022-09-24 20:42 | EDS_ITS ---
HPI HPI - Fall History of Present Illness Chief Complaint: Fall Occured/Mechanism Occurred: Today Mechanism/Context: Yes same level fall Pain/Injury Location: Left shoulder, left hip Quality of Pain: Aching Worsened by: Movement Relieved by: Rest Associated Symptoms Associated Symptoms: Negative for Parasthesias, Weakness, Loss of function, Inability to ambulate, Loss of consciousness or Amnesia Narrative Narrative: Patient presents after a fall that occurred today. Patient states she was bending forward trying to throw something into a trash can when she fell forward. Patient states she landed on her left side. Patient denies any head injury or loss of consciousness. Patient states her pain is mainly over her left shoulder and left hip. Patient also admits to some mild pain in her low back. Patient states her pain is aching. Patient states it is worse with movement. Patient states it is better with rest. Patient denies any paresthesias or weakness. Patient denies any other injuries. [facility] Medical History Aortic root dilatation Atrial fibrillation Atrial fibrillation with RVR Chronic venous insufficiency Congestive heart failure Dehydration Elevated troponin Encephalopathy acute Essential (primary) hypertension Fall Fall at home Frailty History of meningioma History of subarachnoid hemorrhage Hyperlipidemia Inactivity Leg edema Leg swelling Malnutrition Meningioma Meningioma Mitral valve annular calcification New onset of congestive heart failure Non-rheumatic tricuspid valve insufficiency Nonrheumatic mitral (valve) insufficiency Nonrheumatic tricuspid valve regurgitation Obesity Other secondary pulmonary hypertension Paroxysmal atrial fibrillation SAH (subarachnoid hemorrhage) SAH (subarachnoid hemorrhage) Secondary pulmonary arterial hypertension Sepsis due to Escherichia coli (E. 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 Varicose veins of leg with swelling Venous stasis ulcer Weakness generalized Home Medications acetaminophen 500 mg tablet (Tylenol Extra Strength) 1,000 mg PO BID PRN Pain 04/01/21 [History Last Taken 07/07/21] gabapentin 100 mg capsule 100 mg PO TID NERVE PAIN 04/01/21 [History Last Taken 07/05/21] aspirin 81 mg tablet,delayed release 81 mg PO DAILY@0800 #30 tabs 07/09/21 [Rx Last Taken Unknown] furosemide 40 mg tablet (Lasix) 40 mg PO BID #60 tabs 07/09/21 [Rx Last Taken Unknown] donepezil 5 mg tablet 10 mg PO DAILY #0 tabs 08/27/21 [Rx Last Taken Unknown] aluminum-mag hydroxide-simethicone 200 mg-200 mg-20 mg/5 mL oral susp (Silvana- Lanta) 5 ml PO Q3H PRN Gastrointestinal Spasms Or Cramping 03/08/22 [History Last Taken Unknown] ascorbic acid (vitamin C) 500 mg chewable tablet (Vitamin C) 500 mg PO DAILY 03/08/22 [History Last Taken Unknown] duloxetine 30 mg capsule,delayed release sprinkle 30 mg PO DAILY 03/08/22 [History Last Taken Unknown] erythromycin 5 mg/gram (0.5 %) eye ointment 1 applic EACH EYE BID 03/08/22 [History Last Taken Unknown] moxifloxacin 0.5 % viscous eye drops 1 drp LEFT EYE BID 03/08/22 [History Last Taken Unknown] multivitamin 1 tab PO DAILY 03/08/22 [History Last Taken Unknown] hydrocodone-acetaminophen 5-325mg 5mg-325mg 1 tab PO Q6H PRN PRN Pain 3 days #10 TABLETS 09/24/22 [Rx Last Taken Unknown] Allergy/AdvReac Type Severity Reaction Status Date / Time house dust Allergy Intermediate NEEDS Verified 09/24/22 17:02 FOLLOW-UP Penicillins Allergy PT UNSURE Verified 09/24/22 17:02 OF REACTION atorvastatin [From Lipitor] AdvReac PT UNSURE Verified 09/24/22 17:02 OF REACTION cabbage AdvReac Diarrhea Verified 09/24/22 17:02 celecoxib [From Celebrex] AdvReac PT UNSURE Verified 09/24/22 17:02 OF REACTION esomeprazole [From Nexium] AdvReac PT UNSURE Verified 09/24/22 17:02 OF REACTION metformin AdvReac PT UNSURE Verified 09/24/22 17:02 OF REACTION tomato AdvReac Diarrhea Verified 09/24/22 17:02 tree nut AdvReac Diarrhea Verified 09/24/22 17:02 Family History Brother Family history of PTCA Father Heart disease CVA (cerebral vascular accident) Surgical History H/O total hip arthroplasty History of carpal tunnel surgery History of craniotomy History of total hysterectomy Hx of appendectomy Hx of total knee arthroplasty S/P craniotomy Social History household members: none Smoking Status: Never smoker alcohol intake: never substance use type: does not use caffeine: No what type of physical activity do you participate in: weight training frequency: daily duration: 15-30 minutes/day seatbelt use: always do you feel safe at home: Yes ROS ROS ED Constitutional Constitutional ED: Denies chills or fever(s) Eyes Eyes: Denies blurry vision or change in vision ENT ENT ED: Denies rhinorrhea or sore throat Cardiovascular Cardiovascular: Denies chest pain or palpitations Respiratory/Chest Respiratory/Chest: Denies cough or dyspnea Gastrointestinal Gastrointestinal: Denies nausea or vomiting Genitourinary Genitourinary ED: Denies dysuria or hematuria Musculoskeletal Musculoskeletal: Reports back pain and neck pain Integumentary Denies abscess or rash Neurologic Neurologic: Denies headache(s) or weakness Allergic/Immunologic Allergic/Immunologic ED: Denies mouth swelling or urticaria EXAM Physical Exam Const Vital Signs: 09/24/22 17:03 09/24/22 19:23 Temperature 97.2 F L Temperature Source Temporal Pulse Rate 76 Respiratory Rate 17 Respiratory Effort Normal Non-Labored Respiratory Depth Normal Respiratory Pattern Normal Blood Pressure 112/84 H Blood Pressure Mean 93 Pulse Ox 87 Oxygen Delivery Method Room Air Nasal Cannula Positive well nourished and well developed General Appearance ED: well developed and NAD HEENT Reports normocephalic atraumatic Neck full ROM and supple Resp normal respiratory effort and clear to auscultation bilaterally Cardio regular rate and regular rhythm GI non-tender Palpation: soft Extremity Extremity Narrative: There is tenderness over the left shoulder. There is no obvious deformity noted. Range of motion was limited in all motions of the left shoulder secondary to pain. There is mild tenderness over the anterior and lateral aspects of the left hip. There is no shortening or external rotation of the left lower extremity. There is mild tenderness over the left knee. There is no deformity. There is no edema or ecchymosis. There is no bony crepitance or step-off. Range of motion was limited in all motions of the left hip secondary to pain. Strength is 5/5 bilaterally in the upper and lower extremities. Radial and pedal pulses are equal bilaterally. Sensation was intact to light touch bilaterally in the upper and lower extremities. Neuro oriented x3, CN's II-XII intact bilaterally, moves all extremities, no focal motor deficits and no sensory deficits noted Sensorium / Orientation: alert Motor Exam: strength 5/5 throughout Psych mental status grossly normal MDM MDM MDM Narrative Medical decision making narrative: Patient was given a dose of Geddes here. X-rays of the left hip were obtained. There are 3 views. On my interpretation, there is no acute fracture or dislocation. The hip prosthesis is in place. Radiologist also interpreted the x-rays and agrees. X-rays of the left knee were obtained. There are 2 views. On my interpretation, there is no acute fracture. There is no dislocation. The knee prosthesis is in place. Radiologist also interpreted the x-rays and agrees. X-rays of the left shoulder were obtained. There are 3 views. On my interpretation, there is a fracture through the humeral neck. There is a fracture of the greater tuberosity. There is no dislocation. There are degenerative changes noted. Radiologist also interpreted the x-rays and agrees. Patient was given a prescription for Geddes. Patient was placed in a sling and swath. Patient was instructed to follow-up with her primary care physician in 5 to 7 days. Patient understood and was agreeable with the plan. All questions were answered. Radiography Diagnostic Testing: Clinical Impression(s) from Imaging Studies Knee X-Ray 09/24/22 19:49 IMPRESSION: No acute osseous abnormalities. There is a knee prosthesis in anatomic alignment. Electronically Signed: Iron Cao MD at 20:42 EST , Shoulder X-Ray 09/24/22 19:49 IMPRESSION: Fractured humeral neck with mild impaction. There is also a fracture of the greater tuberosity. There is no dislocation. Electronically Signed: Iron Cao MD at 20:54 EST , Hip/Pelvis X-Ray 09/24/22 20:15 IMPRESSION: Total left hip prosthesis with no acute osseous abnormality. Electronically Signed: Iron Cao MD at 20:55 EST Reading Location ID and State: [facility] / [place] Tel , Service support , Discharge Plan Triage Chief Complaint: Fall ED Provider: Jaren Edwards Dx/Rx/DC Orders Clinical Impression: Fracture of proximal end of left humerus, Fall Instructions: ED Fracture, Shoulder Prescriptions: New hydrocodone-acetaminophen [hydrocodone-acetaminophen] 1 TABLET tablet 1 tab PO Q6H PRN PRN (Reason: Pain) 3 Days Qty: 10 0RF No Action acetaminophen [Tylenol Extra Strength] 500 mg Tablet 1,000 mg PO BID PRN (Reason: Pain) gabapentin 100 mg capsule 100 mg PO TID aspirin 81 mg Tablet,Delayed Release (Dr/Ec) 81 mg PO DAILY@0800 Qty: 30 2RF furosemide [Lasix] 40 mg tablet 40 mg PO BID Qty: 60 2RF donepezil 5 mg Tablet 10 mg PO DAILY Qty: 0 0RF multivitamin Tablet 1 tab PO DAILY erythromycin 5 mg/gram (0.5 %) Ointment 1 applic EACH EYE BID ascorbic acid (vitamin C) [Vitamin C] 500 mg Tablet,Chewable 500 mg PO DAILY alum-mag hydroxide-simeth [Silvana-Lanta] 200-200-20 mg/5 mL Suspension 5 ml PO Q3H PRN (Reason: Gastrointestinal Spasms Or Cramping) moxifloxacin 0.5 % Drops, Viscous 1 drp LEFT EYE BID duloxetine 30 mg Capsule, Delayed Rel Sprinkle 30 mg PO DAILY Primary Care Provider: Alma Delia Edouard Referrals: Alma Delia Edouard MD [Primary Care Provider] - 5-7 Days Disposition Disposition: Home, Self Care
[2022-09-24 21:39] VITALS: BP 116/84; PULSE 74; RESP 16; O2SAT 96
--- NOTE | 2022-09-24 21:49 | ED.RN ---
ETA FOR PHYSICIANS IS 0045, PHYSICIANS IS TRYING TO OUTSOURCE
[2022-09-25] VITALS: BP 112/70; PULSE 74; O2SAT 96
== END 2022-09-25 01:06 | disposition home or self-care (01) ==
PROVIDERS: Emergency Provider Emergency Medicine; PCP Family Medicine; Visit Provider Emergency Medicine
DX: S42.292A Other displaced fracture of upper end of left humerus, initial encounter for closed fracture (principal); Z96.642 Presence of left artificial hip joint; W18.30XA Fall on same level, unspecified, initial encounter
CPT/HCPCS: 73030; 73502; 73560; 99284

== ENCOUNTER 2022-09-30 11:26 | Inpatient (IN) | payer MEDICARE, SELFPAY ==
[2022-09-30] VITALS (11 sets, daily range): BP systolic 110–126; BP diastolic 71–92; PULSE 73–100; RESP 14–24; TEMP 36–36.5; O2SAT 88–97; BMI 27.4
--- NOTE | 2022-09-30 12:02 | ED.RN ---
THIS RN CONTACTED PT CHANTEL SINCLAIR TO INFORM HER OF PT PRESENCE IN THE EMERGENCY ROOM AT PT REQUEST.
--- NOTE | 2022-09-30 12:05 | RAD_ITS ---
STUDY: X-RAY - LEFT FEMUR REASON FOR STUDY: Female, 87 years old. Lower extremity pain following a recent fall. TECHNIQUE: 4 view(s) of the femur. COMPARISON: Comparison is made with prior examination dated 09/24/2022. FINDINGS: The patient is status post left total hip replacement. There is evidence of a nondisplaced buckle type fracture in the subtrochanteric region. Soft tissue swelling. RAD/Femur Min 2 Views IMPRESSION: Findings suggestive of a nondisplaced buckle type fracture in the subtrochanteric region. Electronically Signed: Michael Vallejo MD at 13:01 EST ,
--- NOTE | 2022-09-30 12:06 | EDS_ITS ---
HPI History of Present Illness Chief Complaint: Lower Extremity Injury Narrative Narrative: 87-year-old female presenting with left leg pain. She states that she had a fall on 09/24/2022 and she was seen here after shoulder. She was discharged home with [place] for pain. She states she has not had another fall but has not been walking and has continued pain in the left leg. She states that she had an x-ray done today as an outpatient which showed a fractured femur. Patient does have history of bilateral hip replacements in the past. She cannot recall her surgeon. [facility] Medical History Aortic root dilatation Atrial fibrillation Atrial fibrillation with RVR Chronic venous insufficiency Congestive heart failure Dehydration Elevated troponin Encephalopathy acute Essential (primary) hypertension Fall Fall at home Frailty History of meningioma History of subarachnoid hemorrhage Hyperlipidemia Inactivity Leg edema Leg swelling Malnutrition Meningioma Meningioma Mitral valve annular calcification New onset of congestive heart failure Non-rheumatic tricuspid valve insufficiency Nonrheumatic mitral (valve) insufficiency Nonrheumatic tricuspid valve regurgitation Obesity Other secondary pulmonary hypertension Paroxysmal atrial fibrillation SAH (subarachnoid hemorrhage) SAH (subarachnoid hemorrhage) Secondary pulmonary arterial hypertension Sepsis due to Escherichia coli (E. 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 Varicose veins of leg with swelling Venous stasis ulcer Weakness generalized Home Medications acetaminophen 500 mg tablet (Tylenol Extra Strength) 1,000 mg PO BID PRN Pain 04/01/21 [History Last Taken 09/30/22] gabapentin 100 mg capsule 100 mg PO TID NERVE PAIN 04/01/21 [History Last Taken 09/30/22] aspirin 81 mg tablet,delayed release 81 mg PO DAILY@0800 #30 tabs 07/09/21 [Rx Last Taken 09/30/22] furosemide 40 mg tablet (Lasix) 40 mg PO BID #60 tabs 07/09/21 [Rx Last Taken 09/30/22] aluminum-mag hydroxide-simethicone 200 mg-200 mg-20 mg/5 mL oral susp (Silvana- Lanta) 5 ml PO Q3H PRN Gastrointestinal Spasms Or Cramping 03/08/22 [History Last Taken Unknown] duloxetine 30 mg capsule,delayed release sprinkle 30 mg PO DAILY 03/08/22 [History Last Taken 09/30/22] multivitamin 1 tab PO DAILY 03/08/22 [History Last Taken 09/30/22] divalproex 125 mg capsule,delayed release sprinkle 125 mg PO QHS 09/30/22 [History Last Taken 09/29/22] hydroxyzine pamoate 25 mg capsule 25 mg PO BID PRN Anxiety 09/30/22 [History Last Taken Unknown] Allergy/AdvReac Type Severity Reaction Status Date / Time house dust Allergy Intermediate NEEDS Verified 09/30/22 11:26 FOLLOW-UP Penicillins Allergy PT UNSURE Verified 09/30/22 11:26 OF REACTION atorvastatin [From Lipitor] AdvReac PT UNSURE Verified 09/30/22 11:26 OF REACTION cabbage AdvReac Diarrhea Verified 09/30/22 11:26 celecoxib [From Celebrex] AdvReac PT UNSURE Verified 09/30/22 11:26 OF REACTION esomeprazole [From Nexium] AdvReac PT UNSURE Verified 09/30/22 11:26 OF REACTION metformin AdvReac PT UNSURE Verified 09/30/22 11:26 OF REACTION tomato AdvReac Diarrhea Verified 09/30/22 11:26 tree nut AdvReac Diarrhea Verified 09/30/22 11:26 Family History Brother Family history of PTCA Father Heart disease CVA (cerebral vascular accident) Surgical History H/O total hip arthroplasty History of carpal tunnel surgery History of craniotomy History of total hysterectomy Hx of appendectomy Hx of total knee arthroplasty S/P craniotomy Social History household members: none Smoking Status: Never smoker alcohol intake: never substance use type: does not use caffeine: No what type of physical activity do you participate in: weight training frequency: daily duration: 15-30 minutes/day seatbelt use: always do you feel safe at home: Yes ROS ROS ED Constitutional Constitutional ED: Denies chills or fever(s) Eyes Eyes: Denies blurry vision or diplopia ENT ENT ED: Denies rhinorrhea or sore throat Cardiovascular Cardiovascular: Denies chest pain or palpitations Respiratory/Chest Respiratory/Chest: Denies cough Gastrointestinal Gastrointestinal: Denies abdominal pain, nausea or vomiting Genitourinary Genitourinary ED: Denies dysuria or hematuria Musculoskeletal Musculoskeletal: Reports back pain and other Details: Left leg pain Integumentary Denies abscess or Abrasions Neurologic Neurologic: Denies headache(s) or paresthesias Psychiatric Psychiatric: Denies anxiety EXAM Physical Exam Const Vital Signs: 09/30/22 11:27 09/30/22 11:57 09/30/22 11:57 Temperature 96.9 F L Temperature Source Temporal Pulse Rate 77 Respiratory Rate 16 Blood Pressure 126/77 H Blood Pressure Mean 93 Pulse Ox 92 88 94 Oxygen Delivery Method Room Air Room Air Nasal Cannula Oxygen Flow Rate (L/min) 1.5 09/30/22 13:18 09/30/22 13:43 09/30/22 15:03 Temperature Temperature Source Pulse Rate 100 88 Respiratory Rate 18 24 H Blood Pressure 120/81 H 110/82 H Blood Pressure Mean 94 91 Pulse Ox 93 93 92 Oxygen Delivery Method Nasal Cannula Nasal Cannula Nasal Cannula Oxygen Flow Rate (L/min) 1.5 1.5 1.5 Positive well nourished General Appearance ED: NAD HEENT HEENT Narrative: Slight bruising/excoriation below the left eye. normocephalic Chest Wall inspection of chest normal Resp normal respiratory effort and no retractions Cardio regular rate and regular rhythm Neuro oriented x3 and CN's II-XII intact bilaterally Sensorium / Orientation: alert Motor Exam: strength 5/5 throughout Psych mental status grossly normal MDM MDM MDM Narrative Medical decision making narrative: Patient presenting for evaluation of left leg pain. She states she had a x-ray performed as an outpatient which showed a left femur fracture. I am unable to visualize this so I did repeat the x-ray of the left femur and it does appear to be a buckle fracture in the subtrochanteric region. While being evaluated it was noted that the patient's oxygen saturations were dropping and she dropped to 87% on room air. She does not complain of shortness of breath. She states he is not typically on oxygen. She was noted to blood work and her CBC shows a minor leukocytosis of 11.7. Her hemoglobin and hematocrit are stable. Renal function and electrolytes unremarkable. BNP was elevated at 1610. High- sensitivity troponin was elevated at 97. She has not complained of any chest pain. Intermittently in the ER she has been tachycardic but has a history of paroxysmal A. fib. She also was a little hypoxic. Both of these could cause her troponin to be elevated. Chest x-ray my interpretation shows mild vascular congestion. Because of her recent immobilization and hypoxia I did obtain a D- dimer which is elevated at 5.43. Patient had subsequent CTA which did not show any PEs or dissection. There is also noted to be a left pleural effusion on the CTA. No evidence of infiltrate. Impression: 1. Left hip fracture 2. Elevated troponin 3. Hypoxic respiratory failure Lab Data Attestation: I reviewed the patient's lab results. Labs: Laboratory Results - last 24 hr 09/30/22 09/30/22 09/30/22 13:15 13:15 13:15 WBC 11.7 H RBC 4.54 Hgb 14.9 Hct 45.0 MCV 99.1 H MCH 32.8 H MCHC 33.1 RDW Std Deviation 49.5 H RDW Coeff of Margaret 13.8 Plt Count 233 MPV 9.3 Immature Gran % (Auto) 0.400 Neut % (Auto) 82.4 H Lymph % (Auto) 8.0 L [place] % (Auto) 7.8 Eos % (Auto) 1.0 Baso % (Auto) 0.4 Absolute Neuts (auto) 9.6 H Absolute Lymphs (auto) 0.93 Nucleated RBC % 0.2 D-Dimer Quant (PE/DVT) 5.43 H* Sodium 137 Potassium 4.3 Chloride 102 Carbon Dioxide 28.0 Anion Gap 7 BUN 33 H Creatinine 1.11 H Estim Creat Clear Calc 31.42 Est GFR (MDRD) Af Amer 60 Est GFR (MDRD) Non-Af 50 L BUN/Creatinine Ratio 29.7 H Glucose 153 H Calcium 8.5 Troponin I High Sens 97 H B-Natriuretic Peptide 09/30/22 13:15 WBC RBC Hgb Hct MCV MCH MCHC RDW Std Deviation RDW Coeff of Margaret Plt Count MPV Immature Gran % (Auto) Neut % (Auto) Lymph % (Auto) Nicollet % (Auto) Eos % (Auto) Baso % (Auto) Absolute Neuts (auto) Absolute Lymphs (auto) Nucleated RBC % D-Dimer Quant (PE/DVT) Sodium Potassium Chloride Carbon Dioxide Anion Gap BUN Creatinine Estim Creat Clear Calc Est GFR (MDRD) Af Amer Est GFR (MDRD) Non-Af BUN/Creatinine Ratio Glucose Calcium Troponin I High Sens B-Natriuretic Peptide 1610.6 H Radiography Diagnostic Testing: Clinical Impression(s) from Imaging Studies Femur X-Ray 09/30/22 12:05 IMPRESSION: Findings suggestive of a nondisplaced buckle type fracture in the subtrochanteric region. Electronically Signed: Michael Vallejo MD at 13:01 EST , Lumbar Spine X-Ray 09/30/22 12:08 IMPRESSION: Degenerative changes of the spine, as detailed above. 50% loss of height of the L3 vertebrae. Electronically Signed: Michael Vallejo MD at 13:02 EST , Chest X-Ray 09/30/22 13:05 IMPRESSION: Mild degree of vascular congestion mild scarring at the left lung base Electronically Signed: Michael Vallejo MD at 13:50 EST , Chest CTA 09/30/22 13:54 IMPRESSION: No evidence of a pulmonary embolus or Cardiomegaly. Minimal left pleural effusion with linear atelectasis and/or scarring at the lung bases. Electronically Signed: Michael Vallejo MD at 15:05 EST , Discharge Plan Triage Chief Complaint: Lower Extremity Injury ED Provider: Narayan Crane Dx/Rx/DC Orders Prescriptions: No Action acetaminophen [Tylenol Extra Strength] 500 mg Tablet 1,000 mg PO BID PRN (Reason: Pain) gabapentin 100 mg capsule 100 mg PO TID aspirin 81 mg Tablet,Delayed Release (Dr/Ec) 81 mg PO DAILY@0800 Qty: 30 2RF furosemide [Lasix] 40 mg tablet 40 mg PO BID Qty: 60 2RF multivitamin Tablet 1 tab PO DAILY alum-mag hydroxide-simeth [Silvana-Lanta] 200-200-20 mg/5 mL Suspension 5 ml PO Q3H PRN (Reason: Gastrointestinal Spasms Or Cramping) duloxetine 30 mg Capsule, Delayed Rel Sprinkle 30 mg PO DAILY divalproex 125 mg capsule, delayed rel sprinkle 125 mg PO QHS hydroxyzine pamoate 25 mg capsule 25 mg PO BID PRN (Reason: Anxiety) Primary Care Provider: Alma Delia Edouard Referrals: Alma Delia Edouard MD [Primary Care Provider] -
--- NOTE | 2022-09-30 12:08 | RAD_ITS ---
STUDY: X-RAY - LUMBAR SPINE REASON FOR EXAM: Female, 87 years old. Back pain TECHNIQUE: 2 view(s) of the lumbar spine were obtained. COMPARISON: None FINDINGS: Normal lumbar lordosis. There is a mild levoscoliosis of the lumbar spine. Mild anterior listhesis of L5 on S1 most likely secondary to facet joint osteoarthritis. 50% loss of height of the L3 vertebrae. There is multi-level degenerative disc disease with multi-level disc space narrowing. There is atherosclerotic calcification of the abdominal aorta without a demonstrated aneurysm. RAD/Lumbar Spine 2 or 3 Views IMPRESSION: Degenerative changes of the spine, as detailed above. 50% loss of height of the L3 vertebrae. Electronically Signed: Michael Vallejo MD at 13:02 EST ,
--- NOTE | 2022-09-30 12:43 | EKG12_ITS ---
Test Reason : Blood Pressure : / mmHG Vent. Rate : 108 BPM Atrial Rate : 000 BPM P-R Int : 000 ms QRS Dur : 126 ms QT Int : 328 ms P-R-T Axes : 000 082 -32 degrees QTc Int : 439 ms Atrial fibrillation with rapid ventricular response with premature ventricular or aberrantly conducte d complexes Right bundle branch block T wave abnormality, consider inferolateral ischemia Abnormal ECG Confirmed by ELMA RAMÍREZ, FRANCISCO JAVIER ([id number]), script editor DEVORAH VALDEZ ([id number]) on 10/04/2022 11:45:03 AM Referred By: Confirmed By:FRANCISCO JAVIER WILLS MD
--- NOTE | 2022-09-30 13:05 | RAD_ITS ---
STUDY: X-RAY CHEST REASON FOR EXAM: Female, 87 years old. Chest pain. TECHNIQUE: Single AP portable view of the chest. COMPARISON: Comparison is made with prior study 08/24/2021. FINDINGS: Mild increased linear markings at the left lung base suggestive of scarring. Mild degree of vascular congestion. There is no demonstrated pleural abnormality. There is moderate cardiac enlargement. Normal mediastinum and jo-ann. Normal visualized pulmonary arteries. There is atherosclerotic calcification of the aortic arch with tortuosity. There are diffuse degenerative changes of the visualized thoracic spine. Nondisplaced fracture of the surgical neck of the left humerus. There is no demonstrated abnormality of the visualized soft tissue structures of the upper abdomen. RAD/Chest 1 View (Portable) IMPRESSION: Mild degree of vascular congestion mild scarring at the left lung base Electronically Signed: Michael Vallejo MD at 13:50 EST ,
[2022-09-30 13:31] LABS: Absolute Lymphocyte Count 0.93 X10^3/uL (0.83-4.51); Absolute Neutrophil Count 9.6 X10^3/uL (2.0-7.7); Basophil# 0.05 X10^3/uL; Basophil% 0.4 % (0-1); Eosinophil# 0.12 X10^3/uL; Hemoglobin 14.9 g/dL (12.0-15.0); Lymphocyte # 0.93 X10^3/ul (0.83-4.51); Mean Corp Hgb Conc 33.1 g/dL (32-36); Mean Corpuscular Hgb 32.8 pg (27.0-32.0); Mean Corpuscular Volume 99.1 fL (81-99); Mean Platelet Vol. 9.3 fl (6.2-12.0); Monocyte# 0.91 X10^3/uL; Monocyte% 7.8 % (0-10); NRBC Flagged by Analyzer 0.2 % (0-5); Neutrophil # 9.62 X10^3/uL (2.7-7.7); Neutrophil % 82.4 % (47-70); Platelet Count 233 K/mm3 (150-450); RBC Distribution Width CV 13.8 % (11.6-14.6); RBC Distribution Width SD 49.5 fl (35.1-43.9); Red Blood Count 4.54 M/mm3 (4.2-5.4); White Blood Count 11.7 K/mm3 (4.4-11.0)
[2022-09-30 13:48] LABS: BNP,B-Type NATRIURETIC PEPTIDE 1610.6 pg/mL (0-100)
[2022-09-30 13:51] LABS: Anion Gap 7 (5-15); BUN 33 mg/dL (7-18); BUN/Creat Ratio 29.7 RATIO (10-20); Calcium,Total 8.5 mg/dL (8.5-10.1); Chloride 102 mmol/L (98-107); Creatinine, Serum 1.11 mg/dL (0.55-1.02); EST Glomerular Filtration Rate 50 mL/min (>60); Est Glom Filt Rate - Afr Amer 60 mL/min (>60); Estimated Creatinine Clearance 31.42 ml/min; Glucose 153 mg/dL (74-106); Potassium 4.3 mmol/L (3.5-5.1); Sodium Level 137 mmol/L (136-145); Troponin-I HS 97 pg/mL (3.0-54.0)
[2022-09-30 13:53] LABS: D-Dimer Quantitative (DVT/PE) 5.43 FEU/ug/m (0.27-0.49)
--- NOTE | 2022-09-30 13:54 | CT_ITS ---
STUDY: CTA CHEST REASON FOR EXAM: Female, 87 years old. Hypoxic respiratory failure RADIATION DOSAGE (If Supplied By Facility): CTDIvol = ( 15.30 ) mGy, DLP = ( 437.69 ) mGycm TECHNIQUE: The examination was performed with the intravenous administration of IV 100mL Isovue-370. Post-processing of the angiographic images was performed, with multiplanar reformation and 3D reconstruction. Individualized dose optimization techniques were used for this CT. COMPARISON: None. FINDINGS: Normal enhancement of the main pulmonary artery and right and left pulmonary arteries. Normal enhancement of the bilateral peripheral pulmonary arteries. There is no demonstrated pulmonary embolism. There is atherosclerotic calcification of the aortic arch with tortuosity. There is no demonstrated aortic dissection. There are calcifications of the coronary arteries. Cardiomegaly. Calcification of the mitral valve annulus. Normal mediastinum. Normal hilar regions. Normal visualized trachea and bronchi. The lungs are well expanded. Tiny left pleural effusion with mild increased markings at the lung bases suggestive of underlying atelectasis and/or scarring. Normal chest wall structures. There are degenerative changes of thoracic spine. Small hiatal hernia. CT/CTA Chest W/WO Contrast IMPRESSION: No evidence of a pulmonary embolus or Cardiomegaly. Minimal left pleural effusion with linear atelectasis and/or scarring at the lung bases. Electronically Signed: Michael Vallejo MD at 15:05 EST ,
[2022-09-30] MEDS: HYDROcodone Bitartrate/Apap 5/325 Tablet PO (14:07)
--- NOTE | 2022-09-30 14:09 | CM.ED ---
Addendum entered by Aiyana Christianson 09/30/22 14:11: Patient is from [facility]. Original Note: Per RN patient is at [facility]. POA and family feel that patient may need SNF. Aiyana ARNETT
--- NOTE | 2022-09-30 15:37 | HP.PCM.HOS_ITS ---
HPI - General General Date of Admission: 09/30/22 Date of Service: 09/30/22 Chief Complaint: Recent prior fall, persistent leg pain. HPI Narrative The patient is an 87 y/o F w/ PMHx: Valvular Heart Disease, Aortic Root Dilation, PAF, Chronic venous stasis disease, Diastolic CHF, Hx Meningioma, Hx SAH status post prior craniotomy, Diabetes mellitus type II, Anxiety and Depression, HTN, HLD who presents to the [facility] ED on 09/30/22 with history of fall remotely on 09/24/2022 with at that time attempt to bend forward to throw something to a trash can and unfortunately she fell forward and landed on her left shoulder with no loss of consciousness or head injury at that time with at that point some discomfort of the left shoulder as well as the left hip and the low back with plain film of the knee, shoulder as well as hip and pelvis at that time with only acute findings fractured humeral neck with mild impaction as well as fracture of the greater tuberosity with no dislocation with NWB status to the LUE and sling usage; however she has had ongoing persistent left lower extremity/hip discomfort prompting outpatient plain film which was reportedly notable for femur fracture prompting ED referral for further evaluation. Currently is rate her left upper extremity discomfort with any accidental movements 2-3 out of 10 in severity, improved since her fall on 09/24/2022 and reports left hip/lower extremity discomfort primarily with weightbearing at times which been very difficult 5-6 out of 10 in severity. She reports the discomfort is dull aching constant but more sharp with weightbearing at times. Work-up in the ED included T96.9, heart rate 77, BP 126/77, respiratory rate 16, initially 92% on room air however did decrease to 88% eventually transitioned to 1.5 L nasal cannula noted to be 94% oxygenation, CBC with WC 11.7, hemoglobin 14.9, platelet 233 with left shift, D-dimer 5.43, BMP with BUN/creatinine 33/1.11, glucose 153, troponin 97, BNP 1610.6, plain film of the left femur with findings suggestive of a nondisplaced buckle type fracture in the subtrochanteric region, plain film of the lumbar spine with degenerative changes of the spine with a 50% loss of height at the L3 vertebrae, chest x-ray with mild degree of vascular congestion as well as mild scarring at the left lung base, CTPA with no evidence of pulmonary embolism, tiny left pleural effusion with mild increased markings at the lung bases suggestive of underlying atelectasis and/or scarring, evidence of cardiomegaly, EKG rate controlled atrial fibrillation with no acute evidence of ischemia. In the ED patient administered hydrocodone 1 tablet p.o. x1. PFSH Medical History Aortic root dilatation Atrial fibrillation Atrial fibrillation with RVR Chronic venous insufficiency Congestive heart failure Dehydration Elevated troponin Encephalopathy acute Essential (primary) hypertension Fall Fall at home Frailty History of meningioma History of subarachnoid hemorrhage Hyperlipidemia Inactivity Leg edema Leg swelling Malnutrition Meningioma Meningioma Mitral valve annular calcification New onset of congestive heart failure Non-rheumatic tricuspid valve insufficiency Nonrheumatic mitral (valve) insufficiency Nonrheumatic tricuspid valve regurgitation Obesity Other secondary pulmonary hypertension Paroxysmal atrial fibrillation SAH (subarachnoid hemorrhage) SAH (subarachnoid hemorrhage) Secondary pulmonary arterial hypertension Sepsis due to Escherichia coli (E. 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 Varicose veins of leg with swelling Venous stasis ulcer Weakness generalized Home Medications acetaminophen 500 mg tablet (Tylenol Extra Strength) 1,000 mg PO BID PRN Pain 04/01/21 [History Last Taken 09/30/22] gabapentin 100 mg capsule 100 mg PO TID NERVE PAIN 04/01/21 [History Last Taken 09/30/22] aspirin 81 mg tablet,delayed release 81 mg PO DAILY@0800 #30 tabs 07/09/21 [Rx Last Taken 09/30/22] furosemide 40 mg tablet (Lasix) 40 mg PO BID #60 tabs 07/09/21 [Rx Last Taken 09/30/22] aluminum-mag hydroxide-simethicone 200 mg-200 mg-20 mg/5 mL oral susp (Silvana- Lanta) 5 ml PO Q3H PRN Gastrointestinal Spasms Or Cramping 03/08/22 [History Last Taken Unknown] duloxetine 30 mg capsule,delayed release sprinkle 30 mg PO DAILY 03/08/22 [History Last Taken 09/30/22] multivitamin 1 tab PO DAILY 03/08/22 [History Last Taken 09/30/22] divalproex 125 mg capsule,delayed release sprinkle 125 mg PO QHS 09/30/22 [History Last Taken 09/29/22] hydroxyzine pamoate 25 mg capsule 25 mg PO BID PRN Anxiety 09/30/22 [History Last Taken Unknown] Allergy/AdvReac Type Severity Reaction Status Date / Time house dust Allergy Intermediate NEEDS Verified 09/30/22 11:26 FOLLOW-UP Penicillins Allergy PT UNSURE Verified 09/30/22 11:26 OF REACTION atorvastatin [From Lipitor] AdvReac PT UNSURE Verified 09/30/22 11:26 OF REACTION cabbage AdvReac Diarrhea Verified 09/30/22 11:26 celecoxib [From Celebrex] AdvReac PT UNSURE Verified 09/30/22 11:26 OF REACTION esomeprazole [From Nexium] AdvReac PT UNSURE Verified 09/30/22 11:26 OF REACTION metformin AdvReac PT UNSURE Verified 09/30/22 11:26 OF REACTION tomato AdvReac Diarrhea Verified 09/30/22 11:26 tree nut AdvReac Diarrhea Verified 09/30/22 11:26 Family History Brother Family history of PTCA Father Heart disease CVA (cerebral vascular accident) Surgical History H/O total hip arthroplasty History of carpal tunnel surgery History of craniotomy History of total hysterectomy Hx of appendectomy Hx of total knee arthroplasty S/P craniotomy Social History household members: none Smoking Status: Never smoker alcohol intake: never substance use type: does not use caffeine: No what type of physical activity do you participate in: weight training frequency: daily duration: 15-30 minutes/day seatbelt use: always do you feel safe at home: Yes ROS ROS Narrative Admission Review of Systems: CONSTITUTIONAL: No weight loss, fever, chills, + weakness or fatigue. HEENT: Eyes: No visual loss, blurred vision, double vision or yellow sclerae. Ears, Nose, Throat: No hearing loss, sneezing, congestion, runny nose or sore throat. SKIN: + Chronic bilateral lower extremity venous stasis skin changes, significant ecchymoses associate with recent fall to the left side primarily. CARDIOVASCULAR: + Mild edema, mild orthopnea but not severe, no chest pain, chest pressure or chest discomfort, palpitations, syncopal events. RESPIRATORY: + shortness of breath primarily with exertion, occasional chronic mild cough, No marked sputum, wheezing, hemoptysis. GASTROINTESTINAL: No anorexia, nausea, vomiting or diarrhea, abdominal pain, melena, BRBPR. GENITOURINARY: No dysuria, frequency, urgency or retention. NEUROLOGICAL: No headache, dizziness, syncope, paralysis, ataxia, numbness or tingling in the extremities, focal weakness, change in bowel or bladder control, seizure. MUSCULOSKELETAL: + muscle, back pain, joint pain or stiffness. HEMATOLOGIC: + anemia, bleeding or bruising. LYMPHATICS: No enlarged nodes. No history of splenectomy. PSYCHIATRIC: + history of depression or anxiety. ENDOCRINOLOGIC: No reports of sweating, cold or heat intolerance. No polyuria or polydipsia. ALLERGIES: No history of asthma, hives, eczema or rhinitis. Vital Signs Vital Signs Vital Signs: 09/30/22 11:27 09/30/22 11:57 09/30/22 11:57 Temperature 96.9 F L Temperature Source Temporal Pulse Rate 77 Respiratory Rate 16 Blood Pressure 126/77 H Blood Pressure Mean 93 Pulse Ox 92 88 94 Oxygen Delivery Method Room Air Room Air Nasal Cannula Oxygen Flow Rate (L/min) 1.5 09/30/22 13:18 09/30/22 13:43 09/30/22 15:03 Temperature Temperature Source Pulse Rate 100 88 Respiratory Rate 18 24 H Blood Pressure 120/81 H 110/82 H Blood Pressure Mean 94 91 Pulse Ox 93 93 92 Oxygen Delivery Method Nasal Cannula Nasal Cannula Nasal Cannula Oxygen Flow Rate (L/min) 1.5 1.5 1.5 Weight Weight: 159 lb 13.362 oz Body Mass Index (BMI) 27.4 Physical Exam Narrative Physical Examination: General: Awake, alert, oriented x 3 and cooperative, laying in the ED bed, fatigued, obvious significant ecchymotic changes especially to the left side, left upper extremity with recent fall history Skin: Normal color, normal turgor, no icterus, no cyanosis except for noted bilateral lower extremity stasis disease skin changes as well as significant staged ecchymoses with recent fall. HEENT: AT/NC, EOMI, PERRLA, MMM, no carotid bruits, very minimal + JVD noted. Lungs: Diminished, greater bases, very bilateral mild rales, no evidence of any respiratory distress, no rhonchi or wheezing. Heart: Irregular, currently rate controlled; no gallop, rub audible. Abdomen: Soft, NTTP, ND, distant normal BS, no HSM. Extremities: No cyanosis, no clubbing, see skin, bilateral lower extremity pedal mild pitting edema, not severe, status post fall recently with left upper extremity in sling with peripheral pulses intact, left lower extremity with questionable fracture. Neurological: Patient awake, alert, oriented as noted, cognitive function intact; pupils equally reactive to light and accommodation, cranial nerves II- XII grossly normal, moving all 4 extremities, no focal deficits, strength severely globally decreased secondary to acute presentation. Psychiatric: Affect appears fatigued otherwise normal, no acute evidence of depressive or anxiety feelings. Results Lab / Micro Data Result Diagrams: 09/30/22 13:15 09/30/22 13:15 Labs: Laboratory Results - last 24 hr 09/30/22 13:15: WBC 11.7 H, RBC 4.54, Hgb 14.9, Hct 45.0, MCV 99.1 H, MCH 32.8 H , MCHC 33.1, RDW Std Deviation 49.5 H, RDW Coeff of Margaret 13.8, Plt Count 233, MPV 9.3, Immature Gran % (Auto) 0.400, Neut % (Auto) 82.4 H, Lymph % (Auto) 8.0 L, [place] % (Auto) 7.8, Eos % (Auto) 1.0, Baso % (Auto) 0.4, Absolute Neuts (auto) 9.6 H, Absolute Lymphs (auto) 0.93, Nucleated RBC % 0.2 09/30/22 13:15: Sodium 137, Potassium 4.3, Chloride 102, Carbon Dioxide 28.0, Anion Gap 7, BUN 33 H, Creatinine 1.11 H, Estim Creat Clear Calc 31.42, Est GFR (MDRD) Af Amer 60, Est GFR (MDRD) Non-Af 50 L, BUN/Creatinine Ratio 29.7 H, Glucose 153 H, Calcium 8.5, Troponin I High Sens 97 H 09/30/22 13:15: D-Dimer Quant (PE/DVT) 5.43 H* 09/30/22 13:15: B-Natriuretic Peptide 1610.6 H Radiology Impression Femur X-Ray 09/30/22 12:05 IMPRESSION: Findings suggestive of a nondisplaced buckle type fracture in the subtrochanteric region. Electronically Signed: Michael Vallejo MD at 13:01 EST , Lumbar Spine X-Ray 09/30/22 12:08 IMPRESSION: Degenerative changes of the spine, as detailed above. 50% loss of height of the L3 vertebrae. Electronically Signed: Michael Vallejo MD at 13:02 EST , Chest X-Ray 09/30/22 13:05 IMPRESSION: Mild degree of vascular congestion mild scarring at the left lung base Electronically Signed: Michael Vallejo MD at 13:50 EST , Chest CTA 09/30/22 13:54 IMPRESSION: No evidence of a pulmonary embolus or Cardiomegaly. Minimal left pleural effusion with linear atelectasis and/or scarring at the lung bases. Electronically Signed: Michael Vallejo MD at 15:05 EST , Assessment & Plan Assessment/Plan (1) Fall: PLAN: Plan The patient is an 87 y/o F w/ PMHx: Valvular Heart Disease, Aortic Root Dilation, PAF, Chronic venous stasis disease, Diastolic CHF, Hx Meningioma, Hx SAH status post prior craniotomy, Diabetes mellitus type II, Anxiety and Depression, HTN, HLD who presents to the [facility] ED on 09/30/22 with history of fall remotely on 09/24/2022 with at that time attempt to bend forward to throw something to a trash can and unfortunately she fell forward and landed on her left shoulder with no loss of consciousness or head injury at that time with at that point some discomfort of the left shoulder as well as the left hip and the low back with plain film of the knee, shoulder as well as hip and pelvis at that time with only acute findings fractured humeral neck with mild impaction as well as fracture of the greater tuberosity with no dislocation with NWB status to the LUE and sling usage; however she has had ongoing persistent left lower extremity/hip discomfort prompting outpatient plain film which was reportedly notable for femur fracture prompting ED referral. #1. Mechanical fall with resulting left nondisplaced buckle type fracture in the subtrochanteric region and prior to this diagnosed fractured humeral neck with mild impaction as well as fracture of the greater tuberosity with no dislocation: Plain film of the left femur with findings suggestive of a nondisplaced buckle type fracture in the subtrochanteric region, plain film of the lumbar spine with degenerative changes of the spine with a 50% loss of height at the L3 vertebrae. Orthopedic surgery consulted from ED. Will admit to PCU given concurrent #2, #3 concerns. Will initiate acevedo placement, monitor I/Os, frequent positioning, fall precautions, pain, anti-emetic regimen PRN. PT/OT consultations as well as CM. Given history and acute presentation concerns #2, #3 will request Cardiology consultation. Orthopedic surgery notes likely intention for CT hip to assess injury and OR needs. Will maintain LUE sling and NWB activity. Per NSQIP per current history and labs as well as functional abilitys would be elevated risk especially with her acute cardiac findings upon initial ED evaluation. Given these findings will request ECHO as well as Cardiology pre-op erative evaluation. #2. Mild Acute on Chronic Diastolic CHF exacerbation with associated Acute Hypoxia w/ associated indeterminate cardiac enzyme: Upon presentation chest x- ray initially with concern for vascular congestion to a mild degree with mild oxygen 1.5 L nasal cannula usage however CTPA not marked appearing, BNP elevated 1610.6. 07/07/2021 echocardiogram with EF 55 to 60%, moderate LVH, severely enlarged LA, moderately enlarged RA, moderately severe eccentric MR, moderately severe TR, mild /mild to moderate AR, severe pulmonary hypertension, RSVP 83 mmHg reportedly unchanged from 11/11/2020 echocardiogram. We will continue aspirin, dose with IV Lasix x 1 now and resume oral regimen in AM, not on statin therapy nor on beta-morgan or LYNSEY inhibitor/ARB, following with cardiology thus will defer to their discretion. Repeat ECHO requested. Mag pending. TSH pending. FLP in AM. Cardiology consulted given #1 for pre-operative assessment. #3. Indeterminate cardiac enzyme: Suspect likely related with acute presentation #1, #2, chest x-ray with mild degree of vascular congestion as well as mild scarring at the left lung base, CTPA with no evidence of pulmonary embolism, tiny left pleural effusion with mild increased markings at the lung bases suggestive of underlying atelectasis and/or scarring, evidence of cardiomegaly, EKG in ED rate controlled atrial fibrillation with no acute evidence of ischemia, initial trop 97. Will place on a monitored bed to assure no acute myocardial infarction with serial cardiac enzymes and EKGs. Magnesium level requested. FLP in AM. Repeat ECHO requested. Cardiology consulted given #1 for pre-operative assessment. #4. Valvular heart disease: 07/07/2021 echocardiogram with EF 55 to 60%, moderate LVH, severely enlarged LA, moderately enlarged RA, moderately severe eccentric MR, moderately severe TR, mild /mild to moderate AR, severe pulmonary hypertension, RSVP 83 mmHg reportedly unchanged from 11/11/2020 echocardiogram. R epeat ECHO requested. #5. PAF: Not on rate or rhythm agent nor anticoagulation with history of jaja quent falls, following with Dr. Campos. #6. Hx Diabetes mellitus type II: Not on regimen, in the past has been diet controlled, very remote hemoglobin A1c 5%, admission glucose 153, possibly stress response, will repeat hemoglobin A1c and in the interim maintain on ADA diet with Accu-Cheks with insulin sliding scale however if A1c is not marked we will de-escalate. #7. Hypertension: Continue home regimen including Lasix with alterations or hold parameters as needed, as needed IV hydralazine for #8. Hyperlipidemia: Not on regimen, statin allergy noted, FLP in AM. #9. History of subarachnoid hemorrhage, Hx Meningioma: Unclear specific setting of the event, will continue home carbamazepine regimen for seizure prophylaxis. #10. Anxiety and depression: We will continue patient home duloxetine as well as hydroxyzine as needed regimen #11. DVT prophylaxis: SCDs, hold on chemoprophylaxis in case of Cardiology clearance for OR, if prolonged add regimen in interim. #12. CODE status: Patient HCPOA is her sister in law and living will is currently in place. Patient status discussed per team w/ her HCPOA including CODE status at length including difference between FULL code, DNR-CCA and DNR-CC status. Following discussions about the differences in these status, requested DNR-CCA, no intubation. Advanced Care Planning Face to Face Time: 16 minutes. Charges/Coding Visit Charges Inpatient E&M: 23369 Init Hosp L3 Procedures Hospitalists Procedures: 90754 Advncd Care Plan 30 Min
[2022-09-30 16:20] LABS: Magnesium 2.7 mg/dL (1.6-2.6)
--- NOTE | 2022-09-30 16:37 | ED.RN ---
THIS RN CALLED MARICEL CULP AT [phone] TO GIVE PT UPDATE.
--- NOTE | 2022-09-30 18:11 | ED.RN ---
THIS RN TOOK CALL FROM HOMER GLEN. PT UPDATE GIVEN TO DREA REYNA.
--- NOTE | 2022-09-30 18:54 | CM.ED ---
CINDY Note CINDY called patient's sister, Tyra Price, who is the POA for patient. Tyra reports that patient has dementia but some days it's not real bad and other days she is talking crazy. Tyra advised that patient is deaf in her left ear, has poor vision and has what they call finger count in her left eye. Tyra said that she does not want patient to go to [facility], where patient had been before. Patient was at [facility] but Tyra feels that due to patient's broken leg and broken arm that she needs more care than [facility] can provide. Tyra said that her first choice for patient would be [facility] and [facility] CINDY explained that patient will need to be evaluated by physical therapy and that patient will need precertification as her insurance requires a precertification. Tyra said that staff can call her anytime. Tyra asked if she should call the psychologist social and CINDY advised that if she does not hear from psychologist social then she can call in and request to speak to psychologist social. Emotional support provided to Tyra Plan: SNF for patient Aiyana Christianson KENROY ARNETT
--- NOTE | 2022-09-30 19:36 | CM.ED ---
Addendum entered by Aiyana Christianson 09/30/22 19:53: CINDY provided patient's choice list to patient. CINDY reviewed that this freelance writer had spoken to patient's sister, Tyra and Tyra wanted patient to not go back to [facility]. Patient said that she does not recall going to [facility]. Patient was in agreement with referral to [facility]. Aiyana ARNETT Original Note: [facility]. Patient's sister, Tyra's reported [facility] choice [facility] and 2nd choice was [facility]. CINDY noted on [facility] patient's insurance is not in network for [facility] and that they are not accepting new patients. SW made referral to [facility]. CINDY updated patient's sister, Tyra, who is HCPOA. She voiced understanding and no concerns. Aiyana ARNETT
--- NOTE | 2022-09-30 19:46 | ECHOD_ITS ---
Version 2 Reason For Study: CHF Procedure This was a 2D Doppler, Color Flow transthoracic echocardiogram. Echo done with patient sitting upright due to hip fracture. Exam performed portable in patient room. Left Ventricle Normal size and thickness. The left ventricular ejection fraction is 65 %. Diastolic function is indeterminate. Septal wall notion consistent with RV volume and pressure overload. Right Ventricle Moderately dilated right ventricle. Moderately decreased right ventricular systolic function. Atria The left atrium is severely enlarged. The right atrium is severely enlarged. Mitral Valve Severe (4+) mitral valve insufficiency. Tricuspid Valve Severe (4+) tricuspid valve insufficiency. Right ventricular systolic pressure estimated to be 84 mmHg. Severe pulmonary hypertension. Aortic Valve Aortic sclerosis, no stenosis. Mild (1+) aortic valve insufficiency. Pulmonic Valve The pulmonic valve is not well visualized. Trivial eccentric pulmonic valve insufficiency. Great Vessels Moderately dilated aortic root. Pericardium/Pleural No pericardial effusion. MMode/2D Measurements & Calculations LVIDd: 4.5 cm IVSd: 1.1 cm LVOT diam: 2.0 cm LVIDs: 2.7 cm LVPWd: 0.96 cm LVOT area: 3.2 cm2 RVDd: 5.6 cm FS: 39.9 % Ao root diam: 4.5 cm LAV(MOD-bp): 117.1 ml Aortic Valve Planimetry: 2.3 cm2 LAV(MOD-bp) Indexed: 67.1 ml/m2 LAV(MOD-sp2): 127.3 ml LAV(MOD-sp4): 98.9 ml LA A4 area: 31.7 cm2 RA A4 area: 32.0 cm2 Time Measurements MV dec time: 0.21 sec Doppler Measurements & Calculations MV E max irving: 111.5 cm/sec Lat Peak E' Irving: 14.3 cm/sec Med Peak E' Irving: 7.6 cm/sec MV A max irving: 98.8 cm/sec E/E' lat: 7.8 E/E' med: 14.6 MV E/A: 1.1 MV V2 max: 150.1 cm/sec MV P1/2t max irving: 152.9 cm/sec Ao V2 max: 160.9 cm/sec MV max P.0 mmHg MV P1/2t: 89.9 msec Ao max P.5 mmHg MV V2 mean: 71.9 cm/sec MV dec slope: 498.1 cm/sec2 Ao V2 mean: 93.7 cm/sec MV mean P.6 mmHg Ao mean P.3 mmHg MV V2 VTI: 41.2 cm MVA(P1/2t): 2.4 cm2 Ao V2 VTI: 23.3 cm MVA(VTI): 1.3 cm2 AV (velocity ratio): 0.72 GILLIAN(I,D): 2.3 cm2 GILLIAN(V,D): 2.2 cm2 AI max irving: 417.2 cm/sec LV V1 max: 109.2 cm/sec MR max irving: 518.3 cm/sec AI max P.6 mmHg LV V1 max P.8 mmHg MR max P.4 mmHg LV V1 mean P.2 mmHg MR mean irving: 398.4 cm/sec AI dec slope: 182.4 cm/sec2 LV V1 mean: 68.4 cm/sec MR mean P.8 mmHg AI P1/2t: 669.9 msec LV V1 VTI: 16.8 cm MR VTI: 141.1 cm SV(LVOT): 54.5 ml PA V2 max: 67.8 cm/sec TR max irving: 432.4 cm/sec TR max P.8 mmHg ECHO/Echo Complete Interpretation Summary The left ventricular ejection fraction is 65 %. Diastolic function is indeterminate. Septal wall notion consistent with RV volume and pressure overload Moderately decreased right ventricular systolic function Moderately dilated right ventricle. The left atrium is severely enlarged. The right atrium is severely enlarged. Severe (4+) tricuspid valve insufficiency. Severe pulmonary hypertension. Severe (4+) mitral valve insufficiency. Aortic sclerosis, no stenosis. Moderately dilated aortic root. Mild (1+) aortic valve insufficiency. Ordering Physician: Ayah Lawton Referring Physician: Alma Delia Edouard M.D. Performed By: Celestine Cloud RCS
[2022-09-30 21:28] LABS: ALB/GLOB Ratio 0.8 RATIO (0.9-2.4); AST(SGOT) 18 U/L (15-37); Alanine Aminotransfer ALT/SGPT 22 U/L (13-56); Albumin, Serum 2.9 g/dL (3.2-5.0); Alkaline Phosphatase 104 U/L (45-117); Anion Gap 5 (5-15); BUN 32 mg/dL (7-18); BUN/Creat Ratio 28.1 RATIO (10-20); Calcium,Total 8.7 mg/dL (8.5-10.1); Chloride 102 mmol/L (98-107); Creatinine, Serum 1.14 mg/dL (0.55-1.02); EST Glomerular Filtration Rate 48 mL/min (>60); Est Glom Filt Rate - Afr Amer 58 mL/min (>60); Estimated Creatinine Clearance 30.59 ml/min; Globulin 3.6 g/dL (2.2-4.2); Glucose 160 mg/dL (74-106); Potassium 4.2 mmol/L (3.5-5.1); Protein, Total 6.5 g/dL (6.4-8.2); Sodium Level 136 mmol/L (136-145); Troponin-I HS 103 pg/mL (3.0-54.0)
[2022-09-30 21:30] LABS: Vitamin D,25 Hydroxy 30.2 ng/mL
[2022-09-30] MEDS: Furosemide 40 MG/4 ML Vial IV (23:00)
[2022-09-30] MEDS: 0.9% Saline Lock 10 ML Syringe IV (23:00)
[2022-09-30] MEDS: Gabapentin 100 MG Capsule PO ×2 (23:02)
[2022-09-30] MEDS: Senna/Docusate Sodium 1 Tablet 2 TABLET PO (23:02)
[2022-09-30] MEDS: oxyCODONE 5 MG Tablet PO (23:02)
[2022-09-30] MEDS: Divalproex Sodium 125 MG SPRINKLE PO (23:02)
[2022-09-30] MEDS: Acetaminophen 325 MG Tablet 650 MG PO (23:03)
[2022-09-30] MEDS: Insulin Lispro 100 UNIT/ML INSULN.PEN SC (23:18)
[2022-09-30 23:46] LABS: Troponin-I HS 92 pg/mL (3.0-54.0)
[2022-10-01] VITALS (10 sets, daily range): BP systolic 103–114; BP diastolic 67–74; PULSE 56–104; RESP 18–20; TEMP 36.4–36.8; O2SAT 89–95
[2022-10-01 01:20] LABS: Bedside Glucose 198 mg/dL (74-106)
[2022-10-01 01:20] LABS: Bedside Glucose 144 mg/dL (74-106)
[2022-10-01 03:10] LABS: Absolute Neutrophil Count 7.4 X10^3/uL (2.0-7.7); Basophil# 0.08 X10^3/uL; Basophil% 0.8 % (0-1); Eosinophils% 3.1 % (0-5); Hematocrit 42.7 % (37-47); Lymphocyte % 11.3 % (19-41); Mean Corp Hgb Conc 32.8 g/dL (32-36); Mean Corpuscular Hgb 33.3 pg (27.0-32.0); Mean Corpuscular Volume 101.4 fL (81-99); Mean Platelet Vol. 9.5 fl (6.2-12.0); Monocyte# 0.84 X10^3/uL; Monocyte% 8.6 % (0-10); NRBC Flagged by Analyzer 0 % (0-5); Neutrophil # 7.39 X10^3/uL (2.7-7.7); Neutrophil % 75.8 % (47-70); Platelet Count 214 K/mm3 (150-450); RBC Distribution Width CV 13.9 % (11.6-14.6); RBC Distribution Width SD 50.3 fl (35.1-43.9); Red Blood Count 4.21 M/mm3 (4.2-5.4); White Blood Count 9.8 K/mm3 (4.4-11.0)
[2022-10-01 03:40] LABS: Troponin-I HS 88 pg/mL (3.0-54.0)
[2022-10-01 04:03] LABS: ALB/GLOB Ratio 0.8 RATIO (0.9-2.4); AST(SGOT) 14 U/L (15-37); Alanine Aminotransfer ALT/SGPT 22 U/L (13-56); Albumin, Serum 2.6 g/dL (3.2-5.0); Alkaline Phosphatase 97 U/L (45-117); Anion Gap 8 (5-15); BUN 31 mg/dL (7-18); BUN/Creat Ratio 28.7 RATIO (10-20); Calcium,Total 8.1 mg/dL (8.5-10.1); Chloride 102 mmol/L (98-107); Cholesterol 130 mg/dL (200); Creatinine, Serum 1.08 mg/dL (0.55-1.02); EST Glomerular Filtration Rate 51 mL/min (>60); Est Glom Filt Rate - Afr Amer 62 mL/min (>60); Estimated Creatinine Clearance 32.29 ml/min; Globulin 3.3 g/dL (2.2-4.2); Glucose 141 mg/dL (74-106); High Density Lipoprotein 36 mg/dL; Potassium 3.9 mmol/L (3.5-5.1); Protein, Total 5.9 g/dL (6.4-8.2); Sodium Level 138 mmol/L (136-145); Thyroid Stim Hormone (TSH) 0.42 uIU/mL (0.358-3.74); Triglycerides 123 mg/dL; Very Low Density Lipoprotein 25 mg/dL (5-40)
[2022-10-01 04:42] LABS: Mucous, Urine 0 SEEN /hpf (<or=2+); Squamous Epithelial Cells - UA 0 SEEN /hpf (5-10)
[2022-10-01 04:48] LABS: Color, Urine Yellow (Yellow); Glucose, Dipstick Normal (Normal); Ketone-Dipstick Negative (Negative); Leukocyte Esterase-Dipstick 500 /ul (Negative); Nitrite-Dipstick Positive (Negative); Occult Blood-Urine 25 /ul (Negative); Protein-Dipstick 15 mg/dl (Negative); Urine Bilirubin Dipstick Negative (Negative); Urine Clarity Clear (Clear); Urine Urobilinogen 1 mg/dl (Normal)
[2022-10-01 05:21] LABS: Bacteria 3+ /hpf (None Seen); White Blood Cells 10-25 SEEN /hpf (0-5)
[2022-10-01 05:22] LABS: Red Blood Cells-Urine 0-5 SEEN /hpf (0-5)
[2022-10-01 07:45] LABS: Hemoglobin A1c 6.3 % (3.8-5.6)
[2022-10-01 07:50] LABS: Bedside Glucose 167 mg/dL (74-106)
--- NOTE | 2022-10-01 10:10 | PCM.CONS.C ---
Assessment & Plan Assessment/Plan (1) Preoperative cardiovascular examination: PLAN: I would like to further risk stratify the patient with an echocardiogram and a Lexiscan stress Myoview. If these failed to show any significant abnormality, then the patient may proceed with the proposed procedure with an acceptable risk. (2) Nonrheumatic mitral (valve) insufficiency: PLAN: Check echo. Continue diuretics. (3) Paroxysmal atrial fibrillation: PLAN: Presently sinus rhythm with PACs. He has not been on anticoagulation because of her risk of falls. (4) Essential (primary) hypertension: PLAN: History of mitral regurg and tricuspid regurg. Check 2D echocardiogram. (5) Non-rheumatic tricuspid valve insufficiency: PLAN: Check echo. (6) Fracture of proximal end of left humerus: PLAN: Surgical fixation being contemplated. HPI Consult Data Date of Consult: 10/01/22 HPI Narrative HPI Narrative: The patient has a history of mitral regurgitation, tricuspid regurgitation, paroxysmal atrial fibrillation and diabetes mellitus. She is being admitted for hip fracture secondary to a fall. According to the patient, she tripped and fell. Surgical correction is being contemplated. We are asked to evaluate her cardiac risk for the proposed procedure. Patient denies any previous history of coronary artery disease. Denies any chest pains either at rest or with exertion. According to her, prior to her falling she was physically active. Denies any chest pains or shortness of breath with exertion. No orthopnea. No PND. Denies any ankle edema. [facility] Medical History Aortic root dilatation Atrial fibrillation Atrial fibrillation with RVR Chronic venous insufficiency Congestive heart failure Dehydration Elevated troponin Encephalopathy acute Essential (primary) hypertension Fall Fall at home Frailty History of meningioma History of subarachnoid hemorrhage Hyperlipidemia Inactivity Leg edema Leg swelling Malnutrition Meningioma Meningioma Mitral valve annular calcification New onset of congestive heart failure Non-rheumatic tricuspid valve insufficiency Nonrheumatic mitral (valve) insufficiency Nonrheumatic tricuspid valve regurgitation Obesity Other secondary pulmonary hypertension Paroxysmal atrial fibrillation SAH (subarachnoid hemorrhage) SAH (subarachnoid hemorrhage) Secondary pulmonary arterial hypertension Sepsis due to Escherichia coli (E. 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 Varicose veins of leg with swelling Venous stasis ulcer Weakness generalized Home Medications acetaminophen 500 mg tablet (Tylenol Extra Strength) 1,000 mg PO BID PRN Pain 04/01/21 [History Last Taken 09/30/22] gabapentin 100 mg capsule 100 mg PO TID NERVE PAIN 04/01/21 [History Last Taken 09/30/22] aspirin 81 mg tablet,delayed release 81 mg PO DAILY@0800 #30 tabs 07/09/21 [Rx Last Taken 09/30/22] furosemide 40 mg tablet (Lasix) 40 mg PO BID #60 tabs 07/09/21 [Rx Last Taken 09/30/22] aluminum-mag hydroxide-simethicone 200 mg-200 mg-20 mg/5 mL oral susp (Silvana-Lanta) 5 ml PO Q3H PRN Gastrointestinal Spasms Or Cramping 03/08/22 [History Last Taken Unknown] duloxetine 30 mg capsule,delayed release sprinkle 30 mg PO DAILY 03/08/22 [History Last Taken 09/30/22] multivitamin 1 tab PO DAILY 03/08/22 [History Last Taken 09/30/22] divalproex 125 mg capsule,delayed release sprinkle 125 mg PO QHS 09/30/22 [History Last Taken 09/29/22] hydroxyzine pamoate 25 mg capsule 25 mg PO BID PRN Anxiety 09/30/22 [History Last Taken Unknown] Allergy/AdvReac Type Severity Reaction Status Date / Time house dust Allergy Intermediate NEEDS Verified 09/30/22 11:26 FOLLOW-UP Penicillins Allergy PT UNSURE Verified 09/30/22 11:26 OF REACTION atorvastatin [From Lipitor] AdvReac PT UNSURE Verified 09/30/22 11:26 OF REACTION cabbage AdvReac Diarrhea Verified 09/30/22 11:26 celecoxib [From Celebrex] AdvReac PT UNSURE Verified 09/30/22 11:26 OF REACTION esomeprazole [From Nexium] AdvReac PT UNSURE Verified 09/30/22 11:26 OF REACTION metformin AdvReac PT UNSURE Verified 09/30/22 11:26 OF REACTION tomato AdvReac Diarrhea Verified 09/30/22 11:26 tree nut AdvReac Diarrhea Verified 09/30/22 11:26 Family History Brother Family history of PTCA Father Heart disease CVA (cerebral vascular accident) Surgical History H/O total hip arthroplasty History of carpal tunnel surgery History of craniotomy History of total hysterectomy Hx of appendectomy Hx of total knee arthroplasty S/P craniotomy Social History household members: none Smoking Status: Never smoker alcohol intake: never substance use type: does not use caffeine: No what type of physical activity do you participate in: weight training frequency: daily duration: 15-30 minutes/day seatbelt use: always do you feel safe at home: Yes Physical Exam Narrative Comfortable. Lying flat in the bed. Heart sounds 1 and 2 are noted. There is a 3/6 systolic murmur at the apex and base. Chest clear to auscultation bilaterally. Abdomen soft. Alert oriented x3. No ankle edema. Risk Stratification Risk Stratification Applicable: No Objective Data Vital Signs: Vital Signs Temp Pulse Resp BP Pulse Ox O2 Del Method O2 Flow Rate 97.5 F L 84 20 H 111/74 94 Nasal Cannula 2 10/01/22 04:45 10/01/22 04:45 10/01/22 04:45 10/01/22 04:45 10/01/22 08:10 10/01/22 08:10 10/01/22 08:10 Oxygen Flow Rate (L/min) 2 Oxygen Delivery Method Nasal Cannula Weight: 153 lb 0.013 oz Body Mass Index (BMI) 27.4 Intake & Output: Intake and Output for Last 24 Hours 09/29/22 09/30/22 10/01/22 23:59 23:59 23:59 Intake Total 320 / 320 Output Total 1000 / 1000 Balance -680 / -680 Lab / Micro Data Attestation: I reviewed the patient's lab results. Result Diagrams: 10/01/22 03:00 10/01/22 03:00 Labs: Laboratory Results - last 24 hr 09/30/22 13:15: WBC 11.7 H, RBC 4.54, Hgb 14.9, Hct 45.0, MCV 99.1 H, MCH 32.8 H, MCHC 33.1, RDW Std Deviation 49.5 H, RDW Coeff of Margaret 13.8, Plt Count 233, MPV 9.3, Immature Gran % (Auto) 0.400, Neut % (Auto) 82.4 H, Lymph % (Auto) 8.0 L, [place] % (Auto) 7.8, Eos % (Auto) 1.0, Baso % (Auto) 0.4, Absolute Neuts (auto) 9.6 H, Absolute Lymphs (auto) 0.93, Nucleated RBC % 0.2 09/30/22 13:15: Sodium 137, Potassium 4.3, Chloride 102, Carbon Dioxide 28.0, Anion Gap 7, BUN 33 H, Creatinine 1.11 H, Estim Creat Clear Calc 31.42, Est GFR (MDRD) Af Amer 60, Est GFR (MDRD) Non-Af 50 L, BUN/Creatinine Ratio 29.7 H, Glucose 153 H, Calcium 8.5, Troponin I High Sens 97 H 09/30/22 13:15: D-Dimer Quant (PE/DVT) 5.43 H* 09/30/22 13:15: B-Natriuretic Peptide 1610.6 H 09/30/22 13:15: Magnesium 2.7 H 09/30/22 20:25: POC Glucose 144 H 09/30/22 20:45: Sodium 136, Potassium 4.2, Chloride 102, Carbon Dioxide 29.0, Anion Gap 5, BUN 32 H, Creatinine 1.14 H, Estim Creat Clear Calc 30.59, Est GFR (MDRD) Af Amer 58 L, Est GFR (MDRD) Non-Af 48 L, BUN/Creatinine Ratio 28.1 H, Glucose 160 H, Calcium 8.7, Total Bilirubin 1.80 H, AST 18, ALT 22, Alkaline Phosphatase 104, Troponin I High Sens 103 H, Total Protein 6.5, Albumin 2.9 L, Globulin 3.6, Albumin/Globulin Ratio 0.8 L 09/30/22 20:45: Vitamin D 25-Hydroxy 30.2 09/30/22 23:00: Troponin I High Sens 92 H 09/30/22 23:15: POC Glucose 198 H 10/01/22 03:00: WBC 9.8, RBC 4.21, Hgb 14.0, Hct 42.7, MCV 101.4 H, MCH 33.3 H, MCHC 32.8, RDW Std Deviation 50.3 H, RDW Coeff of Margaret 13.9, Plt Count 214, MPV 9.5, Immature Gran % (Auto) 0.400, Neut % (Auto) 75.8 H, Lymph % (Auto) 11.3 L, [place] % (Auto) 8.6, Eos % (Auto) 3.1, Baso % (Auto) 0.8, Absolute Neuts (auto) 7.4, Absolute Lymphs (auto) 1.10, Nucleated RBC % 0 10/01/22 03:00: Sodium 138, Potassium 3.9, Chloride 102, Carbon Dioxide 28.0, Anion Gap 8, BUN 31 H, Creatinine 1.08 H, Estim Creat Clear Calc 32.29, Est GFR (MDRD) Af Amer 62, Est GFR (MDRD) Non-Af 51 L, BUN/Creatinine Ratio 28.7 H, Glucose 141 H, Calcium 8.1 L, Total Bilirubin 1.60 H, AST 14 L, ALT 22, Alkaline Phosphatase 97, Total Protein 5.9 L, Albumin 2.6 L, Globulin 3.3, Albumin/Globulin Ratio 0.8 L, Triglycerides 123, Cholesterol 130, LDL Cholesterol 69, VLDL Cholesterol 25, HDL Cholesterol 36 L, TSH 0.42 10/01/22 03:00: Hemoglobin A1c 6.3 H 10/01/22 03:00: Troponin I High Sens 88 H 10/01/22 04:30: Urine Color Yellow, Urine Clarity Clear, Urine pH 7.0, Ur Specific [place] 1.010, Urine Protein 15 H, Urine Glucose (UA) Normal, Urine Ketones Negative, Urine Occult Blood 25 H, Urine Nitrite Positive H, Urine Bilirubin Negative, Urine Urobilinogen 1 H, Ur Leukocyte Esterase 500 H, Urine RBC 0-5 SEEN, Urine WBC 10-25 SEEN, Ur Squamous Epith Cells 0 SEEN, Urine Bacteria 3+, Urine Mucus 0 SEEN 10/01/22 07:30: POC Glucose 167 H Rhythm Strip Rhythm Strip: Sinus rhythm with frequent PACs. Ectopy: PAC(s) Cardiology Labs/Tests 09/30/22 13:15: WBC 11.7 H, RBC 4.54, Hgb 14.9, Hct 45.0, MCV 99.1 H, MCH 32.8 H, MCHC 33.1, Plt Count 233, MPV 9.3, Immature Gran % (Auto) 0.400, Neut % (Auto) 82.4 H, Lymph % (Auto) 8.0 L, [place] % (Auto) 7.8, Eos % (Auto) 1.0, Baso % (Auto) 0.4, Absolute Neuts (auto) 9.6 H, Nucleated RBC % 0.2 09/30/22 13:15: Sodium 137, Potassium 4.3, Chloride 102, Carbon Dioxide 28.0, Anion Gap 7, BUN 33 H, Creatinine 1.11 H, Est GFR (MDRD) Af Amer 60, Est GFR (MDRD) Non-Af 50 L, BUN/Creatinine Ratio 29.7 H, Glucose 153 H, Calcium 8.5 09/30/22 13:15: D-Dimer Quant (PE/DVT) 5.43 H* 09/30/22 13:15: B-Natriuretic Peptide 1610.6 H 09/30/22 13:15: Magnesium 2.7 H 09/30/22 20:45: Sodium 136, Potassium 4.2, Chloride 102, Carbon Dioxide 29.0, Anion Gap 5, BUN 32 H, Creatinine 1.14 H, Est GFR (MDRD) Af Amer 58 L, Est GFR (MDRD) Non-Af 48 L, BUN/Creatinine Ratio 28.1 H, Glucose 160 H, Calcium 8.7, Total Bilirubin 1.80 H 10/01/22 03:00: WBC 9.8, RBC 4.21, Hgb 14.0, Hct 42.7, MCV 101.4 H, MCH 33.3 H, MCHC 32.8, Plt Count 214, MPV 9.5, Immature Gran % (Auto) 0.400, Neut % (Auto) 75.8 H, Lymph % (Auto) 11.3 L, [place] % (Auto) 8.6, Eos % (Auto) 3.1, Baso % (Auto) 0.8, Absolute Neuts (auto) 7.4, Nucleated RBC % 0 10/01/22 03:00: Sodium 138, Potassium 3.9, Chloride 102, Carbon Dioxide 28.0, Anion Gap 8, BUN 31 H, Creatinine 1.08 H, Est GFR (MDRD) Af Amer 62, Est GFR (MDRD) Non-Af 51 L, BUN/Creatinine Ratio 28.7 H, Glucose 141 H, Calcium 8.1 L, Total Bilirubin 1.60 H, Triglycerides 123, Cholesterol 130, LDL Cholesterol 69, VLDL Cholesterol 25, HDL Cholesterol 36 L 10/01/22 03:00: Hemoglobin A1c 6.3 H 10/01/22 04:30: Urine Color Yellow, Urine Clarity Clear, Urine pH 7.0, Ur Specific [place] 1.010, Urine Protein 15 H, Urine Glucose (UA) Normal, Urine Ketones Negative, Urine Occult Blood 25 H, Urine Nitrite Positive H, Urine Bilirubin Negative, Urine Urobilinogen 1 H, Ur Leukocyte Esterase 500 H, Urine RBC 0-5 SEEN, Urine WBC 10-25 SEEN Rhythm: EKG: Sinus rhythm. Right bundle branch block. Frequent PACs. ECHO: Stress Test: Cardiac Cath: PCI: CT Surgery: Holter monitor: EPS: PPM: CXR: Chest CT Scan: Radiography Diagnostic Testing: Radiology Impression Femur X-Ray 09/30/22 12:05 IMPRESSION: Findings suggestive of a nondisplaced buckle type fracture in the subtrochanteric region. Electronically Signed: Michael Vallejo MD at 13:01 EST , Lumbar Spine X-Ray 09/30/22 12:08 IMPRESSION: Degenerative changes of the spine, as detailed above. 50% loss of height of the L3 vertebrae. Electronically Signed: Michael Vallejo MD at 13:02 EST , Chest X-Ray 09/30/22 13:05 IMPRESSION: Mild degree of vascular congestion mild scarring at the left lung base Electronically Signed: Michael Vallejo MD at 13:50 EST , Chest CTA 09/30/22 13:54 IMPRESSION: No evidence of a pulmonary embolus or Cardiomegaly. Minimal left pleural effusion with linear atelectasis and/or scarring at the lung bases. Electronically Signed: Michael Vallejo MD at 15:05 EST ,
[2022-10-01] MEDS: 0.9% Normal Saline 1,000 ML 75 ML IV ×2 (10:34→23:47)
--- NOTE | 2022-10-01 11:42 | CT_ITS ---
STUDY: CT LOWER EXTREMITY WITHOUT CONTRAST LEFT REASON FOR EXAM: Female, 87 years old. Left hip fracture RADIATION DOSAGE (If Supplied By Facility): CTDIvol = ( 17.9 ) mGy, DLP = ( 700.3 ) mGycm. Individualized dose optimization techniques were used for this CT.? TECHNIQUE: Total axial images of the left lower extremity were obtained from the left iliac crest to the proximal femur with sagittal coronal reformatted images. No IV contrast was administered. COMPARISON: Left femur x-ray September 30, 2022 FINDINGS: There is a visualized left hip arthroplasty. There is a visualized fracture line extending into the left intertrochanteric region on the lateral side through the cortex and the cement surrounding the proximal mid left femoral post. There is a uncovered appearance of the cement and a gap of the cortex image #42 series 602. There is visualized irregularity of the cortex on the same level medial side. There is visualized adjacent soft tissue edema. There is a adjacent focal possible postoperative opening within the left-sided iliotibial band. The left hip arthroplasty acetabular component appears well seated within the left hip joint. There is a prior fracture of the left side inferior pubic ramus. This visualized calcification of the left common femoral superficial femoral and profundus. There is visualized abundant stool in the colon is partially visualized diverticulosis. There is a Sierra catheter in the bladder. There is a small amount of contrast surrounding the [place] within the bladder likely secondary to the recent CT angiogram of the chest. CT/Extremity Lower without Contra IMPRESSION: There is a nondisplaced fracture of the left intra trochanteric region detailed above superimposed on the left hip arthroplasty. There is a partial uncovered appearance of the lateral cement due to cortical loss and fracture of the left proximal femur. There is subtle nondisplaced fracturing of the cortex and subtle cortical irregularity on the medial side. Electronically Signed: Brooke Hay MD at 12:56 EST Reading Location ID and State: [facility] / [place] Tel , Service support ,
[2022-10-01 12:40] LABS: Bedside Glucose 135 mg/dL (74-106)
--- NOTE | 2022-10-01 14:36 | CONS.ORTHO ---
HPI Consult Data Date of Consult: 10/01/22 HPI Narrative HPI Narrative: ALTON WILCOX, is a 87 F who presents to [facility] after a mechanical fall sustained on 09/24/2022 landing on her left shoulder and left hip at that time. She was seen in the [facility] emergency department the date of injury where x-rays of the left hip were read as normal about a left total hip arthroplasty. Patient sustained a comminuted left proximal humerus fracture which was treated with a sling and told to follow-up outpatient with orthopedics. She was taken back to her assisted living where she resides. Patient had persistent left hip pain and difficulty with mobilizing in the assisted living setting and x-rays revealed questionable fracture. She was referred to the emergency department [facility] yesterday 09/30/2022. While in the emergency department patient had difficulty with her O2 saturation and work-up for pulmonary embolus was started.CTA of her chest was negative for acute pulmonary embolism. She was subsequently admitted to the hospitalist. I was asked see the patient for recommendations regarding her left hip and left shoulder. At time of examination patient reports pain in her left hip and left shoulder. She states she has been able to bear some weight on the left side since the injury but notes pain with weightbearing.Denies fevers, chills, nausea or vomiting, chest pain or shortness of breath. Patient states her left total hip arthroplasty was performed remotely. She is believes it was at [facility] but is unsure of the details or the surgeon. She states she is done well with her left total hip until this most recent fall. [facility] Medical History Aortic root dilatation Atrial fibrillation Atrial fibrillation with RVR Chronic venous insufficiency Congestive heart failure Dehydration Elevated troponin Encephalopathy acute Essential (primary) hypertension Fall Fall at home Frailty History of meningioma History of subarachnoid hemorrhage Hyperlipidemia Inactivity Leg edema Leg swelling Malnutrition Meningioma Meningioma Mitral valve annular calcification New onset of congestive heart failure Non-rheumatic tricuspid valve insufficiency Nonrheumatic mitral (valve) insufficiency Nonrheumatic tricuspid valve regurgitation Obesity Other secondary pulmonary hypertension Paroxysmal atrial fibrillation SAH (subarachnoid hemorrhage) SAH (subarachnoid hemorrhage) Secondary pulmonary arterial hypertension Sepsis due to Escherichia coli (E. 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 Varicose veins of leg with swelling Venous stasis ulcer Weakness generalized Home Medications acetaminophen 500 mg tablet (Tylenol Extra Strength) 1,000 mg PO BID PRN Pain 04/01/21 [History Last Taken 09/30/22] gabapentin 100 mg capsule 100 mg PO TID NERVE PAIN 04/01/21 [History Last Taken 09/30/22] aspirin 81 mg tablet,delayed release 81 mg PO DAILY@0800 #30 tabs 07/09/21 [Rx Last Taken 09/30/22] furosemide 40 mg tablet (Lasix) 40 mg PO BID #60 tabs 07/09/21 [Rx Last Taken 09/30/22] aluminum-mag hydroxide-simethicone 200 mg-200 mg-20 mg/5 mL oral susp (Silvana-Lanta) 5 ml PO Q3H PRN Gastrointestinal Spasms Or Cramping 03/08/22 [History Last Taken Unknown] duloxetine 30 mg capsule,delayed release sprinkle 30 mg PO DAILY 03/08/22 [History Last Taken 09/30/22] multivitamin 1 tab PO DAILY 03/08/22 [History Last Taken 09/30/22] divalproex 125 mg capsule,delayed release sprinkle 125 mg PO QHS 09/30/22 [History Last Taken 09/29/22] hydroxyzine pamoate 25 mg capsule 25 mg PO BID PRN Anxiety 09/30/22 [History Last Taken Unknown] Allergy/AdvReac Type Severity Reaction Status Date / Time house dust Allergy Intermediate NEEDS Verified 09/30/22 11:26 FOLLOW-UP Penicillins Allergy PT UNSURE Verified 09/30/22 11:26 OF REACTION atorvastatin [From Lipitor] AdvReac PT UNSURE Verified 09/30/22 11:26 OF REACTION cabbage AdvReac Diarrhea Verified 09/30/22 11:26 celecoxib [From Celebrex] AdvReac PT UNSURE Verified 09/30/22 11:26 OF REACTION esomeprazole [From Nexium] AdvReac PT UNSURE Verified 09/30/22 11:26 OF REACTION metformin AdvReac PT UNSURE Verified 09/30/22 11:26 OF REACTION tomato AdvReac Diarrhea Verified 09/30/22 11:26 tree nut AdvReac Diarrhea Verified 09/30/22 11:26 Family History Brother Family history of PTCA Father Heart disease CVA (cerebral vascular accident) Surgical History H/O total hip arthroplasty History of carpal tunnel surgery History of craniotomy History of total hysterectomy Hx of appendectomy Hx of total knee arthroplasty S/P craniotomy Social History household members: none Smoking Status: Never smoker alcohol intake: never substance use type: does not use caffeine: No what type of physical activity do you participate in: weight training frequency: daily duration: 15-30 minutes/day seatbelt use: always do you feel safe at home: Yes ROS ROS Narrative 12 point review of systems obtained, negative less otherwise noted in HPI. Vital Signs Vital Signs Vital Signs: 09/30/22 15:03 09/30/22 16:09 09/30/22 17:52 Temperature 96.8 F L Temperature Source Temporal Pulse Rate 88 90 81 Pulse Strength Pulse Strength [Left] Respiratory Rate 24 H 14 23 H Respiratory Effort Respiratory Depth Respiratory Pattern Blood Pressure 110/82 H 113/75 117/71 Blood Pressure Mean 91 87 86 Blood Pressure Source Blood Pressure Position Blood Pressure Location Pulse Ox 92 94 95 Oxygen Delivery Method Nasal Cannula Nasal Cannula Nasal Cannula Oxygen Flow Rate (L/min) 1.5 1.5 1.5 09/30/22 20:24 09/30/22 20:25 09/30/22 22:58 Temperature 97.5 F L 97.7 F L Temperature Source Oral Oral Pulse Rate 73 77 Pulse Strength Pulse Strength [Left] Respiratory Rate 20 H 20 H Respiratory Effort Respiratory Depth Respiratory Pattern Blood Pressure 115/77 125/92 H Blood Pressure Mean 89 103 Blood Pressure Source Monitor Monitor Blood Pressure Position Supine Supine Blood Pressure Location Right Arm Right Arm Pulse Ox 93 97 93 Oxygen Delivery Method Nasal Cannula Nasal Cannula Nasal Cannula Oxygen Flow Rate (L/min) 2 2 2 09/30/22 22:00 09/30/22 20:00 10/01/22 03:00 Temperature Temperature Source Pulse Rate 91 95 Pulse Strength Normal (2+) Pulse Strength [Left] Respiratory Rate Respiratory Effort Respiratory Depth Respiratory Pattern Blood Pressure Blood Pressure Mean Blood Pressure Source Blood Pressure Position Blood Pressure Location Pulse Ox Oxygen Delivery Method Oxygen Flow Rate (L/min) 10/01/22 04:45 09/30/22 22:54 10/01/22 04:00 Temperature 97.5 F L Temperature Source Axillary Pulse Rate 84 Pulse Strength Pulse Strength [Left] Respiratory Rate 20 H Respiratory Effort Normal Normal Respiratory Depth Normal Normal Respiratory Pattern Normal Normal Blood Pressure 111/74 Blood Pressure Mean 86 Blood Pressure Source Monitor Blood Pressure Position Supine Blood Pressure Location Right Arm Pulse Ox 94 Oxygen Delivery Method Room Air Nasal Cannula Oxygen Flow Rate (L/min) 2 09/30/22 19:15 09/30/22 21:15 09/30/22 23:15 Temperature Temperature Source Pulse Rate Pulse Strength Pulse Strength [Left] Normal (2+) Normal (2+) Normal (2+) Respiratory Rate Respiratory Effort Respiratory Depth Respiratory Pattern Blood Pressure Blood Pressure Mean Blood Pressure Source Blood Pressure Position Blood Pressure Location Pulse Ox Oxygen Delivery Method Oxygen Flow Rate (L/min) 10/01/22 05:02 10/01/22 04:45 10/01/22 08:10 Temperature 97.5 F L Temperature Source Axillary Pulse Rate 84 Pulse Strength Pulse Strength [Left] Normal (2+) Respiratory Rate 20 H Respiratory Effort Respiratory Depth Respiratory Pattern Blood Pressure 111/74 Blood Pressure Mean 86 Blood Pressure Source Monitor Blood Pressure Position Supine Blood Pressure Location Right Arm Pulse Ox 94 94 Oxygen Delivery Method Room Air Nasal Cannula Oxygen Flow Rate (L/min) 2 10/01/22 10:36 10/01/22 10:37 10/01/22 10:00 Temperature 97.6 F L Temperature Source Oral Pulse Rate 79 Pulse Strength Normal (2+) Pulse Strength [Left] Respiratory Rate 18 Respiratory Effort Respiratory Depth Respiratory Pattern Blood Pressure 112/70 Blood Pressure Mean 84 Blood Pressure Source Monitor Blood Pressure Position Semi-Fowlers Blood Pressure Location Right Arm Pulse Ox 95 Oxygen Delivery Method Nasal Cannula Nasal Cannula Oxygen Flow Rate (L/min) 2 2 10/01/22 14:22 Temperature 98.3 F Temperature Source Oral Pulse Rate 74 Pulse Strength Pulse Strength [Left] Respiratory Rate 18 Respiratory Effort Respiratory Depth Respiratory Pattern Blood Pressure 103/68 Blood Pressure Mean 79 Blood Pressure Source Monitor Blood Pressure Position Semi-Fowlers Blood Pressure Location Right Arm Pulse Ox 95 Oxygen Delivery Method Room Air Oxygen Flow Rate (L/min) Weight Weight: 153 lb 0.013 oz Body Mass Index (BMI) 27.4 Physical Exam Narrative General -A&Ox3, NAD, appears stated age. Vital signs stable, afebrile. Respiratory -normal work of breathing, no intercostal retractions. CV -pulses regular, brisk capillary refill ?4 limbs. Abdomen-soft, nontender, nondistended. No guarding, rigidity, rebound tenderness. Musculoskeletal/neurologic -full range of motion nontender throughout right upper extremity, right lower extremity with full sensation and strength in all dermatomes and myotomes. No midline cervical tenderness. Left upper extremity-sling in place. Skin intact circumferentially without lacerations or abrasions. Significant ecchymosis about the left shoulder. Sensation intact throughout axillary, musculocutaneous, radial, ulnar, median nerve distributions. Cardinal motions of the left hand are intact. Elbow flexion extension are intact. Tenderness of the proximal humerus. Left lower extremity-tenderness in the peritrochanteric region of the left hip. Tolerates logroll left hip. Negative heel strike. Sensation intact throughout L3-S1 dermatomes. Ankle DF, PF, EHL 5/5. DP pulse 2+ brisk capillary refill in toes. Lab / Micro Data Result Diagrams: 10/01/22 03:00 10/01/22 03:00 Labs: Laboratory Results - last 24 hr 09/30/22 13:15: Magnesium 2.7 H 09/30/22 20:25: POC Glucose 144 H 09/30/22 20:45: Sodium 136, Potassium 4.2, Chloride 102, Carbon Dioxide 29.0, Anion Gap 5, BUN 32 H, Creatinine 1.14 H, Estim Creat Clear Calc 30.59, Est GFR (MDRD) Af Amer 58 L, Est GFR (MDRD) Non-Af 48 L, BUN/Creatinine Ratio 28.1 H, Glucose 160 H, Calcium 8.7, Total Bilirubin 1.80 H, AST 18, ALT 22, Alkaline Phosphatase 104, Troponin I High Sens 103 H, Total Protein 6.5, Albumin 2.9 L, Globulin 3.6, Albumin/Globulin Ratio 0.8 L 09/30/22 20:45: Vitamin D 25-Hydroxy 30.2 09/30/22 23:00: Troponin I High Sens 92 H 09/30/22 23:15: POC Glucose 198 H 10/01/22 03:00: WBC 9.8, RBC 4.21, Hgb 14.0, Hct 42.7, MCV 101.4 H, MCH 33.3 H, MCHC 32.8, RDW Std Deviation 50.3 H, RDW Coeff of Margaret 13.9, Plt Count 214, MPV 9.5, Immature Gran % (Auto) 0.400, Neut % (Auto) 75.8 H, Lymph % (Auto) 11.3 L, [place] % (Auto) 8.6, Eos % (Auto) 3.1, Baso % (Auto) 0.8, Absolute Neuts (auto) 7.4, Absolute Lymphs (auto) 1.10, Nucleated RBC % 0 10/01/22 03:00: Sodium 138, Potassium 3.9, Chloride 102, Carbon Dioxide 28.0, Anion Gap 8, BUN 31 H, Creatinine 1.08 H, Estim Creat Clear Calc 32.29, Est GFR (MDRD) Af Amer 62, Est GFR (MDRD) Non-Af 51 L, BUN/Creatinine Ratio 28.7 H, Glucose 141 H, Calcium 8.1 L, Total Bilirubin 1.60 H, AST 14 L, ALT 22, Alkaline Phosphatase 97, Total Protein 5.9 L, Albumin 2.6 L, Globulin 3.3, Albumin/Globulin Ratio 0.8 L, Triglycerides 123, Cholesterol 130, LDL Cholesterol 69, VLDL Cholesterol 25, HDL Cholesterol 36 L, TSH 0.42 10/01/22 03:00: Hemoglobin A1c 6.3 H 10/01/22 03:00: Troponin I High Sens 88 H 10/01/22 04:30: Urine Color Yellow, Urine Clarity Clear, Urine pH 7.0, Ur Specific [place] 1.010, Urine Protein 15 H, Urine Glucose (UA) Normal, Urine Ketones Negative, Urine Occult Blood 25 H, Urine Nitrite Positive H, Urine Bilirubin Negative, Urine Urobilinogen 1 H, Ur Leukocyte Esterase 500 H, Urine RBC 0-5 SEEN, Urine WBC 10-25 SEEN, Ur Squamous Epith Cells 0 SEEN, Urine Bacteria 3+, Urine Mucus 0 SEEN 10/01/22 07:30: POC Glucose 167 H 10/01/22 11:49: POC Glucose 135 H Rhythm Strip Rhythm Strip: Sinus rhythm with frequent PACs. Ectopy: PAC(s) Radiology Impression Chest CTA 09/30/22 13:54 IMPRESSION: No evidence of a pulmonary embolus or Cardiomegaly. Minimal left pleural effusion with linear atelectasis and/or scarring at the lung bases. Electronically Signed: Michael Vallejo MD at 15:05 EST , Echocardiogram 09/30/22 19:46 Interpretation Summary The left ventricular ejection fraction is 65 %. Diastolic function is indeterminate. Septal wall notion consistent with RV volume and pressure overload Moderately decreased right ventricular systolic function Moderately dilated right ventricle. The left atrium is severely enlarged. The right atrium is severely enlarged. Severe (4+) tricuspid valve insufficiency. Severe pulmonary hypertension. Severe (4+) mitral valve insufficiency. Aortic sclerosis, no stenosis. Moderately dilated aortic root. Mild (1+) aortic valve insufficiency. Ordering Physician: Ayah Lawton Referring Physician: Alma Delia Edouard M.D. Performed By: Celestine Cloud RCS Lower Extremity CT 10/01/22 11:42 IMPRESSION: There is a nondisplaced fracture of the left intra trochanteric region detailed above superimposed on the left hip arthroplasty. There is a partial uncovered appearance of the lateral cement due to cortical loss and fracture of the left proximal femur. There is subtle nondisplaced fracturing of the cortex and subtle cortical irregularity on the medial side. Electronically Signed: Brooke Hay MD at 12:56 EST , Assessment & Plan Assessment/Plan (1) Fracture of proximal end of left humerus: PLAN: Patient sustained a three-part left proximal humerus fracture. Alignment appears within acceptable limits for continued nonoperative management at this time given her low functional status. We will maintain sling. Nonweightbearing left upper extremity. Plan to initiate motion 3 weeks following injury. (2) Periprosthetic intertrochanteric fracture of femur: PLAN: Patient sustained a periprosthetic fracture about the left cemented total hip arthroplasty. Given her ability to weight-bear to some degree and the delayed presentation, the hip stem does appear stable based on x-ray and CT scan at this time. Given her extensive comorbidities and high risk surgical candidate, I recommend we attempt to manage this nonoperatively with touchdown weightbearing left lower extremity. Certainly, patient will be requiring full assistance given her left upper extremity injury as well and inability to use a walker effectively. PT/OT. Plan for follow-up x-rays and clinical recheck after mobilization with therapy.
--- NOTE | 2022-10-01 15:50 | PN.HOSP_ITS ---
Subjective Subjective Seen and examined today, I talked with orthopedic surgery today about the patient's care, Dr. Nam stated that he recommended conservative treatment rather than taking the patient to surgery, patient had an echocardiogram today which showed severe pulmonary hypertension and severe mitral valve insufficiency and severe tricuspid valve insufficiency. Patient is currently in assisted living, she will need assisted placement at the time of discharge from the hospital here. Objective Data Objective Data Vital Signs: Vital Signs Temp Pulse Resp BP Pulse Ox O2 Del Method O2 Flow Rate 98.3 F 74 18 103/68 95 Room Air 2 10/01/22 14:22 10/01/22 14:22 10/01/22 14:22 10/01/22 14:22 10/01/22 14:22 10/01/22 14:22 10/01/22 10:37 Oxygen Flow Rate (L/min) 2 Oxygen Delivery Method Room Air Weight: 69.4 kg Body Mass Index (BMI) 27.4 Intake & Output: Intake and Output for Last 24 Hours 09/29/22 09/30/22 10/01/22 23:59 23:59 23:59 Intake Total 418.75 / 418.75 Output Total 1450 / 1450 Balance -1031.25 / -1031.25 Lab / Micro Data Result Diagrams: 10/01/22 03:00 10/01/22 03:00 Labs: Laboratory Results - last 24 hr 09/30/22 13:15: Magnesium 2.7 H 09/30/22 20:25: POC Glucose 144 H 09/30/22 20:45: Sodium 136, Potassium 4.2, Chloride 102, Carbon Dioxide 29.0, Anion Gap 5, BUN 32 H, Creatinine 1.14 H, Estim Creat Clear Calc 30.59, Est GFR (MDRD) Af Amer 58 L, Est GFR (MDRD) Non-Af 48 L, BUN/Creatinine Ratio 28.1 H, Glucose 160 H, Calcium 8.7, Total Bilirubin 1.80 H, AST 18, ALT 22, Alkaline Phosphatase 104, Troponin I High Sens 103 H, Total Protein 6.5, Albumin 2.9 L, Globulin 3.6, Albumin/Globulin Ratio 0.8 L 09/30/22 20:45: Vitamin D 25-Hydroxy 30.2 09/30/22 23:00: Troponin I High Sens 92 H 09/30/22 23:15: POC Glucose 198 H 10/01/22 03:00: WBC 9.8, RBC 4.21, Hgb 14.0, Hct 42.7, MCV 101.4 H, MCH 33.3 H, MCHC 32.8, RDW Std Deviation 50.3 H, RDW Coeff of Margaret 13.9, Plt Count 214, MPV 9.5, Immature Gran % (Auto) 0.400, Neut % (Auto) 75.8 H, Lymph % (Auto) 11.3 L, [place] % (Auto) 8.6, Eos % (Auto) 3.1, Baso % (Auto) 0.8, Absolute Neuts (auto) 7.4, Absolute Lymphs (auto) 1.10, Nucleated RBC % 0 10/01/22 03:00: Sodium 138, Potassium 3.9, Chloride 102, Carbon Dioxide 28.0, Anion Gap 8, BUN 31 H, Creatinine 1.08 H, Estim Creat Clear Calc 32.29, Est GFR (MDRD) Af Amer 62, Est GFR (MDRD) Non-Af 51 L, BUN/Creatinine Ratio 28.7 H, Glucose 141 H, Calcium 8.1 L, Total Bilirubin 1.60 H, AST 14 L, ALT 22, Alkaline Phosphatase 97, Total Protein 5.9 L, Albumin 2.6 L, Globulin 3.3, Albumin/Globulin Ratio 0.8 L, Triglycerides 123, Cholesterol 130, LDL Cholesterol 69, VLDL Cholesterol 25, HDL Cholesterol 36 L, TSH 0.42 10/01/22 03:00: Hemoglobin A1c 6.3 H 10/01/22 03:00: Troponin I High Sens 88 H 10/01/22 04:30: Urine Color Yellow, Urine Clarity Clear, Urine pH 7.0, Ur Spe cific [place] 1.010, Urine Protein 15 H, Urine Glucose (UA) Normal, Urine Ket ones Negative, Urine Occult Blood 25 H, Urine Nitrite Positive H, Urine Bilirubin Negative, Urine Urobilinogen 1 H, Ur Leukocyte Esterase 500 H, Urine RBC 0-5 SEEN, Urine WBC 10-25 SEEN, Ur Squamous Epith Cells 0 SEEN, Urine Bacteria 3+, Urine Mucus 0 SEEN 10/01/22 07:30: POC Glucose 167 H 10/01/22 11:49: POC Glucose 135 H Radiography Diagnostic Testing: Radiology Impression Echocardiogram 09/30/22 19:46 Interpretation Summary The left ventricular ejection fraction is 65 %. Diastolic function is indeterminate. Septal wall notion consistent with RV volume and pressure overload Moderately decreased right ventricular systolic function Moderately dilated right ventricle. The left atrium is severely enlarged. The right atrium is severely enlarged. Severe (4+) tricuspid valve insufficiency. Severe pulmonary hypertension. Severe (4+) mitral valve insufficiency. Aortic sclerosis, no stenosis. Moderately dilated aortic root. Mild (1+) aortic valve insufficiency. Ordering Physician: Ayah Lawton Referring Physician: Alma Delia Edouard M.D. Performed By: Celestine Cloud RCS Lower Extremity CT 10/01/22 11:42 IMPRESSION: There is a nondisplaced fracture of the left intra trochanteric region detailed above superimposed on the left hip arthroplasty. There is a partial uncovered appearance of the lateral cement due to cortical loss and fracture of the left proximal femur. There is subtle nondisplaced fracturing of the cortex and subtle cortical irregularity on the medial side. Electronically Signed: Brooke Hay MD at 12:56 EST Reading Location ID and State[facility] [place] Tel , Service support , Rhythm Strip Rhythm Strip: Sinus rhythm with frequent PACs. Ectopy: PAC(s) Physical Exam Const alert, oriented x3 and no apparent distress Constitutional Narrative: Patient appears her stated age, she appears frail General Appearance: cooperative, well kempt and well developed Orientation / Consciousness: awake, oriented to person and oriented to place HEENT normocephalic, head/scalp atraumatic and moist oral mucous membranes Eyes PERRL, EOMs intact bilaterally and conjunctivae normal Neck supple, no JVD, thyroid normal and no carotid bruits General: trachea midline Resp normal respiratory effort and clear to auscultation bilaterally Auscultation: Negative for rales, rhonchi or wheezes Cardio regular rate, regular rhythm, S1 normal heart sound, S2 normal heart sound, no rub and no gallops Cardio Narrative: There is a 2/6 systolic murmur noted at the left sternal border, apex, and right sternal border GI normal to inspection, nondistended, normoactive bowel sounds, soft to palpation, non-tender and non-distended Extremity no clubbing, cyanosis or edema Extremity Narrative: Patient has her left arm in a sling Skin no rashes or lesions noted General Skin Exam: no breakdown Neuro CN's II-XII intact bilaterally, no focal motor deficits and no sensory deficits noted Sensorium / Orientation: awake and alert Speech: speech normal Psych affect normal Assessment & Plan Assessment/Plan (1) Periprosthetic intertrochanteric fracture of femur: PLAN: Plan 1. Periprosthetic intratrochanteric fracture of the femur-again orthopedic surgery feels that conservative treatment is recommended at this time due to her extensive comorbidities and high risk for surgery complications, this will be managed nonoperatively with touchdown weightbearing left lower extremity, PT and OT are seeing the patient, she will need placement in a assisted facility at the time of discharge from the hospital. #2 fracture of the proximal end of the left humerus-sling will be maintained, nonweightbearing left upper extremity. #3 severe pulmonary hypertension-complicates care, management, recovery, and prognosis #4 severe valvular heart disease with mitral regurg and tricuspid regurg- complicates care, management, recovery, and prognosis #5 troponin elevation-etiology unknown at this time, I do not feel the patient has had a non-STEMI #6 chronic diastolic congestive heart failure-I do not believe the patient has acute diastolic heart failure at this time, patient will remain on her current medications #7 dementia Charges/Coding Visit Charges Inpatient E&M: 26962 Subs Hosp L2
[2022-10-01] MEDS: Insulin Lispro 100 UNIT/ML INSULN.PEN SC (16:12)
[2022-10-01] MEDS: Ensure Plus High Protein 120 ML LIQUID PO (16:14)
[2022-10-01 16:40] LABS: Bedside Glucose 206 mg/dL (74-106)
[2022-10-01] MEDS: Divalproex Sodium 125 MG SPRINKLE PO (21:27)
[2022-10-01] MEDS: Senna/Docusate Sodium 1 Tablet 2 TABLET PO (21:28)
[2022-10-01] MEDS: Gabapentin 100 MG Capsule PO (21:36)
[2022-10-01] MEDS: Acetaminophen 325 MG Tablet 650 MG PO (21:36)
[2022-10-02] VITALS (10 sets, daily range): BP systolic 122–137; BP diastolic 69–93; PULSE 71–110; RESP 18–20; TEMP 36.4–36.9; O2SAT 91–96
[2022-10-02 00:01] LABS: Bedside Glucose 136 mg/dL (74-106)
[2022-10-02] MEDS: Gabapentin 100 MG Capsule PO ×3 (06:06→20:45)
[2022-10-02 06:35] LABS: Bedside Glucose 147 mg/dL (74-106)
[2022-10-02] MEDS: Aspirin E.C. 81 MG Tablet PO (10:16)
[2022-10-02] MEDS: Ensure Plus High Protein 120 ML LIQUID PO ×2 (10:16→16:58)
[2022-10-02] MEDS: Senna/Docusate Sodium 1 Tablet 2 TABLET PO ×2 (10:16→20:45)
[2022-10-02] MEDS: DULoxetine Hcl 30 MG Capsule PO (10:16)
[2022-10-02] MEDS: Furosemide 40 MG Tablet PO ×2 (10:16→16:59)
--- NOTE | 2022-10-02 10:38 | PN.CARD_ITS ---
Subjective Subjective Denies any chest pains or shortness of breath. Objective Data Vital Signs: Vital Signs Temp Pulse Resp BP Pulse Ox O2 Del Method O2 Flow Rate 98 F 72 18 122/72 H 94 Room Air 2 10/02/22 10:12 10/02/22 10:12 10/02/22 10:12 10/02/22 10:12 10/02/22 10:12 10/02/22 10:12 10/02/22 03:56 Oxygen Flow Rate (L/min) 2 Oxygen Delivery Method Room Air Weight: 156 lb 15.506 oz Body Mass Index (BMI) 27.4 Intake & Output: Intake and Output for Last 24 Hours 09/30/22 10/01/22 10/02/22 23:59 23:59 23:59 Intake Total 2407.50 / 2407.50 150 / 150 Output Total 2150 / 2150 200 / 200 Balance 257.50 / 257.50 -50 / -50 Lab / Micro Data Result Diagrams: 10/01/22 03:00 10/01/22 03:00 Labs: Laboratory Results - last 24 hr 10/01/22 11:49: POC Glucose 135 H 10/01/22 16:08: POC Glucose 206 H 10/01/22 21:23: POC Glucose 136 H 10/02/22 06:06: POC Glucose 147 H Micro: Microbiology 10/01/22 04:30 Urine Catheter - [facility] Urine Culture - 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 Severe mitral regurgitation. Severe tricuspid regurgitation. Severe pulmonary hypertension. Stress Test: Cardiac Cath: PCI: CT Surgery: Holter monitor: EPS: PPM: CXR: Chest CT Scan: Radiography Diagnostic Testing: Radiology Impression Echocardiogram 09/30/22 19:46 Interpretation Summary The left ventricular ejection fraction is 65 %. Diastolic function is indeterminate. Septal wall notion consistent with RV volume and pressure overload Moderately decreased right ventricular systolic function Moderately dilated right ventricle. The left atrium is severely enlarged. The right atrium is severely enlarged. Severe (4+) tricuspid valve insufficiency. Severe pulmonary hypertension. Severe (4+) mitral valve insufficiency. Aortic sclerosis, no stenosis. Moderately dilated aortic root. Mild (1+) aortic valve insufficiency. Ordering Physician: Ayah Lawton Referring Physician: Alma Delia Edouard M.D. Performed By: Celestine Cloud RCS Lower Extremity CT 10/01/22 11:42 IMPRESSION: There is a nondisplaced fracture of the left intra trochanteric region detailed above superimposed on the left hip arthroplasty. There is a partial uncovered appearance of the lateral cement due to cortical loss and fracture of the left proximal femur. There is subtle nondisplaced fracturing of the cortex and subtle cortical irregularity on the medial side. Electronically Signed: Brooke Hay MD at 12:56 EST Reading Location ID and State: [facility] / [place] Tel , Service support , Physical Exam Narrative Comfortable. Lying flat in the bed. Heart sounds 1 and 2 are noted. There is a 3/6 systolic murmur at the apex and base. Chest clear to auscultation bilaterally. Abdomen soft. Alert oriented x3. No ankle edema. Assessment & Plan Assessment/Plan (1) Preoperative cardiovascular examination: PLAN: No surgical plan as per notes. For conservative treatment of her fractures. (2) Nonrheumatic mitral (valve) insufficiency: PLAN: Severe mitral regurgitation. Continue diuretics. Add angiotensin receptor morgan for afterload reduction. Recommend referral to structural heart clinic as an outpatient. (3) Severe tricuspid regurgitation: PLAN: Continue diuretics. (4) Paroxysmal atrial fibrillation: PLAN: Presently sinus rhythm with PACs. She has not been on anticoagulation because of her risk of falls. (5) Essential (primary) hypertension: PLAN: Controlled. (6) Fracture of proximal end of left humerus: PLAN: Surgical fixation being contemplated. (7) Pulmonary hypertension: PLAN: History of severe mitral valve regurgitation. Continue diuretics. Angiotensin receptor blockers for afterload reduction. PLAN: Plan Patient presently is compensated from a cardiac standpoint. No further work-up at this time. May transfer to rehab facility. She will need referral to the structural heart clinic for evaluation for possibly percutaneous treatment of her severe mitral and tricuspid regurgitation.
--- NOTE | 2022-10-02 11:35 | PCM.PN.HOSP ---
Subjective Subjective She was seen and examined today, she does not know she is in the hospital, she told me she walked from [place] today-she states she walked 32 miles. She knows the year, she does not know the date. Arrangements are being made for the patient to go to an extended care facility for rehab services. Objective Data Objective Data Vital Signs: Vital Signs Temp Pulse Resp BP Pulse Ox O2 Del Method O2 Flow Rate 98 F 72 18 122/72 H 94 Room Air 2 10/02/22 10:12 10/02/22 10:12 10/02/22 10:12 10/02/22 10:12 10/02/22 10:12 10/02/22 10:12 10/02/22 03:56 Oxygen Flow Rate (L/min) 2 Oxygen Delivery Method Room Air Weight: 71.2 kg Body Mass Index (BMI) 27.4 Intake & Output: Intake and Output for Last 24 Hours 09/30/22 10/01/22 10/02/22 23:59 23:59 23:59 Intake Total 2407.50 / 2407.50 150 / 150 Output Total 2150 / 2150 200 / 200 Balance 257.50 / 257.50 -50 / -50 Lab / Micro Data Result Diagrams: 10/01/22 03:00 10/01/22 03:00 Labs: Laboratory Results - last 24 hr 10/01/22 11:49: POC Glucose 135 H 10/01/22 16:08: POC Glucose 206 H 10/01/22 21:23: POC Glucose 136 H 10/02/22 06:06: POC Glucose 147 H Micro: Microbiology 10/01/22 04:30 Urine Catheter - [facility] Urine Culture - Preliminary GNR lactose 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 Diastolic function is indeterminate. Septal wall notion consistent with RV volume and pressure overload Moderately decreased right ventricular systolic function Moderately dilated right ventricle. The left atrium is severely enlarged. The right atrium is severely enlarged. Severe (4+) tricuspid valve insufficiency. Severe pulmonary hypertension. Severe (4+) mitral valve insufficiency. Aortic sclerosis, no stenosis. Moderately dilated aortic root. Mild (1+) aortic valve insufficiency. Ordering Physician: Ayah Lawton Referring Physician: Alma Delia Edouard M.D. Performed By: Celestine Cloud RCS Lower Extremity CT 10/01/22 11:42 IMPRESSION: There is a nondisplaced fracture of the left intra trochanteric region detailed above superimposed on the left hip arthroplasty. There is a partial uncovered appearance of the lateral cement due to cortical loss and fracture of the left proximal femur. There is subtle nondisplaced fracturing of the cortex and subtle cortical irregularity on the medial side. Electronically Signed: Brooke Hay MD at 12:56 EST Reading Location ID and State: [facility] / [place] Tel , Service support , Rhythm Strip Rhythm Strip: A-fib Ectopy: PAC(s) Physical Exam Const alert and no apparent distress Constitutional Narrative: Patient is confused, she is not agitated General Appearance: cooperative, well kempt and well developed Orientation / Consciousness: awake and oriented to person HEENT normocephalic, head/scalp atraumatic and moist oral mucous membranes Eyes PERRL, EOMs intact bilaterally and conjunctivae normal Neck supple, no JVD, thyroid normal and no carotid bruits General: trachea midline Resp normal respiratory effort, no retractions, no use of accessory muscles and clear to auscultation bilaterally Auscultation: Negative for rales, rhonchi or wheezes Cardio regular rate, regular rhythm, S1 normal heart sound, S2 normal heart sound, no rub and no gallops Cardio Narrative: Patient has a 2/6 systolic murmur noted at the apex, left sternal border, and right sternal border. GI normal to inspection, nondistended, normoactive bowel sounds, soft to palpation, non-tender and non-distended Extremity no clubbing, cyanosis or edema Extremity Narrative: Patient is wearing a left arm sling Skin no rashes or lesions noted General Skin Exam: no breakdown Neuro CN's II-XII intact bilaterally, no focal motor deficits and no sensory deficits noted Sensorium / Orientation: awake and alert Speech: speech normal Psych Psych Narrative: Patient is confused, she is not agitated Assessment & Plan Assessment/Plan (1) Periprosthetic intertrochanteric fracture of femur: PLAN: Plan 1. Periprosthetic intratrochanteric fracture of the femur-again orthopedic surgery feels that conservative treatment is recommended at this time due to her extensive comorbidities and high risk for surgery complications, this will be managed nonoperatively with touchdown weightbearing left lower extremity, PT and OT are seeing the patient, she will need placement in a intermediate facility at the time of discharge from the hospital. #2 fracture of the proximal end of the left humerus-sling will be maintained, nonweightbearing left upper extremity. #3 severe pulmonary hypertension-complicates care, management, recovery, and prognosis #4 severe valvular heart disease with mitral regurg and tricuspid regurg-complicates care, management, recovery, and prognosis #5 troponin elevation-etiology unknown at this time, I do not feel the patient has had a non-STEMI #6 chronic diastolic congestive heart failure-I do not believe the patient has acute diastolic heart failure at this time, patient will remain on her current medications #7 dementia-complicates care, management, recovery, and prognosis Charges/Coding Visit Charges Inpatient E&M: 53181 Subs Hosp L2
[2022-10-02] MEDS: Losartan Potassium 25 MG Tablet PO (12:21)
[2022-10-02] MEDS: Insulin Lispro 100 UNIT/ML INSULN.PEN SC ×2 (12:22→20:44)
[2022-10-02 12:40] LABS: Bedside Glucose 183 mg/dL (74-106)
[2022-10-02] MEDS: 0.9% Normal Saline 1,000 ML 75 ML IV (13:54)
[2022-10-02 17:20] LABS: Bedside Glucose 112 mg/dL (74-106)
[2022-10-02] MEDS: Cephalexin 500 MG Capsule PO (18:52)
[2022-10-02] MEDS: Divalproex Sodium 125 MG SPRINKLE PO (20:45)
[2022-10-02] MEDS: Acetaminophen 325 MG Tablet 650 MG PO (20:49)
[2022-10-02 22:25] LABS: Bedside Glucose 161 mg/dL (74-106)
[2022-10-03] VITALS (9 sets, daily range): BP systolic 111–123; BP diastolic 72–81; PULSE 68–93; RESP 18–20; TEMP 36.3–36.5; O2SAT 89–98
[2022-10-03] MEDS: 0.9% Normal Saline 1,000 ML 75 ML IV (03:01)
[2022-10-03] MEDS: Gabapentin 100 MG Capsule PO ×3 (04:57→20:32)
[2022-10-03 06:46] LABS: Bedside Glucose 129 mg/dL (74-106)
[2022-10-03 07:04] LABS: Anion Gap 6 (5-15); BUN 26 mg/dL (7-18); BUN/Creat Ratio 26.6 RATIO (10-20); Calcium,Total 8.5 mg/dL (8.5-10.1); Chloride 106 mmol/L (98-107); Creatinine, Serum 0.98 mg/dL (0.55-1.02); EST Glomerular Filtration Rate 57 mL/min (>60); Est Glom Filt Rate - Afr Amer 69 mL/min (>60); Estimated Creatinine Clearance 35.58 ml/min; Glucose 120 mg/dL (74-106); Potassium 3.8 mmol/L (3.5-5.1); Sodium Level 139 mmol/L (136-145)
[2022-10-03] MEDS: DULoxetine Hcl 30 MG Capsule PO (08:03)
[2022-10-03] MEDS: Senna/Docusate Sodium 1 Tablet 2 TABLET PO (08:03)
[2022-10-03] MEDS: Furosemide 40 MG Tablet PO ×2 (08:03→16:36)
[2022-10-03] MEDS: Aspirin E.C. 81 MG Tablet PO (08:03)
[2022-10-03] MEDS: Ensure Plus High Protein 120 ML LIQUID PO ×3 (08:10→16:33)
[2022-10-03] MEDS: Losartan Potassium 25 MG Tablet PO (08:11)
[2022-10-03] MEDS: Cephalexin 500 MG Capsule PO ×2 (08:11→20:32)
--- NOTE | 2022-10-03 11:00 | CASEMGMT ---
Updates sent to [facility] via [employer]. CINDY inquired if [facility] is able to take patient. Await response and then will need to wait on pre-cert. Toña Long [employer]GS[employer] P[employer]ER ROYAL
[2022-10-03] MEDS: Insulin Lispro 100 UNIT/ML INSULN.PEN SC (12:08)
[2022-10-03 12:30] LABS: Bedside Glucose 200 mg/dL (74-106)
--- NOTE | 2022-10-03 13:31 | CASEMGMT ---
Patient was accepted at [facility]. [facility] started pre-cert. will notify patient and/or her sister Tyra. plan: d/c to [facility] pending pre-cert. Toña PAIGE
--- NOTE | 2022-10-03 13:45 | CASEMGMT ---
CINDY Note CINDY notified Tyra, patient's sister, of her acceptance to [facility], explaining it was pending pre-cert. Patient's sister reported an understanding and was inquiring about medical questions. CINDY explained she would inform patient's nurse to contact her to follow up with medical questions. Marlee Agustin MSW,ROYAL
--- NOTE | 2022-10-03 14:21 | CASEMGMT ---
[facility] asked for patient's COVID vaccine information. SW called [facility] and they will fax this information. 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
[2022-10-03] MEDS: oxyCODONE 5 MG Tablet PO (16:32)
[2022-10-03 17:00] LABS: Bedside Glucose 107 mg/dL (74-106)
--- NOTE | 2022-10-03 17:05 | PCM.PN.ORT ---
Subjective Subjective Patient seen and examined. Denies any new complaints. Denies fevers, chills, nausea vomiting, chest pain or shortness of breath. Objective Data Objective Data Vital Signs: Vital Signs Temp Pulse Resp BP Pulse Ox O2 Del Method O2 Flow Rate 97.7 F L 76 18 112/72 92 Nasal Cannula 2 10/03/22 07:57 10/03/22 16:00 10/03/22 07:57 10/03/22 07:57 10/03/22 07:57 10/03/22 07:57 10/03/22 13:21 Oxygen Flow Rate (L/min) 2 Oxygen Delivery Method Nasal Cannula Weight: 156 lb 4.924 oz Body Mass Index (BMI) 27.4 Intake & Output: Intake and Output for Last 24 Hours 10/01/22 10/02/22 10/03/22 23:59 23:59 23:59 Intake Total 2407.50 / 2407.50 1690 / 1810 2403.75 / 2403.75 Output Total 2150 / 2150 900 / 900 350 / 350 Balance 257.50 / 257.50 790 / 910 2053.75 / 2053.75 Lab / Micro Data Result Diagrams: 10/01/22 03:00 10/03/22 06:26 Labs: Laboratory Results - last 24 hr 10/02/22 16:58: POC Glucose 112 H 10/02/22 20:43: POC Glucose 161 H 10/03/22 06:12: POC Glucose 129 H 10/03/22 06:26: Sodium 139, Potassium 3.8, Chloride 106, Carbon Dioxide 27.0, Anion Gap 6, BUN 26 H, Creatinine 0.98, Estim Creat Clear Calc 35.58, Est GFR (MDRD) Af Amer 69, Est GFR (MDRD) Non-Af 57 L, BUN/Creatinine Ratio 26.6 H, Glucose 120 H, Calcium 8.5 10/03/22 11:59: POC Glucose 200 H 10/03/22 16:19: POC Glucose 107 H Micro: Microbiology 10/01/22 04:30 Urine Catheter - [facility] Urine Culture - Final Escherichia coli Rhythm Strip Rhythm Strip: A-fib Ectopy: PAC(s) Physical Exam Narrative General -A&Ox3, NAD, appears stated age. Vital signs stable, afebrile. Respiratory -normal work of breathing, no intercostal retractions. CV -pulses regular, brisk capillary refill ?4 limbs. Abdomen-soft, nontender, nondistended. No guarding, rigidity, rebound tenderness. Musculoskeletal/neurologic -full range of motion nontender throughout right upper extremity, right lower extremity with full sensation and strength in all dermatomes and myotomes. No midline cervical tenderness. Left upper extremity-sling in place. Skin intact circumferentially without lacerations or abrasions. Significant ecchymosis about the left shoulder. Sensation intact throughout axillary, musculocutaneous, radial, ulnar, median nerve distributions. Cardinal motions of the left hand are intact. Elbow flexion extension are intact. Tenderness of the proximal humerus. Left lower extremity-tenderness in the peritrochanteric region of the left hip. Tolerates logroll left hip. Negative heel strike. Sensation intact throughout L3-S1 dermatomes. Ankle DF, PF, EHL 5/5. DP pulse 2+ brisk capillary refill in toes. Assessment & Plan Assessment/Plan (1) Fracture of proximal end of left humerus: PLAN: Sling, nonweightbearing left upper extremity. Plan to initiate motion 3 weeks following injury. (2) Periprosthetic intertrochanteric fracture of femur: PLAN: Continue nonoperative management. Follow-up in 1-2 weeks as an outpatient for follow-up x-rays of both injuries. I will sign off at this time. Awaiting SNF. Please call if any questions or concerns arise in the interim. Thank you for this consultation.
--- NOTE | 2022-10-03 18:09 | PN.HOSP_ITS ---
Subjective Subjective Doing fairly well, pleasantly confused. Has some right thigh pain which she attributes to all of the walking that she had been doing prior to coming in. No other complaints at this time Objective Data Objective Data Vital Signs: Vital Signs Temp Pulse Resp BP Pulse Ox O2 Del Method O2 Flow Rate 97.7 F L 76 18 112/72 92 Nasal Cannula 2 10/03/22 07:57 10/03/22 16:00 10/03/22 07:57 10/03/22 07:57 10/03/22 07:57 10/03/22 07:57 10/03/22 13:21 Oxygen Flow Rate (L/min) 2 Oxygen Delivery Method Nasal Cannula Weight: 70.9 kg Body Mass Index (BMI) 27.4 Intake & Output: Intake and Output for Last 24 Hours 10/01/22 10/02/22 10/03/22 23:59 23:59 23:59 Intake Total 2407.50 / 2407.50 1690 / 1810 2403.75 / 2403.75 Output Total 2150 / 2150 900 / 900 350 / 350 Balance 257.50 / 257.50 790 / 910 2053.75 / 2053.75 Lab / Micro Data Result Diagrams: 10/01/22 03:00 10/03/22 06:26 Labs: Laboratory Results - last 24 hr 10/02/22 20:43: POC Glucose 161 H 10/03/22 06:12: POC Glucose 129 H 10/03/22 06:26: Sodium 139, Potassium 3.8, Chloride 106, Carbon Dioxide 27.0, Anion Gap 6, BUN 26 H, Creatinine 0.98, Estim Creat Clear Calc 35.58, Est GFR (MDRD) Af Amer 69, Est GFR (MDRD) Non-Af 57 L, BUN/Creatinine Ratio 26.6 H, Glucose 120 H, Calcium 8.5 10/03/22 11:59: POC Glucose 200 H 10/03/22 16:19: POC Glucose 107 H Micro: Microbiology 10/01/22 04:30 Urine Catheter - [facility] Urine Culture - Final Escherichia coli Rhythm Strip Rhythm Strip: A-fib Ectopy: PAC(s) Physical Exam Const alert Constitutional Narrative: No apparent distress, does know where she is in the year but not why she is here HEENT normocephalic Eyes Eyes Narrative: EOM grossly intact, anicteric Neck supple Resp normal respiratory effort and clear to auscultation bilaterally Cardio regular rate and regular rhythm GI soft to palpation, non-tender and non-distended Extremity Extremity Narrative: No edema appreciated Neuro Neuro Narrative: No overt focal deficits appreciated, left arm in sling, resting comfortably Psych Psych Narrative: Cooperative Assessment & Plan Assessment/Plan (1) Periprosthetic intertrochanteric fracture of femur: PLAN: Plan 1. Periprosthetic intratrochanteric fracture of the femur ?Conservative therapy per orthopedic with plan for outpatient follow-up Will plan to DC to SNF #2 fracture of the proximal end of the left humerus-sling will be maintained, nonweightbearing left upper extremity. #3 severe pulmonary hypertension-complicates care, management, recovery, and prognosis #4 severe valvular heart disease with mitral regurg and tricuspid regurg- complicates care, management, recovery, and prognosis #5 troponin elevation-etiology unknown at this time, I do not feel the patient has had a non-STEMI #6 chronic diastolic congestive heart failure-I do not believe the patient has acute diastolic heart failure at this time, patient will remain on her current medications #7 dementia-complicates care, management, recovery, and prognosis, pleasantly demented today. Per report has improved after being treated with the Keflex for cystitis Charges/Coding Visit Charges Inpatient E&M: 87219 Subs Hosp L2
[2022-10-03] MEDS: Acetaminophen 325 MG Tablet 650 MG PO (20:32)
[2022-10-03] MEDS: Divalproex Sodium 125 MG SPRINKLE PO (20:32)
[2022-10-03 23:51] LABS: Bedside Glucose 131 mg/dL (74-106)
[2022-10-04] VITALS (14 sets, daily range): BP systolic 96–115; BP diastolic 48–71; PULSE 63–101; RESP 16–20; TEMP 36.3–36.9; O2SAT 88–98
[2022-10-04] MEDS: Gabapentin 100 MG Capsule PO ×3 (05:51→22:04)
[2022-10-04 06:35] LABS: Absolute Lymphocyte Count 0.95 X10^3/uL (0.83-4.51); Absolute Neutrophil Count 6.8 X10^3/uL (2.0-7.7); Basophil# 0.06 X10^3/uL; Basophil% 0.7 % (0-1); Eosinophil# 0.28 X10^3/uL; Eosinophils% 3.2 % (0-5); Hematocrit 44.1 % (37-47); Lymphocyte # 0.95 X10^3/ul (0.83-4.51); Lymphocyte % 10.7 % (19-41); Mean Corp Hgb Conc 31.7 g/dL (32-36); Mean Platelet Vol. 9.3 fl (6.2-12.0); Monocyte# 0.64 X10^3/uL; Monocyte% 7.2 % (0-10); NRBC Flagged by Analyzer 0 % (0-5); Neutrophil # 6.81 X10^3/uL (2.7-7.7); Neutrophil % 77.1 % (47-70); Platelet Count 248 K/mm3 (150-450); RBC Distribution Width CV 14.7 % (11.6-14.6); RBC Distribution Width SD 53.2 fl (35.1-43.9); Red Blood Count 4.24 M/mm3 (4.2-5.4); White Blood Count 8.8 K/mm3 (4.4-11.0)
[2022-10-04 06:55] LABS: Bedside Glucose 142 mg/dL (74-106)
[2022-10-04 07:32] LABS: Anion Gap 6 (5-15); BUN 26 mg/dL (7-18); BUN/Creat Ratio 27.9 RATIO (10-20); Calcium,Total 8.6 mg/dL (8.5-10.1); Chloride 109 mmol/L (98-107); Creatinine, Serum 0.93 mg/dL (0.55-1.02); EST Glomerular Filtration Rate 61 mL/min (>60); Est Glom Filt Rate - Afr Amer 73 mL/min (>60); Glucose 126 mg/dL (74-106); Potassium 3.9 mmol/L (3.5-5.1); Sodium Level 141 mmol/L (136-145)
[2022-10-04] MEDS: Ensure Plus High Protein 120 ML LIQUID PO ×4 (08:34→22:03)
[2022-10-04] MEDS: DULoxetine Hcl 30 MG Capsule PO (08:34)
[2022-10-04] MEDS: Cephalexin 500 MG Capsule PO ×2 (08:34→22:04)
[2022-10-04] MEDS: Furosemide 40 MG Tablet PO (08:34)
[2022-10-04] MEDS: Acetaminophen 325 MG Tablet 650 MG PO (08:34)
[2022-10-04] MEDS: Losartan Potassium 25 MG Tablet PO (08:34)
[2022-10-04] MEDS: oxyCODONE 5 MG Tablet PO (08:34)
[2022-10-04] MEDS: Aspirin E.C. 81 MG Tablet PO (08:34)
[2022-10-04 08:47] LABS: Vitamin B12 433 pg/mL (211-911)
[2022-10-04] MEDS: Insulin Lispro 100 UNIT/ML INSULN.PEN SC ×2 (11:38→22:07)
--- NOTE | 2022-10-04 11:40 | CASEMGMT ---
CINDY received COVID information from [place]. CINDY then forwarded this to [facility] [employer]. 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
[2022-10-04 13:05] LABS: Bedside Glucose 252 mg/dL (74-106)
--- NOTE | 2022-10-04 17:43 | PCM.PN.HOSP ---
Subjective Subjective Feels she is doing fairly well today. Pain roughly the same, no other complaints today Objective Data Objective Data Vital Signs: Vital Signs Temp Pulse Resp BP Pulse Ox O2 Del Method O2 Flow Rate 97.3 F L 67 16 98/52 L 97 Nasal Cannula 2 10/04/22 15:30 10/04/22 15:30 10/04/22 15:30 10/04/22 15:30 10/04/22 15:30 10/04/22 15:30 10/04/22 15:30 Oxygen Flow Rate (L/min) 2 Oxygen Delivery Method Nasal Cannula Weight: 68.5 kg Body Mass Index (BMI) 27.4 Intake & Output: Intake and Output for Last 24 Hours 10/02/22 10/03/22 10/04/22 23:59 23:59 23:59 Intake Total 1690 / 1810 2883.75 / 2883.75 600 / 600 Output Total 900 / 900 800 / 800 1075 / 1075 Balance 790 / 910 2083.75 / 2083.75 -475 / -475 Lab / Micro Data Result Diagrams: 10/04/22 06:12 10/04/22 06:12 Labs: Laboratory Results - last 24 hr 10/03/22 20:36: POC Glucose 131 H 10/04/22 05:53: POC Glucose 142 H 10/04/22 06:12: WBC 8.8, RBC 4.24, Hgb 14.0, Hct 44.1, MCV 104.0 H, MCH 33.0 H, MCHC 31.7 L, RDW Std Deviation 53.2 H, RDW Coeff of Margaret 14.7 H, Plt Count 248, MPV 9.3, Immature Gran % (Auto) 1.100 H, Neut % (Auto) 77.1 H, Lymph % (Auto) 10.7 L, [place] % (Auto) 7.2, Eos % (Auto) 3.2, Baso % (Auto) 0.7, Absolute Neuts (auto) 6.8, Absolute Lymphs (auto) 0.95, Nucleated RBC % 0 10/04/22 06:12: Sodium 141, Potassium 3.9, Chloride 109 H, Carbon Dioxide 26.0, Anion Gap 6, BUN 26 H, Creatinine 0.93, Estim Creat Clear Calc 37.50, Est GFR (MDRD) Af Amer 73, Est GFR (MDRD) Non-Af 61, BUN/Creatinine Ratio 27.9 H, Glucose 126 H, Calcium 8.6 10/04/22 06:12: Vitamin B12 433 10/04/22 11:34: POC Glucose 252 H Micro: Microbiology 10/01/22 04:30 Urine Catheter - [facility] Urine Culture - Final Escherichia coli Rhythm Strip Rhythm Strip: A-fib Ectopy: PAC(s) Physical Exam Const alert Constitutional Narrative: No apparent distress HEENT normocephalic HEENT Narrative: Bruising under left eye Eyes Eyes Narrative: EOM grossly intact, anicteric Neck supple Resp normal respiratory effort and clear to auscultation bilaterally Cardio regular rate and regular rhythm GI soft to palpation, non-tender and non-distended Extremity Extremity Narrative: No edema appreciated Neuro Neuro Narrative: No overt focal deficits appreciated, left arm in sling, resting comfortably Psych Psych Narrative: Cooperative Assessment & Plan Assessment/Plan (1) Periprosthetic intertrochanteric fracture of femur: PLAN: Plan 1. Periprosthetic intratrochanteric fracture of the femur ?Conservative therapy per orthopedic with plan for outpatient follow-up Will plan to DC to SNF #2 fracture of the proximal end of the left humerus-sling will be maintained, nonweightbearing left upper extremity. #3 severe pulmonary hypertension-complicates care, management, recovery, and prognosis #4 severe valvular heart disease with mitral regurg and tricuspid regurg-complicates care, management, recovery, and prognosis #5 troponin elevation-etiology unknown at this time, I do not feel the patient has had a non-STEMI #6 chronic diastolic congestive heart failure-I do not believe the patient has acute diastolic heart failure at this time, patient will remain on her current medications #7 dementia-complicates care, management, recovery, and prognosis, pleasantly demented today. Per report has improved after being treated with the Keflex for cystitis Charges/Coding Visit Charges Inpatient E&M: 66251 Subs Hosp L2
[2022-10-04 17:51] LABS: Bedside Glucose 134 mg/dL (74-106)
[2022-10-04] MEDS: Divalproex Sodium 125 MG SPRINKLE PO (22:04)
[2022-10-04 23:36] LABS: Bedside Glucose 174 mg/dL (74-106)
[2022-10-05] VITALS (9 sets, daily range): BP systolic 100–116; BP diastolic 67–73; PULSE 66–92; RESP 16–18; TEMP 36.2–37.2; O2SAT 2–96
[2022-10-05] MEDS: Gabapentin 100 MG Capsule PO (05:55)
[2022-10-05] MEDS: Insulin Lispro 100 UNIT/ML INSULN.PEN SC ×2 (06:24→10:59)
[2022-10-05 06:45] LABS: Bedside Glucose 163 mg/dL (74-106)
[2022-10-05] MEDS: Ensure Plus High Protein 120 ML LIQUID PO (08:53)
[2022-10-05] MEDS: Losartan Potassium 25 MG Tablet PO (08:54)
[2022-10-05] MEDS: Aspirin E.C. 81 MG Tablet PO (08:54)
[2022-10-05] MEDS: Cephalexin 500 MG Capsule PO (08:54)
[2022-10-05] MEDS: DULoxetine Hcl 30 MG Capsule PO (08:54)
[2022-10-05] MEDS: Furosemide 40 MG Tablet PO (08:54)
--- NOTE | 2022-10-05 10:01 | TREXTCAR_ITS ---
Diet Diet Order/Speech Therapy: 10/04/22 11:20 Diet: Sodium Restricted (MOD) Food consistency:: Regular Liquid Consistency:: Regular/Thin Is pt able to select menu?: No Routine Orders/Code Status Suppository Type: Dulcolax 10mg Suppository Frequency: Daily PRN O2 Frequency: PRN Keep PO Greater than or Equal to (%): 92 Code Status: DNRCC-A Wound(s) L upper cheek: Wound Type: Abrasion B/L LE: Wound Type: numerous small scabs Therapies Weight Bearing: Non weight bearing Problem/Diagnosis (1) Periprosthetic intertrochanteric fracture of femur: Status: Acute Code(s): M97.8XXA - Periprosthetic fracture around other internal prosthetic joint, initial encounter; Z96.649 - Presence of unspecified artificial hip joint Plan 1. Periprosthetic intratrochanteric fracture of the femur #2 fracture of the proximal end of the left humerus #3 severe pulmonary hypertension #4 severe valvular heart disease with mitral regurg and tricuspid regurg #5 troponin elevation #6 chronic diastolic congestive heart failure #7 dementia The patient is an 87 y/o F w/ PMHx: Valvular Heart Disease, Aortic Root Dilation, PAF, Chronic venous stasis disease, Diastolic CHF, Hx Meningioma, Hx SAH status post prior craniotomy, Diabetes mellitus type II, Anxiety and Depre ssion, HTN, HLD who presents to the [facility] ED on 09/30/22 with left leg pain. She had a fall and was seen at to [facility] for her shoulder and was discharged home with [place] for pain. Did not have another fall but has had pain on walking with her left leg. Had an outpatient x-ray done which showed fractured femur which appeared to be a buckle fracture in the subtrochanteric region. She also had mild dip in O2 on room air but did not complain of shortness of breath. BNP was elevated at 1610 and high-sensitivity troponin was 97. D-dimer elevated but CTA did not show any PEs or dissection but there was a left pleural effusion with no evidence of infiltrate. Orthopedic surgery consulted and due to her elevated troponin and possible need for intervention cardiology consulted as well. Orthopedic surgery opted for conservative treatment rather than surgery. She had an echo during her admission which showed severe pulmonary hypertension and severe mitral valve insufficiency and severe tricuspid valve insufficiency. Cardiology recommended referral to the structural heart clinic for evaluation as an outpatient and felt that her chronic diastolic congestive heart failure was compensated. It was not felt that the troponin elevation was an NSTEMI. She was cleared for transfer to SNF. On day of discharge she reported no pain when lying still in mild pain when moving, had no other complaints. Did have good O2 sat at when awake, when sleeping with oxygen off roughly 89%. May need O2 at night pending progress. Instructions as below: ?Sling, nonweightbearing left upper extremity. Plan to initiate motion 3 weeks following injury at the discretion of orthopedic surgery ? Please follow-up with Dr. Nam with orthopedic surgery in 1 to 2 weeks as an outpatient for follow-up x-rays of both injuries. Please call upon transfer to schedule this follow-up appointment ?You were found to have a urinary tract infection while admitted and you are placed on Keflex, an antibiotic, which she will need to take 500 mg twice daily for a total of 7 days which will be through 10/09. ? You will need referral to the structural heart clinic for evaluation for your severe mitral and tricuspid regurgitation, this can be done as an outpatient. ?Your oxygen saturation when awake during the day was fair, when sleeping does dip down slightly, this may need further outpatient evaluation or treatment ? Recommend daily weights given heart failure and being on Lasix 40 mg twice daily ?You are also started on losartan a blood pressure medicine during this admission, please take this daily ?That you have atrial fibrillation you are not discharged on anticoagulation due to a high fall risk. ? Would recommend discontinuing hydroxyzine as needed for anxiety due to possibility of increased confusion and delirium ?Urine minimum pain medication requirement during admission, can take Tylenol as needed, if working with therapy and pain escalates can be reevaluated by supervising physician -Please call your primary care provider's office upon discharge to schedule a hospital follow up within 1 week. -For any concerning signs or symptoms please call 911 or proceed to the nearest emergency department Allergies/Procedures Done in Hospital Allergies house dust Allergy (Intermediate, Verified 09/30/22 11:26) NEEDS FOLLOW-UP pt allergic to environmental allergens Penicillins Allergy (Verified 09/30/22 11:26) PT UNSURE OF REACTION atorvastatin [From Lipitor] Adverse Reaction (Verified 09/30/22 11:26) PT UNSURE OF REACTION cabbage Adverse Reaction (Verified 09/30/22 11:26) Diarrhea celecoxib [From Celebrex] Adverse Reaction (Verified 09/30/22 11:26) PT UNSURE OF REACTION esomeprazole [From Nexium] Adverse Reaction (Verified 09/30/22 11:26) PT UNSURE OF REACTION metformin Adverse Reaction (Verified 09/30/22 11:26) PT UNSURE OF REACTION tomato Adverse Reaction (Verified 09/30/22 11:26) Diarrhea tree nut Adverse Reaction (Verified 09/30/22 11:26) Diarrhea Procedures: 2-D Echocardiogram Type of Care/Length of Stay Estimated LOS: More Than 30 Days Type of Care Needed: Skilled Rehab Potential: Fair Prognosis: Fair Additional Orders/Day of Discharge Day of Discharge: 10/05/22 Dietary and Speech Recommendations Dietitian Recommendations/Changes: Will liberalize diet to sodium-restricted; fluid restriction as needed. Restrict carbohydrates as needed if PO improves/blood glucoses high. Will increase 4 oz ensure plus high protein from 3 to 4 times per day w/ medpass. Discharge Plan Admission Admit Date/Time: 09/30/22 15:38 Primary Reason for Your Visit: Leg pain Attending Provider: Priyanka Sweeney Primary Care Provider: Alma Delia Edouard Consulting Providers: Esmer Mercado ; Fred Nam ; Ayah Lawton ; Trevor Neumann Instructions Patient Instructions: Exercises to Prevent Falls, ED Mechanical Fall Additional Instructions / Restrictions: *DISCHARGE INSTRUCTIONS* ?Sling, nonweightbearing left upper extremity. Plan to initiate motion 3 weeks following injury at the discretion of orthopedic surgery ? Please follow-up with Dr. Nam with orthopedic surgery in 1 to 2 weeks as an outpatient for follow-up x-rays of both injuries. Please call upon transfer to schedule this follow-up appointment ?You were found to have a urinary tract infection while admitted and you are placed on Keflex, an antibiotic, which she will need to take 500 mg twice daily for a total of 7 days which will be through 10/09. ? You will need referral to the structural heart clinic for evaluation for your severe mitral and tricuspid regurgitation, this can be done as an outpatient. ?Your oxygen saturation when awake during the day was fair, when sleeping does dip down slightly, this may need further outpatient evaluation or treatment ? Recommend daily weights given heart failure and being on Lasix 40 mg twice daily ?You are also started on losartan a blood pressure medicine during this admission, please take this daily ?That you have atrial fibrillation you are not discharged on anticoagulation due to a high fall risk. ? Would recommend discontinuing hydroxyzine as needed for anxiety due to possibility of increased confusion and delirium ?Urine minimum pain medication requirement during admission, can take Tylenol as needed, if working with therapy and pain escalates can be reevaluated by supervising physician -Please call your primary care provider's office upon discharge to schedule a hospital follow up within 1 week. -For any concerning signs or symptoms please call 911 or proceed to the nearest emergency department Discharge Orders/Prescriptions Prescriptions: New cephalexin 500 mg Capsule 500 mg PO Q12 4 Days Qty: 0 0RF losartan 25 mg Tablet 25 mg PO DAILY 30 Days Qty: 0 0RF Continued acetaminophen [Tylenol Extra Strength] 500 mg Tablet 1,000 mg PO BID PRN (Reason: Pain) gabapentin 100 mg capsule 100 mg PO TID aspirin 81 mg Tablet,Delayed Release (Dr/Ec) 81 mg PO DAILY@0800 Qty: 30 2RF furosemide [Lasix] 40 mg tablet 40 mg PO BID Qty: 60 2RF multivitamin Tablet 1 tab PO DAILY alum-mag hydroxide-simeth [Silvana-Lanta] 200-200-20 mg/5 mL Suspension 5 ml PO Q3H PRN (Reason: Gastrointestinal Spasms Or Cramping) duloxetine 30 mg Capsule, Delayed Rel Sprinkle 30 mg PO DAILY divalproex 125 mg capsule, delayed rel sprinkle 125 mg PO QHS Discontinued hydroxyzine pamoate 25 mg capsule 25 mg PO BID PRN (Reason: Anxiety) Referrals / Follow Up: Structural, Heart Clinic [Other] - See Referral Note (Will need referral to the Structural Heart Clinic upon discharge for mitral and tricuspid valve evaluation) Alma Delia Edouard MD [Primary Care Provider] - Within 1 Week Fred Nam DO [Med Staff - Active Staff] - Within 2 Weeks Disposition Disposition (needs filled in before D/C Order can be placed): [facility]
--- NOTE | 2022-10-05 10:11 | CASEMGMT ---
Patient was approved to go to [facility]. CINDY let [facility] know patient will be coming today. Toña Long CORPORATE WELLNESS COORDINATOR ROYAL
--- NOTE | 2022-10-05 10:23 | PCM.DC.SUM ---
Providers Date of Admission: 09/30/22 Date of Discharge: 10/05/22 Primary Care Physician: Dr. Alma Delia Edouard MD Consultations 09/30/22 19:46 Consult: Cardiology Routine Consulting Provider: Esmer Mercado Reason for Consult: Cardiac clearance, fall w/ hip fracture. EMERGENT Consult: No MD Notified: Yes Date Notified: 09/30/22 Time Notified: 15:42 Method of Notification: Text Consult: Orthopedics Routine Consulting Provider: Fred Nam Reason for Consult: Fall, hip fracture EMERGENT Consult: No MD Notified: Yes Date Notified: 09/30/22 Time Notified: 15:44 Method of Notification: ED Physician Initiated Reason For Visit: HIP FX, FALL, ELEVATED TROP, MILD CHF EXAC Diagnosis Discharge Diagnosis (1) Periprosthetic intertrochanteric fracture of femur: Status: Acute Code(s): M97.8XXA - Periprosthetic fracture around other internal prosthetic joint, initial encounter; Z96.649 - Presence of unspecified artificial hip joint Plan 1. Periprosthetic intratrochanteric fracture of the femur #2 fracture of the proximal end of the left humerus #3 severe pulmonary hypertension #4 severe valvular heart disease with mitral regurg and tricuspid regurg #5 troponin elevation #6 chronic diastolic congestive heart failure #7 dementia Medications at Discharge Home Medications acetaminophen 500 mg tablet (Tylenol Extra Strength) 1,000 mg PO BID PRN Pain 04/01/21 gabapentin 100 mg capsule 100 mg PO TID NERVE PAIN 04/01/21 aspirin 81 mg tablet,delayed release 81 mg PO DAILY@0800 #30 tabs 07/09/21 furosemide 40 mg tablet (Lasix) 40 mg PO BID #60 tabs 07/09/21 aluminum-mag hydroxide-simethicone 200 mg-200 mg-20 mg/5 mL oral susp (Silvana-Lanta) 5 ml PO Q3H PRN Gastrointestinal Spasms Or Cramping 03/08/22 duloxetine 30 mg capsule,delayed release sprinkle 30 mg PO DAILY 03/08/22 multivitamin 1 tab PO DAILY 03/08/22 divalproex 125 mg capsule,delayed release sprinkle 125 mg PO QHS 09/30/22 cephalexin 500 mg capsule 500 mg PO Q12 4 days #0 caps 10/05/22 losartan 25 mg tablet 25 mg PO DAILY 30 days #0 tabs 10/05/22 Hospital Course Procedures 2-D Echocardiogram Summary of Care Provided Minutes Spent on Discharge: 32 Hospital Course: The patient is an 87 y/o F w/ PMHx: Valvular Heart Disease, Aortic Root Dilation, PAF, Chronic venous stasis disease, Diastolic CHF, Hx Meningioma, Hx SAH status post prior craniotomy, Diabetes mellitus type II, Anxiety and Depression, HTN, HLD who presents to the [facility] ED on 09/30/22 with left leg pain. She had a fall and was seen at to [facility] for her shoulder and was discharged home with [place] for pain. Did not have another fall but has had pain on walking with her left leg. Had an outpatient x-ray done which showed fractured femur which appeared to be a buckle fracture in the subtrochanteric region. She also had mild dip in O2 on room air but did not complain of shortness of breath. BNP was elevated at 1610 and high-sensitivity troponin was 97. D-dimer elevated but CTA did not show any PEs or dissection but there was a left pleural effusion with no evidence of infiltrate. Orthopedic surgery consulted and due to her elevated troponin and possible need for intervention cardiology consulted as well. Orthopedic surgery opted for conservative treatment rather than surgery. She had an echo during her admission which showed severe pulmonary hypertension and severe mitral valve insufficiency and severe tricuspid valve insufficiency. Cardiology recommended referral to the structural heart clinic for evaluation as an outpatient and felt that her chronic diastolic congestive heart failure was compensated. It was not felt that the troponin elevation was an NSTEMI. She was cleared for transfer to SNF. On day of discharge she reported no pain when lying still in mild pain when moving, had no other complaints. Did have good O2 sat at when awake, when sleeping with oxygen off roughly 89%. May need O2 at night pending progress. Instructions as below: ?Sling, nonweightbearing left upper extremity. Plan to initiate motion 3 weeks following injury at the discretion of orthopedic surgery ? Please follow-up with Dr. Nam with orthopedic surgery in 1 to 2 weeks as an outpatient for follow-up x-rays of both injuries. Please call upon transfer to schedule this follow-up appointment ?You were found to have a urinary tract infection while admitted and you are placed on Keflex, an antibiotic, which she will need to take 500 mg twice daily for a total of 7 days which will be through 10/09. ? You will need referral to the structural heart clinic for evaluation for your severe mitral and tricuspid regurgitation, this can be done as an outpatient. ?Your oxygen saturation when awake during the day was fair, when sleeping does dip down slightly, this may need further outpatient evaluation or treatment ? Recommend daily weights given heart failure and being on Lasix 40 mg twice daily ?You are also started on losartan a blood pressure medicine during this admission, please take this daily ?That you have atrial fibrillation you are not discharged on anticoagulation due to a high fall risk. ? Would recommend discontinuing hydroxyzine as needed for anxiety due to possibility of increased confusion and delirium ?Urine minimum pain medication requirement during admission, can take Tylenol as needed, if working with therapy and pain escalates can be reevaluated by supervising physician -Please call your primary care provider's office upon discharge to schedule a hospital follow up within 1 week. -For any concerning signs or symptoms please call 911 or proceed to the nearest emergency department Physical Exam Const alert Constitutional Narrative: No apparent distress HEENT normocephalic HEENT Narrative: Bruising under left eye Eyes Eyes Narrative: EOM grossly intact, anicteric Neck supple Resp normal respiratory effort and clear to auscultation bilaterally Cardio regular rate and regular rhythm GI soft to palpation, non-tender and non-distended Extremity Extremity Narrative: No edema appreciated Neuro Neuro Narrative: No overt focal deficits appreciated, left arm in sling, resting comfortably Psych Psych Narrative: Cooperative Weight / BMI Weight Weight: 69.8 kg Body Mass Index (BMI) 27.4 ABG / Lab / Microbiology Data Result Diagrams: 10/04/22 06:12 10/04/22 06:12 Laboratory: Laboratory Results - last 24 hr 10/04/22 11:34: POC Glucose 252 H 10/04/22 17:12: POC Glucose 134 H 10/04/22 22:06: POC Glucose 174 H 10/05/22 06:22: POC Glucose 163 H Microbiology: Microbiology 10/01/22 04:30 Urine Catheter - [place] Urine Culture - Final Escherichia coli Meaningful Use Info Meaningful Use Diagnoses (Choose all that apply): None applicable Discharge Plan Admission Admit Date/Time: 09/30/22 15:38 Primary Reason for Your Visit: Leg pain Attending Provider: Priyanka Sweeney Primary Care Provider: Jolliff,Alma Delia S Consulting Providers: Esmer Mercado ; Fred Nam ; Ayah Lawton ; Trevor Neumann Instructions Patient Instructions: Exercises to Prevent Falls, ED Mechanical Fall Additional Instructions / Restrictions: *DISCHARGE INSTRUCTIONS* ?Sling, nonweightbearing left upper extremity. Plan to initiate motion 3 weeks following injury at the discretion of orthopedic surgery ? Please follow-up with Dr. Nam with orthopedic surgery in 1 to 2 weeks as an outpatient for follow-up x-rays of both injuries. Please call upon transfer to schedule this follow-up appointment ?You were found to have a urinary tract infection while admitted and you are placed on Keflex, an antibiotic, which she will need to take 500 mg twice daily for a total of 7 days which will be through 10/09. ? You will need referral to the structural heart clinic for evaluation for your severe mitral and tricuspid regurgitation, this can be done as an outpatient. ?Your oxygen saturation when awake during the day was fair, when sleeping does dip down slightly, this may need further outpatient evaluation or treatment ? Recommend daily weights given heart failure and being on Lasix 40 mg twice daily ?You are also started on losartan a blood pressure medicine during this admission, please take this daily ?That you have atrial fibrillation you are not discharged on anticoagulation due to a high fall risk. ? Would recommend discontinuing hydroxyzine as needed for anxiety due to possibility of increased confusion and delirium ?Urine minimum pain medication requirement during admission, can take Tylenol as needed, if working with therapy and pain escalates can be reevaluated by supervising physician -Please call your primary care provider's office upon discharge to schedule a hospital follow up within 1 week. -For any concerning signs or symptoms please call 911 or proceed to the nearest emergency department Discharge Orders/Prescriptions Prescriptions: New cephalexin 500 mg Capsule 500 mg PO Q12 4 Days Qty: 0 0RF losartan 25 mg Tablet 25 mg PO DAILY 30 Days Qty: 0 0RF Continued acetaminophen [Tylenol Extra Strength] 500 mg Tablet 1,000 mg PO BID PRN (Reason: Pain) gabapentin 100 mg capsule 100 mg PO TID aspirin 81 mg Tablet,Delayed Release (Dr/Ec) 81 mg PO DAILY@0800 Qty: 30 2RF furosemide [Lasix] 40 mg tablet 40 mg PO BID Qty: 60 2RF multivitamin Tablet 1 tab PO DAILY alum-mag hydroxide-simeth [Silvana-Lanta] 200-200-20 mg/5 mL Suspension 5 ml PO Q3H PRN (Reason: Gastrointestinal Spasms Or Cramping) duloxetine 30 mg Capsule, Delayed Rel Sprinkle 30 mg PO DAILY divalproex 125 mg capsule, delayed rel sprinkle 125 mg PO QHS Discontinued hydroxyzine pamoate 25 mg capsule 25 mg PO BID PRN (Reason: Anxiety) Referrals / Follow Up: Structural, Heart Clinic [Other] - See Referral Note (Will need referral to the Structural Heart Clinic upon discharge for mitral and tricuspid valve evaluation) Alma Delia Edouard MD [Primary Care Provider] - Within 1 Week Fred Nam DO [Med Staff - Active Staff] - Within 2 Weeks Disposition Disposition (needs filled in before D/C Order can be placed): [facility] Facility Charges/Coding Visit Charges Inpatient E&M: 68963 Disch Hosp
--- NOTE | 2022-10-05 10:30 | PHA.DC.MR ---
Pharmacy Service has performed discharge medication reconciliation for this patient. The patient's discharge medication list was reviewed for discrepancies and discrepancies were resolved. Home Medications acetaminophen 500 mg tablet (Tylenol Extra Strength) 1,000 mg PO BID PRN Pain 04/01/21 gabapentin 100 mg capsule 100 mg PO TID NERVE PAIN 04/01/21 aspirin 81 mg tablet,delayed release 81 mg PO DAILY@0800 #30 tabs 07/09/21 furosemide 40 mg tablet (Lasix) 40 mg PO BID #60 tabs 07/09/21 aluminum-mag hydroxide-simethicone 200 mg-200 mg-20 mg/5 mL oral susp (Silvana-Lanta) 5 ml PO Q3H PRN Gastrointestinal Spasms Or Cramping 03/08/22 duloxetine 30 mg capsule,delayed release sprinkle 30 mg PO DAILY 03/08/22 multivitamin 1 tab PO DAILY 03/08/22 divalproex 125 mg capsule,delayed release sprinkle 125 mg PO QHS 09/30/22 cephalexin 500 mg capsule 500 mg PO Q12 4 days #0 caps 10/05/22 losartan 25 mg tablet 25 mg PO DAILY 30 days #0 tabs 10/05/22
--- NOTE | 2022-10-05 11:10 | CASEMGMT ---
Discharge Acquisitions Librarian D/c orders sent to [facility] via [facility]. This song writer called [facility] with a black pickler time of 1:00pm. Nursing staff made aware. Sydnee LOCO Client Project Coordinator
[2022-10-05 11:20] LABS: Bedside Glucose 246 mg/dL (74-106)
--- NOTE | 2022-10-05 11:25 | CASEMGMT ---
7000 was completed in [employer] system. Nikole d/c planning specialist arranged discharge. Plan: d/c to [facility] under skilled level of care on a convalescent stay. [facility] will transport via cot. Toña PAIGE
--- NOTE | 2022-10-05 12:44 | NURSING ---
This RN called and gave report to DREA Carrera at [facility]
== END 2022-10-05 13:20 | DRG 536 ==
LOC: ED 16:13 → MS3 16:54 → PCU 17:29
PROVIDERS: Internal Medicine; Internal Medicine Cardiovascular Disease; Admitting Provider Family Medicine; Emergency Provider Student in an Organized Health Care Education/Training Program; PCP Family Medicine; Visit Provider Internal Medicine
DX: S72.102A Unspecified trochanteric fracture of left femur, initial encounter for closed fracture (principal); M97.02XA Periprosthetic fracture around internal prosthetic left hip joint, initial encounter; I50.32 Chronic diastolic (congestive) heart failure; S42.202A Unspecified fracture of upper end of left humerus, initial encounter for closed fracture; I27.20 Pulmonary hypertension, unspecified; F03.90 Unspecified dementia, unspecified severity, without behavioral disturbance, psychotic disturbance, mood disturbance, and anxiety; I11.0 Hypertensive heart disease with heart failure; I48.0 Paroxysmal atrial fibrillation; E11.9 Type 2 diabetes mellitus without complications; E78.5 Hyperlipidemia, unspecified; I08.3 Combined rheumatic disorders of mitral, aortic and tricuspid valves; F41.9 Anxiety disorder, unspecified; W19.XXXA Unspecified fall, initial encounter; Z82.3 Family history of stroke; Z79.82 Long term (current) use of aspirin; Z66 Do not resuscitate; R77.8 Other specified abnormalities of plasma proteins; Z51.5 Encounter for palliative care
CPT/HCPCS: 36415; 71045; 71275; 72100; 73552; 73700; 80048; 80053; 80061; 81001; 82306; 82607; 82962; 83036; 83735; 83880; 84443; 84484; 85025; 85379; 87077; 87086; 87088; 87186; 87426; 93005; 93306; 97110; 97163; 97166; 97530; 97535; 97802; 99285; J7030; Q9957; Q9967; A4216; J1940